=== PATIENT | female | born 1960 | race Caucasian/White ===

== ENCOUNTER → 2020-08-26 08:52 | Outpatient (BNVA) | payer OTHER, MEDICAID, SELFPAY | PROVIDERS: PCP Pediatrics; Visit Provider Hospitalist | DX: Z76.89 Persons encountering health services in other specified circumstances (principal) ==

== ENCOUNTER → 2020-10-31 08:33 | Outpatient (BNVA) | payer OTHER, MEDICAID, SELFPAY | PROVIDERS: PCP Pediatrics; Visit Provider Hospitalist ==

== ENCOUNTER → 2021-01-29 08:30 | Outpatient (BNVA) | payer OTHER, MEDICAID, SELFPAY | PROVIDERS: PCP Pediatrics; Visit Provider Hospitalist ==

== ENCOUNTER → 2021-02-27 14:53 | Outpatient (BNVA) | payer OTHER, MEDICAID, SELFPAY | PROVIDERS: PCP Pediatrics; Visit Provider Hospitalist ==

== ENCOUNTER → 2021-03-12 09:44 | Outpatient (BNVA) | payer OTHER, MEDICAID, SELFPAY | PROVIDERS: PCP Pediatrics; Visit Provider Hospitalist ==

== ENCOUNTER 2021-04-03 09:21 | Day surgery (SDC) | payer OTHER, MEDICAID, SELFPAY ==
[2021-04-03] VITALS (7 sets, daily range): BP systolic 90–106; BP diastolic 45–54; PULSE 77–86; RESP 18; TEMP 36.3–36.5; O2SAT 94–100; BMI 27.3
--- NOTE | 2021-04-03 10:21 | HO.ANESPROP2 ---
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, pulmonary Pacemaker Family History Family History Other Hypertension Surgical History Surgical History H/O right mastectomy H/O splenectomy H/O: hysterectomy History of cholecystectomy Social History Social History Patient Tobacco Use Status: Former Tobacco user Use of substances other than those prescribed or required for medical reasons: No Are you DNR?: No Advance Directives: No Advance Directives Information Provided: Yes Meds Allergies Allergy/AdvReac Type Severity Reaction Status Date / Time clarithromycin Allergy Intermediate RASH Verified 04/03/21 09:33 [CLARITHROMYCIN] codeine [CODEINE] Allergy Intermediate STOMACH Verified 04/03/21 09:33 PAIN- GI UPSET naproxen [NAPROXEN] Allergy Intermediate GI PAIN, Verified 04/03/21 09:33 DIARRHEA Sulfa (Sulfonamide Allergy Intermediate RASH Verified 04/03/21 09:33 Antibiotics) [SULFA (SULFONAMIDE ANTIBIOTICS)] sulfamethoxazole Allergy Intermediate RASH Verified 04/03/21 09:33 [From BACTRIM] trimethoprim [From BACTRIM] Allergy Intermediate RASH Verified 04/03/21 09:33 Home Medications Medication Instructions Recorded Confirmed Last Taken Type bisoprolol fumarate 5 mg tablet 15 mg PO Q OTHER DAY 08/26/20 03/12/21 Unknown History flu vac qs 2019(4 yr up)CD(PF) ml IM 08/26/20 03/12/21 Unknown History levothyroxine 75 mcg tablet 75 mcg PO DAILY 08/26/20 03/12/21 04/03/21 04:00 History loratadine 10 mg tablet 10 mg PO DAILY 08/26/20 03/12/21 04/03/21 06:00 History lorazepam 0.5 mg tablet 0.5 mg PO DAILY PRN 08/26/20 03/12/21 Unknown History omeprazole 20 mg capsule,delayed 20 mg PO DAILY 08/26/20 03/12/21 04/03/21 06:00 History release ondansetron HCl 4 mg tablet mg PO 08/26/20 03/12/21 Unknown History oxycodone-acetaminophen 5 mg-325 1 tab PO QID PRN 08/26/20 03/12/21 Unknown History mg tablet sodium chloride 3 % for 4 ml INHALATION BID 08/26/20 03/12/21 Unknown History nebulization polyethylene glycol 3350 17 17 g PO DAILY PRN 01/29/21 03/12/21 Unknown History gram/dose oral powder sacubitril 24 mg-valsartan 26 mg 1 tab PO BID 01/29/21 03/12/21 Unknown History tablet clotrimazole-betamethasone 1 appl TOPICAL 03/12/21 03/12/21 Unknown History %-0.05 % topical cream lorazepam 1 mg tablet mg PO 03/12/21 03/12/21 Unknown History Exam Exam Date and Time: April 03, 2021 1021 Height,Weight and Vital Signs: Height 5 ft 4 in Weight 72.121 kg Last Vital Signs Temp 97.7 F 04/03/21 09:56 Pulse 82 04/03/21 09:56 Resp 18 04/03/21 09:56 BP 106/53 L 04/03/21 09:56 Pulse Ox 98 04/03/21 09:56 Airway Mallampati Class: II TM Dist: >3cm Neck ROM: Full Loose/Missing/Broken Teeth: No Heart: RRR Lungs: CTA Assessment and Plan Assessment Anesthesia Assessment: Anesthesia Plan Discussed and Chart Reviewed Final Anesthetic Review NPO: Yes ASA Class: III Final Preanesthetic Review: Meds/Allgs Chart Reviewed, Consent Obtained/Reviewed and Anes Risks/Benef Reviewed Patient Risk: Intermediate Procedure Risk: Intermediate Anesthetic Plan Anesthetic Plan: GA Disposition: Standard PACU
[2021-04-03] MEDS: Lactated Ringers 1,000 ML 50 ML IVCONT (10:48)
--- NOTE | 2021-04-03 11:05 | MHC.SHP ---
Pre-Procedural Eval Section A Date of Service: 04/03/21 Section B Chief Complaint: bronchitasis Allergies: Allergies Allergy/AdvReac Type Severity Reaction Status Date / Time clarithromycin Allergy Intermediate RASH Verified 04/03/21 09:33 [CLARITHROMYCIN] codeine [CODEINE] Allergy Intermediate STOMACH Verified 04/03/21 09:33 PAIN- GI UPSET naproxen [NAPROXEN] Allergy Intermediate GI PAIN, Verified 04/03/21 09:33 DIARRHEA Sulfa (Sulfonamide Allergy Intermediate RASH Verified 04/03/21 09:33 Antibiotics) [SULFA (SULFONAMIDE ANTIBIOTICS)] sulfamethoxazole Allergy Intermediate RASH Verified 04/03/21 09:33 [From BACTRIM] trimethoprim [From BACTRIM] Allergy Intermediate RASH Verified 04/03/21 09:33 Plan I have reviewed the history and physical and performed a pertinent physical examination on my patient. No changes have occurred unless specified.
--- NOTE | 2021-04-03 12:37 | P.BOP_ITS ---
Brief Operative Note Date of Service: 04/03/21 Pre-op diagnosis: bronchopneumonia Post-op diagnosis: same Procedure: Surgeon: Sanju Stallings MD Anesthesia: GLMA Was an [employer] History Professor used for this Procedure?: No Estimated blood loss (mL): 0 Condition: stable Disposition: same day
--- NOTE | 2021-04-08 09:02 | OP_ITS ---
SURGEON: Sanju Stallings MD PREOPERATIVE DIAGNOSIS: Bronchopneumonia. POSTOPERATIVE DIAGNOSIS: Bronchopneumonia. PROCEDURE PERFORMED: Bronchoscopy under LMA with brushings and washings and therapeutic suctioning. ESTIMATED BLOOD LOSS: COMPLICATIONS: No complications noted. ANESTHESIA: LMA. Propofol was provided. The patient tolerated it well. ASSISTANTS: SPECIMENS: DESCRIPTION OF PROCEDURE: After the patient was adequately sedated, the flexible digital bronchoscope was inserted over the LMA to the level of the vocal cords. Vocal cords in the larynx appeared to be normal in appearance, symmetrical. After instilling lidocaine, the bronchoscope was navigated to the level of the trachea. The trachea did have a slight bit of malacia, but not significant. The patient did have purulent secretions in the central airways, moderate in amount. After instilling additional lidocaine, the bronchoscope was navigated to the entire tracheobronchial tree, that was examined to the subsegmental level. No evidence of any endobronchial lesions or masses. The patient did have chronic airway dilatation and chronic airway disease with chronic inflammation appearing airways, bronchiectatic looking airways throughout and again moderate amount of purulent secretions. The bronchoscope was navigated to the right lower lobe and a cytologic brush was introduced into that site. The bronchoscope was navigated to the left lower lobe, where a micro brush was introduced into the left lower lobe and sent to the appropriate microbiology studies. The bronchoscope was navigated to the entire tracheobronchial tree up to the subsegmental level with bronchial washings and providing therapeutic suctioning, removing all mucus from the airways. The bronchoscope was then removed. The total endoscopic time approximately 12 minutes. The patient tolerated the procedure well. Vital signs were stable throughout the procedure. INTERPRETATION: 1. Successful therapeutic suctioning of bronchoscopy. 2. Cytologic brush, right lower lobe. 3. Microscopic culture brush from the left lower lobe. 4. Bronchial washings bilaterally. Sanju Stallings MD MR/MODL / [id number]
== END 2021-04-03 13:05 | disposition home or self-care (01) ==
PROVIDERS: PCP Pediatrics; Visit Provider Hospitalist
PROC: 0BJ08ZZ Inspection of Tracheobronchial Tree, Via Natural or Artificial Opening Endoscopic (ICD-10-PCS; CPT 31622; principal; 2021-04-03 11:00)
DX: J18.0 Bronchopneumonia, unspecified organism (principal); J47.9 Bronchiectasis, uncomplicated; J45.40 Moderate persistent asthma, uncomplicated; J18.9 Pneumonia, unspecified organism; A31.0 Pulmonary mycobacterial infection; A49.8 Other bacterial infections of unspecified site; Z16.24 Resistance to multiple antibiotics; Z22.8 Carrier of other infectious diseases; I42.8 Other cardiomyopathies; C85.90 Non-Hodgkin lymphoma, unspecified, unspecified site; Z85.3 Personal history of malignant neoplasm of breast; Z92.21 Personal history of antineoplastic chemotherapy; Z92.3 Personal history of irradiation; Z87.891 Personal history of nicotine dependence; Z88.1 Allergy status to other antibiotic agents; Z88.2 Allergy status to sulfonamides; Z88.8 Allergy status to other drugs, medicaments and biological substances; Z79.899 Other long term (current) drug therapy; Z79.51 Long term (current) use of inhaled steroids
CPT/HCPCS: 31623; 31645; 87071; 87102; 87116; 87205; 88112; 88305; J0171; J1100; J2250; J2405; J3010

== ENCOUNTER → 2021-04-17 09:46 | Outpatient (BNVA) | payer OTHER, MEDICAID, SELFPAY | PROVIDERS: PCP Pediatrics; Visit Provider Hospitalist ==

== ENCOUNTER → 2021-05-14 08:20 | Outpatient (BNVA) | payer OTHER, MEDICAID, SELFPAY | PROVIDERS: PCP Pediatrics; Visit Provider Hospitalist ==

== ENCOUNTER → 2021-06-17 08:41 | Outpatient (BNVA) | payer OTHER, MEDICAID, SELFPAY | PROVIDERS: PCP Pediatrics; Visit Provider Hospitalist | DX: J18.9 Pneumonia, unspecified organism (principal) ==

== ENCOUNTER → 2021-07-09 10:46 | Outpatient (BNVA) | payer OTHER, MEDICAID, SELFPAY | PROVIDERS: PCP Pediatrics; Visit Provider Hospitalist ==

== ENCOUNTER → 2021-08-06 09:07 | Outpatient (BNVA) | payer OTHER, MEDICAID, SELFPAY | PROVIDERS: PCP Pediatrics; Visit Provider Hospitalist | DX: R91.8 Other nonspecific abnormal finding of lung field (principal) ==

== ENCOUNTER → 2021-09-17 10:13 | Outpatient (BNVA) | payer OTHER, MEDICAID, SELFPAY | PROVIDERS: PCP Pediatrics; Visit Provider Hospitalist ==

== ENCOUNTER → 2021-10-14 13:13 | Outpatient (BNVA) | payer OTHER, MEDICAID, SELFPAY | PROVIDERS: PCP Pediatrics; Visit Provider Hospitalist ==

== ENCOUNTER → 2021-12-26 11:07 | Outpatient (BNVA) | payer OTHER, MEDICAID, SELFPAY | PROVIDERS: PCP Pediatrics; Visit Provider Hospitalist | DX: Z13.89 Encounter for screening for other disorder (principal) ==

== ENCOUNTER 2023-05-05 09:20 | Outpatient (AMB) | payer OTHER, MEDICAID, SELFPAY ==
[2023-05-05 09:32] VITALS: BP 124/70; PULSE 85; O2SAT 99; BMI 26.6
--- NOTE | 2023-05-05 09:32 | MHC.OFFVIS ---
Intake Vital Signs 05/05/23 09:32 Height 5 ft 3 in Weight 150 lb 5.684 oz BMI 26.6 BP 124/70 Blood Pressure Location Lt brachial Position Sitting Pulse 85 Pulse Source Pulse Oximeter Pulse Oximetry (%) 99 Oxygen Delivery Method Room Air Intake Visit Reasons: Hospital Follow Up Senior Professional Services Consultant Required: No Allergies prochlorperazine [From Compazine] Allergy (Severe, Verified 05/05/23 09:36) Agitated clarithromycin [CLARITHROMYCIN] Allergy (Intermediate, Verified 05/05/23 09:36) RASH codeine [CODEINE] Allergy (Intermediate, Verified 05/05/23 09:36) STOMACH PAIN- GI UPSET naproxen [NAPROXEN] Allergy (Intermediate, Verified 05/05/23 09:36) GI PAIN, DIARRHEA Sulfa (Sulfonamide Antibiotics) [SULFA (SULFONAMIDE ANTIBIOTICS)] Allergy (Intermediate, Verified 05/05/23 09:36) RASH sulfamethoxazole [From BACTRIM] Allergy (Intermediate, Verified 05/05/23 09:36) RASH trimethoprim [From BACTRIM] Allergy (Intermediate, Verified 05/05/23 09:36) RASH HPI HPI Comments History of Present Illness Details The patient is a 62-year-old woman with a known history of breast cancer, 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 Also has underlying bronchiectasis and nonischemic cardiomyopathy likely related to her chemo radiation. She currently has been doing very well. Until recently when she started noticing worsening shortness of breath. She also has some hoarseness. Also some raspiness of her voice. [id number] severity. Started noticing increasing shortness of breath. Has been using her inhaler with good effect. Has not use her nebulizer although it may help her expectorate better with the nebulized therapy. We talked also using hypertonic saline as a way of minimizing medications. We did go for brief walking oximetry in the patient was able to maintain a pulse ox between 94-96%. Heart rate stayed below 100. She was increasing to get more winded. Her Liscomb score is elevated 09/26. At this point based on a daytime drowsiness her cardiac history and her elevated Liscomb score the patient will also undergo a sleep study. 03/26/2020 The patient is here for pulmonary follow-up visit. She is feeling better from the last visit we had via [facility]. She still having some cough productive in nature [id number] severity. Her breathing is back to baseline. She continues to use her respiratory therapy. We did talk about her previous cultures demonstrating different strains mycobacterial organisms. She had been working in her garden but she has been using a mask to try to minimize exposure. At this point the patient does not appear to have active disease in maybe just colonizing. If her sputum comes back again positive for the organism then we have to consider a active infection. However, because of her cardiac issues to be hard to treat her. We did talk about in that case she may need to go to [place] to a [facility]ty [facility]. She continues to have daytime drowsiness. Her Liscomb score is elevated 09/26. She has not had her sleep study as of yet. It all became slow down due to the COVID-19 infections. However, will follow-up without study in the near future once available. 06/27/2020 the patient is here for pulmonary follow-up visit. She is status post bronchoscopy. Unfortunately after the bronchoscopy she developed significant intractable nausea and vomiting. She was not able to take any of her cardiac medications. Therefore after couple days she decided to go to the ER after my recommendation. She was hydrated and she was capped for 24 hours. It was noted that she had transaminitis which could have been from anesthesia. 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 Which still waiting for her mycobacterial cultures to come back. She had had been positive in the past. Based on her significant bronchiectasis now will resistant organisms in multiple courses of antibiotics we need to increase her CPT. The patient failed Acapella. I will request a percussion vest in addition to hypertonic saline along with her Xopenex. Patient will need to be evaluated by Infectious Disease as well. She has multiple allergies and multiple contraindications due to her cardiomyopathy. In the meantime I will treated with doxycycline to treat the stenotrophomonas. 08/26/2020 the patient is here for pulmonary follow-up visit. Overall she is feeling a lot better. The chest PT with hypertonic saline and the percussion vest having very effective for her. She is also using the Xopenex with good results. Her respiratory symptoms have improved. She did stop the minocycline and went back on the doxycycline due to dizziness and other adverse effects. She is tolerating the doxycycline and is taking it once a day at this time. Will plan to treat her for prolonged period of time until I see her in a couple months. She did follow-up with Infectious Disease and currently being evaluated. Her galactomannan level was negative with which is reassuring for the Aspergillus is most likely more contaminant than anything else. No need to treat the other organisms at this time. 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 She will be very difficult to treat due to her cardiac history. If she does need any treatment for the mycobacterial disease she would need to go to [facility] mycobacterial clinic. 10/31/2020 the patient has a telephone visit. Overall the patient has been doing very well. She has been using the hypertonic saline at 3%. She has noticed that she is also using the percussion vest with good effect. Her cough significantly improved. She continues with respiratory therapy. She has a hard time getting the smaller via so the 3% hypertonic saline. Therefore will try the 7% that they do have the pharmacy. We did review her microbiology. It appeared that her micro brushes for AFB were negative but her washings could not be process. Will call [facility] in [place] to get a final results of the AFB in the mycobacterial cultures. I am reassured at this point that she is feeling better just on the doxycycline once a day. She is to continue his medicine. She did get some back pain for the percussion vest pets doing better at this time. She is only using it once a day which is okay. If she gets more congested her sick she is to increase it the use of the percussion vest. The patient will get vaccinated soon. She has multiple comorbidities including cardiomyopathy bronchiectasis and multiple recurrent pneumonia so therefore the patient is to be vaccinated an earlier time. Otherwise patient is without any other complaints. 01/29/2021 the patient has a virtual visit today. Apparently she has been sick now for about 5 days. She started having fevers and sore throat along with a cough. She did get swab for COVID-19 which was negative. Her fevers have been intermittent. Last night she did have significant sweating and she feels this was a good thing. Her cough is more congested and has more chest tightness. She did take 40 mg of prednisone yesterday. It did help her little bit. The patient has been taking the doxycycline initially once a day that she increase her to twice a day. In addition to that she had a chest x-ray demonstrating a small area of patchy consolidation in the area of the left lingular area. The patient is concerned with multiple bacteria and organisms that she has cultured throughout the the years. At this point will optimize her antibiotic coverage advanced into the doxycycline. In addition to that she will taper the prednisone. Will plan to repeat chest x-ray in around 4 weeks specially if the patient is doing okay to follow up the x-rays to resolution. If the symptoms are not not getting better with the broader antibiotics and will have to reassess. 02/27/2021 the patient is here for pulmonary follow-up visit. She completed the antibiotics. Overall she is feeling better. She took a combination of doxycycline and Vantin. Currently she is still taking doxycycline for the stenotrophomonas. She did have a repeat chest x-ray demonstrating interval resolution of the patchy consolidation consistent with a pneumonia. It is important to understand that she has significant chronic lung disease from the fibrosis in the smoldering infections therefore x-rays of very difficult to interpret her case. For for the last few days she has felt a little more congested. She has been using her percussion vest as well as her nebulized therapy with albuterol and 3% hypertonic saline. I am hoping that we can get another sputum sample if she starts getting more congested. In the meantime all increase her hypertonic saline to 7%. She will continue with the doxycycline 1 daily. We briefly spoke about the mycobacterium abscesses. The patient understands that this is very difficult medication regimen that she would require to treat this organism. Primary with her cardiac history and the limitations of medications due to QT conduction abnormalities I will recommend the patient follow-up in a mycobacterial clinic if ever comes to needing to treated. At this time she is doing okay she has had a good response to aggressive chest physical therapy. 03/12/2021 the patient is here for sick visit. Apparently she had been doing well after we last spoke. She continue to perform her CPT without any difficulties. However she had a cough that appeared to be getting worse. Subsequently 3 days ago she started developing fevers and felt tired. She started complaining of some back pain. She did go to [facility] which she had a comprehensive evaluation. Initially his chest x-ray was without any acute disease so therefore she underwent a CT scan of the chest. It demonstrated a left lower lobe airspace disease in addition to a ground-glass nodular density her right side. She also has her chronic fibrotic changes and bronchiectatic to the that have been noted before. The patient was offered to be admitted briefly. But, the patient refusing she went home on Vantin. She has been on Vantin now for couple days and she started to feel better. Denies any fevers or chills. She continues to cough but not as bad. She still feels tired. She has been complaining of nausea while taking the antibiotics. I did suggest that she can start the doxycycline while she is on Vantin to minimize the GI side effects. In the meantime the patient is scheduled to undergo an echocardiogram next week. It was noted on the CAT scan that her pulmonary trunk was elevated consistent with pulmonary hypertension. We did talk about repeating the bronchoscopy. However, clinically she is doing better she is currently getting antibiotics and we did send a sputum culture just yesterday and waiting for those results. If the patient continues to do well with follow-up with CT scan a couple months to make sure that the pneumonia clears and to make sure that the nodular density does not increasing size. If the findings are still present or if the patient continues to be symptomatic will perform a bronchoscopy. However, she has significant adverse effects and she had evidence of hepatitis and intractable vomiting during her last procedure. Therefore any procedures specially with a cardiac history with the consider high risk. 04/17/2021 the patient is here for pulmonary follow-up visit. The patient is status post bronchoscopy. 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 DNA testing negative for MTB. The patient has a history of mycobacteria abscessus. clinically the patient has been developing worsening respiratory symptoms. She has had recurrent pneumonia is on multiple courses of antibiotics. Now on ciprofloxacin. Initially she was on a higher dose of 250 mg. But, became symptomatic with GI symptoms. Therefore I was able to decrease the dose to 100 mg twice a day which seems to be better tolerated. In the meantime based on worsening symptoms in the active worsening mycobacterial disease I will request the patient started on amikacin inhaled. The patient has significant limitations to antibiotics due to her cardiomyopathy. Therefore, once we and identify the non tuberculosis mycobacterial organism we can request for antibiotic susceptibility. In the meantime the patient continues using her percussion vest. Will increase her hypertonic saline to 7% and she should use twice a day. In the meantime she is going to continue on the Cipro 100 mg p.o. twice a day hold to treat the Burkholderia. to note the patient did have a CT scan of the chest with a new pulmonary nodule that will need follow-up. The patient also had a dilated pulmonary trunk suggesting pulmonary hypertension. She will be seen by her patient assessment coordinator soon. In addition to following up with Infectious Disease at [facility]. 05/13/2021 the patient is here for pulmonary follow-up visit. The patient has been feeling better. She responded very well to the lower dose ciprofloxacin. However, her insurance is not going to cover the lower dose any further. She needs it again will try the 250 mg dose. Meantime explained to her that the use of chronic quinolones although acute be helpful treating the mycobacterial disease could result in the possibility of C diff colitis. Therefore, since the patient is feeling better will hold off on more quinolone therapy. The patient once approved for the initiation of inhaled amikacin. Explained to the patient based on her continued positive cultures with the NTM the new pulmonary nodules and recurrent pneumonias it is reasonable to start a regimen to minimize the progression this bacterial infection. Patient does have significant risk factors with her cardiomyopathy. She also has significant allergies. However, the same time inhaled amikacin should not be used by itself. I do believe that the combination of macrolide therapy and inhaled amikacin may be adequate at this time. We are waiting for the susceptibilities for the mycobacterium abscesses. However, sometimes the in vitro and vivo response to antibiotics may defer. The patient will follow-up with Dr. Claudio from [facility] Infectious Disease regarding the question of the regimen. In regards to the Burkholderia it is sensitive to the quinolones and she is better after the Cipro. At this point my recommendation is to hold off on further antibiotic therapy for it and continue with aggressive chest PT with hypertonic saline and the percussion vest. The patient does have a new pulmonary nodule the my suspicion is related to the underlying infectious process. Therefore, when she started on some antibiotic regimen then we can schedule a follow-up CT scan to see if there is any improvement of the nodular density. 06/17/2021 the patient is here for a pulmonary follow-up visit. She has been on the amikacin inhaled therapy daily in addition to the azithromycin daily. She continues with the nebulized therapy and also has been using her percussion vest. Seems like is a lot of therapy and she has tried fitted in through a full day's work. Typically does it in the evening when she gets home. Her respiratory status has been improving and she has noticed clinical improvement as well. Her cough is dry significant decreasing her mucus burden. I encouraged her to continue with therapy as it has been effective. Will plan to follow-up with the pulmonary nodules in 3 months. In the meantime she was found to have abnormal mammography and she is going to have a further diagnostic study coming up. In addition to that she will follow-up with cardiology. She is taking a macrolide that can potentially affect her QT. Therefore serial EKGs are warranted I am hopeful that at some point if her symptoms continue to be stable we can decrease the dose of the frequency of the macrolide to minimize adverse effects. 07/09/2021 the patient is here for a pulmonary follow-up visit. 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 It was noted the patient had bilateral pulmonary nodules. But, a new ground-glass the nodule on the right that was suspicious. Since that point the patient was found to have an abnormal mammogram and did require biopsy diagnosing her with recurrent breast cancer. In addition to that the patient did go to receive a booster shot for COVID-19 and developed significant fevers and shortness of breath palpitations. She went to the ER which she had a repeat CT scan of the chest demonstrating some waxing waning pulmonary nodules now more obvious on the left lower lobe and the right lower lobe nodular density appeared to have resolved. Other new nodules in the right base also been documented. Therefore, it is not clear these pulmonary nodules are related to the infectious process or there could be any concern for metastatic disease. I did personally review the CAT scans. They do not strike me like the typical cannonball type of hematogenous spreading cancer. but, we cannot rule it out completely. My suspicion at this time or infectious etiologies specially with bronchiectasis and with the worsening non tuberculosis mycobacteria infection. Back and late summer the patient did undergo bronchoscopy with brushings and washings negative for malignancy. The mycobacterial cultures were indeed positive. She has only been on therapy now for about 6 weeks and has been not enough time to see any affect from the antimicrobial therapy at this point the patient needs to undergo surgery. I did speak to the surgical teen that we opted on requesting for PET scan at this time. This would help with further diagnostic interventions and management. I will request the PET scan urgently in order not to slow down the possibility of surgery. From a pulmonary standpoint the patient has been doing very good on the amikacin and the azithromycin. More recently she started becoming more symptomatic to the azithromycin with increasing GI upset and diarrhea and she did stop it. she will continue the amikacin nebulized therapy at this time. 08/06/2021 the patient is here for pulmonary follow-up visit. Overall she is doing well from a respiratory status. We did review her PET scan demonstrating minimal FDG activity in the left lower lobe pulmonary nodules. Actually based on size they appear to be smaller in diameter when compared to the CAT scan she had in June which is reassuring. 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 The patient has been on inhaled amikacin. This has been effective for her. She had to come off the azithromycin because he was causing her to have GI discomforts. But at this point she is noticing increasing chest congestion and mucus in therefore will go ahead and start the medicine in order to optimize her for her surgery. She will start the azithromycin 3 times a week. If the patient has any worsening GI symptoms will can discuss about adjusting the dose further. But I am hopeful she can not tolerated at least 3 times a week. Her surgery is scheduled for next week she will have both the mastectomy and also Plastic surgery. Due to the type of breast cancer she will require chemotherapy. I am hopeful that based on the PET scan there is no local spread. Will follow-up in 3 months. 09/17/2021 the patient is here for a pulmonary follow-up visit. She is status post her mastectomy sentinel node biopsy. No evidence of any cancer in any of the lymph nodes which is reassuring. 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 The patient does have limitations due to her cardiac and pulmonary conditions. After surgery she was coughing more with the amikacin nebulized therapy and therefore she stopped it. She was also having GI symptoms with the azithromycin so therefore she stop that as well. More recently she started getting more episodes of coughing and congestion. Therefore I do feel strongly that she restarts the amikacin specially before chemotherapy. Patient will be starting chemotherapy tomorrow. If she is able to tolerate the amikacin the chemotherapy then she can restart the azithromycin. This is also treat the multiple organisms in her lungs specially when becoming immunocompromised with chemotherapy. I did speak to her oncologist and she does develop any fevers when he respiratory infections then it is okay to use a low-dose quinolone that she can not tolerate or a broad-spectrum cephalosporin like Vantin. The patient has not been able to use her chest percussion vest due to her postoperative discomfort in healing. I did ask her to discuss with her plastic surgeon and surgeon when he will be okay for her to start her percussion therapy safely and not affecting and of her surgical recovery. 10/14/2021 the patient is here for a pulmonary follow-up visit. The patient ultimately started chemotherapy. Unfortunately, she has had a ang[address]. She was able to received the 1st course of chemotherapy. However complicated by hypotension and then volume overload status. Ultimately she started developing worsening cough along with hemoptysis. She had to stop the azithromycin and also the amikacin. The patient went to an urgent care and was diagnosed with pneumonia. She also had a small pleural effusion resulting in some pleurisy. The patient was placed on Augmentin and also given a course of prednisone. This has been helpful. The patient has started to feel better. She is scheduled to receive her 2nd dose of chemotherapy this . The patient states that if she has any issues tolerating the chemotherapy the chemotherapy may be terminated. She will continue to follow with her oncologist regarding this issue. In the meantime I do believe that her respiratory status is better and she will be able to tolerated chemotherapy this coming if nothing else changes. We will continue holding off on the amikacin. Patient continues to work. Will keep her from working this week and I believe she should also consider not going back to work next week specially with the COVID-19 surge is still high. 12/26/2021 the patient has a telephone visit. 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 Recently she was exposed to a viral syndrome and she did developed laryngitis. She is not recovering from that. Has not really affected her respiratory system. She has been coughing does have a chronic productive cough. She did restart the amikacin recently. She understands that that can also make her voice hoarse. Also, I did encourage her to start the azithromycin. She did have a CT scan ordered which is going to have sometime the end of January. Therefore I want her to be on the mycobacterial therapy and continue her chest physical therapy in order to clear mucus prior to the CT scan. I am hopeful that the nodular density is stable or improved. The patient also will follow-up with oncology to monitor her breast cancer history. 03/30/2022 the patient is here for pulmonary follow-up visit. Since we last spoke she has been doing very well from a respiratory status. She continues use her inhalers but has not had to use any rescue medicine. She also stop the azithromycin and the amikacin nebulized solution and also has been doing well from that aspect. Her chest congestion has improved dramatically. She thinks is from the chemotherapy she received. We did review her last CT scan of the chest that was done back in June 2021 demonstrating the pulmonary nodules and subsequently had a PET scan in July 2021. Will plan to repeat the CT scan to follow up with the nodules sometime in July 2022. in the meantime she has been evaluated further for her parathyroid them have also been affected as a consequence of her radiation therapy in addition to now dealing with some left-sided extremity radicular discomfort and back discomfort currently being evaluated by her primary care doctor and will be undergoing an MRI soon. Overall, is reassuring that at least from a pulmonary standpoint she is doing well. She does have the hoarseness. She was treated with fluconazole for Xuan esophagitis without any significant improvement. I will go ahead and prescribe her nystatin swish and swallow that she can use twice a day to see if this gives her some relief. In the meantime she does have a follow-up with ENT in the coming weeks. Also to note, she was diagnosed with a new compression fracture. She has been off systemic steroids for a while now. However, she is taking Protonix twice a day. I did recommend that she back off to at least once a day and also started to reflux diet to minimize symptoms. She will be following up with Endocrinology regarding her osteoporosis in the coming weeks. 05/29/2022 the patient is here to follow-up after her abnormal PET scan. The patient has been doing well from a respiratory status. She denies any significant chest congestion or shortness of breath. She has not had to use her rescue medicine. the only respiratory issues she has been having significant hoarseness. 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 They recommended Botox which will help with her symptoms. I do believe that if this provides some relief for her she should pursue it. It is aggravating her at work specially since she has to use her voice a lot. As far as microaspiration she has been doing well from a respiratory status I do not believe that is resulting in more micro aspirations at this time. In the meantime she did follow-up with her oncologist and did undergo a repeat PET scans. It demonstrated resolution of her left lower lobe nodular densities which is reassuring. Although, now she has left upper lobe hazy nodular densities that are very mildly avid on the PET scan with an SUV of 2.4 max. The patient had been doing very well on her anti mycobacterial therapy with the azithromycin and the amikacin inhaled. However, since she was having some issues with tolerating the therapy and since she was doing well she decided to stop the therapy. 09/07/2022 the patient is here for a pulmonary follow-up visit. Overall she is doing very well from a respiratory status. She is tolerating the azithromycin 3 times a week. Recently she did get her COVID-19 booster And she ended up developing significant GI symptoms. She actually became very dehydrated and she was briefly admitted to [facility]. She was given IV fluids and she was noted to have acute renal failure. She will follow up closely with primary care regarding does abnormal laboratories. In the meantime she did undergo a CT scan of the chest that I personally reviewed which actually demonstrated interval resolution or partial resolution of the left upper lobe nodular densities which is reassuring. In the hospital she did have a chest x-ray demonstrating no acute disease. The patient was not able to start the amikacin because we were not able to get any sputums for cultures for AFB. But at this point the patient appears to be doing well on her current therapy. She is also concerned about sciatica pain. She is also having although dermatomal distributions and she is always concerned about the possibility of cancer. Ultimately from a pulmonary standpoint it is been reassuring that her nodular densities are resolving and therefore suggesting more infectious or inflammatory process. 05/05/2023 the patient is here for pulmonary follow-up visit the patient recently was as is initially she developed intractable nausea and vomiting malaise and fevers. She tested positive for COVID-19. Initially she was hydrated and discharged and subsequently came back with worsening symptoms. She was briefly admitted. She will have an x-ray demonstrating a left lower lobe opacities suggesting pneumonia. She was placed on broad-spectrum antibiotics and also Decadron. She was discharged home after the 1st days she had a hard time tolerating the antibiotics and she call the office here and we had her stop the antibiotics after 4 days. The patient had been on doxycycline. And also after couple days more she had to stop the Decadron because it was too strong. She had been on the 6 mg daily for ago. Currently she does feel better she still tired. This morning she is still tested positive for COVID-19 unfortunately. Explained to her that with the use of prednisone her comorbidities she is likely will take a longer time to completely clear the virus. I do believe that based on the x-ray which I personally reviewed demonstrating the hazy left lower lobe opacity that she should go ahead and restart antibiotics to make sure complete treatment of a lower respiratory infection. She does have azithromycin at home. She complained that. She also has multiple allergies will hold off on additional therapies. She does need any more steroids at this time. Lungs actually sound pretty clear. 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, pulmonary Pacemaker Pre-op chest exam Pulmonary hypertension Pulmonary nodules Pulmonary nodules Recurrent breast cancer Surgical History H/O right mastectomy H/O splenectomy H/O: hysterectomy History of cholecystectomy Family History Other Hypertension Social History (Updated 08/06/21 @ 09:25 by Ashanti Anguiano [facility]) Patient Tobacco Use Status: Former Tobacco user Tobacco use type: Cigarette Years Smoked: 10 years Review of Systems Const Denies chills, Reports fatigue, Denies fever(s) and Denies night sweats ENT Denies change in voice, Reports hoarseness, Denies lip swelling, Denies mouth pain, Reports nasal congestion, Reports post nasal drip and Denies tongue swelling Card Denies chest pain Resp Denies change in phlegm color, Denies chest congestion, Reports cough, Denies hemoptysis and Denies excessive phlegm production GI Denies abdominal pain, Denies bloating, Denies change in bowel habits, Denies dyspepsia, Denies heartburn, Denies diarrhea and Denies nausea Musc Denies no additional complaints and Reports back pain Skin/Breast Reports as per HPI Neuro Denies Neuro-related abnormal movements, Reports radicular pain and Reports paresthesias Psych Denies no additional complaints and Reports change in appetite Endo Reports fatigue Guzman/Lymph Denies easy bleeding and Denies lymphadenopathy Aller/Immun Denies lip swelling and Denies tongue swelling Physical Exam Vital Signs: Last Vital Signs Pulse 85 05/05/23 09:32 BP 124/70 05/05/23 09:32 Pulse Ox 99 05/05/23 09:32 Oxygen Delivery Method Room Air 05/05/23 09:32 BMI result Body Mass Index 26.6 Const General: comfortable and alert HEENT Throat: Yes postnasal drainage Eyes Pupils: Equal, round and reactive pupils present Neck Neck: Yes normal visual inspection, Yes full ROM and Yes no lymphadenopathy Chest Chest palpation & inspection: normal inspection of the chest Resp Auscultation: clear to auscultation bilaterally, no rhonchi and no wheezes Cardio Rate: regular rate Rhythm: regular rhythm Heart sounds: S1 normal heart sound present and S2 normal heart sound present GI Palpation (GI): Soft to palpation and nontender Auscultation: normal bowel sounds Skin General skin exam: rashes and/or lesions noted Neuro Cranial nerves: Yes Equal, round and reactive pupils present Assessment & Plan Assessment & Plan (1) Pneumonia: Code(s): J18.9 - Pneumonia, unspecified organism Qualifiers: Laterality: left Lung location: lower lobe of lung Pneumonia type: due to unspecified organism Qualified Code(s): J18.9 - Pneumonia, unspecified organism (2) Mycobacterial disease, pulmonary: Comment: clinically better Code(s): A31.0 - Pulmonary mycobacterial infection (3) Bronchiectasis: Code(s): J47.9 - Bronchiectasis, uncomplicated Qualifiers: Bronchiectasis type: uncomplicated Qualified Code(s): J47.9 - Bronchiectasis, uncomplicated (4) Cardiomyopathy: Comment: related to XRT from the lymphoma history Code(s): I42.9 - Cardiomyopathy, unspecified Qualifiers: Cardiomyopathy type: unspecified Qualified Code(s): I42.9 - Cardiomyopathy, unspecified (5) Pulmonary hypertension: Code(s): I27.20 - Pulmonary hypertension, unspecified (6) Pulmonary nodules: Code(s): R91.8 - Other nonspecific abnormal finding of lung field (7) COVID-19: Code(s): U07.1 - COVID-19 Plan Azithromycin 500mg x 5 days Continue CPT with nebulized therapy, hypertonic saline continue Advair ans Spirva STEFANI as needed CXR in 1-2 weeks F/U in 3-4 months Orders: Orders XR chest 2V Today J18.9 - Pneumonia, unspecified organism Coding Level of Care Code Est Pt Level 4 (86475) Diagnoses Pneumonia J18.9 Laterality: left Lung location: lower lobe of lung Pneumonia type: due to unspecified organism Mycobacterial disease, pulmonary A31.0 Bronchiectasis J47.9 Bronchiectasis type: uncomplicated Cardiomyopathy I42.9 Cardiomyopathy type: unspecified Pulmonary hypertension I27.20 Pulmonary nodules R91.8 COVID-19 U07.1 Time Spent (min) 20
== END 2023-05-05 09:55 | disposition home or self-care (01) ==
PROVIDERS: PCP Pediatrics; Visit Provider Hospitalist
DX: J18.9 Pneumonia, unspecified organism (principal); A31.0 Pulmonary mycobacterial infection; J47.9 Bronchiectasis, uncomplicated; I42.9 Cardiomyopathy, unspecified; I27.20 Pulmonary hypertension, unspecified; R91.8 Other nonspecific abnormal finding of lung field; U07.1 COVID-19
CPT/HCPCS: 99214

== ENCOUNTER → 2023-05-05 09:20 | Outpatient (BNVA) | payer OTHER, MEDICAID, SELFPAY | PROVIDERS: PCP Pediatrics; Visit Provider Hospitalist ==

== ENCOUNTER 2023-08-12 15:29 | Outpatient (AMB) | payer OTHER, MEDICAID, SELFPAY ==
--- NOTE | 2023-08-12 15:34 | MHC.OFFVIS ---
Intake Vital Signs 08/12/23 15:36 Height 5 ft 3 in Weight 216 lb 11.43 oz BMI 38.4 Pulse 75 Pulse Source Pulse Oximeter Pulse Oximetry (%) 99 Oxygen Delivery Method Room Air Intake Visit Reasons: Post Covid Bee Tender Required: No Allergies prochlorperazine [From Compazine] Allergy (Severe, Verified 08/12/23 15:39) Agitated clarithromycin [CLARITHROMYCIN] Allergy (Intermediate, Verified 08/12/23 15:39) RASH codeine [CODEINE] Allergy (Intermediate, Verified 08/12/23 15:39) STOMACH PAIN- GI UPSET naproxen [NAPROXEN] Allergy (Intermediate, Verified 08/12/23 15:39) GI PAIN, DIARRHEA Sulfa (Sulfonamide Antibiotics) [SULFA (SULFONAMIDE ANTIBIOTICS)] Allergy (Intermediate, Verified 08/12/23 15:39) RASH sulfamethoxazole [From BACTRIM] Allergy (Intermediate, Verified 08/12/23 15:39) RASH trimethoprim [From BACTRIM] Allergy (Intermediate, Verified 08/12/23 15:39) RASH HPI HPI Comments History of Present Illness Details The patient is a 63-year-old woman with a known history of breast cancer, 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 Also has underlying bronchiectasis and nonischemic cardiomyopathy likely related to her chemo radiation. She currently has been doing very well. Until recently when she started noticing worsening shortness of breath. She also has some hoarseness. Also some raspiness of her voice. [id number] severity. Started noticing increasing shortness of breath. Has been using her inhaler with good effect. Has not use her nebulizer although it may help her expectorate better with the nebulized therapy. We talked also using hypertonic saline as a way of minimizing medications. We did go for brief walking oximetry in the patient was able to maintain a pulse ox between 94-96%. Heart rate stayed below 100. She was increasing to get more winded. Her [place] score is elevated 09/26. At this point based on a daytime drowsiness her cardiac history and her elevated [place] score the patient will also undergo a sleep study. 05/05/2023 the patient is here for pulmonary follow-up visit the patient recently was as is initially she developed intractable nausea and vomiting malaise and fevers. She tested positive for COVID-19. Initially she was hydrated and discharged and subsequently came back with worsening symptoms. She was briefly admitted. She will have an x-ray demonstrating a left lower lobe opacities suggesting pneumonia. She was placed on broad-spectrum antibiotics and also Decadron. She was discharged home after the 1st days she had a hard time tolerating the antibiotics and she call the office here and we had her stop the antibiotics after 4 days. The patient had been on doxycycline. And also after couple days more she had to stop the Decadron because it was too strong. She had been on the 6 mg daily for ago. Currently she does feel better she still tired. This morning she is still tested positive for COVID-19 unfortunately. Explained to her that with the use of prednisone her comorbidities she is likely will take a longer time to completely clear the virus. I do believe that based on the x-ray which I personally reviewed demonstrating the hazy left lower lobe opacity that she should go ahead and restart antibiotics to make sure complete treatment of a lower respiratory infection. She does have azithromycin at home. She complained that. She also has multiple allergies will hold off on additional therapies. She does need any more steroids at this time. Lungs actually sound pretty clear. 08/12/2023 the patient is here for a pulmonary follow-up visit. The patient overall has been doing fairly well from a respiratory status. She has been able to wean off a lot of her medications. Although the Advair HFA is very effective for her. She does have significant hoarseness and vocal cord paralysis. The patient does better with the HFA. The patient also has been on Spiriva. She did receive a letter that the Advair HFA is no longer covered and recommending powdered inhalers. Although with her issue of hoarseness, vocal cord paralysis and thrush the patient cannot tolerate powdered inhalers. Therefore will have to do a prior approval for her to continue HFA formulation. The patient has been having increasing chest congestion though. This had been for the last few days. I will send a course of doxycycline to treated for a lower respiratory infection. From a cardiac standpoint the patient is doing well. She recently saw her new relaster which she is very happy about. Over the summer the patient did have COVID she was evaluated in the hospital. Her chest x-ray at least the 1 that she had repeated appears to be reassuring. Overall the patient has been doing well on the current therapy so were hopeful that she can continue the therapy and avoid too many changes. She is also being evaluated for a parathyroidectomy because of elevated calcium levels. She will further discuss this with her endocrinology team. I would not advise the patient to undergo surgery unless no other alternatives therapies are available. 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 Bronchiectasis Surgical History H/O right mastectomy History of cholecystectomy H/O: hysterectomy H/O splenectomy Family History Other Hypertension Social History (Updated 08/06/21 @ 09:25 by Ashanti Anguiano [facility]) Patient Tobacco Use Status: Former Tobacco user Tobacco use type: Cigarette Years Smoked: 10 years Review of Systems Const Denies chills, Reports fatigue, Denies fever(s) and Denies night sweats ENT Denies change in voice, Reports hoarseness, Denies lip swelling, Denies mouth pain, Reports nasal congestion, Reports post nasal drip and Denies tongue swelling Card Denies chest pain Resp Denies change in phlegm color, Reports chest congestion, Reports cough, Denies hemoptysis and Denies excessive phlegm production GI Denies abdominal pain, Denies bloating, Denies change in bowel habits, Denies dyspepsia, Denies heartburn, Denies diarrhea and Denies nausea Musc Denies no additional complaints and Reports back pain Skin/Breast Reports as per HPI Neuro Denies Neuro-related abnormal movements, Reports radicular pain and Reports paresthesias Psych Denies no additional complaints and Reports change in appetite Endo Reports fatigue Guzman/Lymph Denies easy bleeding and Denies lymphadenopathy Aller/Immun Denies lip swelling and Denies tongue swelling Physical Exam Vital Signs: Last Vital Signs Pulse 75 08/12/23 15:36 Pulse Ox 99 08/12/23 15:36 Oxygen Delivery Method Room Air 08/12/23 15:36 BMI result Body Mass Index 38.4 Const General: comfortable and alert HEENT Throat: Yes postnasal drainage Eyes Pupils: Equal, round and reactive pupils present Neck Neck: Yes normal visual inspection, Yes full ROM and Yes no lymphadenopathy Chest Chest palpation & inspection: normal inspection of the chest Resp Effort & Inspection: normal respiratory effort Auscultation: clear to auscultation bilaterally, rhonchi right upper and no wheezes Cardio Rate: regular rate Rhythm: regular rhythm Heart sounds: S1 normal heart sound present and S2 normal heart sound present GI Palpation (GI): Soft to palpation and nontender Auscultation: normal bowel sounds Skin General skin exam: rashes and/or lesions noted Neuro Cranial nerves: Yes Equal, round and reactive pupils present Assessment & Plan Assessment & Plan (1) Mycobacterial disease, pulmonary: Comment: clinically better Code(s): A31.0 - Pulmonary mycobacterial infection (2) Bronchiectasis: Code(s): J47.9 - Bronchiectasis, uncomplicated Qualifiers: Bronchiectasis type: uncomplicated Qualified Code(s): J47.9 - Bronchiectasis, uncomplicated (3) Cardiomyopathy: Comment: related to XRT from the lymphoma history Code(s): I42.9 - Cardiomyopathy, unspecified Qualifiers: Cardiomyopathy type: unspecified Qualified Code(s): I42.9 - Cardiomyopathy, unspecified (4) Pulmonary hypertension: Code(s): I27.20 - Pulmonary hypertension, unspecified (5) Pulmonary nodules: Code(s): R91.8 - Other nonspecific abnormal finding of lung field (6) COVID-19: Code(s): U07.1 - COVID-19 Plan start Doxycycline x 10-14 days Continue CPT with nebulized therapy, hypertonic saline continue Advair ans Spirva. Does not tolerate powdered inhalers due to larygeal disease, vocal cord paralysis and hoarseness STEFANI as needed F/U in 6 months Medications: New fluticasone propion-salmeterol 230-21 mcg/actuation (Advair HFA) 2 puffs inhalation Q12H 90 days 3 ea 3RF doxycycline monohydrate 100 mg PO BID 14 days 28 tabs 2RF Coding Level of Care Code Est Pt Level 4 (50622) Diagnoses Mycobacterial disease, pulmonary A31.0 Bronchiectasis without complication J47.9 Bronchiectasis type: uncomplicated Cardiomyopathy, unspecified type I42.9 Cardiomyopathy type: unspecified Pulmonary hypertension I27.20 Pulmonary nodules R91.8 COVID-19 U07.1 Time Spent (min) 17
[2023-08-12 15:36] VITALS: PULSE 75; O2SAT 99; BMI 38.4
== END 2023-08-12 16:05 | disposition home or self-care (01) ==
PROVIDERS: PCP Pediatrics; Visit Provider Hospitalist
DX: A31.0 Pulmonary mycobacterial infection (principal); J47.9 Bronchiectasis, uncomplicated; I42.9 Cardiomyopathy, unspecified; I27.20 Pulmonary hypertension, unspecified; R91.8 Other nonspecific abnormal finding of lung field; U07.1 COVID-19
CPT/HCPCS: 99214

== ENCOUNTER → 2023-08-12 15:29 | Outpatient (BNVA) | payer OTHER, MEDICAID, SELFPAY | PROVIDERS: PCP Pediatrics; Visit Provider Hospitalist ==

== ENCOUNTER 2023-12-09 15:21 | Outpatient (AMB) | payer OTHER, MEDICAID, SELFPAY ==
[2023-12-09 15:32] VITALS: PULSE 80; O2SAT 96; BMI 27.5
--- NOTE | 2023-12-09 15:32 | A.OFFVIS_ITS ---
Intake Vital Signs 12/09/23 15:32 Height 5 ft 3 in Weight 155 lb BMI 27.5 Pulse 80 Pulse Source Pulse Oximeter Pulse Oximetry (%) 96 Oxygen Delivery Method Room Air Intake Visit Reasons: Post Covid Allergies prochlorperazine [From Compazine] Allergy (Severe, Verified 12/09/23 15:34) Agitated clarithromycin [CLARITHROMYCIN] Allergy (Intermediate, Verified 12/09/23 15:34) RASH codeine [CODEINE] Allergy (Intermediate, Verified 12/09/23 15:34) STOMACH PAIN- GI UPSET naproxen [NAPROXEN] Allergy (Intermediate, Verified 12/09/23 15:34) GI PAIN, DIARRHEA Sulfa (Sulfonamide Antibiotics) [SULFA (SULFONAMIDE ANTIBIOTICS)] Allergy (Intermediate, Verified 12/09/23 15:34) RASH sulfamethoxazole [From BACTRIM] Allergy (Intermediate, Verified 12/09/23 15:34) RASH trimethoprim [From BACTRIM] Allergy (Intermediate, Verified 12/09/23 15:34) RASH HPI HPI Comments History of Present Illness Details The patient is a 63-year-old woman with a known history of breast cancer, 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 Also has underlying bronchiectasis and nonischemic cardiomyopathy likely related to her chemo radiation. She currently has been doing very well. Until recently when she started noticing worsening shortness of breath. She also has some hoarseness. Also some raspiness of her voice. [id number] severity. Started noticing increasing shortness of breath. Has been using her inhaler with good effect. Has not use her nebulizer although it may help her expectorate better with the nebulized therapy. We talked also using hypertonic saline as a way of minimizing medications. We did go for brief walking oximetry in the patient was able to maintain a pulse ox between 94-96%. Heart rate stayed below 100. She was increasing to get more winded. Her [place] score is elevated 09/26. At this point based on a daytime drowsiness her cardiac history and her elevated [place] score the patient will also undergo a sleep study. 05/05/2023 the patient is here for pulmonary follow-up visit the patient recently was as is initially she developed intractable nausea and vomiting malaise and fevers. She tested positive for COVID-19. Initially she was hydrated and discharged and subsequently came back with worsening symptoms. She was briefly admitted. She will have an x-ray demonstrating a left lower lobe opacities suggesting pneumonia. She was placed on broad-spectrum antibiotics and also Decadron. She was discharged home after the 1st days she had a hard time tolerating the antibiotics and she call the office here and we had her stop the antibiotics after 4 days. The patient had been on doxycycline. And also after couple days more she had to stop the Decadron because it was too strong. She had been on the 6 mg daily for ago. Currently she does feel better she still tired. This morning she is still tested positive for COVID-19 unfortunately. Explained to her that with the use of prednisone her comorbidities she is likely will take a longer time to completely clear the virus. I do believe that based on the x-ray which I personally reviewed demonstrating the hazy left lower lobe opacity that she should go ahead and restart antibiotics to make sure complete treatment of a lower respiratory infection. She does have azithromycin at home. She complained that. She also has multiple allergies will hold off on additional therapies. She does need any more steroids at this time. Lungs actually sound pretty clear. 08/12/2023 the patient is here for a pulmonary follow-up visit. The patient overall has been doing fairly well from a respiratory status. She has been able to wean off a lot of her medications. Although the Advair HFA is very effective for her. She does have significant hoarseness and vocal cord paralysis. The patient does better with the HFA. The patient also has been on Spiriva. She did receive a letter that the Advair HFA is no longer covered and recommending powdered inhalers. Although with her issue of hoarseness, vocal cord paralysis and thrush the patient cannot tolerate powdered inhalers. Therefore will have to do a prior approval for her to continue HFA formulation. The patient has been having increasing chest congestion though. This had been for the last few days. I will send a course of doxycycline to treated for a lower respiratory infection. From a cardiac standpoint the patient is doing well. She recently saw her new sleep manager which she is very happy about. Over the summer the patient did have COVID she was evaluated in the hospital. Her chest x-ray at least the 1 that she had repeated appears to be reassuring. Overall the patient has been doing well on the current therapy so were hopeful that she can continue the therapy and avoid too many changes. She is also being evaluated for a parathyroidectomy because of elevated calcium levels. She will further discuss this with her endocrinology team. I would not advise the patient to undergo surgery unless no other alternatives therapies are available. 12/09/2023 the patient is here for pulmonary follow-up visit. The patient continues to do well from a respiratory status. Although, her insurance is no longer covering the Advair. Ongoing send her Symbicort generic. The patient unfortunately can not tolerate powdered inhalers and therefore has a lot of limitations as far as the inhalers that we can prescribe to her. She has no longer on any antimicrobial therapy. She has not required prednisone. She does use her respiratory therapy with good effect. She does have the Acapella valve and hypertonic saline, although, she has not been significantly congested which is reassuring. She is having nasal congestion and postnasal drip. She was prescribed [place]. Will go ahead and start her also on Astelin nasal spray for allergies. She is also following closely with Endocrine. She may have some issues with her parathyroid glands and she may need to undergo surgery. She will continue to have that discussion with them. At least from a pulmonary standpoint the patient is able to proceed with anesthesia and surgery. 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 Bronchiectasis Surgical History H/O right mastectomy History of cholecystectomy H/O: hysterectomy H/O splenectomy Family History Other Hypertension Social History (Updated 08/06/21 @ 09:25 by CECIL Vale) Patient Tobacco Use Status: Former Tobacco user Tobacco use type: Cigarette Years Smoked: 10 years Review of Systems Const Denies chills, Denies fatigue, Denies fever(s) and Denies night sweats ENT Denies change in voice, Reports hoarseness, Denies lip swelling, Denies mouth pain, Reports nasal congestion, Reports post nasal drip and Denies tongue swelling Card Denies chest pain Resp Denies change in phlegm color, Reports chest congestion, Reports cough, Denies hemoptysis and Denies excessive phlegm production GI Denies abdominal pain, Denies bloating, Denies change in bowel habits, Denies dyspepsia, Denies heartburn, Denies diarrhea and Denies nausea Musc Denies no additional complaints and Reports back pain Skin/Breast Reports as per HPI Neuro Denies Neuro-related abnormal movements, Reports radicular pain and Reports paresthesias Psych Denies no additional complaints Endo Denies fatigue Guzman/Lymph Denies easy bleeding and Denies lymphadenopathy Aller/Immun Denies lip swelling and Denies tongue swelling Physical Exam Vital Signs: Last Vital Signs Pulse 80 12/09/23 15:32 Pulse Ox 96 12/09/23 15:32 Oxygen Delivery Method Room Air 12/09/23 15:32 BMI result Body Mass Index 27.5 Const General: comfortable and alert HEENT Throat: Yes postnasal drainage Eyes Pupils: Equal, round and reactive pupils present Neck Neck: Yes normal visual inspection, Yes full ROM and Yes no lymphadenopathy Chest Chest palpation & inspection: normal inspection of the chest Resp Effort & Inspection: normal respiratory effort Auscultation: clear to auscultation bilaterally, no rhonchi and no wheezes Cardio Rate: regular rate Rhythm: regular rhythm Heart sounds: S1 normal heart sound present and S2 normal heart sound present GI Palpation (GI): Soft to palpation and nontender Auscultation: normal bowel sounds Skin General skin exam: rashes and/or lesions noted Neuro Cranial nerves: Yes Equal, round and reactive pupils present Assessment & Plan Assessment & Plan (1) Mycobacterial disease, pulmonary: Comment: clinically better Code(s): A31.0 - Pulmonary mycobacterial infection (2) Bronchiectasis: Code(s): J47.9 - Bronchiectasis, uncomplicated Qualifiers: Bronchiectasis type: uncomplicated Qualified Code(s): J47.9 - Bronchiectasis, uncomplicated (3) Cardiomyopathy: Comment: related to XRT from the lymphoma history Code(s): I42.9 - Cardiomyopathy, unspecified Qualifiers: Cardiomyopathy type: unspecified Qualified Code(s): I42.9 - Cardiomyopathy, unspecified (4) Pulmonary hypertension: Code(s): I27.20 - Pulmonary hypertension, unspecified (5) Pulmonary nodules: Code(s): R91.8 - Other nonspecific abnormal finding of lung field Plan Continue CPT with nebulized therapy, hypertonic saline stopped Advair due to insurance start Symbicort continue Spirva. Does not tolerate powdered inhalers due to larygeal disease, vocal cord paralysis and hoarseness STEFANI as needed start Astelin nasal spray F/U in 6 months Medications: New budesonide-formoterol 160-4.5 mcg/actuation 2 puffs inhalation BID 30 days 10.2 grams 11RF J44.89 - Other specified chronic obstructive pulmonary disease azelastine administer into each nostril 2 sprays intranasal BID 30 days 30 mL 6RF Changed From azelastine 2 sprays intranasal BID 90 caps 3RF To azelastine 2 sprays intranasal BID 30 days 90 caps 3RF Coding Level of Care Code Est Pt Level 4 (97748) Diagnoses Mycobacterial disease, pulmonary A31.0 Bronchiectasis without complication J47.9 Bronchiectasis type: uncomplicated Cardiomyopathy, unspecified type I42.9 Cardiomyopathy type: unspecified Pulmonary hypertension I27.20 Pulmonary nodules R91.8 Time Spent (min) 18
== END 2023-12-09 15:55 | disposition home or self-care (01) ==
PROVIDERS: PCP Pediatrics; Visit Provider Hospitalist
DX: A31.0 Pulmonary mycobacterial infection (principal); J47.9 Bronchiectasis, uncomplicated; I42.9 Cardiomyopathy, unspecified; I27.20 Pulmonary hypertension, unspecified; R91.8 Other nonspecific abnormal finding of lung field
CPT/HCPCS: 99214

== ENCOUNTER → 2023-12-09 15:21 | Outpatient (BNVA) | payer OTHER, MEDICAID, SELFPAY | PROVIDERS: PCP Pediatrics; Visit Provider Hospitalist ==

== ENCOUNTER 2024-01-26 09:13 | Outpatient (AMB) | payer OTHER, MEDICAID, SELFPAY ==
--- NOTE | 2024-01-26 09:15 | A.OFFVIS_ITS ---
Vital Signs 01/26/24 09:16 Height 5 ft 3 in Weight 150 lb BMI 26.6 Pulse 81 Pulse Source Pulse Oximeter Pulse Oximetry (%) 100 Oxygen Delivery Method Room Air Intake Visit Reasons: CT Results Follow Up Gas Plumbing Inspector Required: No Allergies prochlorperazine [From Compazine] Allergy (Severe, Verified 01/26/24 09:17) Agitated clarithromycin [CLARITHROMYCIN] Allergy (Intermediate, Verified 01/26/24 09:17) RASH codeine [CODEINE] Allergy (Intermediate, Verified 01/26/24 09:17) STOMACH PAIN- GI UPSET naproxen [NAPROXEN] Allergy (Intermediate, Verified 01/26/24 09:17) GI PAIN, DIARRHEA Sulfa (Sulfonamide Antibiotics) [SULFA (SULFONAMIDE ANTIBIOTICS)] Allergy (Intermediate, Verified 01/26/24 09:17) RASH sulfamethoxazole [From BACTRIM] Allergy (Intermediate, Verified 01/26/24 09:17) RASH trimethoprim [From BACTRIM] Allergy (Intermediate, Verified 01/26/24 09:17) RASH HPI Comments Details: The patient is a 63-year-old woman with a known history of breast cancer, 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 Also has underlying bronchiectasis and nonischemic cardiomyopathy likely related to her chemo radiation. She currently has been doing very well. Until recently when she started noticing worsening shortness of breath. She also has some hoarseness. Also some raspiness of her voice. [id number] severity. Started noticing increasing shortness of breath. Has been using her inhaler with good effect. Has not use her nebulizer although it may help her expectorate better with the nebulized therapy. We talked also using hypertonic saline as a way of minimizing medications. We did go for brief walking oximetry in the patient was able to maintain a pulse ox between 94-96%. Heart rate stayed below 100. She was increasing to get more winded. Her [place] score is elevated 09/26. At this point based on a daytime drowsiness her cardiac history and her elevated [place] score the patient will also undergo a sleep study. 05/05/2023 the patient is here for pulmonary follow-up visit the patient recently was as is initially she developed intractable nausea and vomiting malaise and fevers. She tested positive for COVID-19. Initially she was hydrated and discharged and subsequently came back with worsening symptoms. She was briefly admitted. She will have an x-ray demonstrating a left lower lobe opacities suggesting pneumonia. She was placed on broad-spectrum antibiotics and also Decadron. She was discharged home after the 1st days she had a hard time tolerating the antibiotics and she call the office here and we had her stop the antibiotics after 4 days. The patient had been on doxycycline. And also after couple days more she had to stop the Decadron because it was too strong. She had been on the 6 mg daily for ago. Currently she does feel better she still tired. This morning she is still tested positive for COVID-19 unfortunately. Explained to her that with the use of prednisone her comorbidities she is likely will take a longer time to completely clear the virus. I do believe that based on the x-ray which I personally reviewed demonstrating the hazy left lower lobe opacity that she should go ahead and restart antibiotics to make sure complete treatment of a lower respiratory infection. She does have azithromycin at home. She complained that. She also has multiple allergies will hold off on additional therapies. She does need any more steroids at this time. Lungs actually sound pretty clear. 08/12/2023 the patient is here for a pulmonary follow-up visit. The patient overall has been doing fairly well from a respiratory status. She has been able to wean off a lot of her medications. Although the Advair HFA is very effective for her. She does have significant hoarseness and vocal cord paralysis. The patient does better with the HFA. The patient also has been on Spiriva. She did receive a letter that the Advair HFA is no longer covered and recommending powdered inhalers. Although with her issue of hoarseness, vocal cord paralysis and thrush the patient cannot tolerate powdered inhalers. Therefore will have to do a prior approval for her to continue HFA formulation. The patient has been having increasing chest congestion though. This had been for the last few days. I will send a course of doxycycline to treated for a lower respiratory infection. From a cardiac standpoint the patient is doing well. She recently saw her new pump tender which she is very happy about. Over the summer the patient did have COVID she was evaluated in the hospital. Her chest x-ray at least the 1 that she had repeated appears to be reassuring. Overall the patient has been doing well on the current therapy so were hopeful that she can continue the therapy and avoid too many changes. She is also being evaluated for a parathyroidectomy because of elevated calcium levels. She will further discuss this with her endocrinology team. I would not advise the patient to undergo surgery unless no other alternatives therapies are available. 12/09/2023 the patient is here for pulmonary follow-up visit. The patient continues to do well from a respiratory status. Although, her insurance is no longer covering the Advair. Ongoing send her Symbicort generic. The patient unfortunately can not tolerate powdered inhalers and therefore has a lot of limitations as far as the inhalers that we can prescribe to her. She has no longer on any antimicrobial therapy. She has not required prednisone. She does use her respiratory therapy with good effect. She does have the Acapella valve and hypertonic saline, although, she has not been significantly congested which is reassuring. She is having nasal congestion and postnasal drip. She was prescribed [place]. Will go ahead and start her also on Astelin nasal spray for allergies. She is also following closely with Endocrine. She may have some issues with her parathyroid glands and she may need to undergo surgery. She will continue to have that discussion with them. At least from a pulmonary standpoint the patient is able to proceed with anesthesia and surgery. 01/26/2024 the patient is here for hospital follow-up visit. She was in his usual state health until beginning of the month when she started developing worsening shortness of breath will addition to other constitutional symptoms including abdominal pain and nausea. The patient was brought to the [facility] ER where she was evaluated. She did have a CT scan of the abdomen which I personally reviewed. It appeared that she had a consolidation right lower lobe with small trace pleural effusion. Otherwise limited due to the lung cuts on the abdominal CT scan. She was placed on antibiotics and subsequently discharged. She has been feeling better. Although since she stopped the antibiotics she does feel that she is tired again and having some raspiness of voice. Subsequently, the patient had a formal CT scan when she was discharged about a week ago. I personally reviewed the CT scan to. It appears that the right lower lobe consolidation and the pleural effusion has significantly improved. She still has some residual changes though. In addition to that she also has some nodular changes. Chronic blunting changes noted. It is reassuring overall that her CT scan looks a lot better. Unfortunately the CT scan of the chest was not compared to the CT scan of the abdomen on the actual for more we know mentioned about the significant improvement. 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 Bronchiectasis Surgical History H/O right mastectomy History of cholecystectomy H/O: hysterectomy H/O splenectomy Family History Other Hypertension Social History (Updated 08/06/21 @ 09:25 by Ashanti Anguiano Steven) Patient Tobacco Use Status: Former Tobacco user Tobacco use type: Cigarette Years Smoked: 10 years Review of Systems Const Denies chills, Reports fatigue, Denies fever(s) and Denies night sweats ENT Denies change in voice, Reports hoarseness, Denies lip swelling, Denies mouth pain, Reports nasal congestion, Reports post nasal drip and Denies tongue swelling Card Denies chest pain Resp Denies change in phlegm color, Denies chest congestion, Reports cough, Denies hemoptysis and Denies excessive phlegm production GI Denies abdominal pain, Denies bloating, Denies change in bowel habits, Denies dyspepsia, Denies heartburn, Denies diarrhea and Denies nausea Musc Denies no additional complaints and Reports back pain Skin/Breast Reports as per HPI Neuro Denies Neuro-related abnormal movements, Reports radicular pain and Reports paresthesias Psych Denies no additional complaints Endo Reports fatigue Guzman/Lymph Denies easy bleeding and Denies lymphadenopathy Aller/Immun Denies lip swelling and Denies tongue swelling Physical Exam Vital Signs: Last Vital Signs Pulse 81 01/26/24 09:16 Pulse Ox 100 01/26/24 09:16 Oxygen Delivery Method Room Air 01/26/24 09:16 BMI result Body Mass Index 26.6 Const General: comfortable and alert HEENT Throat: Yes postnasal drainage Eyes Pupils: Equal, round and reactive pupils present Neck Neck: Yes normal visual inspection, Yes full ROM and Yes no lymphadenopathy Chest Chest palpation & inspection: normal inspection of the chest Resp Effort & Inspection: normal respiratory effort Auscultation: no rhonchi, no wheezes and diminished lung sounds Cardio Rate: regular rate Rhythm: regular rhythm Heart sounds: S1 normal heart sound present and S2 normal heart sound present GI Palpation (GI): Soft to palpation and nontender Auscultation: normal bowel sounds Skin General skin exam: rashes and/or lesions noted Neuro Cranial nerves: Yes Equal, round and reactive pupils present Assessment & Plan Assessment & Plan (1) Pulmonary nodules: Code(s): R91.8 - Other nonspecific abnormal finding of lung field Category: Medical (2) Mycobacterial disease, pulmonary: Comment: clinically better Code(s): A31.0 - Pulmonary mycobacterial infection Category: Medical (3) Bronchiectasis: Code(s): J47.9 - Bronchiectasis, uncomplicated Category: Medical Qualifiers: Bronchiectasis type: uncomplicated Qualified Code(s): J47.9 - Bronchiectasis, uncomplicated (4) Cardiomyopathy: Comment: related to XRT from the lymphoma history Code(s): I42.9 - Cardiomyopathy, unspecified Category: Medical Qualifiers: Cardiomyopathy type: unspecified Qualified Code(s): I42.9 - Cardiomyopathy, unspecified (5) Pulmonary hypertension: Code(s): I27.20 - Pulmonary hypertension, unspecified Category: Medical (6) Pulmonary nodules: Code(s): R91.8 - Other nonspecific abnormal finding of lung field Category: Medical (7) Pneumonia: Code(s): J18.9 - Pneumonia, unspecified organism Category: Medical Qualifiers: Pneumonia type: due to unspecified organism Laterality: right Lung location: lower lobe of lung Qualified Code(s): J18.9 - Pneumonia, unspecified organism Plan Continue CPT with nebulized therapy, hypertonic saline stopped Advair due to insurance start Symbicort continue Spirva. Does not tolerate powdered inhalers due to larygeal disease, vocal cord paralysis and hoarseness STEFANI as needed Astelin nasal spray start Azithromycin MWF EKG with cardiology repeat CT chest 6 months F/U in 6 months Orders: Orders CT chest wo IV con 6 Months R91.8 - Other nonspecific abnormal finding of lung field Medications: New azithromycin Wednesday, Wednesday, Wednesday 500 mg PO 3XW 12 tabs 5RF 28 days doxycycline monohydrate 100 mg PO BID 28 tabs 0RF 14 days budesonide-formoterol 160-4.5 mcg/actuation 2 puffs inhalation BID 10.2 grams 11RF 30 days J44.89 - Other specified chronic obstructive pulmonary disease Coding Level of Care Code Est Pt Level 4 (54733) Diagnoses Pulmonary nodules R91.8 Mycobacterial disease, pulmonary A31.0 Bronchiectasis without complication J47.9 Bronchiectasis type: uncomplicated Cardiomyopathy, unspecified type I42.9 Cardiomyopathy type: unspecified Pulmonary hypertension I27.20 Pneumonia of right lower lobe due to infectious organism J18.9 Pneumonia type: due to unspecified organism Laterality: right Lung location: lower lobe of lung Time Spent (min) 18
[2024-01-26 09:16] VITALS: PULSE 81; O2SAT 100; BMI 26.6
== END 2024-01-26 09:41 | disposition home or self-care (01) ==
PROVIDERS: PCP Pediatrics; Visit Provider Hospitalist
DX: R91.8 Other nonspecific abnormal finding of lung field (principal); A31.0 Pulmonary mycobacterial infection; J47.9 Bronchiectasis, uncomplicated; I42.9 Cardiomyopathy, unspecified; I27.20 Pulmonary hypertension, unspecified; J18.9 Pneumonia, unspecified organism
CPT/HCPCS: 99214

== ENCOUNTER → 2024-01-26 09:13 | Outpatient (BNVA) | payer OTHER, MEDICAID, SELFPAY | PROVIDERS: PCP Pediatrics; Visit Provider Hospitalist ==

== ENCOUNTER 2024-04-18 09:22 | Outpatient (AMB) | payer OTHER, MEDICAID, SELFPAY ==
[2024-04-18 09:23] VITALS: BMI 26.6
--- NOTE | 2024-04-18 09:23 | MHC.OFFVIS ---
Vital Signs 04/18/24 09:23 Height 5 ft 3 in Weight 150 lb 5.684 oz BMI 26.6 Intake Visit Reasons: Bronchiectasis Safety And Occupational Health Manager Required: No Allergies prochlorperazine [From Compazine] Allergy (Severe, Verified 04/18/24 09:23) Agitated clarithromycin [CLARITHROMYCIN] Allergy (Intermediate, Verified 04/18/24 09:23) RASH codeine [CODEINE] Allergy (Intermediate, Verified 04/18/24 09:23) STOMACH PAIN- GI UPSET naproxen [NAPROXEN] Allergy (Intermediate, Verified 04/18/24 09:23) GI PAIN, DIARRHEA Sulfa (Sulfonamide Antibiotics) [SULFA (SULFONAMIDE ANTIBIOTICS)] Allergy (Intermediate, Verified 04/18/24 09:23) RASH sulfamethoxazole [From BACTRIM] Allergy (Intermediate, Verified 04/18/24 09:23) RASH trimethoprim [From BACTRIM] Allergy (Intermediate, Verified 04/18/24 09:23) RASH HPI Comments Details: The patient is a 63-year-old woman with a known history of breast cancer, 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 Also has underlying bronchiectasis and nonischemic cardiomyopathy likely related to her chemo radiation. She currently has been doing very well. Until recently when she started noticing worsening shortness of breath. She also has some hoarseness. Also some raspiness of her voice. [id number] severity. Started noticing increasing shortness of breath. Has been using her inhaler with good effect. Has not use her nebulizer although it may help her expectorate better with the nebulized therapy. We talked also using hypertonic saline as a way of minimizing medications. We did go for brief walking oximetry in the patient was able to maintain a pulse ox between 94-96%. Heart rate stayed below 100. She was increasing to get more winded. Her Golden score is elevated 09/26. At this point based on a daytime drowsiness her cardiac history and her elevated Golden score the patient will also undergo a sleep study. 05/05/2023 the patient is here for pulmonary follow-up visit the patient recently was as is initially she developed intractable nausea and vomiting malaise and fevers. She tested positive for COVID-19. Initially she was hydrated and discharged and subsequently came back with worsening symptoms. She was briefly admitted. She will have an x-ray demonstrating a left lower lobe opacities suggesting pneumonia. She was placed on broad-spectrum antibiotics and also Decadron. She was discharged home after the 1st days she had a hard time tolerating the antibiotics and she call the office here and we had her stop the antibiotics after 4 days. The patient had been on doxycycline. And also after couple days more she had to stop the Decadron because it was too strong. She had been on the 6 mg daily for ago. Currently she does feel better she still tired. This morning she is still tested positive for COVID-19 unfortunately. Explained to her that with the use of prednisone her comorbidities she is likely will take a longer time to completely clear the virus. I do believe that based on the x-ray which I personally reviewed demonstrating the hazy left lower lobe opacity that she should go ahead and restart antibiotics to make sure complete treatment of a lower respiratory infection. She does have azithromycin at home. She complained that. She also has multiple allergies will hold off on additional therapies. She does need any more steroids at this time. Lungs actually sound pretty clear. 08/12/2023 the patient is here for a pulmonary follow-up visit. The patient overall has been doing fairly well from a respiratory status. She has been able to wean off a lot of her medications. Although the Advair HFA is very effective for her. She does have significant hoarseness and vocal cord paralysis. The patient does better with the HFA. The patient also has been on Spiriva. She did receive a letter that the Advair HFA is no longer covered and recommending powdered inhalers. Although with her issue of hoarseness, vocal cord paralysis and thrush the patient cannot tolerate powdered inhalers. Therefore will have to do a prior approval for her to continue HFA formulation. The patient has been having increasing chest congestion though. This had been for the last few days. I will send a course of doxycycline to treated for a lower respiratory infection. From a cardiac standpoint the patient is doing well. She recently saw her new grain drier which she is very happy about. Over the summer the patient did have COVID she was evaluated in the hospital. Her chest x-ray at least the 1 that she had repeated appears to be reassuring. Overall the patient has been doing well on the current therapy so were hopeful that she can continue the therapy and avoid too many changes. She is also being evaluated for a parathyroidectomy because of elevated calcium levels. She will further discuss this with her endocrinology team. I would not advise the patient to undergo surgery unless no other alternatives therapies are available. 12/09/2023 the patient is here for pulmonary follow-up visit. The patient continues to do well from a respiratory status. Although, her insurance is no longer covering the Advair. Ongoing send her Symbicort generic. The patient unfortunately can not tolerate powdered inhalers and therefore has a lot of limitations as far as the inhalers that we can prescribe to her. She has no longer on any antimicrobial therapy. She has not required prednisone. She does use her respiratory therapy with good effect. She does have the Acapella valve and hypertonic saline, although, she has not been significantly congested which is reassuring. She is having nasal congestion and postnasal drip. She was prescribed Lamont. Will go ahead and start her also on Astelin nasal spray for allergies. She is also following closely with Endocrine. She may have some issues with her parathyroid glands and she may need to undergo surgery. She will continue to have that discussion with them. At least from a pulmonary standpoint the patient is able to proceed with anesthesia and surgery. 01/26/2024 the patient is here for hospital follow-up visit. She was in his usual state health until beginning of the month when she started developing worsening shortness of breath will addition to other constitutional symptoms including abdominal pain and nausea. The patient was brought to the [facility] ER where she was evaluated. She did have a CT scan of the abdomen which I personally reviewed. It appeared that she had a consolidation right lower lobe with small trace pleural effusion. Otherwise limited due to the lung cuts on the abdominal CT scan. She was placed on antibiotics and subsequently discharged. She has been feeling better. Although since she stopped the antibiotics she does feel that she is tired again and having some raspiness of voice. Subsequently, the patient had a formal CT scan when she was discharged about a week ago. I personally reviewed the CT scan to. It appears that the right lower lobe consolidation and the pleural effusion has significantly improved. She still has some residual changes though. In addition to that she also has some nodular changes. Chronic blunting changes noted. It is reassuring overall that her CT scan looks a lot better. Unfortunately the CT scan of the chest was not compared to the CT scan of the abdomen on the actual for more we know mentioned about the significant improvement. 04/18/2024 this is a telehealth visit. The patient started developing worsening cough in addition to fevers and chills. She became concerned. She did call the office on Wednesday of last week. We have no availability so she went to an urgent care [facility]. There she did have a chest x-ray which I personally reviewed without any acute disease. Although she does have chronic airway disease. The patient was given a course of doxycycline which she completed. And then in the urgent care she got a Z-Zackary. Now she is feeling little better. She also use prednisone and they did give her a high dose starting at 60 mg and she has having significant symptoms with palpitations and insomnia so she only took 20 mg this morning. Seems like she is doing better overall. Will go ahead and continue the 20 mg for another pretty 4 days. She is also going to go back on azithromycin 3 times a week. We did review her last CT scan was back in 01/22/2024 with increasing airspace disease and pneumonia. She also has underlying pulmonary nodules. In view of her worsening disease will go ahead and repeat her chest CT scan in June. If she has any worsening symptoms she will call may have to consider getting the CT scan sooner. But I am hopeful that with the medication changes and adjustments she will be okay. In addition to that she needs to go back on the Advair HFA. The patient can not tolerate powdered inhalers because it causes thrush and also hoarseness. She also has a cardiac history so therefore the Advair HFA works very well for her cardiac disease. She has been on it for many years in his work well in view of her comorbidities a rather not change it to anything else either. The patient is adamant she wants to stay on that inhaler as well. Therefore will send to the pharmacy and will perform a PA. 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 Bronchiectasis Surgical History H/O right mastectomy History of cholecystectomy H/O: hysterectomy H/O splenectomy Family History Other Hypertension Social History (Updated 08/06/21 @ 09:25 by CECIL Vale) Patient Tobacco Use Status: Former Tobacco user Tobacco use type: Cigarette Years Smoked: 10 years Review of Systems Const Denies chills, Reports fatigue, Reports fever(s) and Denies night sweats ENT Denies change in voice, Reports hoarseness, Denies lip swelling, Denies mouth pain, Reports nasal congestion, Reports post nasal drip and Denies tongue swelling Card Denies chest pain Resp Denies change in phlegm color, Reports chest congestion, Reports cough, Denies hemoptysis and Denies excessive phlegm production GI Denies abdominal pain, Denies bloating, Denies change in bowel habits, Denies dyspepsia, Denies heartburn, Denies diarrhea and Denies nausea Musc Denies no additional complaints and Reports back pain Skin/Breast Reports as per HPI Neuro Denies Neuro-related abnormal movements, Reports radicular pain and Reports paresthesias Psych Denies no additional complaints Endo Reports fatigue Guzman/Lymph Denies easy bleeding and Denies lymphadenopathy Aller/Immun Denies lip swelling and Denies tongue swelling Physical Exam Vital Signs: BMI result Body Mass Index 26.6 Const General: comfortable and alert Orientation/consciousness: patient oriented x3 HEENT Throat: Yes postnasal drainage Chest Chest palpation & inspection: normal inspection of the chest Resp Effort & Inspection: normal respiratory effort and able to speak in complete sentences Neuro General: patient oriented x3 Telehealth Telehealth Telehealth Platform: Telephone Location of provider rendering services: practice address Location of patient: address on file Patient Identification confirmed using: Name, : Yes Telehealth method: voice only Patient verbally consented to treatment: Yes Patient verbally consented to billing insurance company: Yes Patient informed of any privacy concerns related to visit: Yes Assessment & Plan Assessment & Plan (1) Pulmonary nodules: Code(s): R91.8 - Other nonspecific abnormal finding of lung field Category: Medical (2) Mycobacterial disease, pulmonary: Comment: clinically better Code(s): A31.0 - Pulmonary mycobacterial infection Category: Medical (3) Bronchiectasis: Code(s): J47.9 - Bronchiectasis, uncomplicated Category: Medical Qualifiers: Bronchiectasis type: uncomplicated Qualified Code(s): J47.9 - Bronchiectasis, uncomplicated (4) Cardiomyopathy: Comment: related to XRT from the lymphoma history Code(s): I42.9 - Cardiomyopathy, unspecified Category: Medical Qualifiers: Cardiomyopathy type: unspecified Qualified Code(s): I42.9 - Cardiomyopathy, unspecified (5) Pulmonary hypertension: Code(s): I27.20 - Pulmonary hypertension, unspecified Category: Medical (6) Pulmonary nodules: Code(s): R91.8 - Other nonspecific abnormal finding of lung field Category: Medical Plan Continue CPT with nebulized therapy, hypertonic saline restart Advair, failed powdered inhaler due to hoarseness, thrush. continue Spirva. Does not tolerate powdered inhalers due to larygeal disease, vocal cord paralysis and hoarseness STEFANI as needed Astelin nasal spray restart Azithromycin MWF 500mg complete prednisone taper repeat CT chest in june F/U in 2 months Medications: Refilled fluticasone propion-salmeterol 115-21 mcg/actuation (Advair HFA) 2 puffs inhalation Q12H 12 grams 11RF 30 days Coding Level of Care Code Tele Est Pt Level 4 (78641) Diagnoses Pulmonary nodules R91.8 Mycobacterial disease, pulmonary A31.0 Bronchiectasis without complication J47.9 Bronchiectasis type: uncomplicated Cardiomyopathy, unspecified type I42.9 Cardiomyopathy type: unspecified Pulmonary hypertension I27.20 Time Spent (min) 15
== END 2024-04-18 09:50 | disposition home or self-care (01) ==
LOC: HO.HPS 09:22
PROVIDERS: PCP Pediatrics; Visit Provider Hospitalist
DX: R91.8 Other nonspecific abnormal finding of lung field (principal); A31.0 Pulmonary mycobacterial infection; J47.9 Bronchiectasis, uncomplicated; I27.20 Pulmonary hypertension, unspecified; I42.9 Cardiomyopathy, unspecified
CPT/HCPCS: 99442

== ENCOUNTER → 2024-04-18 09:22 | Outpatient (BNVA) | payer OTHER, MEDICAID, SELFPAY | PROVIDERS: PCP Pediatrics; Visit Provider Hospitalist ==

== ENCOUNTER 2024-06-19 15:40 | Outpatient (AMB) | payer OTHER, MEDICAID, SELFPAY ==
--- NOTE | 2024-06-19 15:44 | A.OFFVIS_ITS ---
Vital Signs 06/19/24 15:45 Height 5 ft 3 in Weight 150 lb 5.684 oz BMI 26.6 BP 122/70 Blood Pressure Location Lt brachial Position Sitting Pulse 84 Pulse Source Pulse Oximeter Pulse Oximetry (%) 97 Oxygen Delivery Method Room Air Intake Visit Reasons: Bronchiectasis/CT Follow Up Dispatcher Motor Vehicle Required: No Allergies prochlorperazine [From Compazine] Allergy (Severe, Verified 06/19/24 15:49) Agitated clarithromycin [CLARITHROMYCIN] Allergy (Intermediate, Verified 06/19/24 15:49) RASH codeine [CODEINE] Allergy (Intermediate, Verified 06/19/24 15:49) STOMACH PAIN- GI UPSET naproxen [NAPROXEN] Allergy (Intermediate, Verified 06/19/24 15:49) GI PAIN, DIARRHEA Sulfa (Sulfonamide Antibiotics) [SULFA (SULFONAMIDE ANTIBIOTICS)] Allergy (Intermediate, Verified 06/19/24 15:49) RASH sulfamethoxazole [From BACTRIM] Allergy (Intermediate, Verified 06/19/24 15:49) RASH trimethoprim [From BACTRIM] Allergy (Intermediate, Verified 06/19/24 15:49) RASH HPI Comments Details: The patient is a 64-year-old woman with a known history of breast cancer, 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 Also has underlying bronchiectasis and nonischemic cardiomyopathy likely related to her chemo radiation. She currently has been doing very well. Until recently when she started noticing worsening shortness of breath. She also has some hoarseness. Also some raspiness of her voice. [id number] severity. Started noticing increasing shortness of breath. Has been using her inhaler with good effect. Has not use her nebulizer although it may help her expectorate better with the nebulized therapy. We talked also using hypertonic saline as a way of minimizing medications. We did go for brief walking oximetry in the patient was able to maintain a pulse ox between 94-96%. Heart rate stayed below 100. She was increasing to get more winded. Her Laurel score is elevated 09/26. At this point based on a daytime drowsiness her cardiac history and her elevated Laurel score the patient will also undergo a sleep study. 05/05/2023 the patient is here for pulmonary follow-up visit the patient recently was as is initially she developed intractable nausea and vomiting malaise and fevers. She tested positive for COVID-19. Initially she was hydrated and discharged and subsequently came back with worsening symptoms. She was briefly admitted. She will have an x-ray demonstrating a left lower lobe opacities suggesting pneumonia. She was placed on broad-spectrum antibiotics and also Decadron. She was discharged home after the 1st days she had a hard time tolerating the antibiotics and she call the office here and we had her stop the antibiotics after 4 days. The patient had been on doxycycline. And also after couple days more she had to stop the Decadron because it was too strong. She had been on the 6 mg daily for ago. Currently she does feel better she still tired. This morning she is still tested positive for COVID-19 unfortunately. Explained to her that with the use of prednisone her comorbidities she is likely will take a longer time to completely clear the virus. I do believe that based on the x-ray which I personally reviewed demonstrating the hazy left lower lobe opacity that she should go ahead and restart antibiotics to make sure complete treatment of a lower respiratory infection. She does have azithromycin at home. She complained that. She also has multiple allergies will hold off on additional therapies. She does need any more steroids at this time. Lungs actually sound pretty clear. 08/12/2023 the patient is here for a pulmonary follow-up visit. The patient overall has been doing fairly well from a respiratory status. She has been able to wean off a lot of her medications. Although the Advair HFA is very effective for her. She does have significant hoarseness and vocal cord paralysis. The patient does better with the HFA. The patient also has been on Spiriva. She did receive a letter that the Advair HFA is no longer covered and recommending powdered inhalers. Although with her issue of hoarseness, vocal cord paralysis and thrush the patient cannot tolerate powdered inhalers. Therefore will have to do a prior approval for her to continue HFA formulation. The patient has been having increasing chest congestion though. This had been for the last few days. I will send a course of doxycycline to treated for a lower respiratory infection. From a cardiac standpoint the patient is doing well. She recently saw her new administrative services manager which she is very happy about. Over the summer the patient did have COVID she was evaluated in the hospital. Her chest x-ray at least the 1 that she had repeated appears to be reassuring. Overall the patient has been doing well on the current therapy so were hopeful that she can continue the therapy and avoid too many changes. She is also being evaluated for a parathyroidectomy because of elevated calcium levels. She will further discuss this with her endocrinology team. I would not advise the patient to undergo surgery unless no other alternatives therapies are available. 12/09/2023 the patient is here for pulmonary follow-up visit. The patient continues to do well from a respiratory status. Although, her insurance is no longer covering the Advair. Ongoing send her Symbicort generic. The patient unfortunately can not tolerate powdered inhalers and therefore has a lot of limitations as far as the inhalers that we can prescribe to her. She has no longer on any antimicrobial therapy. She has not required prednisone. She does use her respiratory therapy with good effect. She does have the Acapella valve and hypertonic saline, although, she has not been significantly congested which is reassuring. She is having nasal congestion and postnasal drip. She was prescribed Lamont. Will go ahead and start her also on Astelin nasal spray for allergies. She is also following closely with Endocrine. She may have some issues with her parathyroid glands and she may need to undergo surgery. She will continue to have that discussion with them. At least from a pulmonary standpoint the patient is able to proceed with anesthesia and surgery. 01/26/2024 the patient is here for hospital follow-up visit. She was in his usual state health until beginning of the month when she started developing worsening shortness of breath will addition to other constitutional symptoms including abdominal pain and nausea. The patient was brought to the [facility] ER where she was evaluated. She did have a CT scan of the abdomen which I personally reviewed. It appeared that she had a consolidation right lower lobe with small trace pleural effusion. Otherwise limited due to the lung cuts on the abdominal CT scan. She was placed on antibiotics and subsequently discharged. She has been feeling better. Although since she stopped the antibiotics she does feel that she is tired again and having some raspiness of voice. Subsequently, the patient had a formal CT scan when s not need aggressive shshe was discharged about a week ago. I personally reviewed the CT scan to. It appears that the right lower lobe consolidation and the pleural effusion has significantly improved. She still has some residual changes though. In addition to that she also has some nodular changes. Chronic blunting changes noted. It is reassuring overall that her CT scan looks a lot better. Unfortunately the CT scan of the chest was not compared to the CT scan of the abdomen on the actual for more we know mentioned about the significant improvement. 04/18/2024 this is a telehealth visit. The patient started developing worsening cough in addition to fevers and chills. She became concerned. She did call the office on Wednesday of last week. We have no availability so she went to an urgent care [facility]. There she did have a chest x-ray which I personally reviewed without any acute disease. Although she does have chronic airway disease. The patient was given a course of doxycycline which she completed. And then in the urgent care she got a Z-Zackary. Now she is feeling little better. She also use prednisone and they did give her a high dose starting at 60 mg and she has having significant symptoms with palpitations and insomnia so she only took 20 mg this morning. Seems like she is doing better overall. Will go ahead and continue the 20 mg for another pretty 4 days. She is also going to go back on azithromycin 3 times a week. We did review her last CT scan was back in 01/22/2024 with increasing airspace disease and pneumonia. She also has underlying pulmonary nodules. In view of her worsening disease will go ahead and repeat her chest CT scan in June. If she has any worsening symptoms she will call may have to consider getting the CT scan sooner. But I am hopeful that with the medication changes and adjustments she will be okay. In addition to that she needs to go back on the Advair HFA. The patient can not tolerate powdered inhalers because it causes thrush and also hoarseness. She also has a cardiac history so therefore the Advair HFA works very well for her cardiac disease. She has been on it for many years in his work well in view of her comorbidities a rather not change it to anything else either. The patient is adamant she wants to stay on that inhaler as well. Therefore will send to the pharmacy and will perform a PA. 06/19/2024 the patient is here for pulmonary follow-up visit. Since we last spoke the patient did have a fall injuring her back. Mainly the thoracic vertebral body. She did have evaluation by pain management. She was found to have a shattered T4 vertebral body. Was initially recommended she undergo kyphoplasty. Although she was referred to Neurosurgery since appeared to be in a difficult place. She has been having some back pain also some neck discomfort. Prior to that she was having some hyper paresthesias. Seems that she has had some improvement. She continues on pain medications however. She was wondering if she should just let it be. I did emphasize that she needs to follow-up with Neurosurgery and request her recommendation is this may need some interventions specially since his abutting the spinal cord based on my evaluation. As far as her pulmonary nodules could not be well visualized on her CT scan of the thorax. However, what I was able to see that the airways were stable and did and see any significant worsening of disease on the limited lung windows. The patient appears to have significant amount of musculoskeletal issues going on right now in therefore will hold off on any additional imaging studies of the pulmonary nodules at this time. We had requested when before but was denied by the insurance company. Her last CT scan was back in 01/22/2024 which demonstrated some new findings in the right lower lobe area. Therefore will go ahead and request a repeat CT scan in the next 3-4 months and review. Hopefully by then her back issues have resolved. Respiratory was the patient is doing well, and is not requiring aggressive chest PT. Chest congestion is also stable. If the patient develops any worsening symptoms she will call. Otherwise will have a repeat CT scan the next 3-4 months and will follow-up sometime after that. If she has any issues or concerns she can always call for an earlier assessment. 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 Bronchiectasis Surgical History H/O right mastectomy History of cholecystectomy H/O: hysterectomy H/O splenectomy Family History Other Hypertension Social History (Updated 08/06/21 @ 09:25 by Ashanti Anguiano A) Patient Tobacco Use Status: Former Tobacco user Tobacco use type: Cigarette Years Smoked: 10 years Review of Systems Const Denies chills, Reports fatigue, Reports fever(s) and Denies night sweats ENT Denies change in voice, Reports hoarseness, Denies lip swelling, Denies mouth pain, Reports nasal congestion, Reports neck pain, Reports post nasal drip and Denies tongue swelling Card Denies chest pain Resp Denies change in phlegm color, Denies chest congestion, Reports cough, Denies hemoptysis and Denies excessive phlegm production GI Denies abdominal pain, Denies bloating, Denies change in bowel habits, Denies dyspepsia, Denies heartburn, Denies diarrhea and Denies nausea Musc Denies no additional complaints, Reports back pain and Reports neck pain Skin/Breast Reports as per HPI Neuro Denies Neuro-related abnormal movements, Reports radicular pain and Reports paresthesias Psych Denies no additional complaints Endo Reports fatigue Guzman/Lymph Denies easy bleeding and Denies lymphadenopathy Aller/Immun Denies lip swelling and Denies tongue swelling Physical Exam Vital Signs: Last Vital Signs Pulse 84 06/19/24 15:45 BP 122/70 06/19/24 15:45 Pulse Ox 97 06/19/24 15:45 Oxygen Delivery Method Room Air 06/19/24 15:45 BMI result Body Mass Index 26.6 Const General: comfortable and alert HEENT Throat: Yes postnasal drainage Eyes Pupils: Equal, round and reactive pupils present Neck Neck: Yes normal visual inspection, Yes full ROM and Yes no lymphadenopathy Chest Chest palpation & inspection: normal inspection of the chest Resp Effort & Inspection: normal respiratory effort Auscultation: clear to auscultation bilaterally, no rhonchi and no wheezes Cardio Rate: regular rate Rhythm: regular rhythm Heart sounds: S1 normal heart sound present and S2 normal heart sound present GI Palpation (GI): Soft to palpation and nontender Auscultation: normal bowel sounds Skin General skin exam: no rashes or lesions noted Neuro Cranial nerves: Yes Equal, round and reactive pupils present Extrem General: No clubbing, No cyanosis and No edema Assessment & Plan Assessment & Plan (1) Pulmonary nodules: Code(s): R91.8 - Other nonspecific abnormal finding of lung field Category: Medical (2) Mycobacterial disease, pulmonary: Comment: clinically better Code(s): A31.0 - Pulmonary mycobacterial infection Category: Medical (3) Bronchiectasis: Code(s): J47.9 - Bronchiectasis, uncomplicated Category: Medical Qualifiers: Bronchiectasis type: uncomplicated Qualified Code(s): J47.9 - Bronchiectasis, uncomplicated (4) Cardiomyopathy: Comment: related to XRT from the lymphoma history Code(s): I42.9 - Cardiomyopathy, unspecified Category: Medical Qualifiers: Cardiomyopathy type: unspecified Qualified Code(s): I42.9 - Cardiomyopathy, unspecified (5) Pulmonary hypertension: Code(s): I27.20 - Pulmonary hypertension, unspecified Category: Medical (6) Pulmonary nodules: Code(s): R91.8 - Other nonspecific abnormal finding of lung field Category: Medical Plan Continue CPT with nebulized therapy, hypertonic saline restart Advair, failed powdered inhaler due to hoarseness, thrush. continue Spirva. Does not tolerate powdered inhalers due to larygeal disease, vocal cord paralysis and hoarseness STEFANI as needed Astelin nasal spray repeat CT chest in 3-4 monthsr F/U in 4-6 months Orders: Orders CT chest wo IV con 4 Months R91.8 - Other nonspecific abnormal finding of lung field Medications: New fluticasone propion-salmeterol 115-21 mcg/actuation (Advair HFA) 2 puffs inhalation Q12H 30 days 12 grams 11RF Coding Level of Care Code Est Pt Level 5 (48775) Complex EM visit Add On G2211 Diagnoses Pulmonary nodules R91.8 Mycobacterial disease, pulmonary A31.0 Bronchiectasis without complication J47.9 Bronchiectasis type: uncomplicated Cardiomyopathy, unspecified type I42.9 Cardiomyopathy type: unspecified Pulmonary hypertension I27.20 Time Spent (min) 60
[2024-06-19 15:45] VITALS: BP 122/70; PULSE 84; O2SAT 97; BMI 26.6
== END 2024-06-19 16:23 | disposition home or self-care (01) ==
PROVIDERS: PCP Pediatrics; Visit Provider Hospitalist
DX: R91.8 Other nonspecific abnormal finding of lung field (principal); A31.0 Pulmonary mycobacterial infection; J47.9 Bronchiectasis, uncomplicated; I42.9 Cardiomyopathy, unspecified; I27.20 Pulmonary hypertension, unspecified
CPT/HCPCS: 99215; 99417

== ENCOUNTER → 2024-06-19 15:40 | Outpatient (BNVA) | payer OTHER, MEDICAID, SELFPAY | PROVIDERS: PCP Pediatrics; Visit Provider Hospitalist ==

== ENCOUNTER 2024-11-24 15:41 | Outpatient (AMB) | payer OTHER, MEDICAID, SELFPAY ==
--- OUTSIDE RECORDS SUMMARY | 2024-11-24 15:44 | XMS_ITS | Continuity of Care Document ---
Author Organization [facility], [facility] Address [address] [place] [address] Care Team Providers Care Funds Development Director Name Role Phone TU NGUYỄN Primary Care Provider [phone] ELKE TAYLOR Counter Stitcher TIMOTEO MARCIAL Clinical Cardiac Electrophysiolo gist GLENDY VELIZ Security Systems Installer DAMEON HOOK Infectious Disease [phone] BLANK LUBIN College Administrator KRISTINE HUERTA Breast Surgeon DAMEON PETE General Surgeon FERNANDEZ MCPHERSON Charge Account Clerk MONA MCNAMARA Rubber Tubing Backer JASEN BAZAN Wool Hat Flanger WAN TAYLOR General Surgeon JESSI GAMBLE Medical Oncologist [phone] HERNAN BALLESTEROS Diagnostic Radiologist [phone] JENNY KENNEY Neurosurgeon DAMEON PETE Business Operations Consultant [phone] WISAM CHRISTENSEN Medical Oncologist [phone] Assessment Encounter Date Assessment Date Assessment LastModified by Organization Details LastModified Time 11/17/2024 11/17/2024 This service was provided using telemedicine. Patient consented to video & audio visit Patient was located in the [facility]. Provider was located in the office. No other persons participated in the telemedicine visit except for the patient unless otherwise indicated here. {{}} Total time of visit was 17 minutes. [email or web address] Not available 11/17/2024 16:06:31 Plan of Treatment Reminders Order Date Submit Date Provider Last Modified By Organization Details Last Modified Time Details Appointments None recorded . Lab None recorded . Referral None recorded . Procedures None recorded . Surgeries None recorded . Imaging None recorded . Medication Orders oxycodon e-acetam inophen 10 mg-325 mg tablet 2024 025 [place] [facility], [address] [place] [address], [id number], 5 16:10:10 oxycodon e-acetam inophen 10 mg-325 mg tablet 2024 025 [place] [facility], [address] [place] [address], [id number], 5 16:10:08 oxycodon e-acetam inophen 10 mg-325 mg tablet 2024 025 [facility], [address] [place] [address], [id number], 5 20:26:47 Patient TargetsNo targets recorded. Patient InstructionsNo instructions recorded. Reason for Referral None Reported. Results Created Date Observation Date Name Description Value Unit Range Abnormal Flag Note LastModifiedBy Organization Detail LastModifiedTime 11/03/19 25 10/09/2024 CT, chest , w/o contr ast No observ ation record ed. [email or web address] Not Available 11/22 20:33:32 Result Notes None recorded. Problems Name Problem SNOMED Code Status Onset Date Resolution Date Notes Provider Name and Address Organization Details Recorded Time Mammogra phy abnormal [id number] Completed 201301/06/2017 RECORDED 01/18/20 14 3:16PM BY JENNI CRUZ MA, OFFICE VISIT Leanne kyle MA - [facility] 7 09:50:41 Acute pharyngi tis 635027884 Completed 201204/17/2014 RECORDED 10/03/20 13 1:01PM BY JENNI CRUZ MA, ANNOTATI ON/ADDEN DUM Tu Nguyễn MD [address], [place], [address] , [facility] 6 09:13:07 Multiple mitral and aortic valve involvem ent Completed 201101/10/2019 Tu Nguyễn MD [address], [place], [address] , [facility] 9 10:12:34 Arthropa thy 812738838 Active 2013 Not Available Critical [facility] hospital 1 17:47:25 Patient status finding [id number] Completed 201204/17/2014 RECORDED 10/28/19 13 8:53AM BY JENNI CRUZ MA, SONAL ON/ADDEN DUM Tu Nguyễn MD [address], [place], [address] , [facility] 6 09:13:07 Blood transfus ion reaction 56216007 Active 2013 Not Available Critical access hospital 1 17:47:25 Primary malignan t neoplasm of female breast 75091144 Completed 201301/10/2019 Tu Nguyễn MD [address], [place], [address] , [facility] 9 10:14:10 Screenin g for malignan t neoplasm of breast Completed 201104/17/2014 RECORDED 07/25/20 12 10:41AM BY JENNI CRUZ MA, ANNOTATI ON/ADDEN DUM Tu Nguyễn MD [address], [place], [address] , [facility] 6 09:13:07 Acute exacerba tion of bronchie ctasis 508849225 Completed 201204/17/2014 IMPRESSI ON: SEE PT MESSAGE; RECORDED 10/03/20 13 1:01PM BY JENNI CRUZ MA, ANNOTATI ON/ADDEN DUM Tu Nguyễn MD [address] [address], [place], [address] , [facility] 6 09:13:07 Low back pain 218903968 Completed 201311/06/2015 IMPRESSI ON: PAIN IS STABLE AND WELL CONTROLL ED. MEDS REFILLED PER NARCOTIC CONTRACT .; RECORDED 01/30/20 14 6:41AM BY TU Xie MD, OFFICE VISIT Tu Nguyễn MD [address] [address], [place], [address] , [facility] 6 09:13:07 Depressi ve disorder 47307369 Active 2013 Not Available [facility] 1 17:47:25 Dysphagi a 78839428 Completed 201204/17/2014 IMPRESSI ON: IF UGI ABNL, OR SYMPTOMS PERSIST WILL REFER TO GI.; RECORDED 10/28/19 13 8:53AM BY JENNI CRUZ MA, ANNOTATI ON/ADDEN DUM Tu Nguyễn MD [address] [address], [place], [address] , [facility] 6 09:13:07 Influenz a vaccine needed 43449133675 06 Completed 201204/17/2014 RECORDED 07/26/20 13 3:43PM BY JENNI CRUZ MA, OFFICE VISIT uT Nguyễn MD [address] [address], [place], [address] , [facility] 6 09:13:07 Tobacco user [id number] Completed 201304/17/2014 RECORDED 01/18/20 14 3:15PM BY JENNI CRUZ MA, ANNOTATI ON/ADDEN DUM Tu Nguyễn MD [address] [address], [place], [address] , [facility] 6 09:13:07 Adult health examinat ion Completed 201204/17/2014 IMPRESSI ON: IMMUNIZA TION STATUS UTD WILL SCREEN BASED ON RISK FACTORS. REGULAR DENTAL CARE AND SEATBELT USE ADVISED. DISTRACT ED DRIVING DISCUSSE D. ROUTINE CERVICAL /BREAST/ COLON CANCER SCREENIN G UTD ALTHOUGH ALL ARE DUE IN THE UPCOMING SEVERAL MONTHS.; RECORDED 07/25/20 13 10:11AM BY JENNI CRUZ MA, SONAL ON/NAINA Nguyễn MD [address], [place], [address] , [facility] 6 09:13:07 Pure hypercho lesterol emia 155883337 Active 2013 Not Available Critical access hospital 1 17:47:25 Hodgkin' s disease of extranod al AND/OR solid organ site 30214982 Completed 201204/17/2014 RECORDED 07/25/20 13 10:11AM BY JENNI CRUZ MA, SONAL ON/NAINA Nguyễn MD [address], [place], [address] , [facility] 6 09:13:07 Hypothyr oidism 95745100 Active 2013 Not Available [facility] 1 17:47:25 Irritabl e bowel syndrome 96106711 Active 2013 Not Available [facility] 1 17:47:25 Disorder of lung 48306686 Completed 201301/06/2018 Tu Nguyễn MD [address], [place], [address] , [facility] 8 14:15:17 Renewal of prescrip tion Completed 201104/17/2014 RECORDED 07/25/20 12 10:42AM BY JENNI CRUZ MA, SONAL ON/NAINA Nguyễn MD [address], [place], [address] , [facility] 6 09:13:07 Migraine 28611444 Active 2013 Not Available [facility] 1 17:47:25 Heart murmur 79321118 Active 2013 Not Available [facility] 1 17:47:25 Chronic sinusiti s 39558869 Completed 201204/17/2014 IMPRESSI ON: SOUNDS ALLERGY RELATED. PT WILL TRY NASAL STEROID AND IF DRAINAGE PERSISTS /BECOMES PURULENT WILL START ABX. CALL INB/WORS E WITH THESE INTERVEN TIONS.; RECORDED 10/03/20 13 1:00PM BY JENNI CRUZ MA, ANNOTATI ON/NAINA Nguyễn MD [address], [place], [address] , [facility] 6 09:13:07 Primary malignan t neoplasm of skin 13727873 Completed 201301/06/2017 [facility]; RECORDED 01/18/20 14 3:16PM BY JENNI CRUZ MA, OFFICE VISIT Leanne kyle, [facility] 7 09:52:12 Edema 448551972 Completed 201204/17/2014 IMPRESSI ON: GIVEN POST SURGICAL LOCATION WILL IMAGE TO SEE IF C/W NL SCAR TISSUE AND RULE OUT FLUID COLLECTI ON.; RECORDED 10/28/19 13 8:53AM BY JENNI CRUZ MA, ANNOTATI ON/TOMEN DUM Tu Nguyễn MD [address], [place], [address] , [facility] 6 09:13:07 Chronic low back pain 652246648 Active Not Available Critical access hospital 1 17:47:25 Esophage al dysphagi a 42203874 Completed 01/10/2019 Tu Nguyễn MD [address], [place], [address] , [facility] 9 10:12:48 Acute pharyngi tis 426351548 Completed 201205/10/2014 RECORDED 10/03/20 13 1:01PM BY JENNI CRUZ MA, SONAL ON/NAINA Nguyễn MD [address], [place], [address] , [facility] 6 09:13:07 Patient status finding 135899159 Completed 201205/10/2014 RECORDED 10/28/19 13 8:53AM BY JENNI CRUZ MA, SONAL ON/NAINA Nguyễn MD [address], [place], [address] , [facility] 6 09:13:07 Screenin g for malignan t neoplasm of breast Completed 201105/10/2014 RECORDED 07/25/20 12 10:41AM BY JENNI CRUZ MA, SONAL FLORES/NAINA Nguyễn MD [address], [place], [address] , [facility] 6 09:13:07 Acute exacerba tion of bronchie ctasis 314995648 Completed 201205/10/2014 IMPRESSI ON: SEE PT MESSAGE; RECORDED 10/03/20 13 1:01PM BY JENNI CRUZ MA, SONAL ON/NAINA Nguyễn MD [address], [place], [address] , [facility] 6 09:13:07 Dysphagi a 23450793 Completed 201205/10/2014 IMPRESSI ON: IF UGI ABNL, OR SYMPTOMS PERSIST WILL REFER TO GI.; RECORDED 10/28/19 13 8:53AM BY JENNI CRUZ MA, SONAL ON/NAINA Nguyễn MD [address], [place], [address] , [facility] 6 09:13:07 Influenz a vaccine needed 34699796596 06 Completed 201205/10/2014 RECORDED 07/26/20 13 3:43PM BY JENNI CRUZ MA, OFFICE VISIT Tu Nguyễn MD [address], [place], [address] , [facility] 6 09:13:07 Tobacco user [id number] Completed 201305/10/2014 RECORDED 01/18/20 14 3:15PM BY JENNI CRUZ MA, ANNOTATI ON/ADDEN DUM Tu Nguyễn MD [address], [place], [address] , [facility] 6 09:13:07 Adult health examinat ion Completed 201205/10/2014 IMPRESSI ON: IMMUNIZA TION STATUS UTD WILL SCREEN BASED ON RISK FACTORS. REGULAR DENTAL CARE AND SEATBELT USE ADVISED. DISTRACT ED DRIVING DISCUSSE D. ROUTINE CERVICAL /BREAST/ COLON CANCER SCREENIN G UTD ALTHOUGH ALL ARE DUE IN THE UPCOMING SEVERAL MONTHS.; RECORDED 07/25/20 13 10:11AM BY JENNI CRUZ MA, SONAL ON/ADDYARITZA DUM Tu Nguyễn MD [address], [place], [address] , [facility] 6 09:13:07 Hodgkin' s disease of extranod al AND/OR solid organ site 72124728 Completed 201205/10/2014 RECORDED 07/25/20 13 10:11AM BY JENNI CRUZ MA, SONAL ON/NAINA DUM Tu Nguyễn MD [address], [place], [address] , [facility] 6 09:13:07 Renewal of prescrip tion Completed 201105/10/2014 RECORDED 07/25/20 12 10:42AM BY JENNI CRUZ MA, SONAL ON/ADDYARITZA Nguyễn MD [address], [place], [address] , [facility] 6 09:13:07 Chronic sinusiti s 13165278 Completed 201205/10/2014 IMPRESSI ON: SOUNDS ALLERGY RELATED. PT WILL TRY NASAL STEROID AND IF DRAINAGE PERSISTS /BECOMES PURULENT WILL START ABX. CALL INB/WORS E WITH THESE INTERVEN TIONS.; RECORDED 10/03/20 13 1:00PM BY JENNI CRUZ MA, SONAL ON/NAINA Nguyễn MD [address], [place], [address] , [facility] 6 09:13:07 Edema 675488592 Completed 201205/10/2014 IMPRESSI ON: GIVEN POST SURGICAL LOCATION WILL IMAGE TO SEE IF C/W NL SCAR TISSUE AND RULE OUT FLUID COLLECTI ON.; RECORDED 10/28/19 13 8:53AM BY JENNI CRUZ MA, SONAL ON/NAINA Nguyễn MD [address], [place], [address] , [facility] 6 09:13:07 Acute pharyngi tis 046046837 Completed 201205/11/2014 RECORDED 10/03/20 13 1:01PM BY JENNI CRUZ MA, SONAL FLORES/NAINA Nguyễn MD [address], [place], [address] , [facility] 6 09:13:07 Screenin g for malignan t neoplasm of breast Completed 201105/11/2014 RECORDED 07/25/20 12 10:41AM BY JENNI CRUZ MA, SONAL ON/NAINA Nguyễn MD [address], [place], [address] , [facility] 6 09:13:07 Acute exacerba tion of bronchie ctasis 486837071 Completed 201205/11/2014 IMPRESSI ON: SEE PT MESSAGE; RECORDED 10/03/20 13 1:01PM BY JENNI CRUZ MA, SONAL ON/NAINA Nguyễn MD [address] [address], [place], [address] , [facility] 6 09:13:07 Dysphagi a 09998518 Completed 201205/11/2014 IMPRESSI ON: IF UGI ABNL, OR SYMPTOMS PERSIST WILL REFER TO GI.; RECORDED 10/28/19 13 8:53AM BY JENNI CRUZ MA, SONAL ON/NAINA Nguyễn MD [address] [address], [place], [address] , [facility] 6 09:13:07 Influenz a vaccine needed 33249785301 06 Completed 201205/11/2014 RECORDED 07/26/20 13 3:43PM BY JENNI CRUZ MA, OFFICE VISIT Tu Nguyễn MD [address] [address], [place], [address] , [facility] 6 09:13:07 Tobacco user [id number] Completed 201305/11/2014 RECORDED 01/18/20 14 3:15PM BY JENNI CRUZ MA, SONAL FLORES/NAINA Nguyễn MD [address] [address], [place], [address] , [facility] 6 09:13:07 Adult health examinat ion Completed 201205/11/2014 IMPRESSI ON: IMMUNIZA TION STATUS UTD WILL SCREEN BASED ON RISK FACTORS. REGULAR DENTAL CARE AND SEATBELT USE ADVISED. DISTRACT ED DRIVING DISCUSSE D. ROUTINE CERVICAL /BREAST/ COLON CANCER SCREENIN G UTD ALTHOUGH ALL ARE DUE IN THE UPCOMING SEVERAL MONTHS.; RECORDED 07/25/20 13 10:11AM BY JENNI CRUZ MA, SONAL ON/NAINA Nguyễn MD [address] [address], [place], [address] , [facility] 6 09:13:07 Hodgkin' s disease of extranod al AND/OR solid organ site 73880202 Completed 201205/11/2014 RECORDED 07/25/20 13 10:11AM BY JENNI CRUZ MA, SONAL ON/NAINA Nguyễn MD [address], [place], [address] , [facility] 6 09:13:07 Renewal of prescrip tion Completed 201105/11/2014 RECORDED 07/25/20 12 10:42AM BY JENNI CRUZ MA, SONAL ON/NAINA Nguyễn MD [address], [place], [address] , [facility] 6 09:13:07 Chronic sinusiti s 97554314 Completed 201205/11/2014 IMPRESSI ON: SOUNDS ALLERGY RELATED. PT WILL TRY NASAL STEROID AND IF DRAINAGE PERSISTS /BECOMES PURULENT WILL START ABX. CALL INB/WORS E WITH THESE INTERVEN TIONS.; RECORDED 10/03/20 13 1:00PM BY JENNI CRUZ MA, SONAL ON/NAINA Nguyễn MD [address], [place], [address] , [facility] 6 09:13:07 Edema 589241507 Completed 201205/11/2014 IMPRESSI ON: GIVEN POST SURGICAL LOCATION WILL IMAGE TO SEE IF C/W NL SCAR TISSUE AND RULE OUT FLUID COLLECTI ON.; RECORDED 10/28/19 13 8:53AM BY JENNI CRUZ MA, SONAL ON/NAINA Nguyễn MD [address], [place], [address] , [facility] 6 09:13:07 Strictur e of esophagu s 12938837 Active Not Available [facility] 17:47:25 Esophage al reflux finding 271194804 Completed 01/06/2018 Tu Nguyễn MD [address], [place], [address] , [facility] 8 14:15:21 Asthma 793460223 Active Not Available [facility] 17:47:25 Body mass index 25-29 - overweig ht 363341742 Completed 07/14/2019 Removal Reason: dx changed Tu Nguyễn MD [address], [place], [address] , [facility] 4 10:22:02 Vitamin D deficien cy 38584854 Active Not Available [facility] 17:47:25 Aortic valve stenosis 96265782 Active mild Not Available [facility] 17:47:25 Aortic valve regurgit ation 29313958 Active mod Not Available [facility] 17:47:25 Acute asthma 742115301 Completed 11/06/2015 Tu Nguyễn MD [address], [place], [address] , [facility] 6 09:13:07 Sinusiti s 02404217 Completed 11/06/2015 Tu Nguyễn MD [address], [place], [address] , [facility] 6 09:13:07 Acute sinusiti s 99459806 Completed 01/06/2017 Leanne kyle, [facility] 7 09:50:19 Herpes labialis 4720337 Active Not Available [facility] 17:47:25 Allergy Completed 01/06/2017 Leanne kyle, [facility] 7 09:50:29 Pneumoni a caused by Streptoc occus 75153367 Completed 11/12/2015 Tu Nguyễn MD [address], [place], [address] , [facility] 6 09:13:07 Cough 28789432 Completed 11/06/2015 Leanne kyle, [facility] 7 09:51:35 Hoarse 76244929 Completed 01/10/2019 Tu Nguyễn MD [address], [place], [address] , [facility] 0 15:00:40 Exacerba tion of persiste nt asthma Completed 01/06/2018 Tu Nguyễn MD [address], [place], [address] , [facility] 8 14:15:54 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 21405747 Active Not Available [facility] 17:47:25 Left bundle branch block 14169018 Active 2015 Not Available [facility] 17:47:25 Cough 10731259 Completed 01/06/2017 Leanne kyle, [facility] 7 09:51:35 Moderate asthma 498272233 Active Not Available [facility] 17:47:25 Mitral valve regurgit ation 80589176 Active 2015 mild/mod Not Available [facility] 17:47:25 Left heart failure 84345949 Active 2015 Not Available [facility] 17:47:25 Left cardiac ventricu lar dilatati on 641835477 Active 2015 Not Available [facility] 17:47:25 History of Hodgkin lymphoma 855045987 Active 1976 Not Available [facility] 17:47:25 Electroc ardiogra m abnormal 370854606 Active Not Available [facility] 17:47:25 Congesti ve heart failure 33860018 Active Not Available [facility] 17:47:25 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 110072461 Completed 01/10/2019 Tu Nguyễn MD [address], [place], [address] , [facility] 4 06:19:23 Thyroid hormone tests outside referenc e range 861173141 Completed 01/06/2017 Leanne kyle, [facility] 7 09:50:38 Left sided abdomina l pain 803980064 Completed 01/06/2017 Leanne kyle [facility] 7 09:51:21 Blood in urine 50062354 Completed 01/06/2017 Leanne kyle, [facility] 7 09:51:18 Acute vaginiti s 38696087 Completed 01/06/2017 Leanne kyle [facility] 7 09:51:01 Vaginiti s 83125853 Completed 01/06/2017 Leanne kyle [facility] 7 09:51:13 Dysuria 14814738 Completed 01/06/2017 Leanne kyle [facility] 7 09:51:41 Intermit tent dysphagi a 85556517 Completed 01/06/2018 Tu Nguyễn MD [address], [place], [address] , [facility] 8 14:14:48 Constipa tion 17620031 Active Not Available [facility] 1 17:47:25 Multiple nodules of lung 199980097 Active 2015 right, 1.3 and 1.2cm Tu Nguyễn MD [address], [place], [address] , [facility] 4 10:06:36 Pyuria 7282062 Completed 04/21/2017 Tu Nguyễn MD [address], [place], [address] , [facility] 7 09:39:53 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 Completed 201504/08/2020 Tu Nguyễn MD [address], [place], [address] , [facility] 0 14:50:05 Impaired fasting glycemia 666245593 Active 2016 Not Available [facility] 1 17:47:25 Asplenia 806578453 Active 2016 Not Available [facility] 17:47:25 Heart valve disorder 353398 Active 2016 Not Available [facility] 17:47:25 Fibrosis of lung 62773405 Active 2016 Not Available [facility] 1 17:47:25 Bronchie ctasis 18071605 Active 2016 Not Available [facility] 17:47:25 Gastroes ophageal reflux disease 010583103 Active 2017 Not Available [facility] 17:47:25 [employer] [facility] [employer] ion Classifi cation - Class III 727429504 Active 2017 Not Available [facility] 1 17:47:25 Asthma-c hronic obstruct eron pulmonar y disease overlap syndrome 88261303121 679627 Active 2017 Not Available [facility] 1 17:47:25 Fibromya lgia 567344711 Active 2018 Not Available [facility] 17:47:25 Raynaud' s disease 093238364 Active 2018 Not Available [facility] 17:47:25 History of malignan t neoplasm of breast 824436918 Active 2018 right, s/p mastecto my, no tamoxife n Not Available [facility] 17:47:25 Basal cell carcinom a of skin 671851202 Active 2018 neck Not Available [facility] 17:47:25 Hoarse 83581556 Completed 201804/08/2020 Tu Nguyễn MD [address] [facility] [address] [address], [place], [address] , [facility] 0 15:00:40 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 Not Available [facility] 1 17:47:24 Generali zed anxiety disorder 45942821 Active 2019 Not Available [facility] 1 17:47:25 Hypercal cemia 46948561 Active 2019 Not Available [facility] 1 17:47:25 Albuminu christophe 666762062 Completed 201906/10/2020 Tu Nguyễn MD [address] [facility], [place], [address] , [facility] 0 20:18:14 Hyperpar athyroid ism 71852163 Active 2019 Not Available [facility] 1 17:47:25 Chronic kidney disease stage 3A 496606502 Completed 202008/05/2023 Tu Nguyễn MD [address] [facility], [place], [address] , [facility] 3 11:00:48 Suspecte d COVID-19 390834376 Completed 04/08/2021 Removal Reason: Problem added by user [email or web address] from the COVID-19 watch flag Raegan kyle, [facility] 1 13:43:15 Osteopen ia 188901629 Active 2020 Tu Nguyễn MD [address], [place], [address] , [facility] 1 08:56:02 Bilatera l cataract s 91128456 Active 2020 Tu Nguyễn MD [address] [facility], [place], [address] , [facility] 1 21:33:41 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 084423226 Completed 202008/23/2023 T1cN0 IDC 2-/-/- Removal Reason: mastecto my Jenny Ang null, [facility] 3 07:43:29 Anemia 657701189 Active 2020 Tu Nguyễn MD [address], [place], [address] , [facility] 1 15:18:27 Prediabe pravin 770716989 Active 2020 Tu Nguyễn MD [address] [facility] [address] [address], [place], [address] , [facility] 1 08:14:49 Iron deficien cy anemia 68136081 Active 2020 Tu Nguyễn MD [address], [place], [address] , [facility] 1 07:10:33 Candidia sis of the esophagu s [id number] Completed 202108/05/2023 Tu Nguyễn MD [address] [facility] [address], [place], [address] , [facility] 3 11:01:01 Hiatal hernia [id number] Active 2021 Tu Nguyễn MD [address], [place], [address] , [facility] 2 21:22:33 Lumbar radiculo corinne 045199632 Active 2021 Tu Nguyễn MD [address], [place], [address] , [facility] 2 16:36:56 Paralysi s of left vocal cord 593672932 Active 2021 Tu Nguyễn MD [address], [place], [address] , [facility] 2 16:15:47 Acute COVID-19 [id number] Completed 202206/15/2023 Tu Nguyễn MD [address], [place], [address] , [facility] 3 11:23:34 SARS-CoV -2 Completed 202208/05/2023 Tu Nguyễn MD [address], [place], [address] , [facility] 3 11:05:26 History of bilatera l mastecto my [id number] Active 2022 Tu Nguyễn MD [address], [place], [address] , [facility] 3 11:19:24 Abdomina l pain 45803765 Active 2023 BRIDGET Dean [address] [facility] [address], [place], [address] , [facility] 4 11:58:17 Wheeze - rhonchi [id number] Completed 202308/11/2024 Tu Nguyễn MD [address], [place], [address] , [facility] 4 10:06:20 Urinary tract infectio us disease 99374224 Active 2023 BRIDGET Dean [address] [facility], [place], [address] , [facility] 4 09:42:11 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 664405566 Active Tu Nguyễn MD [address], [place], [address] , [facility] 4 06:19:23 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 81013932 Active 2023 Tu Nguyễn MD [address], [place], [address] , [facility] 4 06:22:49 Compress ion fracture of thoracic vertebra [id number] 04 Completed 202308/11/2024 T4 Tu Nguyễn MD [address], [place], [address] , [facility] 4 10:07:16 Compress ion fracture of thoracic spine 366274563 Active 2023 T4 Tu Nguyễn MD [address], [place], [address] , [facility] 4 00:00:18 Osteopor osis 08937120 Active 2023 Tu Nguyễn MD [address], [place], [address] , [facility] 4 07:53:43 Body mass index 25-29 - overweig ht 660060580 Active 2023 Tu Nguyễn MD [address], [place], [address] , [facility] 4 10:22:02 Malignan t neoplasm of breast in [facility] n Active 2023 Tu Nguyễn MD [address], [place], [address] , [facility] 4 10:25:36 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 Procedures Surgical History Date Name Laterality Status Provider Name and Address Organization Details Recorded Time 11/07 Date of Last Colonoscopy completed Kathy Arambula [facility] 5 14:31:02 11/07 Egd diagnostic brush wash completed Tu Nguyễn MD [address], [place], [address] , [facility] 5 12:32:39 11/07 Colonoscopy completed Tu Nguyễn MD [address], [place], [address] , [facility] 5 12:33:27 06/06 Chronic Pain Assessment completed Anna Peck MA [facility] 4 11:01:18 12/05 Chronic Pain Assessment completed Anna Peck MA [facility] 4 10:21:29 06/15 Chronic Pain Assessment completed Anna Peck MA [facility] 3 11:05:37 03/08 Chronic Pain Assessment completed Anna Peck MA [facility] 3 10:16:18 12/04 Chronic Pain Assessment completed Guerline Smalls MA [facility] 3 09:02:03 06/09 Chronic Pain Assessment completed Jenni Cruz MA [facility] 2 09:23:02 04/30 Chronic Pain Assessment completed Jenni Cruz MA [facility] 2 10:48:45 03/13 Chronic Pain Assessment completed Guerline Smalls MA [facility] 2 10:03:09 01/12 Egd diagnostic brush wash completed Tu Nguyễn MD [address], [place], [address] , [facility] 2 21:23:08 12/16 Chronic Pain Assessment completed Jenni Cruz MA [facility] 2 13:49:31 09/16 Chronic Pain Assessment completed Jenni Cruz MA [facility] 1 11:46:34 08/11 Mast radical completed Mirian Garcia RN [facility] 2 08:56:29 06/24 incisional biopsy of breast completed Tu Nguyễn MD [address] [facility] [address], [place], [address] , [facility] 1 12:40:15 06/19 Chronic Pain Assessment completed Jenni Cruz MA [facility] 1 11:52:12 06/17 Most Recent Mammogram completed Mirian Garcia RN [facility] 1 15:25:51 04/03 Bronchoscopy completed Tu Nguyễn MD [address] [facility] [address], [place], [address] , [facility] 1 08:52:42 03/24 Echo transthoracic completed uT Nguyễn MD [address] [facility] [address], [place], [address] , [facility] 1 11:48:05 03/21 Chronic Pain Assessment completed Jenni Cruz MA [facility] 1 09:39:06 12/20 Chronic Pain Assessment completed Jenni Cruz MA [facility] 1 09:21:44 09/20 Chronic Pain Assessment completed Jenni Cruz MA [facility] 0 10:02:03 06/21 Chronic Pain Assessment completed Jenni Cruz MA [facility] 0 10:44:17 06/12 Bronchoscopy completed Kayli Braxton [facility] 0 14:05:01 06/12 Bronchoscopy completed Tu Nguyễn MD [address], [place], [address] , [facility] 0 06:27:35 10/10 Chronic Pain Assessment completed Catherine Christina MA [facility] 0 10:13:37 07/11 Chronic Pain Assessment completed Jenni Cruz MA [facility] 9 10:09:43 06/21 Mammogram one breast completed Stephanie Foster [facility] 9 09:46:18 04/26 colonoscopy completed Tu Nguyễn MD [address], [place], [address] , [facility] 3 11:05:45 04/11 Chronic Pain Assessment completed Jenni Cruz MA [facility] 9 09:41:29 03/31 Most Recent Bone Density completed Jenni Cruz MA [facility] 0 14:35:02 03/31 Dxa bone density larry vrt fx completed Rosa Cruz MA [facility] 0 14:34:30 01/10 Chronic Pain Assessment completed Jenni Cruz MA [facility] 9 09:52:52 01/02 Colonoscopy completed Zaida Hebert MA [facility] 1 08:34:18 11/30 mohs surgery completed Tu Nguyễn MD [address], [place], [address] , [facility] 9 10:22:18 11/25 Date of Last Pap Smear completed Kayli Braxton [facility] 9 13:36:36 10/13 Chronic Pain Assessment completed Jenni Cruz MA [facility] 9 09:24:08 08/31 Bronchoscopy completed Stephaniedillon Foster [facility] 8 11:46:22 07/14 Chronic Pain Assessment completed Jenni Cruz MA [facility] 8 15:22:31 04/18 Chronic Pain Assessment completed Jenni Cruz MA [facility] 8 14:00:54 01/31 Pmkr, dual, rate-resp completed Tu Nguyễn MD [address], [place], [address] , [facility] 8 16:51:46 01/06 Chronic Pain Assessment completed Jenni Cruz MA [facility] 8 13:57:30 10/15 Chronic Pain Assessment completed Leanne jones MA [facility] 8 10:13:38 07/20 Chronic Pain Assessment completed Jenni Cruz MA [facility] 7 10:17:38 04/21 Chronic Pain Assessment completed Jenni Cruz MA [facility] 7 09:25:02 01/20 Chronic Pain Assessment completed Jenni Cruz MA [facility] 7 11:25:10 10/23 Chronic Pain Assessment completed Jenni Cruz MA [facility] 7 08:16:24 06/09 esophagogastroduodenoscopy completed Tu Nguyễn MD [address], [place], [address] , [facility] 0 09:16:58 04/27 Chronic Pain Assessment completed Catherine Christina MA [facility] 6 08:23:04 03/13 Cardiac mri w/stress img completed Tu Nguyễn MD [address], [place], [address] , [facility] 7 15:13:01 02/02 Chronic Pain Assessment completed Jenni Cruz MA [facility] 6 09:26:40 01/02 Cardiac Surgery completed Tu Nguyễn MD [address], [place], [address] , [facility] 6 08:21:03 12/05 Echo Transthoracic completed Tu Nguyễn MD [address], [place], [address] , [facility] 6 08:18:17 05/04 EGD completed Tu Nguyễn MD [address], [place], [address] , [facility] 0 09:16:39 03/01 Mastectomy Partial completed Mirian Garcia RN [facility] 1 15:22:47 02/01 Breast Implants completed Jenni Cruz MA [facility] 6 09:21:57 02/01 Breast Surgery completed Zaida Hebert MA [facility] 1 08:34:18 02/01 Breast Implants completed Zaida Hebert MA [facility] 1 08:34:18 01/02 Breast Biopsy completed Zaida Hebert MA [facility] 1 08:34:18 07/23 Caesarean Section completed Zaida Hebert MA [facility] 1 08:34:18 05/04 Cholecystectomy completed Zaida Hebert MA [facility] 1 08:34:18 06/04 Appendectomy completed Zaida Hebert MA [facility] 1 08:34:18 Appendectomy completed Zaida Hebert MA [facility] 1 08:34:18 Splenectomy completed Jenni Cruz MA [facility] 6 09:21:57 Breast Surgery completed Zaida Hebert MA [facility] 1 08:34:18 Breast Biopsy completed Zaida Hebert MA [facility] 1 08:34:18 Hysterectomy completed Jenni Cruz MA [facility] 4 14:41:43 Caesarean Section completed Tu Nguyễn MD [address] [facility] [address], [place], [address] , [facility] 8 14:29:05 Cholecystectomy completed Zaida Hebert MA [facility] 1 08:34:18 mohs surgery completed Anna Peck MA [facility] 3 10:47:08 Imaging Results None recorded. Procedure Notes None recorded. Medical Equipment None Reported. Allergies Allergen ID Allergen Name Allergen Category Reaction Reaction Severity Criticality Documentation Date Start Date Code Code System Note Provider Name and Address Organization Details Recorded Time 27199 Substance with sulfonami de structure and antibacte rial mechanism of action (substanc e) medicatio n rash Not available Not available 09/03/2014 77724 8003 [facility]ED [facility] 13:33:49 89446 Levaquin medicatio n headache nausea other Not available Not available Not available Not available 04/15/2021 22498 2 RxNorm dizzi ness Tu Nguyễn MD [address] [facility] [address], [place], [address] , [facility] 1 09:01:30 30520 Compazine medicatio n palpitati ons severe Not available 03/13/202265501 6 RxNorm Guerline LAURA Smalls, [facility] 2 09:55:43 3731 Bactrim medicatio n rash Not available Not available 04/17/20142013 55201 9 RxNorm Lori Promise-M LAURA de la cruz, [facility] 4 13:33:49 3732 Biaxin medicatio n rash Not available Not available 04/17/2014201372 9 RxNorm Lori LAURA Hwang, [facility] 4 13:33:49 3733 codeine sulfate medicatio n other Not available Not available 04/17/20142013 69863 RxNorm abdom inal pain LoriLAURA Osorio, [facility] 4 13:33:49 3734 naproxen medicatio n diarrhea Not available Not available 04/17/20142013 7258 RxNorm abdom inal pain Lori Promise-LAURA Liz, [facility] 4 13:33:49 Medications Name Sig Start Date Stop Date Status Note LastModified by Organization Details LastModified Time compound drug 12/16 completed Not Available Not Available Not Available celecoxib 200 mg capsule TAKE ONE CAPSULE BY MOUTH EVERY DAY NEEDED FOR 14 DAYS 09/04 completed Not Available Not Available Not Available amoxicill in 500 mg capsule PLEASE SEE ATTACHED FOR DETAILED DIRECTIO NS 07/14 completed Not Available Not Available Not Available fluconazo le 100 mg tablet 04/11 completed Not Available Not Available Not Available methocarb garcía 500 mg tablet 07/20 completed Not Available Not Available Not Available desonide 0.05 % topical cream Apply 1 applicat ion as needed by topical route for 20 days. 01/06 completed Not Available Not Available Not Available Qvar 80 mcg/actua tion Metered Aerosol oral inhaler TWO TIMES DAILY active Not Available Not Available No t Available nystatin 100,000 unit/mL oral suspensio n TAKE 1 ML BY MOUTH 3 TIMES DAILY FOR 14 DAYS. SWISH AND SWALLOW 04/30 completed Not Available Not Available Not Available vitamin A 2,400 mcg capsule Take 1 capsule every day by oral route. active Not Available Not Available No t Available acetamino phen 325 mg tablet 09/16 completed Not Available Not Available Not Available carvedilo l 6.25 mg tablet Take 1 tablet every day by oral route for 30 days. 07/11 completed Not Available Not Available Not Available prednison e 10 mg tablet PLEASE SEE ATTACHED FOR DETAILED DIRECTIO NS 06/15 completed Not Available Not Available Not Available doxycycli ne hyclate 100 mg capsule Take 1 capsule every day by oral route for 30 days. 04/15 completed Not Available Not Available Not Available Vitamin C 500 mg tablet Take 1 tablet every day by oral route. 07/14 completed Not Available Not Available Not Available cefpodoxi me 200 mg tablet TAKE 1 TABLET BY MOUTH EVERY 12 HOURS FOR 7 DAYS 03/06 completed Not Available Not Available Not Available azithromy sintia 250 mg tablet TAKE 2 TABLETS BY MOUTH TODAY, THEN TAKE 1 TABLET DAILY FOR 4 DAYS DIRECTED 04/25 completed Not Available Not Available Not Available fluconazo le 150 mg tablet Take 1 tablet every day by oral route as directed for yeast vaginiti s. May repeat after 72 hours as needed. for 1 day. 03/06 completed Not Available Not Available Not Available valacyclo vir 1 gram tablet Take 2 tablets every 12 hours by oral route for 1 day. active Not Available Not Available No t Available ondansetr on HCl 8 mg tablet 09/16 completed Not Available Not Available Not Available minocycli ne 100 mg capsule 09/20 completed Not Available Not Available Not Available sodium chloride 3 % for nebulizat ion INHALE 4 ML VIA NEBULIZE R TWICE A DAY X 30 DAYS active Not Available Not Available No t Available fluconazo le 200 mg tablet TAKE 1 TABLET BY MOUTH EVERY DAY FOR 14 DAYS 03/13 completed Not Available Not Available Not Available ondansetr on HCl 4 mg tablet TAKE 1 TABLET BY MOUTH EVERY 8 HOURS NEEDED FOR NAUSEA AND VOMITING 03/06 completed Not Available Not Available Not Available prednison e 20 mg tablet PLEASE SEE ATTACHED FOR DETAILED DIRECTIO NS 04/25 completed Not Available Not Available Not Available dexametha sone 6 mg tablet TAKE 1 TABLET BY MOUTH DAILY FOR 3 DAYS 06/15 completed Not Available Not Available Not Available terconazo le 0.8 % vaginal cream 07/14 completed Not Available Not Available Not Available moxifloxa sintia 400 mg tablet DAILY 01/24 completed RECORDED 01/30/20 14 6:43AM BY TU Xie MD, MEDICATI ON AUTO-TL CTIVATIO N; Not Available Not Available Not Available torsemide 10 mg tablet Take 1 tablet every day by oral route for 30 days. 12/16 completed Not Available Not Available Not Available valsartan 80 mg tablet Take 1 tablet every day by oral route as directed . 04/21 completed Not Available Not Available Not Available ciproflox acin 250 mg tablet Take 1 tablet every 12 hours by oral route for 3 days. 06/21 completed Not Available Not Available Not Available levofloxa sintia 250 mg tablet TAKE 1 TABLET BY MOUTH EVERY DAY FOR 21 DAYS 04/15 completed Not Available Not Available Not Available prochlorp erazine maleate 10 mg tablet Take by oral route for 7 days. 09/16 completed Not Available Not Available Not Available peg-elect rolyte solution 420 gram oral solution 12/05 completed Not Available Not Available Not Available omeprazol e 40 mg capsule,d elayed release TAKE 1 CAPSULE BY MOUTH EVERY DAY active Not Available Not Available No t Available doxycycli ne monohydra te 100 mg tablet TAKE 1 TABLET BY MOUTH 2 TIMES A DAY FOR 14 DAYS 04/25 completed Not Available Not Available Not Available carvedilo l 3.125 mg tablet Take 1 tablet twice a day by oral route for 30 days. 02/01 completed Not Available Not Available Not Available lidocaine -prilocai ne 2.5 %-2.5 % topical cream 10/01 completed Not Available Not Available Not Available bisoprolo l fumarate 10 mg tablet Take 1 tablet every day by oral route. 04/11 completed Not Available Not Available Not Available levothyro xine 75 mcg tablet TAKE 1 TABLET BY MOUTH EVERY DAY. EVERY OTHER WEDNESDAY TAKE AN EXTRA 1/2 TAB active Not Available Not Available No t Available bisoprolo l fumarate 5 mg tablet TAKE 1 TABLET BY MOUTH EVERY DAY active Not Available Not Available No t Available oxycodone -acetamin ophen 5 mg-325 mg tablet TAKE ONE TABLET BY MOUTH EVERY 6 HOURS NEEDED 06/15 completed Not Available Not Available Not Available levothyro xine 88 mcg tablet TAKE 1 TABLET BY MOUTH EVERY DAY 09/20 completed Not Available Not Available Not Available Fluticaso ne Propionat e (Inhal) 50 mcg/BLIST inhl powd EACH NOSTRIL DAILY NEEDED 2012 active RECORDED 08/04/20 13 2:33PM BY JOE CONLEY MA, OFFICE VISIT; Not Available Not Available Not Available amoxicill in 875 mg tablet THREE TIMES DAILY 08/22 completed RECORDED 08/23/20 13 5:58AM BY LASHA RIVERS, MEDICATI ON AUTO-TL CTIVATIO N; Not Available Not Available Not Available Denavir 1 % topical cream APPLY TO THE AFFECTED AREA(S) BY TOPICAL ROUTE EVERY 2 HOURS DURING WAKING HOURS FOR 4 DAYS 01/06 completed Not Available Not Available Not Available Vitamin C 1,000 mg tablet Take 1 tablet every day by oral route. active Not Available Not Available No t Available lorazepam 0.5 mg tablet Take 1 tablet every day by oral route as needed for 30 days. active Not Available Not Available No t Available metoclopr amide 5 mg tablet 06/21 completed Not Available Not Available Not Available DOK 100 mg capsule TAKE ONE CAPSULE BY MOUTH TWICE A DAY 07/14 completed Not Available Not Available Not Available oxycodone -acetamin ophen 10 mg-325 mg tablet Take 1 tablet every 6 hours by oral route as needed for 30 days. 2024 active Not Available Not Available Not Avai lable calcitoni n (salmon) 200 unit/actu ation nasal spray USE 1 SPRAY INTRANAS ALLY ONCE A DAY FOR 30 DAYS 06/06 completed Not Available Not Available Not Available imiquimod 5 % topical cream packet Apply 1 applicat ion every day by topical route for 30 days. 05/06 completed Not Available Not Available Not Available benzonata te 100 mg capsule Take 1 capsule 3 times a day by oral route as needed for 5 days. active Not Available Not Available No t Available oseltamiv ir 75 mg capsule Take 1 capsule twice a day by oral route for 5 days. 10/15 completed Not Available Not Available Not Available ferrous sulfate 325 mg (65 mg iron) tablet Take 1 tablet every day by oral route for 30 days. 03/13 completed Not Available Not Available Not Available clotrimaz ole-betam ethasone 1 %-0.05 % topical cream apply thin layer prn 03/13 completed Not Available Not Available Not Available lansopraz ole 30 mg capsule,d elayed release Take 1 capsule every day by oral route. active Not Available Not Available No t Available ciproflox acin 100 mg tablet TAKE 2 TABLETS BY MOUTH TWICE A DAY FOR 21 DAYS 06/19 completed Not Available Not Available Not Available tacrolimu s 0.03 % topical ointment Apply 1 applicat ion as needed by topical route for 30 days. 01/06 completed Not Available Not Available Not Available hydrocodo ne-homatr opine 5 mg-1.5 mg/5 mL oral syrup active Not Available Not Available Not Available Senokot 8.6 mg tablet Take 2 tablets every day by oral route. 01/28 completed Not Available Not Available Not Available gabapenti n 300 mg capsule Take 1 capsule every day by oral route as needed for 14 days. 03/13 completed Not Available Not Available Not Available omeprazol e 20 mg capsule,d elayed release Take 1 capsule every day by oral route for 90 days. 04/30 completed Not Available Not Available Not Available codeine 10 mg-guaife nesin 100 mg/5 mL oral liquid Take 10 mL every 4-6 hours by oral route as needed for 3 days. 04/11 completed Not Available Not Available Not Available zinc 50 mg tablet Take 1 tablet every day by oral route. active Not Available Not Available No t Available Baby Aspirin 81 mg chewable tablet Chew 1 tablet every day by oral route. 07/14 completed Not Available Not Available Not Available mupirocin 2 % topical ointment APPLY TO SURGICAL SITE TWICE A DAY FOR 7 -14 DAYS OR UNTIL FOLLOW UP 08/05 completed Not Available Not Available Not Available furosemid e 20 mg tablet Take 1 tablet as needed by oral route for 5 days. 08/05 completed Not Available Not Available Not Available gabapenti n 100 mg capsule Take 1 capsule 3 times a day by oral route for 30 days. 06/15 completed 03/08/23 ON HOLD Not Available Not Available Not Available ergocalci ferol (vitamin D2) 1,250 mcg (50,000 unit) capsule WEEKLY 07/26 completed RECORDED 07/26/20 13 3:39PM BY JENNI CRUZ MA, OFFICE VISIT; Not Available Not Available Not Available levalbute rol 1.25 mg/3 mL solution for nebulizat ion INHALE 1 VIAL VIA NEBULIZE R EVERY 4 HOURS NEEDED FOR WHEEZING active Not Available Not Available No t Available lorazepam 1 mg tablet Take 1.5 tablets every day by oral route as needed for 30 days. 03/21 completed Not Available Not Available Not Available azelastin e 137 mcg (0.1 %) nasal spray [place] 2 sprays twice a day by nasal route for 30 days. 03/06 completed Not Available Not Available Not Available cefuroxim e axetil 500 mg tablet TWO TIMES DAILY 02/06 completed RECORDED 03/14/20 13 2:43PM BY TU Xie MD, MEDICATI ON AUTO-TL CTIVATIO N; Not Available Not Available Not Available levofloxa sintia 500 mg tablet 10/13 completed Not Available Not Available Not Available levofloxa sintia 750 mg tablet Take 1 tablet every day by oral route for 7 days. 10/15 completed Not Available Not Available Not Available albuterol sulfate HFA 90 mcg/actua tion aerosol inhaler TAKE 2 PUFFS BY MOUTH 4 TIMES A DAY NEEDED FOR WHEEZING active Not Available Not Available No t Available ondansetr on 4 mg disintegr ating tablet Place 1 tablet every 8 hours by oral route as needed for 4 days. 09/03 completed Not Available Not Available Not Available fluticaso ne propionat e 50 mcg/actua tion nasal spray,vidhya pension [place] 2 sprays every day by intranas al route for 30 days. active Not Available Not Available No t Available doxycycli ne hyclate 100 mg tablet TAKE 1 TABLET BY MOUTH TWICE A DAY FOR 5 DAYS 06/15 completed Not Available Not Available Not Available loratadin e 10 mg tablet Take 1 tablet every day by oral route for 90 days. active Not Available Not Available No t Available amoxicill in 875 mg-potass ium clavulana te 125 mg tablet TAKE 1 TABLET BY MOUTH TWICE A DAY FOR 10 DAYS 03/13 completed Not Available Not Available Not Available Vitamin B-12 1,000 mcg tablet Take 1 tablet every day by oral route. 12/05 completed Not Available Not Available Not Available tobramyci n 0.3 %-dexamet hasone 0.1 % eye drops,vidhya pension active Not Available Not Available Not Available Stool Softener 50 mg capsule Take 1 capsule every day by oral route. active Not Available Not Available No t Available azithromy sintia 500 mg tablet TAKE 1 TABLET BY MOUTH 3 TIMES PER WEEK ON WEDNESDAY/W /WEDNESDAY active Not Available Not Available No t Available valsartan 40 mg tablet Take 1 tablet every day by oral route for 30 days. 10/13 completed Not Available Not Available Not Available amoxicill in-potass ium clavulana te 1,000 mg-62.5 mg tablet,ex t.rel 12hr Take by oral route for 7 days. 12/16 completed Not Available Not Available Not Available Vitamin D3 25 mcg (1,000 unit) capsule Take 1 capsule every day by oral route. 07/11 completed Not Available Not Available Not Available Readi-Cat 2 2.1 % (w/v), 2.0 % (w/w) oral suspensio n Take 450 mL twice a day by oral route as directed for 1 day. 12/05 completed Not Available Not Available Not Available nitrofura ntoin monohydra te/macroc rystals 100 mg capsule 04/21 completed Not Available Not Available Not Available lactulose 10 gram/15 mL oral solution TAKE 15 ML TWICE A DAY BY ORAL ROUTE DIRECTED FOR 10 DAYS, FOR CONSTIPA TION. 12/05 completed Not Available Not Available Not Available Flovent HFA 110 mcg/actua tion aerosol inhaler active Not Available Not Available Not Available chlorhexi dine gluconate 0.12 % mouthwash Place by mucous mem route for 30 days. 07/20 completed Not Available Not Available Not Available magnesium 1 daily unsure of strength active Not Available Not Available No t Available Multivita min With Minerals dosage as on bottle - take one tablet DAILY 10/13 completed Not Available Not Available Not Available Saline Nasal FOUR TIMES DAILY 02/26 completed RECORDED 03/14/20 13 2:43PM BY TU Xie MD, MEDICATI ON AUTO-TL CTIVATIO N; Not Available Not Available Not Available Atrovent HFA 2 puffs q 4 hours active Not Available Not Available No t Available Advair HFA 230 mcg-21 mcg/actua tion aerosol inhaler Inhale 2 puffs twice a day by inhalati on route for 90 days. 06/06 completed Not Available Not Available Not Available omeprazol e 20 mg tablet,de layed release Take 1 tablet every day by oral route. 10/13 completed pt would like to restart med, having acid reflux issue lately Not Available Not Available Not Available GaviLyte- G 236 gram-22.7 4 gram-6.74 gram-5.86 gram oral solution 07/11 completed Not Available Not Available Not Available Gavilax 17 gram/dose oral powder MIX 17 GRAMS IN LIQUID AND TAKE BY MOUTH EVERY DAY NEEDED FOR 30 DAYS 2022 active Not Available Not Available Not Avai lable Probiotic take 1 tablet po daily active Not Available Not Available No t Available krill oil 500 mg capsule Take 2 capsules every day by oral route. 06/19 completed Not Available Not Available Not Available krill oil active Not Available Not Cheryl ilable Not Available Vitamin D3 50 mcg (2,000 unit) capsule Take 1 capsule every day by oral route for 90 days. 2017 active Not Available Not Available Not Avai lable Aerochamb er Mini DAILY NEEDED 2013 active RECORDED 01/18/20 14 3:56PM BY TU Xie MD, OFFICE VISIT; Not Available Not Available Not Available Fiber (psyllium husk-suga r) 3.4 gram/11 gram oral powder Take 3.4 g twice a day by oral route. 07/14 completed Not Available Not Available Not Available hydrocodo ne-homatr opine 5 mg-1.5 mg/5 mL (5 mL) oral syrup Take 5 mL as needed by oral route at bedtime. 2015 active Not Available Not Available Not Avai lable Spiriva Respimat 2.5 mcg/actua tion solution for inhalatio n INHALE 2 PUFFS BY MOUTH EVERY DAY active Not Available Not Available No t Available IBgard 90 mg capsule,d elayed,ex tended release Take 1 capsule twice a day by oral route as needed. 01/06 completed Not Available Not Available Not Available ProAir RespiClic k 90 mcg/actua tion breath activated Inhale 2 puffs every day by inhalati on route as needed for 30 days. active Not Available Not Available No t Available Flucelvax (PF) 45 mcg (15 mcg x 3)/0.5 mL IM syringe active Not Available Not Available Not Available Entresto 24 mg-26 mg tablet TAKE 1 TABLET BY MOUTH TWICE A DAY active Not Available Not Available No t Available Readi-Cat 2 2 % (w/v) oral suspensio n 12/05 completed Not Available Not Available Not Available Arikayce 590 mg/8.4 mL suspensio n for inhalatio n via nebulizat ion Inhale 1 mL every day by inhalati on route for 28 days. 04/08 completed Not Available Not Available Not Available Wixela Inhub 250 mcg-50 mcg/dose powder for inhalatio n INHALE 1 PUFF INTO THE LUNGS EVERY 12 HOURS FOR 30 DAYS active Not Available Not Available No t Available Flucelvax Quad (PF) 60 mcg (15 mcg x 4)/0.5 mL IM syringe PHARMACY ADMINIST ERED 12/20 completed Not Available Not Available Not Available BinaxNOW COVID-19 Ag Self Test kit REFER TO MANUFACT URERS INSTRUCT IONS INCLUDED IN PACKAGIN G 02/04 completed Not Available Not Available Not Available Vitals Date Recorded Body height Provider Name an d Address Organization Details Last Updated DateTime 11/17/2024 162.56 cm [facility] 11/17/2024 14:51:46 Social History Question Answer Notes LastModified by Organizat ion Details LastModified Time Tobacco Smoking Status Former Smoker quit 1976 Not Available [facility] 08/06/2020 03:36:42 Do You Have An Advance Directive? Yes HCP/ SonMayur Information not available 09/04/2022 What Is Your Level Of Alcohol Consumption? None [id number] Information not available 08/06/2020 Is Blood Transfusion Acceptable In An Emergency? Yes [id number] Information not available 08/06/2020 What Is Your Level Of Caffeine Consumption? None [id number] Information not available 08/06/2020 How Much Tobacco Do You Chew? None [id number] Information not available 08/06/2020 In The 14 Days Before Symptom Onset, Have You Had Close Contact With A Laboratory-confi rmed COVID-19 While That Case Was Ill? No Information not available 09/04/2022 In The 14 Days Before Symptom Onset, Have You Had Close Contact With A Person Who Is Under Investigation For COVID-19 While That Person Was Ill? No Information not available 09/04/2022 Have You Been To An Area Known To Be High Risk For COVID-19? No Information not available 09/04/2022 Are You Currently Employed? Yes [employer] [id number] Information not available 08/06/2020 What Type Of Diet Are You Following? REGULAR [id number] Information not available 08/06/2020 Which Illicit Or Recreational Drugs Have You Used? None [id number] Information not available 08/06/2020 Do You Or Have You Ever Used E-cigarettes Or Vape? Never Used Electronic Cigarettes Information not available 09/04/2022 Education 12 Information not available 09/04/2022 What Is Your Occupation? [employer] [id number] Information not available 08/06/2020 When Did You Quit Smoking? 16+yearssince lastcigarette [email or web address] Information not available 04/15/2021 Live Alone Or With Others? Alone Information not available 09/04/2022 Do You Take Precautions To Prevent Distracted Driving? Yes Information not available 11/06/2015 How Often Do You Need To Have Someone Help You When You Read Instructions, Pamphlets, Or Other Written Material From Your Doctor Or Pharmacy? Never Information not available 11/06/2015 Have You Served In The ? No Information not available 01/10/2019 Have You Or Anyone In Your Household Had Any Of The Following Symptoms In The Last 14 Days: Sore Throat, Cough, Chills, Body Aches For Unknown Reasons, Shortness Of Breath For Unknown Reasons, Loss Of Smell, Loss Of Taste, Fever At Or Greater Than 100 Degrees Fahrenheit? No Information not available 04/08/2020 Are You Or Anyone In Your Household A Health Care Provider Or Emergency Responder? No Information not available 04/08/2020 To The Best Of Your Knowledge Have You Been In Close Proximity To Any Individual Who Tested Positive For COVID-19? No Information not available 04/08/2020 *AWV ONLY* Are You Presently Prescribed Opioid Medication By PCP Or Specialist? If YES -Provider Assess The Benefit For Other, Non-opioid Pain Therapies Instead, Even If The Patient Does Not Have OUD But Is Possibly At Risk. No Information not available 06/21/2020 Have You Recently Traveled To A COVID-19 High Risk Area Or Gathering In The Last 10 Days? No Information not available 12/20/2020 What Was The Date Of Your Most Recent Tobacco Screening? 08/05/2023 [email or web address] Information not available 08/05/2023 How Many Children Do You Have? [facility] [email or web address] Information not available 08/05/2023 What Is Your Current Pack Years? 10-19packyear s Information not available 09/04/2022 Seat Belts Used Routinely Yes Information not available 09/04/2022 Are You Sexually Active? No [id number] Information not available 08/06/2020 Smoke Alarm In Home Yes Information not available 09/04/2022 At What Age Did You Start Smoking Tobacco? 16 [id number] Information not available 08/06/2020 Are You Passively Exposed To Smoke? No Information not available 08/13/2014 Do You Or Have You Ever Used Smokeless Tobacco? Never Used Smokeless Tobacco [id number] Information not available 08/06/2020 How Much Tobacco Do You Smoke? 1 PPW [id number] Information not available 08/06/2020 Do You Use Any Illicit Or Recreational Drugs? No Information not available 09/04/2022 Do You Use Sunscreen Routinely? Yes [id number] Information not available 08/06/2020 How Many Years Have You Smoked Tobacco? 1 [email or web address] Information not available 04/15/2021 Do You Or Have You Ever Used Any Other Forms Of Tobacco Or Nicotine? No Information not available 09/04/2022 Sex: Unknown Functional Status Question Answer Note LastModified by Organizat ion Details LastModified Time Are you able to walk? YESWOREST Information not available 09/04/2022 Are you able to care for yourself? Yes [id number] Information not available 08/06/2020 What is your exercise level? Occasional [id number] Information not available 08/06/2020 Mental Status None recorded. Family History Relationship Description Onset Age of this Age Resolved Age Notes LastModified by Organization Details LastModified Time Mother Hypertensive disorder abolcun Not available 2015 10:53:05 Mother Cerebrovascu lar accident abolcun Not available 06/2016 10:53:05 Father Malignant tumor of colon abolcun Not available 2015 10:53:05 Father Alcohol abuse abolcun Not available 2015 10:53:05 Father Malignant melanoma Not available 2021 08:39:57 Sister Malignant tumor of breast [email or web address] Not available 04/15 08:33:47 Sister Well adult Not available 09/04/2022 08:39:57 Sister Chronic obstructive pulmonary disease [email or web address] Not available 04/15 08:33:47 Sister Migraine [email or web address] Not availab le 04/15/2021 08:33:47 Sister Anxiety disorder Not available 04/15 08:33:47 Sister Obesity [email or web address] Not availabl e 04/15/2021 08:33:47 Sister Malignant tumor of breast abolcun Not available 2015 10:53:05 Son Well adult Not available 09/04/2022 08:39:57 Son Well adult Not available 09/04/2022 08:39:57 Medical History Condition Response Other N Gout N Blood Diseases N Kidney Stones N Hyperthyroidism N Breast Cancer Y Lung Disease Y COPD Y Depression Y Hypothyroidism Y Defects or Inherited Disease N Anesthesia Complications N Headaches/Migraines Y Varicose Veins N Anxiety Disorder Y Obesity N Vision or Eye Problems N Arthritis Y Head Injury/Concussion N Polyps N Infertility Y Congenital Anomalies N Acid Reflux (GERD) Y Cancer Y Stroke N ADHD N Endometriosis Y High Cholesterol N Liver Disease N Fibromyalgia Y Kidney Disease N Heart Problems Y Ear or Hearing Problems N Hospitalizations Y Thyroid Problems Y GI Problems Y Acne N Skin Problems Y Eating Disorder N Anemia Y Constipation Y Bladder Problems N Mental Illness N Ovarian Cancer N Diabetes N Blood Transfusions Y Seizures/Epilepsy N Tuberculosis N AIDS/HIV N Congestive Heart Failure (CHF) N Eczema Y Diverticulitis N Abuse/Domestic Violence N Allergies Y Asthma Y Reflux/GERD N Hepatitis N Pulmonary Embolism N Hypertension N Osteoporosis N Chicken Pox N Autism Spectrum Disorder (ASD) N Gynecological History Statement/Question Response Abnormal Pap N Date of Last Colonoscopy 11/07/2024 Most Recent Bone Density 03/31/2019 Post Menopausal Bleeding N Menses Monthly N Date of Last Pap Smear 11/25/2018 Most Recent Mammogram 06/17/2021 Obstetrics History GPAL:G 0 P 0 0 0 0 Immunizations Vaccine Type Date Status Note Provider Nam e and Address Organization Details Recorded Time Influenza, split virus, quadrivalent, PF 4 completed Not Available [facility] 02/25[facility]2021 17:47:26 Influenza, split virus, quadrivalent, PF 5 completed Not Available [facility] 02/25/2021 17:47:26 Influenza, split virus, quadrivalent, preservative 0 completed Not Available [facility] 02/25/2021 17:47:26 COVID-19, mRNA, LNP-S, PF, 30 mcg/0.3 mL dose 1 completed LAURA Camarena [facility] 09/16/2021 11:35:53 Influenza, MDCK, quadrivalent, PF 0 completed LAURA Camarena [facility] 09/16/2021 11:35:53 COVID-19, mRNA, LNP-S, PF, 30 mcg/0.3 mL dose 1 completed LAURA Camarena [facility] 09/16/2021 11:35:53 meningococcal MCV4P 2 completed Jenni Cruz LAURA kyle [facility] 09/16/2021 11:35:53 COVID-19, mRNA, LNP-S, PF, 30 mcg/0.3 mL dose 1 completed Jenni Cruz LAURA kyle [facility] 09/16/2021 11:38:52 pneumococcal polysaccharide PPV23 1 [facility] 09:26:18 Influenza, split virus, quadrivalent, PF 7 completed Jenni Cruz LAURA anabella [facility] 04/30/2022 10:49:02 Influenza, split virus, quadrivalent, PF 8 completed Jenni Cruz LAURA anabella [facility] 04/30/2022 10:49:02 pneumococcal polysaccharide PPV23 9 completed Jenni Cruz LAURA kyle [facility] 04/30/2022 10:49:02 Tdap 9 completed Jenni Cruz LAURA kyle [facility] 04/30/2022 10:49:02 Pneumococcal conjugate PCV 13 4 completed Jenni Cruz LAURA kyle [facility] 04/30/2022 10:49:02 meningococcal MCV4P 8 completed Jenni Cruz LAURA kyle [facility] 04/30/2022 10:49:02 Influenza, split virus, quadrivalent, PF 9 completed Jenni Cruz LAURA anabella [facility] 04/30/2022 10:49:03 Influenza, split virus, quadrivalent, PF 1 completed Jenni Cruz LAURA anabella [facility] 04/30/2022 10:49:03 Influenza, split virus, quadrivalent, PF 2 completed LAURA Arroyo, [facility] 07/14/2022 11:16:28 COVID-19, mRNA, LNP-S, PF, 100 mcg/0.5mL dose or 50 mcg/0.25mL dose 2 completed LAURA Arroyo, [facility] 07/14/2022 11:16:28 COVID-19, mRNA, LNP-S, bivalent, PF, 50 mcg/0.5 mL or 25mcg/0.25 mL dose 2 completed LAURA Negrete, [facility] 08/31/2022 13:31:48 RSV, recombinant, protein subunit RSVpreF, adjuvant reconstituted, 0.5 mL, PF 3 completed LAURA Brannon, [facility] 08/05/2023 10:33:06 COVID-19, mRNA, LNP-S, PF, joseline-sucrose, 30 mcg/0.3 mL 4 completed Izabela Caporale, [employer] null, [facility] 08/11/2024 09:40:31 Influenza, high-dose, trivalent, PF 4 completed Izabela Caporale, [employer] null, [facility] 08/11/2024 09:40:31 Influenza, split virus, quadrivalent, PF 6 completed Not Available [facility] 10/21/2019 02:22:07 influenza, seasonal, intradermal, preservative free 2 completed Not Available [facility] 02/25/2021 17:47:26 meningococcal MPSV4 2 completed Not Available [facility] 02/25/2021 17:47:26 MMR 1 completed LAURA Camarena, [facility] 09/16/2021 11:35:53 pneumococcal polysaccharide PPV23 9 completed LAURA Camarena, [facility] 09/16/2021 11:35:53 Tdap 9 completed Not Available [facility] 02/25/2021 17:47:26 influenza, seasonal, intradermal, preservative free 3 completed Not Available [facility] 02/25/2021 17:47:26 Influenza, high-dose, quadrivalent, PF 3 completed Tu Nguyễn MD [address], [address], [facility] 07/07/2023 13:04:12 Past Encounters Encounter ID Performer Location Encounter Start Date Encounter Closed Date Diagnosis/Indication Diagnosis SNOMED-CT Code Diagnosis ICD10 Code Diagnosis Note [id number] Tu Nguyễn MD [facility] [address] [address] 11/17/2024 14:41:24 11/17/2024 16:05:35 Lumbar radiculopathy 314009411 M54.16 Symptoms stable and well controlled on updated dosing needed in context of recent vertebral fracture. Adenocarci noma of cecum 166248936 C18.0 New diagnosis. Has appt with oncology and colorectal surgery to guide mgmt moving forward. Health Concerns Section Related Observation LastModified by Organization Detai ls LastModified Time None Recorded Concern Status LastModified by Organization Details LastModified Time None Recorded Payers Encounter Date Sequence Insurance Name Policy Number Policy Kirk Covered Member ID Kirk Member ID Guarantor Name 11/17/2024 1 [facility] [id number] Paula Hsu [id number] Paula Hsu 11/17/2024 2 [place] 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 Pain is chronic and is under control with Oxycodone 5-325 mg taken QID. Pt. is not seeing any other specialists at this time for her back. MRI revealed suspicious L3 lesion and lower lumbar spine disc disease with right sided neuroforaminal impingement. PET scan not suggestive of metastatic disease. 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 Pt has chronic lung disease/bronchiectas is and CHF. 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 Tu Nguyễn MD [address] [address], [place], [address], [facility] 11/22/2024 20:57:17 OBGyn Episode No OBEpisode recorded.
--- OUTSIDE RECORDS SUMMARY | 2024-11-24 15:45 | XMS_ITS | Data Portability ---
Author Organization [facility], Main Office Address [address] [place] [address] Care Team Providers Care Viscosity Worker Name Role Phone TU VALDEZ Primary Care Provider ELKE STALLINGS [employer] TIMOTEO MARCIAL Clinical Cardiac Electrophysiolo gist GLENDY VELIZ Second Hand DAMEON HOOK Infectious Disease [phone] BLANK LUBIN Information Security Risk Analyst KRISTINE HUERTA Breast Surgeon DAMEON PETE General Surgeon FERNANDEZ MCPHERSON Metal Expediter MONA MCNAMARA Chocolate Molder JASEN BAZAN Hoof Trimmer WAN TAYLOR General Surgeon JESSI GAMBLE Medical Oncologist [phone] HERNAN SHERWOOD Diagnostic Radiologist [phone] JENNY KENNEY Neurosurgeon DAMEON PETE Vp Clinical Research [phone] WISAM CHRISTENSEN Medical Oncologist [phone] Assessment Encounter Date Assessment Date Assessment LastModified by Organization Details LastModified Time 11/17/2024 11/17/2024 This service was provided using telemedicine. Patient consented to video & audio visit Patient was located in the [facility]. Provider was located in the office. No other persons participated in the telemedicine visit except for the patient unless otherwise indicated here. {{}} Total time of visit was 17 minutes. [email or web address] Not available 11/17/2024 16:06:31 Plan of Treatment Reminders Order Date Submit Date Provider Last Modified By Organization Details Last Modified Time Details Appointments None recor ded. Lab amyla se + lipas e, serum 2023 ALICIA [facility], [address], [address], [place], [address], 4 14:06:07 CMP, serum or plasm a 2023 ALICIA [facility], [address], [address], [place], [address], 4 14:06:06 lipid panel , serum 2023 ALICIA [facility], [address], [address], [place], [address], 4 10:13:37 HbA1c (hemo globi n A1c), blood 2023 ALICIA [facility], [address], [address], [place], [address], 4 10:13:36 CMP, serum or plasm a 2023 ALICIA [facility], [address], [address], [place], [address], 4 10:13:35 iron + total iron- samuel ng capac ity (TIBC ), serum 2023 ALICIA [facility], [address], [address], [place], [address], 4 10:13:37 CBC w/ auto diff 2023 ALICIA [facility], [address], [address], [place], [address], 4 10:13:35 BNP (B-ty pe natri ureti c pepti de), serum or plasm a 2023 024 RAYMOND [facility], [address], [address], [place], [address], 4 10:13:36 Referral physi estefani thera pist refer ral - for core stren gthen ing, cervi estefani/t horac ic and lumba r back 2023 024 [facility], [address], [place], [address], 4 12:47:[address]/di etiti an refer ral 2023 024 [email or web address] Not available 4 09:06:21 physi estefani medic ine and rehab ilita tion refer ral 2023 024 jazz Ortiz MD, [address], [address], [place], [address], 4 10:29:19 Procedures colon oscop y scree mars (PROC ) 2023 024 [email or web address] In-Office Order, Internal Use Only DO Not Attach Compendium DO Not Attach Compendium, Do Not Delete/merge, [id number] 4 09:07:52 Surgeries None recor ded. Imaging CT, abdom en + pelvi s, w/ contr ast - Left sided abdom inal pain and a h/o abdom inal surge alka. R/o diver ticul itis vs parti al bowel obstr uctio n. 2023 024 [facility], [address] , [place], [address], 4 15:54:00 Medication Orders oxyco done- aceta minop hen 10 mg-32 5 mg table t 2024 025 RAYMOND [facility], [address], [place], [address], 5 16:10:10 oxyco done- aceta minop hen 10 mg-32 5 mg table t 2024 025 ALICIA [facility], [address] [place] [address], [address], 5 16:10:08 oxyco done- aceta minop hen 10 mg-32 5 mg table t 2024 025 [facility], [address] [place] [address], [address], 5 20:26:47 oxyco done- aceta minop hen 10 mg-32 5 mg table t 2023 024 ALICIA [facility], [address] [place] [address], [address], 4 10:21:29 oxyco done- aceta minop hen 10 mg-32 5 mg table t 2023 024 ALICIA [facility], [address] [place] [address], [address], 4 10:21:26 oxyco done- aceta minop hen 10 mg-32 5 mg table t 2023 024 ALICIA [facility], [address] [place] [address], [address], 4 10:21:29 oxyco done- aceta minop hen 10 mg-32 5 mg table t 2023 024 ALICIA [facility], [address] [place] [address], [address], 4 11:28:32 oxyco done- aceta minop hen 10 mg-32 5 mg table t 2023 024 ALICIA [facility], [address] [place] [address], [address], 11:28:31 Patient TargetsNo targets recorded. Patient Instructions Encounter Date Encounter Id Patient Instructions Last Modified By Organization Details Last Modified Time 05/18/2024 [id number] Patient will fol low up and keep appointment as scheduled. [email or web address] Not available 05/18/2024 09:31:26 2024 [id number] chronic pain: ca re instructions [email or web address] Not available 2024 11:28:18 Learning About Take-Home Naloxone Kits for Opioid Emergencies [email or web address] Not available 2024 11:28:18 Reviewed the ris ks and benefits of long-term use of opiate for chronic, non-malignant pain. Reviewed with patient that penitentiary opiate use is appropriate treatment based on current medical condition and patient states that continued benefit is noted. Contract for opiate use is in place. Discussed side effects of opiates. Caution driving, reviewed fall risk, and treatment for constipation, as well as option to fill in lesser amounts. A Prescription for an Opioid has been given to the patient and I have reviewed the patients profile in [facility] Partial fill of RX is possible. [email or web address] Not available 2024 10:53:30 08/11/2024 [id number] high cholesterol : care instructions [email or web address] Not available 08/11/2024 10:13:23 gastroesophageal reflux disease (GERD): care instructions [email or web address] Not available 08/11/2024 10:13:23 anxiety disorder : care instructions [email or web address] Not available 08/11/2024 10:13:22 learning about colon cancer awychowski Not available 08/11/2024 10:13:21 When You Want to Lose Weight: Care Instructions [email or web address] Not available 08/11/2024 10:13:22 Nutrition Referr al and Weight Management Follow-up Information [email or web address] Not available 08/11/2024 10:13:23 09/15/2024 [id number] abdominal pain: care instructions mo Not available 09/15/2024 14:00:01 Reason for Referral Physical Medicine And Rehabi litation Referral for Paresthesia of upper limb Referring Physician: Kristopher Dumont, Internal Medicine, Encounter Date: 05/18/2024 Pressed Or Blown Glass Worker/dietitian Refer ral for Body mass index 25-29 - overweight Referring Physician: Tu Valdez [facility] Medicine, Encounter Date: 08/11/2024 Physical Therapist Referral for Strain of neck muscle for core strengthening, cervical/thoracic and lumbar back Referring Physician: Tu Valdez [facility] Medicine, Encounter Date: 08/11/2024 Results Created Date Observation Date Name Description Value Unit Range Abnormal Flag Note LastModifiedBy Organization Detail LastModifiedTime 09/15/20 24 09/16/2024 COMP. METAB OLIC PANEL (14) glucose 101 mg/dL 70-99 above high normal Not Available [facility] ([facility]) [address] [place], [address], 09/16/2024 14:06:06 09/15/20 24 09/16/2024 COMP. METAB OLIC PANEL (14) BUN 19 mg/dL 8-27 normal Not Available [facility] ([facility]) [address] [place], [address], 09/16/2024 14:06:06 09/15/20 24 09/16/2024 COMP. METAB OLIC PANEL (14) creatinine 0.97 mg/dL 0.57-1 .00 normal Not Available [facility] ([facility]) [address] [place], [address], 09/16/2024 14:06:06 09/15/20 24 09/16/2024 COMP. METAB OLIC PANEL (14) eGFR 64 mL/mi n/1.7 3 >59 normal Not Available [facility] ([facility]) [address] [place], [address], 09/16/2024 14:06:06 09/15/20 24 09/16/2024 COMP. METAB OLIC PANEL (14) BUN/creatini ne ratio 20 12-28 normal Not Available [facility] ([facility]) [address] [place], [address], 09/16/2024 14:06:06 09/15/20 24 09/16/2024 COMP. METAB OLIC PANEL (14) sodium 143 mmol/ L 134-14 4 normal Not Available [facility] ([facility]) [address] [facility] [place], [address], 09/16/2024 14:06:06 09/15/20 24 09/16/2024 COMP. METAB OLIC PANEL (14) potassium 5.4 mmol/ L 3.5-5. 2 above high normal Not Available [facility] ([facility]) [address] [facility] [place], [address], 09/16/2024 14:06:06 09/15/20 24 09/16/2024 COMP. METAB OLIC PANEL (14) chloride 105 mmol/ L 96-106 normal Not Available [facility] ([facility]) [address] [facility] [place], [address], 09/16/2024 14:06:06 09/15/20 24 09/16/2024 COMP. METAB OLIC PANEL (14) carbon dioxide, total 24 mmol/ L 20-29 normal Not Available [facility] ([facility]) [address] [facility] [place], [address], 09/16/2024 14:06:06 09/15/20 24 09/16/2024 COMP. METAB OLIC PANEL (14) calcium 10.4 mg/dL 8.7-10 .3 above high normal Not Available [facility] ([facility]) [address] [facility] [place], [address], 09/16/2024 14:06:06 09/15/20 24 09/16/2024 COMP. METAB OLIC PANEL (14) protein, total 6.8 g/dL 6.0-8. 5 normal Not Available [facility] ([facility]) [address] [facility] [place], [address], 09/16/2024 14:06:06 09/15/20 24 09/16/2024 COMP. METAB OLIC PANEL (14) albumin 4.4 g/dL 3.9-4. 9 normal Not Available [facility] ([facility]) [address] [facility] [place], [address], 09/16/2024 14:06:06 09/15/20 24 09/16/2024 COMP. METAB OLIC PANEL (14) globulin, total 2.4 g/dL 1.5-4. 5 Not Available [facility] ([facility]) [address] [facility] [place], [address], 09/16/2024 14:06:06 09/15/20 24 09/16/2024 COMP. METAB OLIC PANEL (14) bilirubin, total <0.2 mg/dL 0.0-1. 2 Not Available [facility] ([facility]) [address] [facility] [place], [address], 09/16/2024 14:06:06 09/15/20 24 09/16/2024 COMP. METAB OLIC PANEL (14) alkaline phosphatase 149 IU/L 44-121 above high normal Not Available [facility] ([facility]) [address] [facility] [place], [address], 09/16/2024 14:06:06 09/15/20 24 09/16/2024 COMP. METAB OLIC PANEL (14) AST (SGOT) 14 IU/L 0-40 normal Not Available [facility] ([facility]) [address] [facility] [place], [address], 09/16/2024 14:06:06 09/15/20 24 09/16/2024 COMP. METAB OLIC PANEL (14) ALT (SGPT) 13 IU/L 0-32 normal Not Available [facility] ([facility]) [address] [facility] [place], [address], 09/16/2024 14:06:06 09/15/20 24 09/16/2024 PEDRITO+L IPASE amylase 59 U/L 31-110 normal Not Available [facility] ([facility]) [address] [facility] [place], [address], 09/16/2024 14:06:07 09/15/20 24 09/16/2024 PEDRITO+L IPASE lipase 23 U/L 14-72 normal Not Available [facility] ([facility]) [address] [facility], [place], [address], 09/16/2024 14:06:07 04/25/20 24 04/25/2024 XR, shoul terri, 2 or more view Should er Min 2 Views Left INDICA TION: Reason : Pain in left should er TECHNI QUE: Grashe y, scapul ar Y, and axilla ry views. . COMPAR FARRAH: 023 FINDIN GS: There is no fractu re or focal bony lesion . The glenoh umeral joint is normal . The acromi oclavi cular joint is normal . There is no soft tissue calcif icatio n to sugges t calcif ic tendin itis IMPRES JUSTINA: 1. No abnorm ality seen. WSN: [id number] Orderi ng Physic margaret: Semaj Dumont Dictat ed By: Tigre Steele MD Dictat ed Date/T varun: 10:40 p Review ed By: Tigre Steele MD Signed By: Tigre Steele MD Signed Date/T varun: 10:40 pm Transc ribed By: MARISABEL Transc ribed Date/T varun: 10:40 pm Patien t Class: Outpat ient [facility] (Outpt Imaging) [address] , [place], [address], 05/18/2024 09:00:25 04/26/20 24 04/25/2024 XR, thora cic spine , 3 view Examin ation: Thorac ic spine perfor med on 024. Histor y: Reason : Pain post fall Findin gs: Fronta l, latera l, and swimme r's views of the thorac ic spine are compar ed to a prior CT chest dated 024. AICD is demons trated . There is a T4 compre ssion fractu re, new from the prior chest CT. No additi onal fractu res are seen. There is no malali gnment . The visual ized ribs and lung parenc hyma are unrema rkable . Surgic al clips in the right upper quadra nt are seen. IMPRES JUSTINA: T4 compre ssion fractu re, new from 01/25. WSN: [id number] Orderi ng Physic margaret: Semaj Dumont Dictat ed By: Jennifer Pompa MD Dictat ed Date/T varun: 8:21 am Review ed By: Jennifer Pompa MD Signed By: Jennifer Pompa MD Signed Date/T varun: 8:21 am Transc ribed By: CSB Transc ribed Date/T varun: 8:19 am Patien t Class: Outpat ient pmadden [facility] (Outpt Imaging) [address] , [place], [address], 05/18/2024 09:00:25 04/27/20 24 04/25/2024 XR, lumba r spine Lumbar Spine 2 or 3 Views Reason : Pain COMPAR FARRAH: No prior plain films. FINDIN GS: No bone lesion s or fractu res. There is marked disc space narrow ing with vacuum disc at L5-S1, remain ing disc spaces satisf actori ly preser lolly. No signif icant osteop hyte format ion. Normal alignm ent. No spondy lolysi s or spondy lolist hesis. Gerald us clips scatte red throug hout the abdome n. There are severa l calcif ied lymph nodes in the mid to lower abdome n IMPRES JUSTINA: Degene rative disc diseas e L5-S1. No acute findin gs. WSN: [id number] Orderi ng Physic margaret: Semaj Dumont Dictat ed By: Goodma n Olga WALKER Dictat ed Date/T varun: 7:01 am Review ed By: Olga Mireles MD Signed By: Olga Mireles MD Signed Date/T varun: 7:01 am Transc ribed By: MARISABEL Transc ribed Date/T varun: 6:58 am Patien t Class: Outpat ient pmadden [facility] (Outpt Imaging) [address] [facility], [place], [address], 05/18/2024 09:00:24 05/23/20 24 05/18/2024 CT, lumba r spine , w/o contr ast No observ ation record ed. [email or web address] Not Available 05/26 07:06:36 05/23/20 24 05/17/2024 NM, bone scan, 3-pha se No observ ation record ed. [email or web address] Not Available 05/26 07:06:36 05/23/20 24 05/01/2024 fluor oscop y evalu ation (PROC ) No observ ation record ed. awychowski Not Available 05/26 07:04:21 06/30/20 24 06/13/2024 CT, thora cic spine , w/o contr ast No observ ation record ed. awychowski Not Available 08/11 10:26:44 07/09/20 24 06/29/2024 DEXA, axial skele ton Name:Tato Lorenzo t ID: [id number] Age:64 years Sex:Fe male Ethnic ity:Et hnicit y: White Date of : [birth year] 56 Reason : M48.54 XA COLLAP SED VERTEB RA; Clinic al Questi on(s): Other: Referr ing Provid er:Charley Dumont Study: Dexa Bone Densit y (Axial ) Bone Densit y: Region BMD T-Scor e Z-Scor e Classi ficati on AP Spine 0.928 -1.1 0.8 Osteop enia TOTAL HIP 0.886 -0.5 0.8 Normal FEM NECK 0.708 -1.3 0.3 Osteop enia 1/3 Forear m 0.461 -3.9 -2.1 Osteop orosis 10-yea r Fractu re Risk: 1 FRAX(R ) Versio n 3.08. Fractu re probab ility calcul ated for an untrea sumit patien t. Fractu re probab ility may be lower if the patien t has receiv ed treatm ent. Major osteop orotic fractu re 8.6% Hip Fractu re 0.8% RATE OF CHANGE (SPINE ): BMD values have increa sed 4.5% from previo us BMD values have decrea sed 7.1% from baseli ne RATE OF CHANGE (TOTAL HIP): BMD values have increa sed 1.3% from previo us BMD values have decrea sed 7.3% from baseli ne RATE OF CHANGE (FEMOR AL NECK): BMD values have increa sed 1.2% from previo us BMD values have decrea sed 11.5% from baseli ne RATE OF CHANGE (FOREA RM) BMD values have decrea sed 10.1% from previo us Impres justina: The patien t has osteop orosis as determ ined by WHO criter ia. WSN: [id number] Orderi Physic margaret: Semaj Dumont Dictat ed By: Barron Henry MD Dictat ed Date/T varun: 9:11 am Review ed By: Barron Henry MD Signed By: Barron Henry MD Signed Date/T varun: 9:11 am Transc ribed By: MARISABEL Transc ribed Date/T varun: 9:08 am Patien t Class: [facility]pat [facility] [address] , [place], [address], 08/11/2024 10:26:43 09/26/20 24 09/26/2024 CT, abdom en + pelvi s, w/ contr ast CT Abd/Pe lvis W/ IV + Oral Contra st Reason : R10.9 ABD PAIN; right lower quadra nt pain. TECHNI QUE: Spiral CT throug h the abdome n and pelvis with IV contra st format sumit in 3 planes . 80 cc of Isovue 300 was admini stered intrav enousl y. This study was perfor med with oral contra st. Weight -based protoc ol using automa tic tube modula tion was used to optimi ze exposu re parame ters. CTDIvo l Body: 10.70 mGy, DLP Body: 583 mGy*cm . COMPAR FARRAH: CT abdome n pelvis 024, FINDIN GS: Respiratory Tech View Findin gs, Lines and Tubes: Dual-l ead pacema ker/AI CD in place. Visual ized Chest: Lung bases are clear. No pleura l effusi on. The heart is normal in size. No perica rdial effusi on. Diaphr agm: Normal . Liver: A 1.3 cm ill-de fined hypode nse lesion in the inferi or aspect of the right hepati c lobe (serie s 601 image 56), unchan ged from 2021 and likely benign . Gallbl adder: Surgic ally absent . Bile ducts: Mild intrah epatic and extrah epatic biliar y ductal dilata tion, likely reserv oir effect from prior cholec ystect jennifer. Spleen : Surgic ally absent . Spleno sis in the left upper quadra nt. Pancre as: Normal . Adrena l glands : Normal . Kidney s and ureter s: No hydron ephros is, stones , or suspic ious masses . Small hypode nsitie s that are too small to charac terize are noted, requir ing no dedica sumit follow up. Bladde r: Normal . Reprod uctive organs : Unrema rkable . Stomac h, small bowel, and large bowel: Normal stomac h, small and large bowel. Small amount of contra st in the distal esopha rani. Append ix: Surgic ally absent . Perito neum and retrop eriton eum: No ascite s or pneumo perito neum. No omenta l or mesent suha lesion s. Lymph nodes: No enlarg ed lymph nodes. Blood vessel s: Mild vascul ar calcif icatio ns but no aneury sm. No eviden ce of venous thromb osis. Abdomi nal and pelvic wall: Small fat-co ntaini ng left inguin al area. Dystro phic calcif icatio n along the right lower insurance sales associate ior chest wall. Bones: Mild degene rative change s of the spine. IMPRES JUSTINA: No acute abnorm ality abdome n and pelvis . I have person ally review ed the images and I agree with this report . WSN: [id number] Orderi ng Physic margaret: Tony Alvarado Dictat ed By: Christy Reyes MD Dictat ed Date/T varun: 3:50 pm Review ed By: Luis Fernando de los santos MD, Don Signed By: Don Gayle MD Signed Date/T varun: 3:55 pm Transc ribed By: ELDONB Transc ribed Date/T varun: 2:48 pm Patien t Class: Outpat ient lisseth [facility] (Outpt Imaging) [address] [facility], [place], [address], 11/22/2024 20:33:33 11/03/19 25 10/09/2024 CT, chest , w/o contr ast No observ ation record ed. lisseth Not Available 11/22 20:33:32 Result Notes None recorded. Problems Name Problem SNOMED Code Status Onset Date Resolution Date Notes Provider Name and Address Organization Details Recorded Time Mammogra phy abnormal [id number] Completed 201301/06/2017 RECORDED 01/18/20 14 3:16PM BY JENNI WEIR MA, OFFICE VISIT Leanne kyle, [facility] [place] 7 09:50:41 Acute pharyngi tis [id number] Completed 201204/17/2014 RECORDED 10/03/20 13 1:01PM BY JENNI WEIR MA, ANNOTATI ON/ADDEN DUM Tu Valdez MD [address], [place], [address] , [facility] [place] 6 09:13:07 Multiple mitral and aortic valve involvem ent Completed 201101/10/2019 Tu Valdez MD [address], [place], [address] , [facility] 10:12:34 Arthropa thy 907574998 Active 2013 Not Available [facility] 1 17:47:25 Patient status finding [id number] Completed 201204/17/2014 RECORDED 10/28/19 13 8:53AM BY JENNI WEIR MA, ANNOTATI ON/NAINA Valdez MD [address], [place], [address] , [facility] 6 09:13:07 Blood transfus ion reaction 84573728 Active 2013 Not Available [facility] 1 17:47:25 Primary malignan t neoplasm of female breast 47087068 Completed 201301/10/2019 Tu Valdez MD [address], [place], [address] , [facility] 10:14:10 Screenin g for malignan t neoplasm of breast Completed 201104/17/2014 RECORDED 07/25/20 12 10:41AM BY JENNI WEIR MA, ANNOTATI ON/NAINA Valdez MD [address], [place], [address] , [facility] 6 09:13:07 Acute exacerba tion of bronchie ctasis 550814526 Completed 201204/17/2014 IMPRESSI ON: SEE PT MESSAGE; RECORDED 10/03/20 13 1:01PM BY JENNI WEIR MA, ANNOTATI ON/NAINA Valdez MD [address], [place], [address] , [facility] 6 09:13:07 Low back pain 539821961 Completed 201311/06/2015 IMPRESSI ON: PAIN IS STABLE AND WELL CONTROLL ED. MEDS REFILLED PER NARCOTIC CONTRACT .; RECORDED 01/30/20 14 6:41AM BY TU Xie MD, OFFICE VISIT Tu Valdez MD [address] [facility] [address], [place], [address] , [facility] 6 09:13:07 Depressi ve disorder 24989282 Active 2013 Not Available [facility] 1 17:47:25 Dysphagi a 92120077 Completed 201204/17/2014 IMPRESSI ON: IF UGI ABNL, OR SYMPTOMS PERSIST WILL REFER TO GI.; RECORDED 10/28/19 13 8:53AM BY JENNI WEIR MA, ANNOTATI ON/ADDEN DUM Tu Valdez MD [address] [address], [place], [address] , [facility] 6 09:13:07 Influenz a vaccine needed [id number] 06 Completed 201204/17/2014 RECORDED 07/26/20 13 3:43PM BY JENNI WEIR MA, OFFICE VISIT Tu Valdez MD [address] [address], [place], [address] , [facility] 6 09:13:07 Tobacco user 499871474 Completed 201304/17/2014 RECORDED 01/18/20 14 3:15PM BY JENNI WEIR MA, ANNOTATI ON/ADDEN DUM Tu Valdez MD [address] [address], [place], [address] , [facility] 6 09:13:07 Adult health examinat ion Completed 201204/17/2014 IMPRESSI ON: IMMUNIZA TION STATUS UTD WILL SCREEN BASED ON RISK FACTORS. REGULAR DENTAL CARE AND SEATBELT USE ADVISED. DISTRACT ED DRIVING DISCUSSE D. ROUTINE CERVICAL /BREAST/ COLON CANCER SCREENIN G UTD ALTHOUGH ALL ARE DUE IN THE UPCOMING SEVERAL MONTHS.; RECORDED 07/25/20 13 10:11AM BY JENNI WEIR MA, SONAL ON/ADDEN DUM Tu Valdez MD [address], [place], [address] , [facility] 6 09:13:07 Pure hypercho lesterol emia 979976961 Active 2013 Not Available [facility] 1 17:47:25 Hodgkin' s disease of extranod al AND/OR solid organ site 18640383 Completed 201204/17/2014 RECORDED 07/25/20 13 10:11AM BY JENNI WEIR MA, SONAL ON/NAINA Valdez MD [address], [place], [address] , [facility] 09:13:07 Hypothyr oidism 24103115 Active 2013 Not Available [facility] 1 17:47:25 Irritabl e bowel syndrome 82761135 Active 2013 Not Available [facility] 1 17:47:25 Disorder of lung 30303036 Completed 201301/06/2018 Tu Valdez MD [address], [place], [address] , [facility] 8 14:15:17 Renewal of prescrip tion Completed 201104/17/2014 RECORDED 07/25/20 12 10:42AM BY JENNI WEIR MA, SONAL ON/NAINA DUM Tu Valdez MD [address], [place], [address] , [facility] 6 09:13:07 Migraine 83653365 Active 2013 Not Available [facility] 1 17:47:25 Heart murmur 66578444 Active 2013 Not Available [facility] 1 17:47:25 Chronic sinusiti s [id number] Completed 201204/17/2014 IMPRESSI ON: SOUNDS ALLERGY RELATED. PT WILL TRY NASAL STEROID AND IF DRAINAGE PERSISTS /BECOMES PURULENT WILL START ABX. CALL INB/WORS E WITH THESE INTERVEN TIONS.; RECORDED 10/03/20 13 1:00PM BY JENNI WEIR MA, ANNOTATI ON/ADDEN DUM Tu Valdez MD [address], [place], [address] , [facility] 09:13:07 Primary malignan t neoplasm of skin 96869985 Completed 201301/06/2017 [facility]; RECORDED 01/18/20 14 3:16PM BY JENNI WEIR MA, OFFICE VISIT Leanne Woodward MA [facility] 7 09:52:12 Edema [id number] Completed 201204/17/2014 IMPRESSI ON: GIVEN POST SURGICAL LOCATION WILL IMAGE TO SEE IF C/W NL SCAR TISSUE AND RULE OUT FLUID COLLECTI ON.; RECORDED 10/28/19 13 8:53AM BY JENNI WEIR MA, ANNOTATI ON/ADDEN DUM Tu Valdez MD [address] [facility] [address], [place], [address] , [facility] 09:13:07 Chronic low back pain 107717615 Active Not Available [facility] 1 17:47:25 Esophage al dysphagi a 16293476 Completed 01/10/2019 Tu Valdez MD [address], [place], [address] , [facility] 10:12:48 Acute pharyngi tis 165708960 Completed 201205/10/2014 RECORDED 10/03/20 13 1:01PM BY JENNI WEIR MA, ANNOTATI ON/ADDEN DUM Tu Valdez MD [address] [facility] [address], [place], [address] , [facility] 09:13:07 Patient status finding [id number] Completed 201205/10/2014 RECORDED 10/28/19 13 8:53AM BY JENNI WEIR MA, SONAL ON/NAINA Valdez MD [address], [place], [address] , [facility] 09:13:07 Screenin g for malignan t neoplasm of breast Completed 201105/10/2014 RECORDED 07/25/20 12 10:41AM BY JENNI WEIR MA, SONAL ON/NAINA Valdez MD [address] [facility] [address], [place], [address] , [facility] 09:13:07 Acute exacerba tion of bronchie ctasis 288010776 Completed 201205/10/2014 IMPRESSI ON: SEE PT MESSAGE; RECORDED 10/03/20 13 1:01PM BY JENNI WEIR MA, ANNOTJABARI ON/NAINA Valdez MD [address] [facility] [address], [place], [address] , [facility] 09:13:07 Dysphagi a [id number] Completed 201205/10/2014 IMPRESSI ON: IF UGI ABNL, OR SYMPTOMS PERSIST WILL REFER TO GI.; RECORDED 10/28/19 13 8:53AM BY JENNI WEIR MA, SONAL ON/NAINA Valdez MD [address] [facility] [address], [place], [address] , [facility] 09:13:07 Influenz a vaccine needed [id number] 06 Completed 201205/10/2014 RECORDED 07/26/20 13 3:43PM BY JENNI WEIR MA, OFFICE VISIT Tu Valdez MD [address] [facility] [address], [place], [address] , [facility] 09:13:07 Tobacco user [id number] Completed 201305/10/2014 RECORDED 01/18/20 14 3:15PM BY JENNI WEIR MA, SONAL ON/NAINA Valdez MD [address] [address], [place], [address] , [facility] 09:13:07 Adult health examinat ion Completed 201205/10/2014 IMPRESSI ON: IMMUNIZA TION STATUS UTD WILL SCREEN BASED ON RISK FACTORS. REGULAR DENTAL CARE AND SEATBELT USE ADVISED. DISTRACT ED DRIVING DISCUSSE D. ROUTINE CERVICAL /BREAST/ COLON CANCER SCREENIN G UTD ALTHOUGH ALL ARE DUE IN THE UPCOMING SEVERAL MONTHS.; RECORDED 07/25/20 13 10:11AM BY JENNI WEIR MA, SONAL ON/NAINA Valdez MD [address] [address], [place], [address] , [facility] 09:13:07 Hodgkin' s disease of extranod al AND/OR solid organ site 95399282 Completed 201205/10/2014 RECORDED 07/25/20 13 10:11AM BY JENNI WEIR MA, ANNOTATI ON/NAINA Valdez MD [address] [address], [place], [address] , [facility] 09:13:07 Renewal of prescrip tion Completed 201105/10/2014 RECORDED 07/25/20 12 10:42AM BY JENNI WEIR MA, SONAL FLORES/NAINA Valdez MD [address] [address], [place], [address] , [facility] 09:13:07 Chronic sinusiti s [id number] Completed 201205/10/2014 IMPRESSI ON: SOUNDS ALLERGY RELATED. PT WILL TRY NASAL STEROID AND IF DRAINAGE PERSISTS /BECOMES PURULENT WILL START ABX. CALL INB/WORS E WITH THESE INTERVEN TIONS.; RECORDED 10/03/20 13 1:00PM BY JENNI WEIR MA, SONAL ON/NAINA Valdez MD [address], [place], [address] , [facility] 09:13:07 Edema [id number] Completed 201205/10/2014 IMPRESSI ON: GIVEN POST SURGICAL LOCATION WILL IMAGE TO SEE IF C/W NL SCAR TISSUE AND RULE OUT FLUID COLLECTI ON.; RECORDED 10/28/19 13 8:53AM BY JENNI WEIR MA, SONAL ON/NAINA Valdez MD [address], [place], [address] , [facility] 09:13:07 Acute pharyngi tis 017149967 Completed 201205/11/2014 RECORDED 10/03/20 13 1:01PM BY JENNI WEIR MA, SONAL ON/NAINA Valdez MD [address], [place], [address] , [facility] 09:13:07 Screenin g for malignan t neoplasm of breast Completed 201105/11/2014 RECORDED 07/25/20 12 10:41AM BY JENNI WEIR MA, SONAL FLORES/NAINA Valdez MD [address], [place], [address] , [facility] 09:13:07 Acute exacerba tion of bronchie ctasis 150794019 Completed 201205/11/2014 IMPRESSI ON: SEE PT MESSAGE; RECORDED 10/03/20 13 1:01PM BY JENNI WEIR MA, SONAL ON/NAINA Valdez MD [address], [place], [address] , [facility] 09:13:07 Dysphagi a [id number] Completed 201205/11/2014 IMPRESSI ON: IF UGI ABNL, OR SYMPTOMS PERSIST WILL REFER TO GI.; RECORDED 10/28/19 13 8:53AM BY JENNI WEIR MA, CHARLIEATI ON/NAINA Valdez MD [address] [facility] [address], [place], [address] , [facility] 09:13:07 Influenz a vaccine needed [id number] 06 Completed 201205/11/2014 RECORDED 07/26/20 13 3:43PM BY JENNI WEIR MA, OFFICE VISIT Tu Valdez MD [address] [facility] [address], [place], [address] , [facility] 09:13:07 Tobacco user [id number] Completed 201305/11/2014 RECORDED 01/18/20 14 3:15PM BY JENNI WEIR MA, SONAL ON/NAINA Valdez MD [address] [facility] [address], [place], [address] , [facility] 09:13:07 Adult health examinat ion Completed 201205/11/2014 IMPRESSI ON: IMMUNIZA TION STATUS UTD WILL SCREEN BASED ON RISK FACTORS. REGULAR DENTAL CARE AND SEATBELT USE ADVISED. DISTRACT ED DRIVING DISCUSSE D. ROUTINE CERVICAL /BREAST/ COLON CANCER SCREENIN G UTD ALTHOUGH ALL ARE DUE IN THE UPCOMING SEVERAL MONTHS.; RECORDED 07/25/20 13 10:11AM BY JENNI WEIR MA, CHARLIEATI ON/NAINA Valdez MD [address] [facility] [address], [place], [address] , [facility] 09:13:07 Hodgkin' s disease of extranod al AND/OR solid organ site 77216478 Completed 201205/11/2014 RECORDED 07/25/20 13 10:11AM BY JENNI WEIR MA, SONAL ON/NAINA Valdez MD [address], [place], [address] , [facility] 09:13:07 Renewal of prescrip tion Completed 201105/11/2014 RECORDED 07/25/20 12 10:42AM BY JENNI WEIR MA, SONAL ON/ADDYARITZA Valdez MD [address], [place], [address] , [facility] 09:13:07 Chronic sinusiti s 30028422 Completed 201205/11/2014 IMPRESSI ON: SOUNDS ALLERGY RELATED. PT WILL TRY NASAL STEROID AND IF DRAINAGE PERSISTS /BECOMES PURULENT WILL START ABX. CALL INB/WORS E WITH THESE INTERVEN TIONS.; RECORDED 10/03/20 13 1:00PM BY JENNI WEIR MA, SONAL ON/ADD DUM Tu Valdez MD [address], [place], [address] , [facility] 09:13:07 Edema [id number] Completed 201205/11/2014 IMPRESSI ON: GIVEN POST SURGICAL LOCATION WILL IMAGE TO SEE IF C/W NL SCAR TISSUE AND RULE OUT FLUID COLLECTI ON.; RECORDED 10/28/19 13 8:53AM BY JENNI WEIR MA, SONAL ON/NAINA Valdez MD [address], [place], [address] , [facility] 09:13:07 Strictur e of esophagu s 56957253 Active Not Available [facility] 1 17:47:25 Esophage al reflux finding 881955477 Completed 01/06/2018 Tu Valdez MD [address] [facility] [address], [place], [address] , [facility] 14:15:21 Asthma 814469438 Active Not Available [facility] 17:47:25 Body mass index 25-29 - overweig ht 535048538 Completed 07/14/2019 Removal Reason: dx changed uT Valdez MD [address], [place], [address] , [facility] 10:22:02 Vitamin D deficien cy 91802707 Active Not Available [facility] 17:47:25 Aortic valve stenosis 52720834 Active mild Not Available [facility] 17:47:25 Aortic valve regurgit ation 97157485 Active mod Not Available [facility] 17:47:25 Acute asthma 183564834 Completed 11/06/2015 Tu Valdez MD [address], [place], [address] , [facility] 09:13:07 Sinusiti s 32614872 Completed 11/06/2015 Tu Valdez MD [address], [place], [address] , [facility] 09:13:07 Acute sinusiti s 70665328 Completed 01/06/2017 Leanne kyle, [facility] 7 09:50:19 Herpes labialis 2544136 Active Not Available [facility] 1 17:47:25 Allergy Completed 01/06/2017 Leanne kyle, [facility] 7 09:50:29 Pneumoni a caused by Streptoc occus 37288777 Completed 11/12/2015 Tu Valdez MD [address], [place], [address] , [facility] 09:13:07 Cough 76632434 Completed 11/06/2015 Leanne kyle, [facility] 7 09:51:35 Hoarse 57776748 Completed 01/10/2019 Tu Valdez MD [address], [place], [address] , [facility] 15:00:40 Exacerba tion of persiste nt asthma Completed 01/06/2018 Tu Valdez MD [address], [place], [address] , [facility] 14:15:54 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 57501998 Active Not Available [facility] 1 17:47:25 Left bundle branch block 45374310 Active 2015 Not Available [facility] 17:47:25 Cough 87628763 Completed 01/06/2017 Leanne Woodward MA [facility], [facility] 7 09:51:35 Moderate asthma 284250773 Active Not Available [facility] 1 17:47:25 Mitral valve regurgit ation 64035087 Active 2015 mild/mod Not Available [facility] 1 17:47:25 Left heart failure 25498749 Active 2015 Not Available [facility] 1 17:47:25 Left cardiac ventricu lar dilatati on 309831469 Active 2015 Not Available [facility] 1 17:47:25 History of Hodgkin lymphoma 277783783 Active 1976 Not Available [facility] 1 17:47:25 Electroc ardiogra m abnormal 226397080 Active Not Available [facility] 17:47:25 Congesti ve heart failure 55319607 Active Not Available [facility] 17:47:25 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 911075585 Completed 01/10/2019 Tu Valdez MD [address], [place], [address] , [facility] 06:19:23 Thyroid hormone tests outside referenc e range 384622130 Completed 01/06/2017 Leanne kyle, [facility] 7 09:50:38 Left sided abdomina l pain 313610561 Completed 01/06/2017 Leanne kyle, [facility] 7 09:51:21 Blood in urine 98773767 Completed 01/06/2017 Leanne kyle, [facility] 7 09:51:18 Acute vaginiti s 15348113 Completed 01/06/2017 Leanne kyle, [facility] 7 09:51:01 Vaginiti s 82978480 Completed 01/06/2017 Leanne kyle, [facility] 7 09:51:13 Dysuria 69408570 Completed 01/06/2017 Leanne kyle, [facility] 7 09:51:41 Intermit tent dysphagi a 51481766 Completed 01/06/2018 Tu Valdez MD [address], [place], [address] , [facility] 14:14:48 Constipa tion 04966582 Active Not Available [facility] 1 17:47:25 Multiple nodules of lung 723519708 Active 2015 right, 1.3 and 1.2cm Tu Valdez MD [address], [place], [address] , [facility] 10:06:36 Pyuria 9813936 Completed 04/21/2017 Tu Valdez MD [address], [address] , [facility] 09:39:53 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 Completed 201504/08/2020 Tu Valdez MD [address], [address] , [facility] 14:50:05 Impaired fasting glycemia 541305732 Active 2016 Not Available [facility] 17:47:25 Asplenia 623869485 Active 2016 Not Available [facility] 1 17:47:25 Heart valve disorder 145476 Active 2016 Not Available [facility] 1 17:47:25 Fibrosis of lung 76580849 Active 2016 Not Available [facility] 17:47:25 Bronchie ctasis 10511294 Active 2016 Not Available [facility] 17:47:25 Gastroes ophageal reflux disease 216712443 Active 2017 Not Available [facility] 17:47:25 [place] [employer] ion Classifi cation - Class III 527717387 Active 2017 Not Available [facility] 1 17:47:25 Asthma-c hronic obstruct eron pulmonar y disease overlap syndrome 50631167019 009491 Active 2017 Not Available [facility] 1 17:47:25 Fibromya lgia 687670388 Active 2018 Not Available [facility] 1 17:47:25 Raynaud' s disease 599535893 Active 2018 Not Available [facility] 1 17:47:25 History of malignan t neoplasm of breast 009275782 Active 2018 right, s/p mastecto my, no tamoxife n Not Available [facility] 17:47:25 Basal cell carcinom a of skin 293976603 Active 2018 neck Not Available [facility] 17:47:25 Hoarse 11245082 Completed 201804/08/2020 Tu Valdez MD [address], [place], [address] , [facility] 15:00:40 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 Not Available [facility] 1 17:47:24 Generali zed anxiety disorder 43823315 Active 2019 Not Available [facility] 1 17:47:25 Hypercal cemia 18635119 Active 2019 Not Available [facility] 1 17:47:25 Albuminu christophe 698738340 Completed 201906/10/2020 Tu Valdez MD [address], [place], [address] , [facility] 20:18:14 Hyperpar athyroid ism 06990825 Active 2019 Not Available [facility] 17:47:25 Chronic kidney disease stage 3A 514314412 Completed 202008/05/2023 Tu Valdez MD [address], [place], [address] , [facility] 11:00:48 Suspecte d COVID-19 574118723 Completed 04/08/2021 Removal Reason: Problem added by user [email or web address] from the COVID-19 watch flag Raegan kyle, [facility] 1 13:43:15 Osteopen ia 432857891 Active 2020 Tu Valdez MD [address], [place], [address] , [facility] 08:56:02 Bilatera l cataract s 81369793 Active 2020 Tu Valdez MD [address], [place], [address] , [facility] 21:33:41 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 582313958 Completed 202008/23/2023 T1cN0 IDC 2-/-/- Removal Reason: mastecto my Jenny Ang anabella, [facility] 3 07:43:29 Anemia 208702058 Active 2020 Tu Valdez MD [address] [address], [place], [address] , [facility] 15:18:27 Prediabe pravin 225014354 Active 2020 Tu Valdez MD [address] [address], [place], [address] , [facility] 08:14:49 Iron deficien cy anemia 78127747 Active 2020 Tu Valdez MD [address] [address], [place], [address] , [facility] 07:10:33 Candidia sis of the esophagu s 15435473 Completed 202108/05/2023 Tu Valdez MD [address] [address], [place], [address] , [facility] 11:01:01 Hiatal hernia 06943641 Active 2021 Tu Valdez MD [address] [address], [place], [address] , [facility] 21:22:33 Lumbar radiculo corinne 791855827 Active 2021 Tu Valdez MD [address] [address], [place], [address] , [facility] 16:36:56 Paralysi s of left vocal cord 367745752 Active 2021 Tu Valdez MD [address] [address], [place], [address] , [facility] 16:15:47 Acute COVID-19 5440654161 Completed 202206/15/2023 Tu Valdez MD [address], [place], [address] , [facility] 11:23:34 SARS-CoV -2 Completed 202208/05/2023 Tu Valdez MD [address], [place], [address] , [facility] 11:05:26 History of bilatera l mastecto my 049890263 Active 2022 Tu Valdez MD [address], [place], [address] , [facility] 11:19:24 Abdomina l pain 75824240 Active 2023 Susan Martinez, [facility] [address], [place], [address] , [facility] 11:58:17 Wheeze - rhonchi 59465166 Completed 202308/11/2024 Tu Valdez MD [address], [place], [address] , [facility] 10:06:20 Urinary tract infectio us disease 73498048 Active 2023 Susan Martinez, [facility] [address], [place], [address] , [facility] 09:42:11 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 126255567 Active Tu Valdez MD [address], [place], [address] , [facility] 06:19:23 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 26098813 Active 2023 Tu Valdez MD [address], [place], [address] , [facility] 06:22:49 Compress ion fracture of thoracic vertebra 55174221336 04 Completed 202308/11/2024 T4 Tu Valdez MD [address], [place], [address] , [facility] 10:07:16 Compress ion fracture of thoracic spine 036632028 Active 2023 T4 Tu Valdez MD [address], [place], [address] , [facility] 00:00:18 Osteopor osis 62140026 Active 2023 Tu Valdez MD [address], [place], [address] , [facility] 07:53:43 Body mass index 25-29 - overweig ht 047031124 Active 2023 Tu Valdez MD [address], [place], [address] , [facility] 10:22:02 Malignan t neoplasm of breast in [facility] n Active 2023 Tu Valdez MD [address] [facility] [address], [place], [address] , [facility] 10:25:36 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 Procedures Surgical History Date Name Laterality Status Provider Name and Address Organization Details Recorded Time 11/07 Date of Last Colonoscopy completed Kathy Arambula [facility] 5 14:31:02 11/07 Egd diagnostic brush wash completed Tu Valdez MD [address], [place], [address] , [facility] 12:32:39 11/07 Colonoscopy completed Tu Valdez MD [address], [place], [address] , [facility] 12:33:27 06/06 Chronic Pain Assessment completed Anna Peck MA [facility] 4 11:01:18 12/05 Chronic Pain Assessment completed Anna Peck MA [facility] 4 10:21:29 06/15 Chronic Pain Assessment completed Anna Peck MA [facility] 3 11:05:37 03/08 Chronic Pain Assessment completed Anna Peck MA [facility] 3 10:16:18 12/04 Chronic Pain Assessment completed Guerline Smalls MA [facility] 3 09:02:03 06/09 Chronic Pain Assessment completed Jenni Weir MA [facility] 2 09:23:02 04/30 Chronic Pain Assessment completed Jenni Weir MA [facility] 2 10:48:45 03/13 Chronic Pain Assessment completed Guerline Smalls MA [facility] 2 10:03:09 01/12 Egd diagnostic brush wash completed Tu Valdez MD [address], [place], [address] , [facility] 21:23:08 12/16 Chronic Pain Assessment completed Jenni Weir MA [facility] 2 13:49:31 09/16 Chronic Pain Assessment completed Jenni Weir MA [facility] 1 11:46:34 08/11 Mast radical completed Mirian Garcia RN [facility] 2 08:56:29 06/24 incisional biopsy of breast completed Tu Valdez MD [address], [place], [address] , [facility] 12:40:15 06/19 Chronic Pain Assessment completed Jenni Weir MA [facility] 1 11:52:12 06/17 Most Recent Mammogram completed Mirian Garcia RN [facility] 1 15:25:51 04/03 Bronchoscopy completed Tu Valdez MD [address], [place], [address] , [facility] 08:52:42 03/24 Echo transthoracic completed Tu Valdez MD [address], [place], [address] , [facility] 11:48:05 03/21 Chronic Pain Assessment completed Jenni Weir MA [facility] 1 09:39:06 12/20 Chronic Pain Assessment completed Jenni Weir MA [facility] 1 09:21:44 09/20 Chronic Pain Assessment completed Jenni Weir MA [facility] 0 10:02:03 06/21 Chronic Pain Assessment completed Jenni Weir MA [facility] 0 10:44:17 06/12 Bronchoscopy completed Kayli Braxton [facility] 0 14:05:01 06/12 Bronchoscopy completed Tu Valdez MD [address], [place], [address] , [facility] 06:27:35 10/10 Chronic Pain Assessment completed Catherine Christina MA [facility] 0 10:13:37 07/11 Chronic Pain Assessment completed Jenni Weir MA [facility] 9 10:09:43 06/21 Mammogram one breast completed Stephanie Foster [facility] 9 09:46:18 04/26 colonoscopy completed Tu Valdez MD [address] [facility] [address], [place], [address] , [facility] 11:05:45 04/11 Chronic Pain Assessment completed Jenni Weir MA [facility] 9 09:41:29 03/31 Most Recent Bone Density completed Jenni Weir MA [facility] 0 14:35:02 03/31 Dxa bone density larry vrt fx completed Rosa Weir MA [facility] 0 14:34:30 01/10 Chronic Pain Assessment completed Jenni Weir MA [facility] 9 09:52:52 01/02 Colonoscopy completed Zaida Hebert MA [facility] 1 08:34:18 11/30 mohs surgery completed Tu Valdez MD [address], [place], [address] , [facility] 10:22:18 11/25 Date of Last Pap Smear completed Kayli Braxton [facility] 9 13:36:36 10/13 Chronic Pain Assessment completed Jenni Weir MA [facility] 9 09:24:08 11/28 /2018 Bronchoscopy completed Stephanie Foster [facility] 8 11:46:22 07/14 Chronic Pain Assessment completed Jenni Weir MA [facility] 8 15:22:31 04/18 Chronic Pain Assessment completed Jenni Weir MA [facility] 8 14:00:54 01/31 Pmkr, dual, rate-resp completed Tu Valdez MD [address], [place], [address] , [facility] [place] 16:51:46 01/06 Chronic Pain Assessment completed Jenni Weir MA [facility] 8 13:57:30 10/15 Chronic Pain Assessment completed Leanne jones MA [facility] 8 10:13:38 07/20 Chronic Pain Assessment completed Jenni Weir MA [facility] 7 10:17:38 04/21 Chronic Pain Assessment completed Jenni Weir MA [facility] 7 09:25:02 01/20 Chronic Pain Assessment completed Jenni Weir MA [facility] 7 11:25:10 10/23 Chronic Pain Assessment completed Jenni Weir MA [facility] 7 08:16:24 06/09 esophagogastroduodenoscopy completed Tu Valdez MD [address], [place], [address] , [facility] [place] 09:16:58 04/27 Chronic Pain Assessment completed Catherine Christina MA [facility] 6 08:23:04 03/13 Cardiac mri w/stress img completed Tu Valdez MD [address], [place], [address] , [facility] 7 15:13:01 02/02 Chronic Pain Assessment completed Jenni Weir MA [facility] 6 09:26:40 01/02 Cardiac Surgery completed Tu Valdez MD [address], [place], [address] , [facility] 6 08:21:03 12/05 Echo Transthoracic completed Tu Valdez MD [address], [place], [address] , [facility] 6 08:18:17 05/04 EGD completed Tu Vadlez MD [address], [place], [address] , [facility] 0 09:16:39 03/01 Mastectomy Partial completed Mirian Garcia RN [facility] 1 15:22:47 02/01 Breast Implants completed Jenni Weir MA [facility] 6 09:21:57 02/01 Breast Surgery completed Zaida Hebert MA [facility] 1 08:34:18 02/01 Breast Implants completed Zaida Hebert MA [facility] 1 08:34:18 01/02 Breast Biopsy completed Zaida Hebert MA [facility] 1 08:34:18 07/23 Caesarean Section completed Zaida Hebert MA [facility] 1 08:34:18 05/04 Cholecystectomy completed Zaida Hebert MA [facility] 1 08:34:18 06/04 Appendectomy completed Zaida Hebert MA [facility] 1 08:34:18 Appendectomy completed Zaida Hebert MA [facility] 1 08:34:18 Splenectomy completed Jenni Weir MA [facility] 6 09:21:57 Breast Surgery completed Zaida Hebert MA [facility] 1 08:34:18 Breast Biopsy completed Zaida Hebert MA [facility] 1 08:34:18 Hysterectomy completed Jenni Weir MA [facility] 4 14:41:43 Caesarean Section completed Tu Valdez MD [address], [place], [address] , [facility] 8 14:29:05 Cholecystectomy completed Zaida Hebert MA [facility] 1 08:34:18 mohs surgery completed Anna Peck MA [facility] 3 10:47:08 Imaging Results Imaging Date Name Status LastModified by Organiz ation Details LastModified Time 04/25/2024 XR, shoulder, 2 or more view completed [facility] ([facility]) [address] [place], [address], 05/18/2024 09:00:25 04/25/2024 XR, thoracic spine, 3 view completed [facility] ([facility]) [address] [place], [address], 05/18/2024 09:00:25 04/25/2024 XR, lumbar spine completed [facility] ([facility]) [address] [place], [address], 05/18/2024 09:00:24 05/18/2024 CT, lumbar spine, w/o contrast completed Information not available 05/26/2024 07:06:36 05/17/2024 NM, bone scan, 3-phase completed Information not available 05/26/2024 07:06:36 05/01/2024 fluoroscopy evaluation (PROC) completed [email or web address] Information not available 05/26/2024 07:04:21 06/13/2024 CT, thoracic spine, w/o contrast completed Information not available 08/11/2024 10:26:44 06/29/2024 DEXA, axial skeleton completed [facility] ([facility] Imaging) [address] [place], [address], 08/11/2024 10:26:43 09/26/2024 CT, abdomen + pelvis, w/ contrast completed [facility] ([facility]) [address] [place], [address], 11/22/2024 20:33:33 10/09/2024 CT, chest, w/o contrast completed [facility] Information not available 11/22/2024 20:33:32 Procedure Notes None recorded. Medical Equipment None Reported. Allergies Allergen ID Allergen Name Allergen Category Reaction Reaction Severity Criticality Documentation Date Start Date Code Code System Note Provider Name and Address Organization Details Recorded Time 00579 Substance with sulfonami de structure and antibacte rial mechanism of action (substanc e) medicatio n rash Not available Not available 09/03/2014 95901 8003 SNOMED LAURA Ware [facility] 4 13:33:49 60250 Levaquin medicatio n headache nausea other Not available Not available Not available Not available 04/15/2021 55259 2 RxNorm dizzi ness Tu Vladez MD [address] [facility] [address], [facility] [place], [address] , [facility] 1 09:01:30 04734 Compazine medicatio n palpitati ons severe Not available 03/13/2022 75284 6 RxNorm [facility] 2 09:55:43 3731 Bactrim medicatio n rash Not available Not available 04/17/20142013 05681 9 RxNorm Lori PerezBora de la cruz LA[place] anabella, [facility] 4 13:33:49 3732 Biaxin medicatio n rash Not available Not available 04/17/2014201372 9 RxNorm Lori So de la cruz LA[place] anabella, [facility] 4 13:33:49 3733 codeine sulfate medicatio n other Not available Not available 04/17/20142013 91428 RxNorm abdom inal pain Lori CochranivanJulia crosskellen LA[place] anabella, [facility] 4 13:33:49 3734 naproxen medicatio n diarrhea Not available Not available 04/17/20142013 7258 RxNorm abdom inal pain Lori Rizzo dorothy LA[place] anabella, [facility] 4 13:33:49 Medications Name Sig Start Date [...] completed RECORDED 07/26/20 13 3:39PM BY JENNI WEIR MA, OFFICE VISIT; Not Available Not Available [...] e 137 mcg (0.1 %) nasal spray [place] 2 sprays twice a day by nasal [...] e 50 mcg/actua tion nasal spray,vidhya pension [place] 2 sprays every day by intranas al [...] 2013 active RECORDED 01/18/20 14 3:56PM BY UT Xie MD, OFFICE VISIT; Not Available Not [...] Available Not Available No t Available Flucelvax 2569-4979 (PF) 45 mcg (15 mcg x 3)/0.5 [...] Not Available No t Available Flucelvax Quad 7671-2967 (PF) 60 mcg (15 mcg x 4)/0.5 mL IM syringe PHARMACY ADMINIST EREYadi 12/20 completed Not Available Not Available Not Available BinaxNOW COVID-19 Ag Self Test kit REFER TO MANUFACT URERS INSTRUCT IONS INCLUDED IN PACKAGIN G 02/04 completed Not Available Not Available Not Available Vitals Date Recorded Body height Body mass index (BMI) Body weight Heart rate Oxygen saturation Oxygen saturation in Arterial blood by Pulse oximetry Body temperature Systolic blood pressure Diastolic blood pressure Provider Name and Address Organization Details Last Updated DateTime 4 162.56 cm 26.3 kg/m2 71204.6 3 g 80 /min 97 % 97 % 97.9 [degF] 113 mm[Hg] 75 mm[Hg] Jessica Quintana MA [facility] 4 08:52:27 Date Recorded Body height Body mass index (BMI) Body weight Heart rate Oxygen saturation Oxygen saturation in Arterial blood by Pulse oximetry Body temperature Systolic blood pressure Diastolic blood pressure Provider Name and Address Organization Details Last Updated DateTime 4 162.56 cm 26.2 kg/m2 30262.8 4 g 91 /min 96 % 96 % 97.9 [degF] 108 mm[Hg] 64 mm[Hg] Anan Peck MA [facility] 4 10:59:38 Date Recorded Body height Body mass index (BMI) Body weight Heart rate Oxygen saturation Oxygen saturation in Arterial blood by Pulse oximetry Body temperature Systolic blood pressure Diastolic blood pressure Provider Name and Address Organization Details Last Updated DateTime 4 162.56 cm 25.9 kg/m2 01930.4 5 g 87 /min 96 % 96 % 98.2 [degF] 99 mm[Hg] 58 mm[Hg] Izabela Mayen LPN [facility] 4 09:40:12 Date Recorded Body height Body mass index (BMI) Body weight Heart rate Oxygen saturation Oxygen saturation in Arterial blood by Pulse oximetry Body temperature Systolic blood pressure Diastolic blood pressure Provider Name and Address Organization Details Last Updated DateTime 4 162.56 cm 25.4 kg/m2 78657.6 7 g 89 /min 98 % 98 % 98 [degF] 90 mm[Hg] 57 mm[Hg] Rhina calabrese MA [facility] 4 13:22:08 Date Recorded Body height Provider Name an d Address Organization Details Last Updated DateTime 11/17/2024 162.56 cm Jessica Quintana MA [facility] 11/17/2024 14:51:46 Social History Question Answer Notes LastModified by Organizat ion Details LastModified Time Tobacco Smoking Status Former Smoker quit 1976 Not Available [facility] 08/06/2020 03:36:42 Do You Have An Advance Directive? Yes HCP/ Son-Rolly [email or web address] Information not available 09/04/2022 What Is Your Level Of Alcohol Consumption? None [id number] Information not available 08/06/2020 Is Blood Transfusion Acceptable In An Emergency? Yes [id number] Information not available 08/06/2020 What Is Your Level Of Caffeine Consumption? None [id number] Information not available 08/06/2020 How Much Tobacco Do You Chew? None [id number] Information not available 08/06/2020 In The 14 [...] Are You Currently Employed? Yes [employer] [id number] Information not available 08/06/2020 What Type Of Diet Are You Following? REGULAR [id number] Information not available 08/06/2020 Which Illicit Or Recreational Drugs Have You Used? None [id number] Information not available 08/06/2020 Do You Or Have You Ever Used E-cigarettes Or Vape? Never Used Electronic Cigarettes Information not available 09/04/2022 Education 12 Information not available 09/04/2022 What Is Your Occupation? [employer] [id number] Information not available 08/06/2020 When Did You Quit Smoking? 16+yearssince lastcigarette [email or web address] Information not available 04/15/2021 Live Alone Or [...] Many Children Do You Have? 2 Kym ([facility]) Information not available 08/05/2023 What Is Your Current Pack Years? 10-19packyeclaudia s Information not available 09/04/2022 Seat Belts Used Routinely Yes Information not available 09/04/2022 Are You Sexually Active? No [id number] Information not available 08/06/2020 Smoke Alarm In Home Yes Information not available 09/04/2022 At What Age Did You Start Smoking Tobacco? 16 [id number] Information not available 08/06/2020 Are You Passively Exposed To Smoke? No Information not available 08/13/2014 Do You Or Have You Ever Used Smokeless Tobacco? Never Used Smokeless Tobacco [id number] Information not available 08/06/2020 How Much Tobacco Do You Smoke? 1 PPW [id number] Information not available 08/06/2020 Do You Use Any Illicit Or Recreational Drugs? No Information not available 09/04/2022 Do You Use Sunscreen Routinely? Yes [id number] Information not available 08/06/2020 How Many Years Have You Smoked Tobacco? 1 [email or web address] Information not available 04/15/2021 Do You Or Have You Ever Used Any Other Forms Of Tobacco Or Nicotine? No Information not available 09/04/2022 Sex: Unknown Functional Status Question Answer Note LastModified by Organizat ion Details LastModified Time Are you able to walk? YESWOREST Information not available 09/04/2022 Are you able to care for yourself? Yes [id number] Information not available 08/06/2020 What is your exercise level? Occasional [id number] Information not available 08/06/2020 Mental Status None [...] 2021 08:39:57 Sister Malignant tumor of breast [email or web address] Not available 04/15 08:33:47 Sister Well adult Not available 09/04/2022 08:39:57 Sister Chronic obstructive pulmonary disease [email or web address] Not available 04/15 08:33:47 Sister Migraine [email or web address] Not availab le 04/15/2021 08:33:47 Sister Anxiety disorder Not available 04/15 08:33:47 Sister Obesity [email or web address] Not availabl e 04/15/2021 08:33:47 Sister Malignant tumor of breast abolcun Not available 2015 10:53:05 Son Well adult Not available 09/04/2022 08:39:57 Son Well adult Not available 09/04/2022 08:39:57 Medical History Condition Response Gout N Other N Kidney Stones N Blood Diseases N Hyperthyroidism N Breast Cancer Y Hypothyroidism Y Lung Disease Y Depression Y COPD Y Defects or Inherited Disease N Anesthesia Complications N Headaches/Migraines Y Anxiety Disorder Y Varicose Veins N Obesity N Vision or Eye Problems N Arthritis Y Head Injury/Concussion N Infertility Y Polyps N Congenital Anomalies N Acid Reflux (GERD) Y Cancer Y Stroke N ADHD N Endometriosis Y High Cholesterol N Liver Disease N Fibromyalgia Y Kidney Disease N Heart Problems Y Ear or Hearing Problems N Hospitalizations Y Thyroid Problems Y GI Problems Y Acne N Eating Disorder N Skin Problems Y Anemia Y Constipation Y Bladder Problems N Mental Illness N Diabetes N Ovarian Cancer N Blood Transfusions Y Seizures/Epilepsy N Tuberculosis N AIDS/HIV N Congestive Heart Failure (CHF) N Eczema Y Abuse/Domestic Violence N Diverticulitis N Asthma Y Allergies Y Reflux/GERD N Hepatitis N Pulmonary Embolism N Hypertension N Chicken Pox N Autism Spectrum Disorder (ASD) N Osteoporosis N Gynecological History Statement/Question Response Abnormal Pap [...] virus, quadrivalent, PF 4 completed Not Available [facility] 02/25/2021 17:47:26 Influenza, split virus, quadrivalent, PF 5 completed Not Available [facility] 02/25/2021 17:47:26 Influenza, split virus, quadrivalent, preservative 0 completed Not Available [facility] 02/25/2021 17:47:26 COVID-19, mRNA, LNP-S, PF, 30 mcg/0.3 mL dose 1 completed LAURA Camarena [facility] 09/16/2021 11:35:53 Influenza, MDCK, quadrivalent, PF 0 completed LAURA Camarena [facility] 09/16/2021 11:35:53 COVID-19, mRNA, LNP-S, PF, 30 mcg/0.3 mL dose 1 completed LAURA Camarena [facility] 09/16/2021 11:35:53 meningococcal MCV4P 2 completed LAURA Camarena [facility] 09/16/2021 11:35:53 COVID-19, mRNA, LNP-S, PF, 30 mcg/0.3 mL dose 1 completed LAURA Camarena [facility] 09/16/2021 11:38:52 pneumococcal polysaccharide PPV23 1 completed [facility] 09:26:18 Influenza, split virus, quadrivalent, PF 7 completed Jenni Weir LA[place] anabella, [facility] 04/30/2022 10:49:02 Influenza, split virus, quadrivalent, PF 8 completed [facility] 04/30[facility]22 10:49:02 pneumococcal polysaccharide PPV23 9 [facility] 04/30/[facility]22 10:49:02 Tdap 9 completed [facility] 04/30/[facility]22 10:49:02 Pneumococcal conjugate PCV 13 4 completed [facility] 04/30/[facility]22 10:49:02 meningococcal MCV4P 8 completed [facility] 04/30/[facility]22 10:49:02 Influenza, split virus, quadrivalent, PF 9 [facility] 04/30/[facility]22 10:49:03 Influenza, split virus, quadrivalent, PF 1 [facility] 04/30[facility]22 10:49:03 Influenza, split virus, quadrivalent, PF 2 completed LAURA Arroyo [facility] 07/14/2022 11:16:28 COVID-19, mRNA, LNP-S, PF, 100 mcg/0.5mL dose or 50 mcg/0.25mL dose 2 completed LAURA Arroyo [facility] 07/14/2022 11:16:28 COVID-19, mRNA, LNP-S, bivalent, PF, 50 mcg/0.5 mL or 25mcg/0.25 mL dose 2 completed LAURA Negrete, [facility] 08/31/2022 13:31:48 RSV, recombinant, protein subunit RSVpreF, adjuvant reconstituted, 0.5 mL, PF 3 completed [facility] Brannon, [facility] 08/05/2023 10:33:06 COVID-19, mRNA, LNP-S, PF, joseline-sucrose, 30 mcg/0.3 mL 4 completed Izabela Capdamaris [facility] null, [facility] 08/11/2024 09:40:31 Influenza, high-dose, trivalent, PF 4 completed Izabela Caporale [facility] null, [facility] 08/11/2024 09:40:31 Influenza, split virus, quadrivalent, PF 6 completed Not Available [facility] 10/21/2019 02:22:07 influenza, seasonal, intradermal, preservative free 2 completed Not Available [facility] 02/25/2021 17:47:26 meningococcal MPSV4 2 completed Not Available [facility] 02/25/2021 17:47:26 MMR 1 completed LAURA Camarena, [facility] 09/16/2021 11:35:53 pneumococcal polysaccharide PPV23 9 completed LAURA Camarena, [facility] 09/16/2021 11:35:53 Tdap 9 completed Not Available [facility] 02/25/2021 17:47:26 influenza, seasonal, intradermal, preservative free 3 completed Not Available [facility] 02/25/2021 17:47:26 Influenza, high-dose, quadrivalent, PF 3 completed Tu Valdez MD [address], [address], [facility] [place]07[place]23 13:04:12 Past Encounters Encounter ID Performer Location Encounter Start Date Encounter Closed Date Diagnosis/Indication Diagnosis SNOMED-CT Code Diagnosis ICD10 Code Diagnosis Note [id number] Jenni Weir MA Main Office [address] [place] [address] 04/20/2014 14:12:22 04/20/2014 15:12:51 Chronic low back pain 741329344 Stable/wel l controlled . 3 months of prescripti ons provided as per term of narcotic contract. Esophageal dysphagia 44893849 Concerning especially in the context of her history of chest irradiatio n. Due for colonoscop y as well. Will refer to GI for considerat ion of both and EGD/colono scopy. [id number] autoEComm erce [address] [facility] [place] [address] 07/26/2012 00:00:00 [id number] autoEComm erce [address] [facility] [place] [address] 10/28/2012 00:00:00 [id number] autoEComm erce [address] [facility] [place] [address] 01/27/2013 00:00:00 [id number] autoEComm erce [address] [facility] [place] [address] 04/27/2013 00:00:00 [id number] autoEComm erce [address] [facility] [place] [address] 07/26/2013 00:00:00 [id number] autoEComm erce [address] [facility] [place] [address] 08/04/2013 00:00:00 [id number] autoEComm erce [address] [facility] [place] [address] 10/25/2013 00:00:00 [id number] autoEComm erce [address] [facility] [place] [address] 01/17/2014 00:00:00 [id number] Jenni Weir MA Main Office [address] [place] [address] 08/13/2014 10:17:11 08/13/2014 11:47:48 Adult health examination 198542967 Will update immunizati on status and screen based on risk factors. Regular dental and ophtho care advised as well as sunscreen and seatbelt use. Distracted driving discussed. Cervical, breast and colon cancer screening utd. Advance directives discussed and in place. Low back pain 984358950 Body mass index 25-29 - overweight 622585373 Hypothyroidism 01895922 Anxiety state 128345622 Administra tion of pneumococcal vaccine 10650168 Vitamin D deficiency 50996188 Pure hypercholesterolemia 446194090 Bordeline in the past. Will reassess. Heart murmur 40488106 Mi ld aortic stenosis and AI seen in 2011. Pt remains asymptomat ic. Will reassess for progressio n. [id number] Mirian Garcia RN Main Office [address] [address] [place] [address] 09/03/2014 13:22:39 09/03/2014 14:00:47 Acute asthma 298467883 [id number] Catherine Christina MA Main Office [address] [address] [place] [address] 11/14/2014 10:34:38 11/14/2014 11:14:51 Low back pain 055583048 Chronic and stable with improved ADL function on meds. Narcotic contract renewed, 3 months med supply provided. Acute sinusitis 09034998 On prednisone and given symptom duration as well as risk factors will cover for possible bacterial process. [id number] Mirian Garcia RN Main Office [address] [address] [place] [address] 12/27/2014 10:22:37 12/27/2014 11:18:36 Disorder of lung 35830005 pt with pulmonary fibrosis, mild increase in her cough, no fever, lung exam with good air mvt, no rales, no role for antibiotic s, continue inhalers, reevaluati on if any worsening. Allergy 019568224 use na danyel spray daily [id number] Jenny Ang Main Office [address] [address] [place] [address] 01/07/2015 14:24:18 03/29/2015 13:58:03 [id number] Jenni Weir MA Main Office [address] [address] [place] [address] 01/09/2015 10:40:18 01/09/2015 11:35:46 Pneumonia caused by Streptococcus 68709173 Symptoms improving, O2 sats normal, completed course of therapy. Acute asthma 640181514 S uspect that asthma is being trigerred by recent infection/ inflammati on. Will try a steroid taper to help calm this down. Cough 17042634 Chronic low back pain 911467887 Chronic issue aggravated by acute illness including pleurisy and chest wall pain. Will see if prednisone helps address this issue as well. Chronic med rx rewritten to accommodat e temporary increase in med use during acute illness. [id number] Tu Valdez MD Main Office [address] [facility] [address] [place] [address] 02/08/2015 09:53:14 02/08/2015 10:49:03 Low back pain 652464204 Chronic and stable with improved ADL function on meds. Narcotic contract renewed, 3 months med supply provided. Anxiety state 444992279 Seems like it should only be short term. PRN benzo filled but if use increases/ persist will need to discuss other management options. [id number] Tu Valdez MD Main Office [address] [facility] [address] [place] [address] 05/10/2015 09:58:13 05/10/2015 10:51:28 Chronic low back pain 530739040 Stable and well controlled with improved level of function on meds. Will continue. Meds refilled x 90 days per terms of narcotic contract. Anxiety state 222538836 Using appropriat dayami. PRN benzo filled but if use increases/ persist will need to discuss other management options. Cough 64645600 See if antihistam ine affords more relief. [id number] Tu Valdez MD Main Office [address] [facility] [address] [place] [address] 08/07/2015 09:25:03 08/07/2015 10:08:42 Chronic low back pain 254684036 M54.5 Stable and well controlled with improved level of function on meds. Will continue. Meds refilled x 90 days per terms of narcotic contract. Anxiety state 470914987 F41.1 Using appropriat dayami. PRN benzo filled but if use increases/ persist will need to discuss other management options. Hypothyroidism 94934070 E03.9 Clinically and biochemica lly euthyroid. Will continue current dosing. Hoarse 04337393 R49.0 Persistent issue. With history of radiation therapy will image thyroid. If persistent /worse and thyroid does not appear to be the issue would refer to ENT for laryngosco py. [id number] Tu Valdez MD Main Office [address] [address] [place] [address] 09/20/2015 11:23:51 09/20/2015 11:54:42 Sinusitis 46267461 J32.9 Acute sinusitis. Start Doxycyclin e 100 mg BID for 7 days. Use Sudafed 30-60 mg q 4-6 hrs. Cherutussi n AC twice per day. 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 Will treat symptomati tnoo for comfort, and pt advised to complete current course of abx and prednisone taper. Pt has f/u scheduled tomorrow with Dr Rosado. [id number] Tu Valdez MD Main Office [address] [address] [place] [address] 10/28/2015 10:47:40 10/29/2015 14:09:24 [id number] Tu Valdez MD Main Office [address] [address] [place] [address] 11/06/2015 10:37:03 11/06/2015 11:40:29 Adult health examination 453933812 Z00.00 Will update immunizati on status and screen based on risk factors. Regular dental and ophtho care advised as well as sunscreen and seatbelt use. Distracted driving discussed. Cervical, breast and colon cancer screening utd. Advance directives discussed and in place. Chronic low back pain 27 7830043 M54.5 Stable and well controlled with improved level of function on meds. Will continue. Meds refilled x 90 days as per terms of narcotic contract which was renewed Body mass index 25-29 - overweight 041901658 Z68.29 Hypothyroidism 50805553 E03.9 Heart murmur 79929705 R0 1.1 Mild aortic stenosis and AI seen in 2011. Pt remains asymptomat ic. Will reassess for progressio n. 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 PRN benzo filled but if use increases/ persist will need to discuss other management options. Hoarse 26027466 R49.0 If not continuing to slowly improve will refer to ENT for laryngosco py. [id number] Tu Valdez MD Main Office [address] [facility] [address] [place] [address] 11/20/2015 10:37:35 11/20/2015 11:26:08 Fibrosis of lung caused by radiation 68492217 J70.1 Cough 91196314 R05 Will treat with doxy x 7 days, prednisone taper and get CXR today, she will call Dr. Rosado's office to inform her of plan, abx may alter bronchosco py so it is not clear whether she will still have it done Wednesday. Symptomati c treatment- lots of fluids, rest, tea with honey, OTC cough drops/ cough med as needed, humidifier as needed, continue inhalers as directed. [id number] Tu Valdez MD Main Office [address] [facility] [address] [place] [address] 12/11/2015 10:26:37 12/11/2015 11:35:58 Left heart failure 96799157 I50.1 New finding, ? if related to conduction vs perfusion issue. Likely a result of prior chest irradiatio n. Will refer to cardiology to help evaluate further. Will try adding low dose BB and monitor for hypotensio n, asthma exacerbati on. If BNP elevated will consider diuretic trial. Left cardi ac ventricular dilatation 715864616 I51.7 Herpes labialis 8782575 B00.1 pt requesting refill. Cough 88682081 R05 Chronic issue. Transition ing to another pulmonolog ist. Cough medicine helping at night. Electrocar diogram abnormal 744127342 R94.31 New findings to coincide with ECHO. [place] [facility] down to try and isolate when these cardiac issues may have occured. [id number] Tu Valdez MD Main Office [address] [place] [address] 01/09/2016 10:39:35 01/09/2016 11:39:18 Congestive heart failure 36468485 I50.9 Currently compensate d on appropriat e medical regimen. Etiology unclear at this time but with unremarkab le cath need to suspect prior chemo/radi ation therapy as being a factor. Has appt with CHF clinic. Will check BNP given recent start of ARB and dye load from cath. [id number] Tu Valdez MD Main Office [address] [place] [address] 02/03/2016 09:10:15 02/03/2016 09:59:24 Chronic low back pain 087976992 M54.5 Stable and well controlled with improved level of function on meds. Will continue. Meds refilled x 90 days as per terms of narcotic contract which was renewed Hypothyroidism 46873316 E03.9 Will verify stability/ control. Overall clinically euthyroid. Alkaline p hosphatase above reference range 939420204 R74.8 Screen for osteomalac ia. Congestive heart failure 67567511 I50.9 Currently compensate d on appropriat e medical regimen. Etiology unclear at this time but with unremarkab le cath need to suspect prior chemo/radi ation therapy as being a factor. Seen by Dr. Smart will track down notes. Scheduled for cardiac MRI per pt. [id number] Tu Valdez MD Main Office [address] [place] [address] 02/10/2016 10:43:33 02/10/2016 11:29:55 Left sided abdominal pain 387608826 R10.9 ? obstructio n vs constipati on vs gastritis. Will start with xray and depending on results and response to this treatment may require further testing and possibly referral. Pt advised that if pain acutely worsens to go to ED. Call if persistent or additional symptoms develop. [id number] Tu Valdez MD Main Office [address] [address] [place] [address] 04/27/2016 08:11:02 04/27/2016 08:56:21 Chronic low back pain 403959523 M54.5 Stable and well controlled with improved level of function on meds. Will continue. Meds refilled x 90 days as per terms of narcotic contract. Will check xray to rule out arthritis as possible contributo r to her pain. Vaginitis 83013244 N76.0 Non responsive to course of fluconazol e. Will screen for UTI and if unremarkab le, pt will arrange evaluation with gynecology . Dysuria 31501189 R30.0 Intermitte nt dysphagia 77512743 R13.19 Has history of stricture. Will refer to GI for f/u. Constipation 46270212 K5 9.00 [id number] Tu Valdez MD Main Office [address] [address] [place] [address] 07/22/2016 14:45:32 07/22/2016 15:29:59 Chronic low back pain 233628170 M54.5 Continue current meds. F/u with PCP as scheduled in 2017. [id number] Tu Valdez MD Main Office [address] [address] [place] [address] 09/16/2016 14:12:34 09/16/2016 15:05:34 Acute pharyngitis 379648025 J02.9 Based on risk for exposure and Centor score will treat empiricall y and d/c if culture is negative. Supportive /symptomat ic tx advised in the meantime. Needs infl uenza immunization 646943627 Z23 [id number] Chester guidry Main Office [address] [address] [place] [address] 10/13/2016 10:29:02 10/13/2016 11:04:07 Upper respiratory infection 30623015 J06.9 Pt. is advised to try Mucinex 120 mg BID for congestion , continue Flonase spray and add saline solution. If in 1 week worsening of symptoms, will add Abx. [id number] Tu Valdez MD Main Office [address] [facility] [address] [place] [address] 10/23/2016 08:09:41 10/23/2016 08:47:13 Chronic low back pain 158407260 M54.5 Stable and well controlled with improved level of function on meds. Will continue. Meds refilled x 90 days as per terms of narcotic contract. [id number] Chester guidry Main Office [address] [address] [place] [address] 12/01/2016 09:21:14 12/01/2016 10:18:02 Adult health examination 442093551 Z00.00 up to date on immunizati ons Pure hypercholesterolemia 864985520 E78.00 Hypothyroidism 00622859 E03.9 Continue current meds. Recheck TFTs. Moderate asthma 71772531 9 J45.40 Congestive heart failure 78368280 I50.9 Continue current meds and f/u with cardiologi . [id number] Tu Valdez MD Main Office [address] [address] [place] [address] 01/06/2017 09:26:07 01/06/2017 10:19:00 Chronic constipation 877912886 K59.00 25 minute office visit with greater than 50% of the visit face-to-fa ce with the patient and/or family providing counseling and/or coordinati on of care. Abdominal pain 79601344 R10.9 most likely d/t ibs - c (adhesions , narcotics) --- see below re: chronic constipati on [id number] Tu Valdez MD Main Office [address] [address] [place] [address] 01/20/2017 11:14:02 01/20/2017 12:12:24 Constipation 35685292 K59.00 Possible IBS component. See if OTC supplement helps. Pure hypercholesterolemia 153324314 E78.01 Current 10 yr risk 2.6%, with minimal CAD on 2015 cath. Will follow for now,. Chronic low back pain 27 6370945 M54.5 Stable and well controlled with improved level of function on meds. Will continue. Meds refilled x 90 days as per terms of narcotic contract. [id number] Tu Valdez MD Main Office [address] [address] [place] [address] 04/21/2017 09:17:54 04/21/2017 09:54:20 Chronic low back pain 737924017 M54.5 Stable and well controlled with improved level of function on meds. Will continue. Meds refilled x 90 days as per terms of narcotic contract. [id number] Tu Valdez MD Main Office [address] [address] [place] [address] 07/20/2017 09:59:53 07/20/2017 10:45:37 Needs influenza immunization 737679953 Z23 Chronic low back pain 27 4574377 M54.5 Stable and well controlled with improved level of function on meds. Will continue. Meds refilled x 90 days as per terms of narcotic contract which was updated today. Anxiety state 554846562 F41.1 Using appropriat dayami. Will monitor use. Benzo contract created today. Constipation 63974152 K5 9.00 Well controlled with stool softener and Senna. Will call with any problems. [id number] Tu Valdez MD Main Office [address] [address] [place] [address] 09/07/2017 09:30:44 09/07/2017 10:25:14 Bronchiectasis 54046166 J47.9 Fever 416534960 R50.9 Based on risk factors/co morbiditie s will cover empiricall y for flu. If CXR abnl will need abx. Nausea 964061426 R11.0 Cough 09971579 R05 Tachycardia 4537777 R00. 0 Suspect related to acute illness. Doubt these issues are primarily cardiac. [id number] Leanne Woodward MA Main Office [address] [address] [place] [address] 10/15/2017 09:15:54 10/15/2017 10:11:40 Chronic low back pain 974391697 M54.5 Stable and well controlled with improved level of function on meds. Will continue. Meds refilled x 90 days as per terms of narcotic contract. Chronic constipation 236 642893 K59.09 [id number] Tu Valdez MD Main Office [address] [address] [place] [address] 01/06/2018 13:47:12 01/06/2018 15:13:42 Adult health examination 135146485 Z00.00 Will update immunizati on status, flu advised in the Fall and Shingrix via local pharmacy. Will screen based on risk factors. Regular dental and ophtho care advised as well as sunscreen and seat belt use. Distracted driving discussed. Cervical, breast and colon cancer screening utd. Advance directives discussed and in place. Anxiety state 737031753 F41.1 Using appropriat dayami. Will monitor use. Benzo contract in place. Chronic low back pain 27 9318229 M54.5 Stable and well controlled with improved level of function on meds. Will continue. Meds refilled x 90 days as per terms of narcotic contract. Congestive heart failure 30410377 I50.9 Currently compensate d on appropriat e medical regimen. Being referred to EP for ICD placement. Bronchiectasis 09251675 J47.9 Impaired f asting glycemia 768581571 R73.01 Multiple n odules of lung 693994841 R91.8 Being followed by pulmonary Alkaline p hosphatase above reference range 750878654 R74.8 Has been low/stable , will monitor. Vitamin D deficiency 347 31491 E55.9 Hypothyroidism 08259105 E03.9 Clinically euthyroid, due for labs. Requires a meningitis vaccination 352294220 Z23 s/p splenectom y Varicella vaccination 68 046325 Z23 [id number] Tu Valdez MD Main Office [address] [address] [place] [address] 04/18/2018 13:51:28 04/18/2018 14:51:00 Chronic low back pain 919413939 M54.5 Stable and well controlled with improved level of function on meds. Will continue. Meds refilled x 90 days as per terms of narcotic contract. Multiple n odules of lung 715368655 R91.8 Being followed by pulmonary Constipation 50614961 K5 9.00 Well controlled with stool softener and Senna. Will call with any problems. Pure hypercholesterolemia 833985505 E78.01 Current 10 yr risk 1.4%, with minimal CAD on 2016 cath. Will follow for now,. [id number] Tu Valdez MD Main Office [address] [address] [place] [address] 07/14/2018 15:10:25 07/14/2018 16:02:38 Chronic low back pain 832159886 M54.5 Stable and well controlled with improved level of function on meds. Will continue. Meds refilled x 90 days as per terms of narcotic contract. Needs infl uenza immunization 911144415 Z23 Constipation 29073671 K5 9.00 Well controlled with stool softener and Senna. Will call with any problems. Fatigue 11061278 R53.83 Bichemical ly euthyroid in April. Had a low vitamin D level and isn't taking supplement . Will start for the WInter months. If fatigue persists/w orsens will need labs. Hypothyroidism 56227888 E03.9 Clinically euthyroid [id number] Tu Valdez MD Main Office [address] [address] [place] [address] 10/13/2018 09:06:06 10/13/2018 09:59:31 Chronic low back pain 804067297 M54.5 Stable and well controlled with improved level of function on meds. Will continue. Meds refilled x 90 days as per terms of narcotic contract. [id number] Tu Valdez MD Main Office [address] [address] [place] [address] 01/10/2019 09:26:04 01/10/2019 10:41:10 Adult health examination 086355438 Z00.00 Will update immunizati on status, flu advised in the Fall and Shingrix via local pharmacy. Will screen based on risk factors. Regular dental and ophtho care advised as well as sunscreen and seat belt use. Distracted driving discussed. Cervical, breast cancer screening utd. Due for colonoscop y in the Fall. Advance directives discussed and in place. Chronic low back pain 27 5146442 M54.5 Stable and well controlled with improved level of function on meds. Will continue. Meds refilled x 90 days as per terms of narcotic contract. Administra tion of viral vaccine 66551626 Z23 Screening for malignant neoplasm of breast 493577416 Z12.39 Screening for malignant neoplasm of colon 546169278 Z12.11 Due in May for f/u colon Varicella vaccination 68 338585 Z23 Vitamin D deficiency 347 67711 E55.9 Impaired f asting glycemia 963985352 R73.01 Congestive heart failure 23414988 I50.9 Currently compensate d on appropriat e medical regimen. Following with cardiology Bronchiectasis 73676871 J47.9 Following with pulmonary. [place] [employer] Classification - Class III 111584545 I50.9 Asplenia 564970617 Q89.0 1 Gastroesop hageal reflux disease 409856873 K21.9 Hypothyroidism 73407632 E03.9 Clinically euthyroid Body mass index 25-29 - overweight 735791624 E66.3 Z68.25 [id number] Tu Valdez MD Main Office [address] [facility] [address] [place] [address] 04/11/2019 09:10:42 04/11/2019 10:22:45 Chronic low back pain 017276600 M54.5 Stable and well controlled with improved level of function on meds. Will continue. Meds refilled x 90 days as per terms of narcotic contract. Osteopenia 340851891 M85 .80 Regular weigh bearing exercise and adequate dietary Ca/Vit D intake advised. Generalize d anxiety disorder 08267065 F41.1 Abnormal t hyroid hormone 104545303 R94.6 asymptomat ic. Will monitor labs, and titrate dose if still >4 at f/u. [id number] Jenny Ang Main Office [address] [facility] [address] [place] [address] 07/11/2019 10:00:41 07/11/2019 10:40:18 Chronic pain syndrome 810015024 G89.4 Chronic low back pain 27 1828100 M54.5 Stable and well controlled with improved level of function on meds. Will continue. Meds refilled x 90 days as per terms of narcotic contract. Needs infl uenza immunization 463795419 Z23 Arthralgia of the ankle and/or foot 548937306 M79.672 I suspect that this is related to her sitting technique. Will image if persistent /worse Left lower quadrant pain 418500382 R10.32 Will see if XR demonstrat es significan t stool burden. If not and symptoms persist will need further evaluation . Hypothyroidism 26006662 E03.9 Clinically euthyroid, but biochemica lly hypo. Will increase T4 supplement dose. [id number] Tu Valdez MD Main Office [address] [address] [place] [address] 10/10/2019 09:52:27 10/10/2019 10:36:32 Chronic pain syndrome 160933124 G89.4 Acute sinusitis 79790872 J01.90 Symptoms mild x 3 days. Continue supportive tx and knows to start abx and call for steroids if symptoms progress/p ersist. [id number] Mirian Garcia RN Main Office [address] [address] [place] [address] 01/01/2020 16:15:12 01/02/2020 09:14:42 [id number] Tu Valdez MD Main Office [address] [address] [place] [address] 01/05/2020 09:06:21 01/05/2020 11:49:33 Chronic low back pain 407102408 M54.5 Stable and well controlled with improved level of function on meds. Will continue. Meds refilled x 90 days as per terms of narcotic contract. Chronic pain syndrome 37 6118818 G89.4 Allergic rhinitis 448190 04 J30.9 ? if allergies are a factor given symptoms for over 1 month and relief with prednisone . Will see if antihistam ine helps. [id number] Tu Valdez MD Main Office [address] [address] [place] [address] 02/01/2020 10:54:44 02/01/2020 13:46:54 Exposure to viral disease 6720584520 37964 Z03.818 Fever 805697895 R50.9 Based on symptoms, comorbidit ies and active pandemic will screen for COVID 19. Pt is currently minimally symptomati c but advised to go to ED with shortness of breath or hypoxia. If testing negative and fever persists will need further eval. [id number] Tu Valdez MD Main Office [address] [address] [place] [address] 04/08/2020 14:01:48 04/08/2020 15:10:54 Adult health examination 892021174 Z00.00 Will update immunizati on status, flu advised in the Fall and Shingrix via local pharmacy. Will screen based on risk factors. Regular dental and ophtho care advised as well as sunscreen and seat belt use. Distracted driving discussed. Cervical, breast and colon cancer screening utd. Advance directives discussed and in place. Generalize d anxiety disorder 79968681 F41.1 Symptoms mild and intermitte nt. Rx refilled, will monitor use. Varicella vaccination 68 901359 Z23 Screening for malignant neoplasm of breast 030350503 Z12.39 Congestive heart failure 50002371 I50.9 Currently compensate d on appropriat e medical regimen. Following with cardiology Bronchiectasis 29707184 J47.9 Following with pulmonary. Gastroesop hageal reflux disease 224150085 K21.9 Symptoms worsening despite 20mg of omeprazole . Will increase to 40mg and arrange GI eval given her history. Stricture of esophagus 88902066 K22.2 Chronic pain syndrome 37 9091856 G89.4 Hypothyroidism 83477313 E03.9 Clinically and biochemica lly euthyroid. Will reassess. Vitamin D deficiency 347 97675 E55.9 Impaired f asting glycemia 081316082 R73.01 Pure hypercholesterolemia 733740164 E78.01 Current 10 yr risk 1.9%, with minimal CAD on 2016 cath. Will follow for now,. Body mass index 25-29 - overweight 866287563 E66.3 Z68.29 [id number] Zuly Matute Main Office [address] [facility] [address] [facility] [place] [address] 05/06/2020 11:22:15 05/06/2020 12:52:37 Irritable bowel syndrome 24545379 K58.9 fiber and adequate fluids. discussed meds for IBS but due to heart issues and possible anticholin ergie effect will hold off for now as, probiotic, small frequent bland meals. Esophageal dysphagia 408 95620 R13.19 pt with hx of strictures , needs to see GI for possible dilation. Small meals, soft foods, chew well. Call if any food impactions or worsening sx. Nausea 110142557 R11.0 lab today, likely related to above [id number] Tu Valdez MD Main Office [address] [address] [place] [address] 06/19/2020 07:58:37 06/20/2020 10:15:30 [id number] Tu Valdez MD [address] [address] [place] [address] 06/21/2020 08:26:41 06/27/2020 09:26:32 Chronic low back pain 594102529 M54.5 Stable and well controlled with improved level of function on meds. Will continue. Meds refilled x 90 days as per terms of narcotic contract. Nausea and vomiting 1693 1999 R11.2 Question if post procedure narcotic withdrawal was a factor. Improving, continue odansetron . Has GI appt in Aug for this and persistent dysphagia. Continue PPI. Hyperparathyroidism 6699 9008 E21.3 Noted on routine labs. Given history of radiation therapy will ask endo to help with evaluation . [id number] Tu Valdez MD [address] [address] [place] [address] 09/20/2020 09:13:48 09/20/2020 11:07:38 Chronic low back pain 538581050 M54.5 Stable and well controlled with improved level of function on meds. Will continue. Meds refilled x 90 days as per terms of narcotic contract. Acute sinusitis 38400638 J01.90 Symptoms mild x 3 days. Continue supportive tx and knows to start abx and steroids if symptoms progress/p ersist. [id number] Tu Valdez MD [address] [address] [place] [address] 12/20/2020 08:46:20 12/20/2020 13:23:19 Chronic low back pain 002492699 M54.5 Stable and well controlled with improved level of function on meds. Will continue. Meds refilled x 90 days as per terms of narcotic contract. Hypothyroidism 65843417 E03.9 Clinically euthyroid and biochemica lly hypothyroi d. Will reassess since dose decrease. Bronchiectasis 50567445 J47.9 Following with pulmonary. 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 Congestive heart failure 19761601 I50.9 Currently compensate d on appropriat e medical regimen. Following with cardiology [id number] Kristopher Dumont PA-C [facility] [address] [facility] [address] [place] [address] 01/28/2021 13:54:23 02/03/2021 10:44:55 Cough 03858662 R05 cont proph abx as per pulm & ID, as well as inhalers and chest physiother apy as dir - concerned about possible bloss[place] pna - will check cxr and labs and cc: to pulm pt already has apptmt gracie pulm for 8:30am tomorrow, so advised pt to go to [address] [facility] to check both cxr and labs -- this will ideally help c her pulm visit tomorrow, and help to keep her out of the hospital *will cc: this note to pulm* Fever 850285380 R50.9 encouraged pt to stay hydrated, take prn tyl Nausea 246265912 R11.0 if no help gracie edilberto then use prn zofran Counseling 114421454 Z71 .9 Health advice, education or counseling done for COVID 19 pt already had 2 covid vaccinatio ns - last one on 3.3 - has pending covid test from yesterday [id number] [facility] [address] [facility] [address] [place] [address] 03/21/2021 08:34:44 03/21/2021 11:40:11 Chronic low back pain 701538341 M54.5 Stable and well controlled with improved level of function on meds. Will continue. Meds refilled x 90 days as per terms of narcotic contract. Hypercalcemia 65105939 E 83.52 Will request recent endo notes. Likely that active pulmonary process is contributi ng. [id number] Tu Valdez MD Main Office [address] [facility] [address] [place] [address] 04/15/2021 08:30:57 04/15/2021 09:26:58 Adult health examination 877518919 Z00.00 Will update immunizati on status, flu advised in the Fall and Shingrix via local pharmacy. Will screen based on risk factors. Regular dental and ophtho care advised as well as sunscreen and seat belt use. Distracted driving discussed. Cervical, breast and colon cancer screening utd. Advance directives discussed and in place. Hyperparathyroidism 6699 9008 E21.3 Noted on routine labs. Given history of radiation therapy will ask endo to help with evaluation . Osteopenia 212892443 M85 .80 Regular weigh bearing exercise and adequate dietary Ca/Vit D intake advised. Due for follow up bone density Body mass index 25-29 - overweight 842177835 E66.3 Z68.27 Screening for malignant neoplasm of breast 248934192 Z12.39 Varicella vaccination 68 074740 Z23 Chronic ki dney disease stage 3A 557477971 N18.31 On ARB with good BP control. Will monitor. Impaired f asting glycemia 412750954 R73.01 Will monitor. Pure hypercholesterolemia 184114841 E78.01 Current 10 yr risk 1.9%, with minimal CAD on 2016 cath. Will follow for now,. [id number] Tu Valdez MD Main Office [address] [facility] [address] [place] [address] 06/19/2021 11:18:44 06/19/2021 12:31:11 Chronic low back pain 607391989 M54.5 Stable and well controlled with improved level of function on meds. Will continue. Meds refilled x 90 days as per terms of narcotic contract. Anxiety state 486030470 F41.1 Using appropriat dayami. Will monitor use. Benzo contract in place. Mammography abnormal 168 421639 R92.8 Has biopsy scheduled on 06/24, advised to call with any problems throughout the process. Nausea 388110872 R11.0 Likely from daily azithro. Working with ID and pulm to find appropriat e/tolerabl e regimen. [id number] Tu Valdez MD Main Office [address] [facility] [address] [place] [address] 07/17/2021 14:04:12 07/17/2021 15:13:14 Pre-surgery evaluation 989879965 Z01.818 Cruz CV risk score is 0.05%. Patient is at high risk for cardiopulm onary complicati ons with planned procedure based on comorbidit ies.?? Has had pulmonary clearance with cardiology appt next week. Pt advised to avoid aspirin and NSAIDS for 7 days prior.?? Medically stable/latha ared to proceed with surgery as planned pending formal cardiac clearance. 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 Postoperative pain 26439 9007 G89.18 Pt will continue her current regimen. Once surgery is scheduled I will send in a 2 week supply of 10/325mg oxycodone/ APAP to accommodat e post op pain. Chronic constipation 236 889517 K59.09 Advised to increase fluid/fibe r intake. Will resume senna and continue Miralax. Anemia 265062183 D64.9 Measured on 07/02 during ED eval. Has been stable. Will reassess and screen for nutritiona l deficienci es. Needs infl uenza immunization 866062382 Z23 Congestive heart failure 04009718 I50.9 Currently compensate d on appropriat e medical regimen. Following with cardiology , and has appt next week. Prediabetes 534942345 R7 3.03 [id number] Tu Valdez MD Main Office [address] [facility] [address] [place] [address] 09/16/2021 11:28:40 09/16/2021 12:13:19 Chronic low back pain 558948079 M54.50 Stable and well controlled with improved level of function on meds. Will continue. Meds refilled x 90 days per terms of narcotic contract. 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 Chemo plan has been coordinate d with cardiology and pulmonary. Being followed very closely by all specialist s. Will request/mo sepideh hansen. Generalize d anxiety disorder 05090903 F41.1 Symptoms mild and intermitte nt. Rx refilled, will monitor use. [id number] BRIDGET Dean [facility] [address] [facility] [place] [address] 10/01/2021 08:12:08 10/01/2021 10:23:23 Acute pharyngitis 811188425 J02.9 laryngitis resolving after prednisone . Asthma-chr onic obstructive pulmonary disease overlap syndrome 5831674109 0533519 J44.9 Chronic ki dney disease stage 3A 052760481 N18.31 Fibrosis of lung 0108139 1 J84.10 [place] H eart Association Classification - Class III 264996130 I50.9 Bronchiectasis 49848399 J47.9 [id number] Tu Valdez MD Main Office [address] [facility] [address] [place] [address] 12/16/2021 13:36:31 12/16/2021 14:15:03 Chronic low back pain 675616578 M54.50 Stable and well controlled with improved level of function on meds. Will continue. Meds refilled x 90 days per terms of narcotic contract. Infiltrati ng duct carcinoma of breast 078853743 C50.919 s/p mastectomy and proceeding with chemo for triple negative disease. Chemo plan has been coordinate d with cardiology and pulmonary. Being followed very closely by all specialist s. Will request/mo nitor correspond ence. [id number] Tu Valdez MD [facility] [address] [facility] [address] [place] [address] 03/13/2022 09:43:13 03/16/2022 11:08:48 Chronic pain syndrome 398631936 G89.4 Chronic/st able. Will renew/main tain on currently effective regimen. Chronic hoarseness 64700 38333 105 R49.0 Needs ENT f/u to consider laryngosco py. Could be related to asthma/[employer] D vs candidiasi s vs cancer history/ erapy. Lumbar radiculopathy 128 173850 M54.16 Symptoms stable/wel l controlled on current narcotic regimen. Candidiasi s of the esophagus 95425799 B37.81 Has been treated. Will see what ENT eval shows. Hypercalcemia 35411860 E 83.52 Will request recent endo notes. Likely that active pulmonary process is contributi ng. Infiltrati ng duct carcinoma of breast 289844284 C50.919 s/p mastectomy and proceeding with chemo for triple negative disease. Chemo plan has been coordinate d with cardiology and pulmonary. Being followed very closely by all medical oncology given intoleranc e to chemo. Scheduled for port removal in March. Anemia due to unknown mechanism 94207390 D64.9 Will monitor off of chemo and screen for nutritonal deficienci es. Chronic ki dney disease stage 3A 768897643 N18.31 On ARB with good BP control. Will monitor. Hypothyroidism 69458733 E03.9 Clinically euthyroid and biochemica lly hypothyroi d. Will reassess since dose decrease. [id number] Tu Valdez MD Main Office [address] [facility] [address] [facility] [place] [address] 04/30/2022 10:16:57 04/30/2022 11:12:38 Adult health examination 914192863 Z00.00 Will update immunizati on status, flu advised in the Fall and Shingrix via local pharmacy. Will screen based on risk factors. Regular dental and ophtho care advised as well as sunscreen and seat belt use. Distracted driving discussed. Cervical, breast and colon cancer screening utd. Advance directives discussed and in place. Anxiety state 476826017 F41.1 Using appropriat dayami. Will monitor use. Benzo contract in place. Pure hypercholesterolemia 257458587 E78.01 Current 10 yr risk 3.2%, with minimal CAD on 2016 cath. Will follow for now,. Prediabetes 878755100 R7 3.03 Will monitor. Varicella vaccination 68 047469 Z23 Generalize d anxiety disorder 86732729 F41.1 Symptoms mild and intermitte nt. Rx refilled, will monitor use. Lumbar radiculopathy 128 359181 M54.16 Symptoms worsening but left sided and MRI showing more significan t right sided disease. Will refer to pain mgmt/PMR if persistent /worse depending on what today's PET scan shows. Infiltrati ng duct carcinoma of breast 445914478 C50.919 s/p mastectomy and proceeding with chemo for triple negative disease. Did not tolerate chemo, and recent spine MRI shows question of mets. Having PET scan today which will likely guide further treatment/ evaluation . Hyperparathyroidism 6699 9008 E21.3 Noted on routine labs. Given history of radiation therapy will ask endo to help with evaluation . Asthma-chr onic obstructive pulmonary disease overlap syndrome 7146057684 4116509 J44.9 Well controlled currently and following with pulm. [place] H eart Association Classification - Class III 673214959 I50.9 Compensate d and well controlled currently. Followed/m anaged by cardiology . Fibrosis of lung 1233667 1 J84.10 [id number] Tu Valdez MD Main Office [address] [place] [address] 06/09/2022 09:11:53 06/09/2022 10:00:29 Chronic low back pain 039098017 M54.50 Stable and well controlled with improved level of function on meds. Will continue. Meds refilled x 90 days per terms of narcotic contract. Lumbar radiculopathy 128 700256 M54.16 Symptoms stable and more left sided with MRI showing more significan t right sided disease. Consider PMR referral if worsening. Constipation 20788325 K5 9.00 Well controlled with stool softener and Senna. Will call with any problems. Lesion of lumbar spine 647712216 M99.9 L3 lesion was seen, but PET scan was negative. Back pain is currently well controlled . Consider f/u MRI or other spinal imaging in 3-6 months. [id number] Main Office [address] [place] [address] 07/14/2022 10:45:49 07/14/2022 11:46:13 Chronic low back pain 361063877 M54.50 - acute on chronic lower back pain- MRI from 04/2022 showed: 1.5 cm lesion within the posterosup erior L3 vertebral body is suspicious for metastasis . Possible additional lesion at S2 with heterogene ous marrow signal and enhancemen t. Right asymmetric disc bulging compressin g the traversing right L4 nerve roots. There is also moderate to severe right neural foraminal narrowing at L5-S1 with crowding of the exiting right L5 nerve root and a disc protrusion at L5-S1 which crowds but does not definitely compress the traversing right S1 nerve roots.- PET scan from 04/2022 showed: lesion at L3 negative for metastatic disease. A nodule was noted in the left lung recommende d short term follow-up with CT chest. Plan:Patie nt's chronic back pain which is different from her usual back pain. Pt does have hx of breast cancer and there is significan t concern of metastasis to the lumbar spine. Alternativ dayami, pain does also correlate with recent MRI results. Due to patient co-morbiti es and cancer history will order repeat MRI of the spine with contrast to ensure no changes.- pt was started celecoxib 200mg Q8HRS as needed for pain- please note pt has history of being allergic to naproxen with abdominal pain and diarrhea. Pt advised if she has these symptoms with new medication to stop- c/w percocet as needed- discussed the possibilit y of starting physical therapy with the patient however patient would like to hold off at this time. pt had physical therapy for her left shoulder in the past which did her improve her ROM however caused her a lot of shoulder pain. therefore patient is apprehensi ve in starting again because does want to be more pain- discussed with patient the possibilit y of surgery and referral to neurosurge ry to help with the pain. Pt will like to hold off at this time. [id number] Tu Valdez MD Main Office [address] [facility] [address] [place] [address] 08/31/2022 10:21:37 08/31/2022 15:05:01 [id number] Tu Valdez MD [facility] [address] [facility] [address] [facility] [place] [address] 09/04/2022 08:39:49 09/04/2022 15:17:19 Lumbar radiculopathy 701526199 M54.16 Symptoms worsening and MRI pending. Consider PMR vs neurosurg referral depending on results. Try adding low dose gabapentin in meantime. Acute kidn ey injury due to hypovolemia 219689958 E86.1 GI symptoms resolved, will reassess renal function. [id number] Tu Valdez MD [facility] [address] [facility] [address] [facility] [address] 12/04/2022 08:12:46 12/04/2022 15:40:49 Chronic low back pain 451357608 M54.50 Stable and well controlled with improved level of function on meds. Will continue. Meds refilled x 90 days per terms of narcotic contract. Lumbar radiculopathy 128 736413 M54.16 Symptoms worsening and MRI pending. Consider PMR vs neurosurg referral depending on results. Try adding low dose gabapentin in meantime. Hypercalcemia 95046525 E 83.52 Had labs done last month by endo. Pt has referral in place for considerat ion of parathyroi dectomy. [id number] Tony Fine MD [facility] [address] [address] 02/04/2023 10:34:40 02/04/2023 13:04:57 Viral syndrome 547213078 B34.9 We spoke about blood work specifical ly looking at mono but decided against this since the dx is highly unlikely given her age and lack of sore throat, She will take aleve on a regular basis and rest, fluids and continue to check COVID. [id number] Yasmeen Dumotn PA-C [facility] [address] [address] 02/08/2023 08:57:42 02/08/2023 09:55:11 Seasonal allergic rhinitis 240166428 J30.2 Symptoms likely related to seasonal allergy. Recommend to switch from claritin to fexofenadi ne 180 mg daily, continue flonase and asthma treatments with nebulizer every 4-6 hrs. If spike fever again , have CBC done. Exposure t o viral disease 5701713097 14293 Z20.828 [id number] Tu Valdez MD Main Office [address] [address] 03/08/2023 09:59:53 03/08/2023 10:45:52 Chronic pain syndrome 069954720 G89.4 Chronic/st able. Will renew/main tain on currently effective regimen. Hypercalcemia 33404613 E 83.52 Had labs done last month by endo. Pt has referral in place for considerat ion of parathyroi dectomy. Lumbar radiculopathy 128 000271 M54.16 Symptoms worsening and MRI pending. Consider PMR vs neurosurg referral depending on results. No long. Chronic ki dney disease stage 3A 133756907 N18.31 On ARB with good BP control. Will monitor. Congestive heart failure 24265887 I50.9 Currently compensate d on appropriat e medical regimen. Following with cardiology , and has appt next week. Hyperparathyroidism [address] Bazan, appt with Dr. Taylor postponed with recent acute illness. [id number] Kristopher Dumont PA-C [facility] [address] [address] [place] [address] 04/27/2023 09:31:09 04/27/2023 16:40:43 [id number] Mirian Garcia RN Main Office [address] [address] [place] [address] 05/03/2023 09:51:21 05/03/2023 11:12:19 [id number] Tu Valdez MD Main Office [address] [address] [place] [address] 06/15/2023 10:47:41 06/15/2023 11:41:52 Chronic kidney disease stage 3A 493122629 N18.31 On ARB with good BP control. Will monitor. Chronic low back pain 27 9179999 M54.50 Stable and well controlled with improved level of function on meds. Will continue. Meds refilled x 90 days per terms of narcotic contract. Lumbar radiculopathy 128 679448 M54.16 Symptoms worsening and MRI pending. Consider PMR vs neurosurg referral depending on results. No long. Influenza vaccine needed 7444654531 106 Z23 Asplenia 899133302 Q89.0 1 Due for meningitis booster as well as RSV and Shingrix. [id number] Jenny Ang Main Office [address] [address] [place] [address] 08/05/2023 10:17:28 08/05/2023 12:03:00 Adult health examination 355298879 Z00.00 RSV, Shingrix, and PCV20 advised via local pharmacy. Will screen based on risk factors. Regular dental and ophtho care advised as well as sunscreen and seat belt use. Distracted driving discussed. Cervical, breast and colon cancer screening utd. Advance directives discussed and in place. Moderate c hronic obstructive pulmonary disease 382080207 J44.9 Well controlled , following with pulmonary. Constipation 17003013 K5 9.00 Well controlled with stool softener and Senna. Will call with any problems. Gastroesop hageal reflux disease 283912378 K21.9 Symptoms worsening despite 20mg of omeprazole . Will increase to 40mg and arrange GI eval given her history. Anemia 203172457 D64.9 Measured on 07/02 during ED eval. Has been stable. Will reassess and screen for nutritiona l deficienci es. Asplenia 422330235 Q89.0 1 Due for meningitis booster as well as RSV and Shingrix. Congestive heart failure 24254443 I50.9 Currently compensate d on appropriat e medical regimen. Following with cardiology , and has appt next week. Generalize d anxiety disorder 22887311 F41.1 Symptoms mild and intermitte nt. Rx refilled, will monitor use. Hypercalcemia 41009366 E 83.52 Recent labs showed normalizat ion Hyperparathyroidism [address] Bazan, appt with Dr. Taylor postponed with recent acute illness. Iron defic iency anemia 79115166 D50.9 Prediabetes 647845323 R7 3.03 Will monitor. Pure hypercholesterolemia 894020296 E78.01 Current 10 yr risk 2.5%, with minimal CAD on 2015 cath. Will follow for now,. Screening for malignant neoplasm of colon 781113867 Z12.11 Due in 04/2024 for f/u colon Fibrosis of lung 9571361 1 J84.10 Symptoms stable, following with Dr. Whitman. Administra tion of pneumococcal vaccine 57024963 Z23 Body mass index 25-29 - overweight 960942261 E66.3 Z68.26 Strain of neck muscle 36 4855399 S16.1XXA Call inb/worse. History of bilateral mastectomy 991861273 Z90.13 History of malignant neoplasm of breast 540442028 Z85.3 s/p b/l mastectomy [id number] Tu Valdez MD [facility] [address] [facility] [address] [facility] [place] [address] 09/03/2023 08:25:36 09/03/2023 09:24:15 Lumbar radiculopathy 550506543 M54.16 Symptoms worsening and MRI pending. Consider PMR vs neurosurg referral depending on results. No long. Chronic low back pain 27 7065502 M54.50 Stable and well controlled with improved level of function on meds. Will continue. Meds refilled x 90 days per terms of narcotic contract. [id number] BRIDGET Dean Main Office [address] [facility] [address] [place] [address] 10/05/2023 11:32:46 10/05/2023 12:09:20 Abdominal pain 62744809 R10.9 LUQ pain but tender to palp mid right and left abd with slight guarding to palpation concerned re: obstructio n, has hx of kink in the bowel and adhesions in that area. Will start with labs and XR to r/o obstructio n. If pain persists and no findings will check CT scan with oral and IV contrast. ( she did have a neck CT for soft tissue problem so will hold off for now.) continue clear liquids/ bland diet, will add lactulose- stop gavilax for now. Constipation 29137522 K5 9.00 Wheeze - rhonchi 6560702 1 R09.89 just finished doxy 2 weeks ago and sx re-started this wekeend, does not do well on prednsione , will tx with kristyn, she has a call in to [facility] as well. [id number] Tu Valdez MD Main Office [address] [facility] [address] [place] [address] 12/06/2023 10:02:38 12/06/2023 10:45:24 Chronic low back pain 276194141 M54.50 Stable and well controlled with improved level of function on meds. Will continue. Meds refilled x 90 days per terms of narcotic contract. Prediabetes 121890739 R7 3.03 Will monitor. Anemia 496364083 D64.9 Stable and likely related to chronic disease. Will monitor. Lumbar radiculopathy 128 999034 M54.16 Symptoms stable and well controlled on current regimen. Will continue. Hyperparathyroidism 66[address] Bazan, appt with Dr. Taylor postponed with recent acute illness. Allergy 618827076 Z91.09 [id number] Mirian Garcia RN Main Office [address] [facility] [address] [place] [address] 12/16/2023 08:53:50 12/20/2023 10:59:11 [id number] Tu Valdez MD [facility] [address] [facility] 207 [facility] [place] [address] 12/17/2023 12:57:10 12/17/2023 14:10:20 Right lower zone pneumonia 916249782 J18.1 Clinically improving. Will complete course of cefpodoxin e and doxy. Will confirm CBC stability and hopefully improvemen t. Pleural effusion 0712310 8 J90 Needs follow up imaging in 4-5 weeks to confirm resolution Acute vaginitis 41534284 N76.0 Will cover for likely candidiasi s based on recent abx and risk factors. Administra tion of viral vaccine 67452199 Z23 Due for meningitis booster and pneumococc al booster given her risk factors/co morbiditie s. Asplenia 947027029 Q89.0 1 Due for meningitis booster and pneumococc al booster given her risk factors/co morbiditie s. Hypophosphatemia 0434081 E83.39 Will reassess following repletion at hospital discharge. Bronchiectasis 81446352 J47.9 Following with pulmonary. [id number] Tu Valdez MD Main Office [address] [facility] 207 [facility] [place] [address] 03/06/2024 10:02:59 03/06/2024 10:43:45 Chronic low back pain 459652771 M54.50 Stable and well controlled with improved level of function on meds. Will continue. Meds refilled x 90 days per terms of narcotic contract. Anemia 080630159 D64.9 Stable and likely related to chronic disease. Will monitor., has labs pending. Chronic pain syndrome 37 5247477 G89.4 Chronic/st able. Will renew/main tain on currently effective regimen. Lumbar radiculopathy 128 395486 M54.16 Symptoms stable and well controlled on current regimen. Will continue. [id number] [facility] [address] [facility] [address] [place] [address] 04/25/2024 14:18:16 04/26/2024 08:36:39 Fall from stairs 785453867 W10.9XXA accident going downstairs c laundry basket in hand, bounced down last 4 stairs - didn't go to ER, didn't want to wait - will check xrays - jorge to r/o vcfmeanwhi le, cont moist heat, prn percocet (already has), cont hep, but add ibu 200mg 2-3 tabs 3x/day c food x several days Pain of le ft shoulder joint 5166054450 7628817 M25.512 accident going downstairs c laundry basket in hand, bounced down last 4 stairs - didn't go to ER, didn't want to wait - will check xrays - jorge to r/o vcfmeanwhi le, cont moist heat, prn percocet (already has), cont hep, but add ibu 200mg 2-3 tabs 3x/day c food x several days Thoracic back pain 39231 8004 M54.6 Low back pain 557283622 M54.50 [id number] Kristopher Dumont PA-C Main Office [address] [facility] [address] [facility] [place] [address] 05/18/2024 08:39:29 05/18/2024 09:40:22 Pain of left shoulder joint 9866170153 5785211 M25.512 accident going downstairs c laundry basket in hand, bounced down last 4 stairs - didn't go to ER, didn't want to wait - will check xrays - jorge to r/o vcfmeanwhi le, cont moist heat, prn percocet (already has), cont hep, but add ibu 200mg 2-3 tabs 3x/day c food x several days Thoracic back pain 04716 8004 M54.6 found to have T4 vcf - seen by IR - rev in pvix - had fluoroscop y & bone scan & just had ct scan this am Fall from stairs 2733213 02 W10.9XXA accident going downstairs c laundry basket in hand, bounced down last 4 stairs - didn't go to ER, didn't want to wait - will check xrays - jorge to r/o vcfmeanwhi le, cont moist heat, prn percocet (already has), cont hep, but add ibu 200mg 2-3 tabs 3x/day c food x several days 8.15.24 - xrays revealed T4 vcf - on calcitonin ns, seen by IR - see below History of malignant neoplasm of breast 534191538 Z85.3 stable, cont f/u c hem/onc and breast sx Paresthesi a of upper limb 29574187 R20.2 L forearm in C6 distributi on - no obvious fx in this cervical region noted on bone scan - so ? has some form of impingemen t d/t L shoulder pain above - will get pmr evalrec moist heat, hep [id number] Tu Valdez MD Main Office [address] [facility] 207 [place] [address] 2024 10:50:43 2024 11:26:50 Chronic pain syndrome 158659119 G89.4 Chronic/st able. Will renew/main tain on currently effective regimen. Lumbar radiculopathy 128 277056 M54.16 Symptoms stable and well controlled on updated dosing needed in context of recent vertebral fracture. Compressio n fracture of thoracic spine 119588663 S22.000S Having CT scan and f/u with Dr. Sherwood in upcoming weeks. Multiple n odules of lung 512795400 R91.8 Being followed by pulmonary, but insurance is balking at f/u imaging orders. Pt advised to d/w Dr Stallings and let me know if there is anything I can do to help with the process. [id number] Tu Valdez MD Main Office [address] [facility] 207 [place] [address] 08/11/2024 09:30:29 08/11/2024 10:22:37 Adult health examination 854439644 Z00.00 Shingrix, and MCV advised via local pharmacy, will need PCV in 2025. Will screen based on risk factors. Regular dental and ophtho care advised as well as sunscreen and seat belt use. Distracted driving discussed. Cervical, breast and colon cancer screening utd. Advance directives discussed and in place. Body mass index 25-29 - overweight 920767102 E66.3 Z68.25 Hypercalcemia 89229310 E 83.52 Recent labs showed normalizat ion, following with endo because of hyperparat hyroidism. Moderate c hronic obstructive pulmonary disease 254126870 J44.9 Well controlled , following with pulmonary. Constipation 84500388 K5 9.00 Well controlled with stool softener and Senna. Will call with any problems. Gastroesop hageal reflux disease 825301628 K21.9 Well controlled without warning signs. Continue current regimen. Anemia 157834914 D64.9 Has been stable. Will reassess and screen for nutritiona l deficienci es. Asplenia 309748001 Q89.0 1 Due for meningitis booster Congestive heart failure 87298971 I50.9 Currently compensate d on appropriat e medical regimen. Following with cardiology , and has appt next week. Generalize d anxiety disorder 02334652 F41.1 Symptoms mild and intermitte nt. Rx refilled, will monitor use. Hyperparathyroidism 6699 [address] Bazan, appt with Dr. Taylor postponed with recent acute illness. Prediabetes 469710343 R7 3.03 Will monitor. Pure hypercholesterolemia 741738142 E78.01 Current 10 yr risk 2.5%, with minimal CAD on 2016 cath. Will follow for now,. Fibrosis of lung 1205268 1 J84.10 Symptoms stable, following with Dr. Stallings Strain of neck muscle 36 1017118 S16.1XXA Will try PT for this and general core strengthen ing. Screening for malignant neoplasm of colon 700570500 Z12.11 Overdue but scheduled in Oct. 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 [place] H eart Association Classification - Class III 387513454 I50.9 Compensate d and well controlled currently. Followed/m anaged by cardiology . Moderate asthma 93641199 9 J45.40 Well controlled and managed via Dr. Stallings. Lumbar radiculopathy 128 902315 M54.16 Symptoms stable and well controlled on updated dosing needed in context of recent vertebral fracture. Compressio n fracture of thoracic spine [id number] S22.000S Did not qualify for vertebropl asty, and working with endo for osteoporos is. Will try PT for core strengthen ing. Malignant neoplasm of breast in remission [id number] Lopez. [id number] Tony Fine MD Main Office [address] [place] [address] 09/15/2024 13:11:37 09/15/2024 14:03:22 Abdominal pain [id number] R10.9 This may be related to her IBS but given her h/o abdominal surgeries a partial bowel obstructio n is a possibilit y. Also given the location must consider diverticul itis. Will check labs and get a CT scan. She will go to the ER if her symptoms worsen. [id number] Tu Valdez MD Telehealt h [address] [place] [address] 11/17/2024 14:41:24 11/17/2024 16:05:35 Lumbar radiculopathy [id number] M54.16 Symptoms stable and well controlled on updated dosing needed in context of recent vertebral fracture. 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 Has appt with oncology and colorectal surgery to guide mgmt moving forward. Health Concerns Section Related Observation LastModified by Organization Detai ls LastModified Time None Recorded Concern Status LastModified by Organization Details LastModified Time None Recorded Advance Directives Directive Y: HCP/ Bao-Rolly Payers Encounter Date Sequence Insurance Name Policy Number Policy Kirk Covered Member ID Kirk Member ID Guarantor Name 05/18/2024 1 [facility] (PPO) [id number] Paula L Shadi [id number] Paula L Shadi 05/18/2024 2 [place] [facility] Paula L Shadi [id number] Paula L Shadi 2024 1 [employer] (PPO) [id number] Paula L Shadi [id number] Paula L Shadi 2024 2 [place] Paula L Shadi [id number] Paula L Shadi 08/11/2024 1 [employer] ([place]) [id number] 73 Paula L Shadi [id number] Paula L Shadi 08/11/2024 2 [place] Paula L Shadi [id number] Paula L Shadi 09/15/2024 1 [employer] ([place]) [id number] 73 Paula Hsu [id number] Paula Hsu 09/15/2024 2 [place] [facility] Paula Hsu [id number] Paula Hsu 11/17/2024 1 [facility] (PPO) [id number] 73 Paula Hsu [id number] Paula Hsu 11/17/2024 2 [place] [facility] Paula Hsu [id number] Paula Hsu Notes Date Note Type Note Provider Name and Address Organization Details Recorded Time 05/18/2024 text/html here for 3 wk f/ u visitreviewed xrays c pt - had vcf - rx'd c calcitonin nasal spray and got IR eval - no note to review, but in pvix reviewed fluoroscopy and bone scan results c pt seen by hem/onc last week - reviewed note - had negative breast exam Kristopher Dumont PA-C [address] [facility] [address], [place], [address], [facility] 05[place]18/2024 12:49:27 2024 text/html Back PainReporte d bypatient.Location:rich n radiating to the legs;pain radiating to the [...] PET scan not suggestive of metastatic disease. Unfortunately she sustained a fall in April which resulted in T4 compression fracture for which she is being evaluated by IR for consideration of vertebroplasty. Monthly oxycodone dosing was increased slightly to accommodate this new development. Pt has chronic lung disease/bronchiectasis and CHF. 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 Tu Valdez MD [address] [facility] [address], [place], [address], [facility] 2024 13:21:22 08/11/2024 text/html Generic HPI TemplateReported bypatient.Notes:Here for physical. Feels well. Seeing dentist and ophtho regularly. Tu Valdez MD [address] [address], [place], [address], [facility] 08/11/2024 10:27:33 09/15/2024 text/html Has chronic abdo june pain but now has new pain at her left side that started about 2 weeks ago. Worse with food and when having a bm. Feels like she doesn't completing empty. Has a colonoscopy and EGD scheduled with Dr Cobos on 11/07/24. Had vomiting and diarrhea on the first day but none since and now with a gnawing pain. Denies f/c. She has had multiple abdominal surgeries including a splenectomy. Tony Fine MD [address] [address], [place], [address], [facility] 09/15/2024 14:14:49 11/17/2024 text/html Abdominal PainRe ported bypatient.Location:LLQ Severity:moderate Duration:intermittent Onset/Timing:wax/wane Associated Symptoms:no fever; no chills; no shortness of breathNotes:Diagnosed with cecal adeno CA since last visit after having to advocate for the colonoscopy she was overdue for.Back PainReported bypatient.Location:rich n radiating to the legs;pain radiating to the [...] since last visit. Pt has chronic lung disease/bronchiectasis and CHF. 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 Tu Valdez MD [address] [place], [address], [facility] 11/22/2024 20:57:17 OBGyn Episode No OBEpisode recorded.
--- OUTSIDE RECORDS SUMMARY | 2024-11-24 15:45 | XMS_ITS | Continuity of Care Document ---
Author Organization [facility] Address [address] [place] [address] ve [address] [place] [address]- Support Name Relationship Address Phone CATIA RUIZ child Unknown Unavailable SARA, CECI Personal Relationship Unknown Unav ailable SARA, CECI Personal Relationship Unknown Unav ailable SARA, CECI Personal Relationship Unknown Unav ailable SARA, CECI Personal Relationship Unknown Unav ailable SARA, CECI Personal Relationship Unknown Unav ailable NIYA, SARA Personal Relationship Unknown Un available SARA, CECI Personal Relationship Unknown Unav ailable SARA, CECI Personal Relationship Unknown Unav ailable SARA, CECI Personal Relationship Unknown Unav ailable SARA, CECI Personal Relationship Unknown Unav ailable SARA, CECI Personal Relationship Unknown Unav ailable SARA, CECI Personal Relationship Unknown Unav ailable BRANDON, GUERDA sibling Unknown Unavailab le SARA, CECI Personal Relationship Unknown Unav ailable SARA, CECI Personal Relationship Unknown Unav ailable SARA, CECI Personal Relationship Unknown Unav ailable SARA, CECI Personal Relationship Unknown Unav ailable BRANDON, MARQUIS sibling Unknown Unavaila ble SARA, BRITNI child Unknown Unavailable Care Team Providers Care Wave Guide Assembler Name Role Phone Tu Valdez MD Primary Care Physician Encounter [facility] Date(s): 11/16/24 - 11/23/[address] [place], [place] [address] Attending Physician: Sadia Pop MD Referring Physician: Tu Valdez MD Encounter Type: Office Visit Allergies, Adverse Reactions, Alerts Substance Criticality Severity Reaction Reaction Severity Status codeine cp Active prochlorperazine High criticality Moderate restles s anxiety Active Bactrim rash Active gabapentin Active sulfa drugs RASH Active Naprosyn stomach cramps Activ e Biaxin rash Active Immunizations Given and Recorded Vaccine Date Status Refusal Reason pneumococcal 23-valent vaccine 1 09/18/21 Given pneumococcal 23-valent vaccine 2 12/21/14 Given influenza virus vaccine, inactivated 3 06/18/15 Gi megaan Pneumococcal Vaccine (oldterm) 4 07/04/06 Given 1Early/Late Reason: Early/Late Reason: Accommodate D/C 2Admin Note: given at MD office as out patient 3Admin Note: given at MD office as out patient 4Result Comment: lot # [id number] Problem List Condition Confirmation Course Effective Dates Status Health Status Informant Gastroenteritis, acute Confirmed Active Bronchiectasis Confirmed 02/23/11 Active Radiation induced cardiomyopathy Confirmed Active Cough Confirmed 02/23/11 Active COVID-19 1 Confirmed 04/27/23 Active Mitral and aortic valve disease Confirmed Active Other dysphagia Confirmed Active Fibromyalgia Confirmed Active Heart failure with reduced ejection fraction Confirmed Active Hx of Hodgkins lymphoma Confirmed Active Hypercalcemia Confirmed Active Hyperparathyroidism Confirmed Active Hypothyroidism Confirmed Active 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 Left bundle-branch block, unspecified Confirmed Active Osteoporosis Confirmed Active 1Problem added by Discern Expert Vital Signs Most recent to oldest [Reference Range]: 1 Height 160 cm (11/16/24 3:19 PM) Weight 67 kg (11/16/24 3:19 PM) Pulse Rate [55-90 bpm] 88 bpm (11/16/24 3:19 PM) Body Mass Index [18.5-24.99 kg/m2] 26.17 kg/m2 *H* (11/16/24 3:19 PM) Blood Pressure [90-138/55-84 mm Hg] 138/ 73mm Hg (11/16/24 3:19 PM) Temperature [96.8-100.4 DegF] 97.8 DegF (11/16/24 3:19 PM) Blood pressure sites Arm, right (11/16/24 3:19 PM) Temperature Route Temporal (11/16/24 3:19 PM) Social History Social History Type Response Smoking Status Former smoker; Tobac co user in household: No; Other: pt states she quit smoking at age 16; entered on: 07/26/17 Sex Sex Representation Female (finding) Patient Care team information Care Team Personnel Name: Gela Bean Position: [facility] Onco RN Member Role: Primary Care Nurse Name: Ermias Lyons MD Position: [facility] Physician - Gastroenterology Member Role: Lifetime Consulting Physician Address: [address] [place] [address], [address] [facility] [place] [address]- Telecom: Name: Brigitte Dyson RN Position: [facility] RN Member Role: Primary Care Nurse Name: Luna Navas RN Position: [facility] RN Member Role: Primary Care Nurse Name: Theresa Coronado RN Position: [facility] RN Member Role: Primary Care Nurse Name: Letha Pratt RN Position: [facility] RN Member Role: Primary Care Nurse Name: Don Cifuentes RN Position: [facility] RN Member Role: Primary Care Nurse Name: Guerline Madrid RN Position: [facility] RN Member Role: Primary Care Nurse Name: Maci Riley Position: [facility] Onco RN Member Role: Primary Care Nurse Name: Sy Saha RN Position: [facility] RN Member Role: Primary Care Nurse Name: Diana Almonte RN Position: [facility] RN Member Role: Primary Care Nurse Name: Mehreen Vasquez RN Position: [facility] RN Member Role: Primary Care Nurse Name: Maria Fernanda Smart MD Position: [facility] Cardiology MD Member Role: Lifetime Consulting Physician Name: Tu Valdez MD Position: Reference Physician Member Role: PCP Address: [address] [facility], [address] [place] [address]- Telecom: Care Team Related Persons Name: BRITNI RUIZ Name: CATIA RUIZ Name: MARQUIS TAYLOR Name: GUERDA TAYLOR Insurance Providers Guarantor name: DESIREE RUIZ Health Plan Information #: 1 Payer: [facility] Member Number: [id number] Policy Number: NA Group Number: [id number] Health Plan Information #: 2 Payer: [facility] Member Number: [id number] Policy Number: NA Group Number: NA
--- NOTE | 2024-11-24 15:46 | A.OFFVIS_ITS ---
Vital Signs 11/24/24 15:47 Height 5 ft 3 in Weight 149 lb 14.629 oz BMI 26.6 BP 98/54 L Blood Pressure Location Lt brachial Position Sitting Pulse 83 Pulse Source Pulse Oximeter Pulse Oximetry (%) 98 Oxygen Delivery Method Room Air Intake Visit Reasons: Bronchiectasis Allergies prochlorperazine [From Compazine] Allergy (Severe, Verified 11/24/24 15:50) Agitated clarithromycin [CLARITHROMYCIN] Allergy (Intermediate, Verified 11/24/24 15:50) RASH codeine [CODEINE] Allergy (Intermediate, Verified 11/24/24 15:50) STOMACH PAIN- GI UPSET naproxen [NAPROXEN] Allergy (Intermediate, Verified 11/24/24 15:50) GI PAIN, DIARRHEA Sulfa (Sulfonamide Antibiotics) [SULFA (SULFONAMIDE ANTIBIOTICS)] Allergy (Intermediate, Verified 11/24/24 15:50) RASH sulfamethoxazole [From BACTRIM] Allergy (Intermediate, Verified 11/24/24 15:50) RASH trimethoprim [From BACTRIM] Allergy (Intermediate, Verified 11/24/24 15:50) RASH HPI Comments Details: The patient is a 64-year-old woman with a known history of breast cancer, 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 Also has underlying bronchiectasis and nonischemic cardiomyopathy likely related to her chemo radiation. She currently has been doing very well. Until recently when she started noticing worsening shortness of breath. She also has some hoarseness. Also some raspiness of her voice. [id number] severity. Started noticing increasing shortness of breath. Has been using her inhaler with good effect. Has not use her nebulizer although it may help her expectorate better with the nebulized therapy. We talked also using hypertonic saline as a way of minimizing medications. We did go for brief walking oximetry in the patient was able to maintain a pulse ox between 94-96%. Heart rate stayed below 100. She was increasing to get more winded. Her Marietta score is elevated 09/26. At this point based on a daytime drowsiness her cardiac history and her elevated Marietta score the patient will also undergo a sleep study. 05/05/2023 the patient is here for pulmonary follow-up visit the patient recently was as is initially she developed intractable nausea and vomiting malaise and fevers. She tested positive for COVID-19. Initially she was hydrated and discharged and subsequently came back with worsening symptoms. She was briefly admitted. She will have an x-ray demonstrating a left lower lobe opacities suggesting pneumonia. She was placed on broad-spectrum antibiotics and also Decadron. She was discharged home after the 1st days she had a hard time tolerating the antibiotics and she call the office here and we had her stop the antibiotics after 4 days. The patient had been on doxycycline. And also after couple days more she had to stop the Decadron because it was too strong. She had been on the 6 mg daily for ago. Currently she does feel better she still tired. This morning she is still tested positive for COVID-19 unfortunately. Explained to her that with the use of prednisone her comorbidities she is likely will take a longer time to completely clear the virus. I do believe that based on the x-ray which I personally reviewed demonstrating the hazy left lower lobe opacity that she should go ahead and restart antibiotics to make sure complete treatment of a lower respiratory infection. She does have azithromycin at home. She complained that. She also has multiple allergies will hold off on additional therapies. She does need any more steroids at this time. Lungs actually sound pretty clear. 08/12/2023 the patient is here for a pulmonary follow-up visit. The patient overall has been doing fairly well from a respiratory status. She has been able to wean off a lot of her medications. Although the Advair HFA is very effective for her. She does have significant hoarseness and vocal cord paralysis. The patient does better with the HFA. The patient also has been on Spiriva. She did receive a letter that the Advair HFA is no longer covered and recommending powdered inhalers. Although with her issue of hoarseness, vocal cord paralysis and thrush the patient cannot tolerate powdered inhalers. Therefore will have to do a prior approval for her to continue HFA formulation. The patient has been having increasing chest congestion though. This had been for the last few days. I will send a course of doxycycline to treated for a lower respiratory infection. From a cardiac standpoint the patient is doing well. She recently saw her new beekeeper which she is very happy about. Over the summer the patient did have COVID she was evaluated in the hospital. Her chest x-ray at least the 1 that she had repeated appears to be reassuring. Overall the patient has been doing well on the current therapy so were hopeful that she can continue the therapy and avoid too many changes. She is also being evaluated for a parathyroidectomy because of elevated calcium levels. She will further discuss this with her endocrinology team. I would not advise the patient to undergo surgery unless no other alternatives therapies are available. 12/09/2023 the patient is here for pulmonary follow-up visit. The patient continues to do well from a respiratory status. Although, her insurance is no longer covering the Advair. Ongoing send her Symbicort generic. The patient un fortunately can not tolerate powdered inhalers and therefore has a lot of limitations as far as the inhalers that we can prescribe to her. She has no longer on any antimicrobial therapy. She has not required prednisone. She does use her respiratory therapy with good effect. She does have the Acapella valve and hypertonic saline, although, she has not been significantly congested which is reassuring. She is having nasal congestion and postnasal drip. She was prescribed Dolores. Will go ahead and start her also on Astelin nasal spray for allergies. She is also following closely with Endocrine. She may have some issues with her parathyroid glands and she may need to undergo surgery. She will continue to have that discussion with them. At least from a pulmonary standpoint the patient is able to proceed with anesthesia and surgery. 01/26/2024 the patient is here for hospital follow-up visit. She was in his usual state health until beginning of the month when she started developing worsening shortness of breath will addition to other constitutional symptoms including abdominal pain and nausea. The patient was brought to the [facility] ER where she was evaluated. She did have a CT scan of the abdomen which I personally reviewed. It appeared that she had a consolidation right lower lobe with small trace pleural effusion. Otherwise limited due to the lung cuts on the abdominal CT scan. She was placed on antibiotics and subsequently discharged. She has been feeling better. Although since she stopped the antibiotics she does feel that she is tired again and having some raspiness of voice. Subsequently, the patient had a formal CT scan when s not need aggressive shshe was discharged about a week ago. I personally reviewed the CT scan to. It appears that the right lower lobe consolidation and the pleural effusion has significantly improved. She still has some residual changes though. In addition to that she also has some nodular changes. Chronic blunting changes noted. It is reassuring overall that her CT scan looks a lot better. Unfortunately the CT scan of the chest was not compared to the CT scan of the abdomen on the actual for more we know mentioned about the significant improvement. 04/18/2024 this is a telehealth visit. The patient started developing worsening cough in addition to fevers and chills. She became concerned. She did call the office on Wednesday of last week. We have no availability so she went to an urgent care [facility]. There she did have a chest x-ray which I personally reviewed without any acute disease. Although she does have chronic airway disease. The patient was given a course of doxycycline which she completed. And then in the urgent care she got a Z-Zackary. Now she is feeling little better. She also use prednisone and they did give her a high dose starting at 60 mg and she has having significant symptoms with palpitations and insomnia so she only took 20 mg this morning. Seems like she is doing better overall. Will go ahead and continue the 20 mg for another pretty 4 days. She is also going to go back on azithromycin 3 times a week. We did review her last CT scan was back in 01/22/2024 with increasing airspace disease and pneumonia. She also has underlying pulmonary nodules. In view of her worsening disease will go ahead and repeat her chest CT scan in June. If she has any worsening symptoms she will call may have to consider getting the CT scan sooner. But I am hopeful that with the medication changes and adjustments she will be okay. In addition to that she needs to go back on the Advair HFA. The patient can not tolerate powdered inhalers because it causes thrush and also hoarseness. She also has a cardiac history so therefore the Advair HFA works very well for her cardiac disease. She has been on it for many years in his work well in view of her comorbidities a rather not change it to anything else either. The patient is adamant she wants to stay on that inhaler as well. Therefore will send to the pharmacy and will perform a PA. 06/19/2024 the patient is here for pulmonary follow-up visit. Since we last spoke the patient did have a fall injuring her back. Mainly the thoracic vertebral body. She did have evaluation by pain management. She was found to have a shattered T4 vertebral body. Was initially recommended she undergo kyphoplasty. Although she was referred to Neurosurgery since appeared to be in a difficult place. She has been having some back pain also some neck discomfort. Prior to that she was having some hyper paresthesias. Seems that she has had some improvement. She continues on pain medications however. She was wondering if she should just let it be. I did emphasize that she needs to follow-up with Neurosurgery and request her recommendation is this may need some interventions specially since his abutting the spinal cord based on my evaluation. As far as her pulmonary nodules could not be well visualized on her CT scan of the thorax. However, what I was able to see that the airways were stable and did and see any significant worsening of disease on the limited lung windows. The patient appears to have significant amount of musculoskeletal issues going on right now in therefore will hold off on any additional imaging studies of the pulmonary nodules at this time. We had requested when before but was denied by the insurance company. Her last CT scan was back in 01/22/2024 which demonstrated some new findings in the right lower lobe area. Therefore will go ahead and request a repeat CT scan in the next 3-4 months and review. Hopefully by then her back issues have resolved. Respiratory was the patient is doing well, and is not requiring aggressive chest PT. Chest congestion is also stable. If the patient develops any worsening symptoms she will call. Otherwise will have a repeat CT scan the next 3-4 months and will follow-up sometime after that. If she has any issues or concerns she can always call for an earlier assessment. 11/24/2024 the patient is here for a pulmonary follow-up visit. Since we last spoke she was having abdominal discomfort and recently underwent a colonoscopy demonstrating what appears to be a colon cancer. She had had a CT scan of the abdomen prior and it was not visualized. Now after the fact she had a repeat CT scan of the abdomen that did see something that area. 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 She did follow-up with Oncology also surgery. Seems like they want to try immunotherapy 1st and then have her undergo surgery. From a respiratory status she has been noticing increasing chest congestion. She had stopped the azithromycin for some time and she did restarted recently. And will go ahead and place on doxycycline just to cover all the bases specially if she is going to need surgery. I did review her CT scan of the chest which was personally by me done in 11/23/2024 and also the 1 she had in October. They just show chronic changes but her lower bases appeared to be clear. No evidence of any active airspace disease. She will continue with respiratory medications and I will make sure to send to the pharmacy and she will take the course of antibiotics as prescribed. She may need a preoperative evaluation. But at this point she is able to proceed with surgery and anesthesia from a pulmonary standpoint. She does have increased perioperative pulmonary complications which includes atelectasis, hypoxia, pneumonia, bronchospasms. However, the patient is medically optimized at this time. 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 Bronchiectasis Surgical History H/O right mastectomy History of cholecystectomy H/O: hysterectomy H/O splenectomy Family History Other Hypertension Social History Patient Tobacco Use Status: Former Tobacco user Tobacco use type: Cigarette Years Smoked: 10 years Review of Systems Const Denies chills, Reports fatigue, Reports fever(s) and Denies night sweats ENT Denies change in voice, Reports hoarseness, Denies lip swelling, Denies mouth pain, Reports nasal congestion, Reports neck pain, Reports post nasal drip and Denies tongue swelling Card Denies chest pain Resp Denies change in phlegm color, Denies chest congestion, Reports cough, Denies hemoptysis and Denies excessive phlegm production GI Denies abdominal pain, Denies bloating, Denies change in bowel habits, Denies dyspepsia, Denies heartburn, Denies diarrhea and Denies nausea Musc Denies no additional complaints, Reports back pain and Reports neck pain Skin/Breast Reports as per HPI Neuro Denies Neuro-related abnormal movements, Reports radicular pain and Reports paresthesias Psych Denies no additional complaints Endo Reports fatigue Guzman/Lymph Denies easy bleeding and Denies lymphadenopathy Aller/Immun Denies lip swelling and Denies tongue swelling Physical Exam Vital Signs: Last Vital Signs Pulse 83 11/24/24 15:47 BP 98/54 L 11/24/24 15:47 Pulse Ox 98 11/24/24 15:47 Oxygen Delivery Method Room Air 11/24/24 15:47 BMI result Body Mass Index 26.6 Const General: comfortable and alert HEENT Throat: Yes postnasal drainage Eyes Pupils: Equal, round and reactive pupils present Neck Neck: Yes normal visual inspection, Yes full ROM and Yes no lymphadenopathy Chest Chest palpation & inspection: normal inspection of the chest Resp Effort & Inspection: normal respiratory effort Auscultation: clear to auscultation bilaterally, no rhonchi and no wheezes Cardio Rate: regular rate Rhythm: regular rhythm Heart sounds: S1 normal heart sound present and S2 normal heart sound present GI Palpation (GI): Soft to palpation and nontender Auscultation: normal bowel sounds Skin General skin exam: no rashes or lesions noted Neuro Cranial nerves: Yes Equal, round and reactive pupils present Extrem General: No clubbing, No cyanosis and No edema Assessment & Plan Assessment & Plan (1) Pulmonary nodules: Code(s): R91.8 - Other nonspecific abnormal finding of lung field Category: Medical (2) Mycobacterial disease, pulmonary: Comment: clinically better Code(s): A31.0 - Pulmonary mycobacterial infection Category: Medical (3) Bronchiectasis: Code(s): J47.9 - Bronchiectasis, uncomplicated Category: Medical Qualifiers: Bronchiectasis type: uncomplicated Qualified Code(s): J47.9 - Bronchiectasis, uncomplicated (4) Cardiomyopathy: Comment: related to XRT from the lymphoma history Code(s): I42.9 - Cardiomyopathy, unspecified Category: Medical Qualifiers: Cardiomyopathy type: unspecified Qualified Code(s): I42.9 - Cardiomyopathy, unspecified (5) Pulmonary hypertension: Code(s): I27.20 - Pulmonary hypertension, unspecified Category: Medical (6) Pulmonary nodules: Code(s): R91.8 - Other nonspecific abnormal finding of lung field Category: Medical (7) Colon cancer: Code(s): C18.9 - Malignant neoplasm of colon, unspecified Category: Medical Qualifiers: Colon location: descending Qualified Code(s): C18.6 - Malignant neoplasm of descending colon Plan Continue CPT with nebulized therapy, hypertonic saline Advair, failed powdered inhaler due to hoarseness, thrush. continue azithromycin MWF Doxy x 10-14 days continue Spirva. Does not tolerate powdered inhalers due to larygeal disease, vo estefani cord paralysis and hoarseness STEFANI as needed Astelin nasal spray The patient has moderate risk for perioperative pulmonary complications. She is able to proceed with anesthesia and syrgery at this time. F/U in 4-6 months Medications: New doxycycline monohydrate 100 mg PO BID 28 tabs 0RF 14 days Refilled levalbuterol HCl 1.25 mg (3 mL) inhalation Q4H PRN 270 mL 2RF for wheezing J45.909 - Unspecified asthma, uncomplicated azithromycin Wednesday, Wednesday, Wednesday 500 mg PO 3XW 12 tabs 5RF 28 days Coding Level of Care Code Est Pt Level 5 (59685) Complex EM visit Add On G2211 Diagnoses Pulmonary nodules R91.8 Mycobacterial disease, pulmonary A31.0 Bronchiectasis without complication J47.9 Bronchiectasis type: uncomplicated Cardiomyopathy, unspecified type I42.9 Cardiomyopathy type: unspecified Pulmonary hypertension I27.20 Malignant neoplasm of descending colon C18.6 Colon location: descending Time Spent (min) 60
[2024-11-24 15:47] VITALS: BP 98/54; PULSE 83; O2SAT 98; BMI 26.6
== END 2024-11-24 16:22 | disposition home or self-care (01) ==
PROVIDERS: PCP Pediatrics; Visit Provider Hospitalist
DX: J47.9 Bronchiectasis, uncomplicated (principal); R91.8 Other nonspecific abnormal finding of lung field; A31.0 Pulmonary mycobacterial infection; I42.9 Cardiomyopathy, unspecified; I27.20 Pulmonary hypertension, unspecified; C18.6 Malignant neoplasm of descending colon
CPT/HCPCS: 99215

== ENCOUNTER → 2024-11-24 15:41 | Outpatient (BNVA) | payer OTHER, MEDICAID, SELFPAY | PROVIDERS: PCP Pediatrics; Visit Provider Hospitalist ==

== ENCOUNTER 2025-02-02 09:03 | Outpatient (REF) | payer OTHER, MEDICAID, SELFPAY ==
--- NOTE | ~2025-02-02 | XR_ITS ---
EXAMINATION: XR CHEST CLINICAL INFORMATION: J18.9 - Pneumonia, unspecified organism COMPARISON: None available. TECHNIQUE: 2 views of the chest were obtained. FINDINGS: There is horizontally oriented opacity with blunting of the left costophrenic angle, similar finding although smaller on the right lower hemithorax. Pulmonary reticular pattern with the subcentimeter calcified pulmonary nodules. Prominent interstitial lung markings. Apical lung scarring, bilaterally. No pneumothorax. There are 3 electrode leads in the right heart chambers and coronary sinus from a left-sided pacemaker. Vascular clips in the right axillary/peripheral right hemithorax. Multilevel thoracic and upper lumbar stenosis. S-shaped curvature of the thoracolumbar spine. Osteopenia versus osteoporosis.. XR/XR chest 2V IMPRESSION: Concerning mild pulmonary edema and bilateral pleural effusions, moderate volume on the left side and small to moderate volume on the right. Chronic interstitial lung disease with questionable prior granulomatous disease. Underlying neoplasm cannot be excluded. Electronically signed by: Tarun Pratt MD 02/02/2025 10:43 AM EDT
[2025-02-02 10:23] LABS: Basophils Absolute Auto 0.1 X10*3/uL (0.0-0.2); Basophils Percent Auto 1.1 % (0-2); Eosinophils Absolute Auto 0.1 X10*3/uL (0.0-0.4); Eosinophils Percent Auto 2.3 % (0-4); Hematocrit 25.6 % (37.0-47.0); Hemoglobin 8.2 g/dl (12.0-16.0); Imm Gran Abs Auto 0.01 X10*3/uL (0.00-0.03); Imm Gran Pct Auto 0.2 % (0.0-0.4); Lymphocytes Absolute Auto 1.4 X10*3/uL (1.2-4.9); Lymphocytes Percent Auto 24.6 % (20-40); MANUAL DIFF FLAG NO; Mean Corpuscular Hemoglobin 30.9 pg (27.0-33.0); Mean Corpuscular Volume 96.6 fL (80.0-98.0); Mean Platelet Volume 8.7 fL (9.4-12.3); Monocytes Absolute Auto 0.8 X10*3/uL (0.1-1.2); Monocytes Percent Auto 13.6 % (2-11); Neutrophils Absolute Auto 3.3 x10*3/uL (2.0-8.3); Neutrophils Percent Auto 58.2 % (45-73); Platelet Count 615 X10*3/uL (160-400); Red Blood Count 2.65 X10*6/uL (4.20-5.50); Red Cell Distribution Width 15.9 % (11.0-16.0); White Blood Count 5.6 X10*3/uL (4.8-10.8)
--- OUTSIDE RECORDS SUMMARY | 2025-02-02 10:24 | XMS_ITS | Encounter Summary ---
Author Organization [facility] Address [address] [place] [address] Care Team Providers Care Investor Name Role Phone Tu Valdez MD Primary Care Provider Unav ailable Jenny Dunne MD Unavailable [phone] Encounter Details Date Type Department Care Team Description 03/08/2018 Orders Only Pulmonology - [place] [address] [facility] [address] [place] [phone] Sanju Stallings MD Social History Tobacco Use Types Packs/Day Years Used Date Smoking Tobacco: Never Smokeless Tobacco: Never Sex Assigned at Date Recorded Not on file Job Start Date Occupation Industry Not on file Not on file Not on file documented as of this encounter Plan of Treatment Not on file documented as of this encounter Visit Diagnoses Not on filedocumented in this encounter Care Teams Investor Relationship Specialty Start Date End Date Tu Valdez MD PCP - General Internal Medicine 10/22/17 Jenny Dunne MD [address] [facility] [address] [place] [address] Specialist Neurosurgery 07/24/24 documented as of this encounter
--- OUTSIDE RECORDS SUMMARY | 2025-02-02 10:24 | XMS_ITS | Encounter Summary ---
Author Organization [facility] Address [address] [place] [address] Care Team Providers Care Shot Bagger Name Role Phone Tu Valdez MD Primary Care Provider Unav ailable Jenny Dunne MD Unavailable [phone] Encounter Details Date Type Department Care Team Description 11/29/2017 Transfer Records Medical Records [address] [place] [id number] Abstract, Provider Social History Tobacco Use Types Packs/Day Years Used Date Smoking Tobacco: Never Assessed Sex Assigned at Date Recorded Not on file Job Start Date Occupation Industry Not on file Not on file Not on file documented as of this encounter Plan of Treatment Not on file documented as of this encounter Visit Diagnoses Not on filedocumented in this encounter Care Teams Shot Bagger Relationship Specialty Start Date End Date Tu Valdez MD PCP - General Internal Medicine 10/22/17 Jenny Dunne MD [address] [facility] [address] [place] [address] Specialist Neurosurgery 07/24/24 documented as of this encounter
--- OUTSIDE RECORDS SUMMARY | 2025-02-02 10:24 | XMS_ITS | Encounter Summary ---
Author Organization [employer] [facility] Address [address] [place] [address] Care Team Providers Care Pit Slagman Name Role Phone Tu Valdez MD Primary Care Provider Unav Jenny Cottrell MD Unavailable [phone] Encounter Details Date Type Department Care Team Description 03/16/2019 Release of Information Medical Records [address] [place] [address] Abstract, Provider Social History Tobacco Use Types Packs/Day Years Used Date Smoking Tobacco: Never Smokeless Tobacco: Never Alcohol Use Standard Drinks/Week Comments No 0 (1 standard drink = 0.6 oz pur e alcohol) Sex Assigned at Date Recorded Not on file Job Start Date Occupation Industry Not on file Not on file Not on file documented as of this encounter Plan of Treatment Not on file documented as of this encounter Visit Diagnoses Not on filedocumented in this encounter Care Teams Pit Slagman Relationship Specialty Start Date End Date Tu Valdez MD PCP - General Internal Medicine 10/22/17 Jenny Dunne MD [address] [facility] [address] [place] [address] Specialist Neurosurgery 07/24/24 documented as of this encounter
--- OUTSIDE RECORDS SUMMARY | 2025-02-02 10:24 | XMS_ITS | Encounter Summary ---
Author Organization [facility] Address [address] [place] [address] Care Team Providers Care Iron Setter Name Role Phone Tu Valdez MD Primary Care Provider Unav ailable Jenny Dunne MD Unavailable [phone] Encounter Details Date Type Department Care Team Description 01/18/2018 Release of Information Medical Records [address] [place] [address] Abstract, Provider Social History Tobacco Use Types [...] on filedocumented in this encounter Care Teams Iron Setter Relationship Specialty Start Date End Date Tu Valdez MD PCP - General Internal Medicine 10/22/17 Jenny Dunne MD [address] [facility] [address] [place] [address] Specialist Neurosurgery 07/24/24 documented as of this encounter
--- OUTSIDE RECORDS SUMMARY | 2025-02-02 10:24 | XMS_ITS | Encounter Summary ---
Author Organization [facility] Address [address] [place] [address] Care Team Providers Care Joggle Press Operator Name Role Phone Tu Valdez MD Primary Care Provider Jenny Lopez MD Unavailable [phone] Reason for Visit * Reason Onset Date Comments Medication 02/18/2018 Encounter Details Date Type Department Care Team Description 02/18/2018 Telephone Pulmonology - [address] [place] [phone] Steff Licona NP Medication Social History Tobacco Use Types Packs/Day Years Used Date Smoking Tobacco: Never Smokeless Tobacco: Never Sex Assigned at Date Recorded Not on file Job Start Date Occupation Industry Not on file Not on file Not on file documented as of this encounter Miscellaneous Notes * Telephone Encounter - Steff Licona NP - 02/18/2018 1:11 PM EDT Spoke with pharmacist Will stop Levaquin Order for Doxycycline sent to pharmacy * Telephone Encounter - Breanne Beckham - 02/18/2018 12:50 PM EDT Kayli from [facility] is calling Advair levofloxacin QTC prolongation please contact her at [facility] documented in this encounter Plan of Treatment Not on file documented as of this encounter Visit Diagnoses Not on filedocumented in this encounter Care Teams Joggle Press Operator Relationship Specialty Start Date End Date Tu Valdez MD PCP - General Internal Medicine 10/22/17 Jenny Dunne MD [address] [place] [address] Specialist Neurosurgery 07/24/24 documented as of this encounter
--- OUTSIDE RECORDS SUMMARY | 2025-02-02 10:24 | XMS_ITS | Encounter Summary ---
Author Organization [facility] Address [address] [place] [address] Care Team Providers Care Instructional Support Assistant Name Role Phone Tu Valdez MD Primary Care Provider Jenny Lopez MD Unavailable [phone] Reason for Visit * Reason Onset Date Comments Provider Call Back 08/30/2018 Encounter Details Date Type Department Care Team Description 08/30/2018 Telephone Pulmonology [address] [place] [phone] Sanju Stallings MD Provider Call Back Social History Tobacco Use Types Packs/Day Years [...] encounter Miscellaneous Notes * Telephone Encounter - Sanju Stallings MD - 08/30/2018 5:09 PM EST All set * Telephone Encounter - Silva Cosme M.A. - 08/30/2018 3:00 PM EST Spoke to Anne Marie garcia she said she wanted to make sure its at [facility] because you dont usually do bronchs there and order says moderate sedation.she should be all set unless you need something different. * Telephone Encounter - Aster May - 08/30/2018 12:40 PM EST Anne Marie garcia needs a phone call [facility] to book this, [facility] * Telephone Encounter - Gela Guerrero - 08/30/2018 11:47 AM EST Caller requesting call back from provider: Is the caller the patient? NO If caller is not the patient, what is the callers name? Treasure Callers relationship to patient? Dr office If person calling is not the patient themselves, is there a verbal release in FYI or permanent comments for this person: NO Reason for call back: [facility] endoscopy unit. Patient was booked with [facility] and she wants to make sure it is there and not [facility] also does the patient get anesthesia? She has confidential voice mail so you can leave a message with he gets anesthesia or not. Caller offered to speak with the nurse for assistance: YES Response: Patient offered to speak with nurse for assistance and patient agreed. Message forwarded to nurse. documented in this encounter Plan of Treatment Not on file documented as of this encounter Visit Diagnoses Not on filedocumented in this encounter Care Teams Instructional Support Assistant Relationship Specialty Start Date End Date Tu Valdez MD PCP - General Internal Medicine 10/22/17 Jenny Dunne MD [address] [place] [address] Specialist Neurosurgery 07/24/24 documented as of this encounter
--- OUTSIDE RECORDS SUMMARY | 2025-02-02 10:25 | XMS_ITS | Encounter Summary ---
Author Organization [facility] Address [address] [place] [address] Care Team Providers Care Instructor Watch Assembly Name Role Phone Tu Valdez MD Primary Care Provider Unav Jenny Cottrell MD Unavailable [phone] Encounter Details Date Type Department Care Team Description 11/23/2018 Release of Information Medical Records [address] [place] [id number] Abstract, Provider Social History Tobacco Use Types [...] on filedocumented in this encounter Care Teams Instructor Watch Assembly Relationship Specialty Start Date End Date Tu Valdez MD PCP - General Internal Medicine 10/22/17 Jenny Dunne MD [address] [facility] [address] [place] [address] Specialist Neurosurgery 07/24/24 documented as of this encounter
--- OUTSIDE RECORDS SUMMARY | 2025-02-02 10:25 | XMS_ITS | Encounter Summary ---
Author Organization [facility] Address [address] [place] [address] Care Team Providers Care Cabin Cleaner Name Role Phone Tu Valdez MD Primary Care Provider Jenny Lopez MD Unavailable [phone] Reason for Visit * Reason Comments E-prescribe Rx Request Encounter Details Date Type Department Care Team Description 12/12/2018 Refill Pulmonology - [address] [place] [phone] Sanju Stallings MD E-prescribe Rx Request Social History Tobacco Use Types Packs/Day Years [...] encounter Miscellaneous Notes * Telephone Encounter - Ariadne Obrien - 12/12/2018 8:56 AM EDT Advised patient that the refill request would be put through once she called in to make the appointment. * Telephone Encounter - Ariadne Obrien - 12/12/2018 8:55 AM EDT Patient would like script to be: E-PRESCRIBED/FAXED TO PHARMACY WHEN WAS THE PATIENT'S LAST APPOINTMENT WITH THE PRESCRIBING PROVIDER? 07/22/18 Does patient have an upcoming appointment? No-patient refused appointment, will call back to book appointment - states that she had a follow up appointment with Dr. Stallings after her broch, but there is no appointment listed in the system. (THE MEDICATION REQUESTED IS ON THE MED LIST ABOVE) All of the medications requested were on the CURRENT MEDS list Did you check the Pharmacy information above?: NO Patient wants: 90 -day supply Is this a mail order prescription request ? NO Patients current insurance carrier is: Payor: [facility] / Plan: PPO [id number] / Product Type: PPO [id number] documented in this encounter Plan of Treatment Not on file documented as of this encounter Visit Diagnoses Not on filedocumented in this encounter Care Teams Cabin Cleaner Relationship Specialty Start Date End Date Tu Valdez MD PCP - General Internal Medicine 10/22/17 Jenny Dunne MD [address] [place] [address] Specialist Neurosurgery 07/24/24 documented as of this encounter
--- OUTSIDE RECORDS SUMMARY | 2025-02-02 10:25 | XMS_ITS | Encounter Summary ---
Author Organization [facility] Address [address] [place] [address] Care Team Providers Care Screener And Blender Operator Name Role Phone Tu Valdez MD Primary Care Provider Jenny Lopez MD Unavailable [phone] Reason for Visit * Reason Onset Date Comments refill request 12/12/2018 Encounter Details Date Type Department Care Team Description 12/12/2018 Telephone Pulmonology [address] [place] [phone] Sanju Stallings MD refill request Social History Tobacco Use Types Packs/Day Years [...] Telephone Encounter - Sanju Stallings MD - 12/12/2018 12:47 PM EDT Sent meds, please book follow up January or February * Telephone Encounter - Kathryn Strickland M.A. - 12/12/2018 12:18 PM EDT Please advise. * Telephone Encounter - Carlene Hare - 12/12/2018 9:25 AM EDT Patient was denied a refill on her medication because she was told that she did not show up for [facility]rappointment at [facility] in August which she did do the bronchscopy and also that she didn't show up for a follow up appointment in October which she did not have. Please call patient. documented in this encounter Plan of Treatment Not on file documented as of this encounter Visit Diagnoses Not on filedocumented in this encounter Care Teams Screener And Blender Operator Relationship Specialty Start Date End Date Tu Vladez MD PCP - General Internal Medicine 10/22/17 Jenny Dunne MD [address] [place] [address] Specialist Neurosurgery 07/24/24 documented as of this encounter
--- OUTSIDE RECORDS SUMMARY | 2025-02-02 10:25 | XMS_ITS | Encounter Summary ---
Author Organization [facility] Address [address] [place] [address] Care Team Providers Care Business Analysis Professional Name Role Phone Tu Valdez MD Primary Care Provider Jenny Lopez MD Unavailable [phone] Encounter Details Date Type Department Care Team Description 02/03/2019 Orders Only Pulmonology - [place] [address] [facility] [address] [place] [phone] Sanju Stallings MD Social History Tobacco Use [...] on filedocumented in this encounter Care Teams Business Analysis Professional Relationship Specialty Start Date End Date Tu Valdez MD PCP - General Internal Medicine 10/22/17 Jenny Dunne MD [address] [facility] [address] [place], [place] [phone] Specialist Neurosurgery 07/24/24 documented as of this encounter
[2025-02-02 10:28] LABS: Venous Blood Gas Refer to POC result
[2025-02-02 10:28] LABS: VBG Base Excess 5.8 mmol/L; VBG HCO3 30 mmol/L (22-26); VBG pCO2 42 mmHg; VBG pH 7.45 (7.32-7.43); VBG pO2 43 mmHg
[2025-02-02 10:39] LABS: Anion Gap 14 (12-20); Blood Urea Nitrogen 7 mg/dL (9-16); Calcium 9.7 mg/dL (8.4-10.2); Carbon Dioxide 25 mmol/L (22-29); Chloride 106 mmol/L (96-108); Estimated Glomerular Filt Rate > 60; Glucose Random 87 mg/dL (60-115); Potassium 3.9 mmol/L (3.3-5.1); Sodium 141 mmol/L (135-145)
[2025-02-02 10:45] LABS: Troponin-I High Sensitivity 7.6 ng/L (<3.5-17.0)
== END 2025-02-02 09:04 | disposition home or self-care (01) ==
LOC: HO.XRAY 09:03
PROVIDERS: PCP Pediatrics; Visit Provider Hospitalist
DX: J18.9 Pneumonia, unspecified organism (principal); D64.9 Anemia, unspecified; J90 Pleural effusion, not elsewhere classified
CPT/HCPCS: 36415; 71046; 80048; 82803; 84484; 85025; 86850; 86900; 86901

== ENCOUNTER 2025-02-02 09:03 | Outpatient (AMB) | payer OTHER, MEDICAID, SELFPAY ==
--- NOTE | 2025-02-02 09:05 | A.OFFVIS_ITS ---
Vital Signs 02/02/25 09:06 Height 5 ft 3 in Weight 144 lb 6.444 oz BMI 25.6 BP 120/60 Blood Pressure Location Lt brachial Position Sitting Pulse 90 Pulse Source Pulse Oximeter Pulse Oximetry (%) 98 Oxygen Delivery Method Room Air Intake Visit Reasons: Bronchiectasis Tile Grader Required: No Allergies prochlorperazine [From Compazine] Allergy (Severe, Verified 02/02/25 09:09) Agitated clarithromycin [CLARITHROMYCIN] Allergy (Intermediate, Verified 02/02/25 09:09) RASH codeine [CODEINE] Allergy (Intermediate, Verified 02/02/25 09:09) STOMACH PAIN- GI UPSET naproxen [NAPROXEN] Allergy (Intermediate, Verified 02/02/25 09:09) GI PAIN, DIARRHEA Sulfa (Sulfonamide Antibiotics) [SULFA (SULFONAMIDE ANTIBIOTICS)] Allergy (Intermediate, Verified 02/02/25 09:09) RASH sulfamethoxazole [From BACTRIM] Allergy (Intermediate, Verified 02/02/25 09:09) RASH trimethoprim [From BACTRIM] Allergy (Intermediate, Verified 02/02/25 09:09) RASH HPI Comments Details: The patient is a 64-year-old woman with a known history of breast cancer, 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 Also has underlying bronchiectasis and nonischemic cardiomyopathy likely related to her chemo radiation. She currently has been doing very well. Until recently when she started noticing worsening shortness of breath. She also has some hoarseness. Also some raspiness of her voice. [id number] severity. Started noticing increasing shortness of breath. Has been using her inhaler with good effect. Has not use her nebulizer although it may help her expectorate better with the nebulized therapy. We talked also using hypertonic saline as a way of minimizing medications. We did go for brief walking oximetry in the patient was able to maintain a pulse ox between 94-96%. Heart rate stayed below 100. She was increasing to get more winded. Her Cresco score is elevated 09/26. At this point based on a daytime drowsiness her cardiac history and her elevated Cresco score the patient will also undergo a sleep study. 01/26/2024 the patient is here for hospital follow-up visit. She was in his usual state health until beginning of the month when she started developing worsening shortness of breath will addition to other constitutional symptoms including abdominal pain and nausea. The patient was brought to the [facility] ER where she was evaluated. She did have a CT scan of the abdomen which I personally reviewed. It appeared that she had a consolidation right lower lobe with small trace pleural effusion. Otherwise limited due to the lung cuts on the abdominal CT scan. She was placed on antibiotics and subsequently discharged. She has been feeling better. Although since she stopped the antibiotics she does feel that she is tired again and having some raspiness of voice. Subsequently, the patient had a formal CT scan when s not need aggressive shshe was discharged about a week ago. I personally reviewed the CT scan to. It appears that the right lower lobe consolidation and the pleural effusion has significantly improved. She still has some residual changes though. In addition to that she also has some nodular changes. Chronic blunting changes noted. It is reassuring overall that her CT scan looks a lot better. Unfortunately the CT scan of the chest was not compared to the CT scan of the abdomen on the actual for more we know mentioned about the significant improvement. 04/18/2024 this is a telehealth visit. The patient started developing worsening cough in addition to fevers and chills. She became concerned. She did call the office on Wednesday of last week. We have no availability so she went to an urgent care [facility]. There she did have a chest x-ray which I personally reviewed without any acute disease. Although she does have chronic airway disease. The patient was given a course of doxycycline which she completed. And then in the urgent care she got a Z-Zackary. Now she is feeling little better. She also use prednisone and they did give her a high dose starting at 60 mg and she has having significant symptoms with palpitations and insomnia so she only took 20 mg this morning. Seems like she is doing better overall. Will go ahead and continue the 20 mg for another pretty 4 days. She is also going to go back on azithromycin 3 times a week. We did review her last CT scan was back in 01/22/2024 with increasing airspace disease and pneumonia. She also has underlying pulmonary nodules. In view of her worsening disease will go ahead and repeat her chest CT scan in June. If she has any worsening symptoms she will call may have to consider getting the CT scan sooner. But I am hopeful that with the medication changes and adjustments she will be okay. In addition to that she needs to go back on the Advair HFA. The patient can not tolerate powdered inhalers because it causes thrush and also hoarseness. She also has a cardiac history so therefore the Advair HFA works very well for her cardiac disease. She has been on it for many years in his work well in view of her comorbidities a rather not change it to anything else either. The patient is adamant she wants to stay on that inhaler as well. Therefore will send to the pharmacy and will perform a PA. 06/19/2024 the patient is here for pulmonary follow-up visit. Since we last spoke the patient did have a fall injuring her back. Mainly the thoracic vertebral body. She did have evaluation by pain management. She was found to have a shattered T4 vertebral body. Was initially recommended she undergo kyphoplasty. Although she was referred to Neurosurgery since appeared to be in a difficult place. She has been having some back pain also some neck discomfort. Prior to that she was having some hyper paresthesias. Seems that she has had some improvement. She continues on pain medications however. She was wondering if she should just let it be. I did emphasize that she needs to follow-up with Neurosurgery and request her recommendation is this may need some interventions specially since his abutting the spinal cord based on my evaluation. As far as her pulmonary nodules could not be well visualized on her CT scan of the thorax. However, what I was able to see that the airways were stable and did and see any significant worsening of disease on the limited lung windows. The patient appears to have significant amount of musculoskeletal issues going on right now in therefore will hold off on any additional imaging studies of the pulmonary nodules at this time. We had requested when before but was denied by the insurance company. Her last CT scan was back in 01/22/2024 which demonstrated some new findings in the right lower lobe area. Therefore will go ahead and request a repeat CT scan in the next 3-4 months and review. Hopefully by then her back issues have resolved. Respiratory was the patient is doing well, and is not requiring aggressive chest PT. Chest congestion is also stable. If the patient develops any worsening symptoms she will call. Otherwise will have a repeat CT scan the next 3-4 months and will follow-up sometime after that. If she has any issues or concerns she can always call for an earlier assessment. 11/24/2024 the patient is here for a pulmonary follow-up visit. Since we last spoke she was having abdominal discomfort and recently underwent a colonoscopy demonstrating what appears to be a colon cancer. She had had a CT scan of the abdomen prior and it was not visualized. Now after the fact she had a repeat CT scan of the abdomen that did see something that area. 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 She did follow-up with Oncology also surgery. Seems like they want to try immunotherapy 1st and then have her undergo surgery. From a respiratory status she has been noticing increasing chest congestion. She had stopped the azithromycin for some time and she did restarted recently. And will go ahead and place on doxycycline just to cover all the bases specially if she is going to need surgery. I did review her CT scan of the chest which was personally by me done in 11/23/2024 and also the 1 she had in October. They just show chronic changes but her lower bases appeared to be clear. No evidence of any active airspace disease. She will continue with respiratory medications and I will make sure to send to the pharmacy and she will take the course of antibiotics as prescribed. She may need a preoperative evaluation. But at this point she is able to proceed with surgery and anesthesia from a pulmonary standpoint. She does have increased perioperative pulmonary complications which includes atelectasis, hypoxia, pneumonia, bronchospasms. However, the patient is medically optimized at this time. 02/02/2025 the patient is here for hospital follow-up visit. She went in for elective surgery for colon cancer. Prior to going to the hospital she did develop worsening cough and she was started on doxycycline. She went ahead and had her surgery. It was prolonged surgery lasting about 7 hours due to the significant amount of adhesions. Surgery with success she was able to remove all the cancer and no evidence of any extension of the cancer noted. I do not have those details is all per patient report. The patient postoperatively has some issues with her breathing. She developed respiratory distress. She had a CTA which I personally reviewed demonstrating extensive airspace disease bilaterally right more than left likely from an aspiration event and she had an NG tube in place. She subsequently had to be intubated for respiratory failure was admitted to the ICU briefly. She was able to be liberated from the ventilator. Post liberation CT scan demonstrated significant airspace disease although significant improvement also bilateral pleural effusions. It was also noted that hemoglobin had dropped significantly. The lowest that I saw basal 7.1. Upon discharge it was 7.3. The patient is very dyspneic. She feels that she has significant shortness of breath and dyspnea with minimal activity. She has a hard time standing. She has been working on the inside spirometer and also the Acapella valve. Her respiratory exam is actually reassuring. And I did visualize both CT scans demonstrating significant airspace disease but significant improvement. She did have significant bilateral pleural effusions likely from 3rd spacing from her very prolonged surgery. During the visit we did go for walking oximetry the patient maintain a pulse ox of 98% which is reassuring heart rate of 97 and she was weak. She was using a cane. At this point will have her get an x-ray and also blood work. I am concerned that she may need a transfusion if her hemoglobin drops to 7 or below. In addition to that will have her get a chest x-ray to assess her fluid status. Right now her white count has been normalized although recheck it again. I do not believe she needs any additional antibiotics but I do believe that she is going to need additional diuresis. Patient follow-up in 3-4 weeks with me. Otherwise I will call her once I get the blood work in the x-ray for further recommendations. 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 Bronchiectasis Surgical History H/O right mastectomy History of cholecystectomy H/O: hysterectomy H/O splenectomy Family History Other Hypertension Social History Patient Tobacco Use Status: Former Tobacco user Tobacco use type: Cigarette Years Smoked: 10 years Review of Systems Const Denies chills, Reports fatigue, Denies fever(s), Denies weight gain and Reports weight loss ENT Denies dizziness, Denies lip swelling and Denies tongue swelling Card Denies chest pain, Denies leg edema, Reports lightheadedness, Denies palpitations, Reports dyspnea on exertion, Denies orthopnea and Denies other Resp Reports cough and Reports dyspnea on exertion GI Reports as per HPI and Denies hematochezia Musc Reports abnormal gait, Reports muscle weakness, Denies numbness, Denies radiating pain into limb and Denies tingling Skin/Breast Reports as per HPI Neuro Reports abnormal gait, Denies dizziness, Denies numbness and Denies tingling Psych Denies no additional complaints Endo Reports fatigue and Denies palpitations Guzman/Lymph Denies easy bleeding and Denies lymphadenopathy Aller/Immun Denies lip swelling and Denies tongue swelling Physical Exam Vital Signs: Last Vital Signs Pulse 90 02/02/25 09:06 BP 120/60 02/02/25 09:06 Pulse Ox 98 02/02/25 09:06 Oxygen Delivery Method Room Air 02/02/25 09:06 BMI result Body Mass Index 25.6 Const General: comfortable and alert HEENT Throat: Yes postnasal drainage Eyes Pupils: Equal, round and reactive pupils present Neck Neck: Yes normal visual inspection, Yes full ROM and Yes no lymphadenopathy Chest Chest palpation & inspection: normal inspection of the chest Resp Effort & Inspection: normal respiratory effort Auscultation: clear to auscultation bilaterally, no rhonchi and no wheezes Cardio Rate: regular rate Rhythm: regular rhythm Heart sounds: S1 normal heart sound present and S2 normal heart sound present GI Palpation (GI): Soft to palpation and nontender Auscultation: normal bowel sounds Skin General skin exam: no rashes or lesions noted Neuro Cranial nerves: Yes Equal, round and reactive pupils present Extrem General: No clubbing, No cyanosis and No edema Assessment & Plan Assessment & Plan (1) Pneumonia: Code(s): J18.9 - Pneumonia, unspecified organism Category: Medical Qualifiers: Laterality: right Lung location: lower lobe of lung Pneumonia type: due to unspecified organism Qualified Code(s): J18.9 - Pneumonia, unspecified organism (2) Anemia: Code(s): D64.9 - Anemia, unspecified Category: Medical Qualifiers: Anemia type: unspecified type Qualified Code(s): D64.9 - Anemia, unspecified (3) Pleural effusion: Code(s): J90 - Pleural effusion, not elsewhere classified Category: Medical (4) Pulmonary nodules: Code(s): R91.8 - Other nonspecific abnormal finding of lung field Category: Medical (5) Mycobacterial disease, pulmonary: Comment: clinically better Code(s): A31.0 - Pulmonary mycobacterial infection Category: Medical (6) Bronchiectasis: Code(s): J47.9 - Bronchiectasis, uncomplicated Category: Medical Qualifiers: Bronchiectasis type: uncomplicated Qualified Code(s): J47.9 - Bronchiectasis, uncomplicated (7) Cardiomyopathy: Comment: related to XRT from the lymphoma history Code(s): I42.9 - Cardiomyopathy, unspecified Category: Medical Qualifiers: Cardiomyopathy type: unspecified Qualified Code(s): I42.9 - Cardiomyopathy, unspecified (8) Pulmonary hypertension: Code(s): I27.20 - Pulmonary hypertension, unspecified Category: Medical (9) Pulmonary nodules: Code(s): R91.8 - Other nonspecific abnormal finding of lung field Category: Medical (10) Colon cancer: Code(s): C18.9 - Malignant neoplasm of colon, unspecified Category: Medical Qualifiers: Colon location: descending Qualified Code(s): C18.6 - Malignant neoplasm of descending colon Plan Continue CPT with nebulized therapy, hypertonic saline Advair, failed powdered inhaler due to hoarseness, thrush. holding azithromycin MWF Bloodwork/CXR start Lasix x 7 days continue Spirva. Does not tolerate powdered inhalers due to larygeal disease, vocal cord paralysis and hoarseness STEFANI as needed Astelin nasal spray F/U in 4-6 months Orders: Orders Basic Metabolic Panel 02/02/25 D64.9 - Anemia, unspecified, J18.9 - Pneumonia, unspecified organism, J90 - Pleural effusion, not elsewhere classified Troponin-I High Sensitivity 02/02/25 D64.9 - Anemia, unspecified, J18.9 - Pneumonia, unspecified organism, J90 - Pleural effusion, not elsewhere classified XR chest 2V 02/02/25 D64.9 - Anemia, unspecified, J18.9 - Pneumonia, unspecified organism, J90 - Pleural effusion, not elsewhere classified Complete Blood Count Auto Diff 02/02/25 D64.9 - Anemia, unspecified, J18.9 - Pneumonia, unspecified organism, J90 - Pleural effusion, not elsewhere classified Venous Blood Gas 02/02/25 D64.9 - Anemia, unspecified, J18.9 - Pneumonia, unspecified organism, J90 - Pleural effusion, not elsewhere classified Type and Screen 02/02/25 D64.9 - Anemia, unspecified, J18.9 - Pneumonia, unspecified organism, J90 - Pleural effusion, not elsewhere classified Medications: New furosemide (Lasix) 20 mg PO DAILY 7 tabs 0RF 7 days Coding Level of Care Code Est Pt Level 5 (99708) Complex EM visit Add On [id number] Diagnoses Pneumonia of right lower lobe due to infectious organism J18.9 Laterality: right Lung location: lower lobe of lung Pneumonia type: due to unspecified organism Anemia, unspecified type D64.9 Anemia type: unspecified type Pleural effusion J90 Pulmonary nodules R91.8 Mycobacterial disease, pulmonary A31.0 Bronchiectasis without complication J47.9 Bronchiectasis type: uncomplicated Cardiomyopathy, unspecified type I42.9 Cardiomyopathy type: unspecified Pulmonary hypertension I27.20 Malignant neoplasm of descending colon C18.6 Colon location: descending Time Spent (min) 45
[2025-02-02 09:06] VITALS: BP 120/60; PULSE 90; O2SAT 98; BMI 25.6
--- OUTSIDE RECORDS SUMMARY | 2025-02-02 09:33 | XMS_ITS | Continuity of Care Document ---
Author Organization [facility], Main Office Address [address] [place] [address] Care Team Providers Care Prepress Specialist Name Role Phone TU NGUYỄN Primary Care Provider ELKE TAYLOR Level Designer [phone] TIMOTEO MARCIAL Clinical Cardiac Electrophysiolo gist GLENDY VELIZ Manager Med Surg DAMEON HOOK Infectious Disease [phone] BLANK LUBIN Channel Account Manager KRISTINE HUERTA Breast Surgeon DAMEON PETE General Surgeon FERNANDEZ MCPHERSON Trauma Counsellor MONA MCNAMARA Tree Sapper JASEN BAZAN Chief Controller WAN TAYLOR General Surgeon JESSI GAMBLE Medical Oncologist [phone] HERNAN BALLESTEROS Diagnostic Radiologist JENNY KENNEY Neurosurgeon DAMEON PETE Steel Manager [phone] WISAM CHRISTENSEN Medical Oncologist [phone] Assessment No assessment recorded. Plan of Treatment Reminders Order Date Submit Date Provider Last Modified By Organization Details Last Modified Time Details Appointments telehe alth20 025 01:45PM Tu Nguyễn MD Not available Not available Not available PE EST 025 10:15AM Tu Nguyễn MD Not available Not available Not available Lab None record ed. Referral None record ed. Procedures None record ed. Surgeries None record ed. Imaging None record ed. Medication Orders None record ed. Patient TargetsNo targets recorded. Patient Instructions Encounter Date Encounter Id Patient Instructions Last Modified By Organization Details Last Modified Time 01/29/2025 [id number] During [facility] f/u call, all current and discharge medications (OTC, herbal therapies, supplements) reviewed and reconciled with patient, including potential side effects, drug interactions, instructions, and the consequences of not taking medication. Reviewed potential barriers to medication adherence, such as side effects from medication or cost of medication. delgers Not available 01/29/2025 10:14:35 Reason for Referral None Reported. Results Created Date Observation Date Name Description Value Unit Range Abnormal Flag Note LastModifiedBy Organization Detail LastModifiedTime 01/03/2001/02/2025 socrates timurclaudia heard am No observ ation record ed. awychowski [facility] [address] [place], [address], 01/02/2025 06:59:50 Result Notes None recorded. Problems Name Problem SNOMED Code Status Onset Date Resolution Date Notes Provider Name and Address Organization Details Recorded Time Mammogra phy abnormal [id number] Completed 201301/06/2017 RECORDED 01/18/20 14 3:16PM BY JENNI CRUZ MA, OFFICE VISIT Leanne Woodward MA [facility] 7 09:50:41 Acute pharyngi tis 275189798 Completed 201204/17/2014 RECORDED 10/03/20 13 1:01PM BY JENNI CRUZ MA, ANNOTATI ON/ADDEN DUM Tu Nguyễn MD [address], [place], [address] , [facility] 6 09:13:07 Multiple mitral and aortic valve involvem ent Completed 201101/10/2019 Tu Nguyễn MD [address], [place], [address] , [facility] 9 10:12:34 Arthropa thy 090415702 Active 2013 Not Available [facility] 1 17:47:25 Patient status finding [id number] Completed 201204/17/2014 RECORDED 10/28/19 13 8:53AM BY JENNI CRUZ MA, ANNOTATI ON/ADDEN DUM Tu Nguyễn MD [address], [place], [address] , [facility] 6 09:13:07 Blood transfus ion reaction 19985286 Active 2013 Not Available [facility] 1 17:47:25 Primary malignan t neoplasm of female breast 96392755 Completed 201301/10/2019 Tu Nguyễn MD [address], [place], [address] , [facility] 9 10:14:10 Screenin g for malignan t neoplasm of breast Completed 201104/17/2014 RECORDED 07/25/20 12 10:41AM BY JENNI CRUZ MA, ANNOTATI ON/ADDEN DUM Tu Nguyễn MD [address], [place], [address] , [facility] 6 09:13:07 Acute exacerba tion of bronchie ctasis 698862801 Completed 201204/17/2014 IMPRESSI ON: SEE PT MESSAGE; RECORDED 10/03/20 13 1:01PM BY JENNI CRUZ MA, ANNOTATI ON/ADDEN DUM Tu Nguyễn MD [address], [place], [address] , [facility] 6 09:13:07 Low back pain 078184180 Completed 201311/06/2015 IMPRESSI ON: PAIN IS STABLE AND WELL CONTROLL ED. MEDS REFILLED PER NARCOTIC CONTRACT .; RECORDED 01/30/20 14 6:41AM BY TU Xie MD, OFFICE VISIT Tu Nguyễn MD [address] [facility] [address], [place], [address] , [facility] 6 09:13:07 Depressi ve disorder 52655762 Active 2013 Not Available [facility] 1 17:47:25 Dysphagi a 38041265 Completed 201204/17/2014 IMPRESSI ON: IF UGI ABNL, OR SYMPTOMS PERSIST WILL REFER TO GI.; RECORDED 10/28/19 13 8:53AM BY JENNI CRUZ MA, ANNOTATI ON/ADDEN DUM Tu gNuyễn MD [address] [facility] [address], [place], [address] , [facility] 6 09:13:07 Influenz a vaccine needed 67946528193 06 Completed 201204/17/2014 RECORDED 07/26/20 13 3:43PM BY JENNI RCUZ MA, OFFICE VISIT Tu Nguyễn MD [address] [address], [place], [address] , [facility] 6 09:13:07 Tobacco user 509424636 Completed 201304/17/2014 RECORDED 01/18/20 14 3:15PM BY JENNI CRUZ MA, ANNOTATI ON/ADDEN DUM Tu Nguyễn MD [address] [address], [place], [address] , [facility] 6 09:13:07 Adult health examinat ion Completed 201204/17/2014 IMPRESSI ON: IMMUNIZA TION STATUS UTD WILL SCREEN BASED ON RISK FACTORS. REGULAR DENTAL CARE AND SEATBELT USE ADVISED. DISTRACT ED DRIVING DISCUSSE D. ROUTINE CERVICAL /BREAST/ COLON CANCER SCREENIN G UTD ALTHOUGH ALL ARE DUE IN THE UPCOMING SEVERAL MONTHS.; RECORDED 07/25/20 13 10:11AM BY JENNI CRUZ MA, ANNOTATI ON/ADDEN DUM Tu Nguyễn MD [address] [address], [place], [address] , [facility] 6 09:13:07 Pure hypercho lesterol emia 540338578 Active 2013 Not Available [facility] 1 17:47:25 Hodgkin' s disease of extranod al AND/OR solid organ site 58561595 Completed 201204/17/2014 RECORDED 07/25/20 13 10:11AM BY JENNI CRUZ MA, SONAL ON/NAINA Nguyễn MD [address], [place], [address] , [facility] 6 09:13:07 Hypothyr oidism 96116557 Active 2013 Not Available [facility] 1 17:47:25 Irritabl e bowel syndrome 61758336 Active 2013 Not Available [facility] 1 17:47:25 Disorder of lung 10030765 Completed 201301/06/2018 Tu Nguyễn MD [address], [place], [address] , [facility] 8 14:15:17 Renewal of prescrip tion Completed 201104/17/2014 RECORDED 07/25/20 12 10:42AM BY JENNI CRUZ MA, SONAL ON/NAINA Nguyễn MD [address], [place], [address] , [facility] 6 09:13:07 Migraine 25402575 Active 2013 Not Available [facility] 1 17:47:25 Heart murmur 19678241 Active 2013 Not Available [facility] 1 17:47:25 Chronic sinusiti s 65347257 Completed 201204/17/2014 IMPRESSI ON: SOUNDS ALLERGY RELATED. PT WILL TRY NASAL STEROID AND IF DRAINAGE PERSISTS /BECOMES PURULENT WILL START ABX. CALL INB/WORS E WITH THESE INTERVEN TIONS.; RECORDED 10/03/20 13 1:00PM BY JENNI CRUZ MA, ANNOTATI ON/ADDEN DUM Tu Nguyễn MD [address], [place], [address] , [facility] 6 09:13:07 Primary malignan t neoplasm of skin 85518637 Completed 201301/06/2017 [facility]; RECORDED 01/18/20 14 3:16PM BY JENNI CRUZ MA, OFFICE VISIT Leanne Woodward MA [facility], [facility] 7 09:52:12 Edema 057837404 Completed 201204/17/2014 IMPRESSI ON: GIVEN POST SURGICAL LOCATION WILL IMAGE TO SEE IF C/W NL SCAR TISSUE AND RULE OUT FLUID COLLECTI ON.; RECORDED 10/28/19 13 8:53AM BY JENNI CRUZ MA, SONAL ON/ADDEN DUM Tu Nguyễn MD [address], [place], [address] , [facility] 6 09:13:07 Chronic low back pain 024027616 Active Not Available [facility] 1 17:47:25 Esophage al dysphagi a 52061040 Completed 01/10/2019 Tu Nguyễn MD [address], [place], [address] , [facility] 9 10:12:48 Acute pharyngi tis 107570384 Completed 201205/10/2014 RECORDED 10/03/20 13 1:01PM BY JENNI CRUZ MA, SONAL ON/ADDEN ALVIN Nguyễn MD [address], [place], [address] , [facility] 6 09:13:07 Patient status finding [id number] Completed 201205/10/2014 RECORDED 10/28/19 13 8:53AM BY JENNI CRUZ MA, ANNOTATI ON/ADDYARITZA Nguyễn MD [address] [facility] [address], [place], [address] , [facility] 6 09:13:07 Screenin g for malignan t neoplasm of breast Completed 201105/10/2014 RECORDED 07/25/20 12 10:41AM BY JENNI CRUZ MA, SONAL ON/NAINA Nguyễn MD [address] [facility] [address], [place], [address] , [facility] 6 09:13:07 Acute exacerba tion of bronchie ctasis 681563568 Completed 201205/10/2014 IMPRESSI ON: SEE PT MESSAGE; RECORDED 10/03/20 13 1:01PM BY JENNI CRUZ MA, SONAL ON/NAINA Nguyễn MD [address] [address], [place], [address] , [facility] 6 09:13:07 Dysphagi a 86353605 Completed 201205/10/2014 IMPRESSI ON: IF UGI ABNL, OR SYMPTOMS PERSIST WILL REFER TO GI.; RECORDED 10/28/19 13 8:53AM BY JENNI CRUZ MA, SONAL ON/NAINA Nguyễn MD [address] [address], [place], [address] , [facility] 6 09:13:07 Influenz a vaccine needed 40046766395 06 Completed 201205/10/2014 RECORDED 07/26/20 13 3:43PM BY JENNI CRUZ MA, OFFICE VISIT Tu Nguyễn MD [address] [address], [place], [address] , [facility] 6 09:13:07 Tobacco user 943949185 Completed 201305/10/2014 RECORDED 01/18/20 14 3:15PM BY JENNI CRUZ MA, SONAL ON/NAINA Nguyễn MD [address], [place], [address] , [facility] 6 09:13:07 Adult health examinat ion Completed 201205/10/2014 IMPRESSI ON: IMMUNIZA TION STATUS UTD WILL SCREEN BASED ON RISK FACTORS. REGULAR DENTAL CARE AND SEATBELT USE ADVISED. DISTRACT ED DRIVING DISCUSSE D. ROUTINE CERVICAL /BREAST/ COLON CANCER SCREENIN G UTD ALTHOUGH ALL ARE DUE IN THE UPCOMING SEVERAL MONTHS.; RECORDED 07/25/20 13 10:11AM BY JENNI CRUZ MA, SONAL ON/NAINA Nguyễn MD [address] [facility] [facility] [address], [place], [address] , [facility] 6 09:13:07 Hodgkin' s disease of extranod al AND/OR solid organ site 99612153 Completed 201205/10/2014 RECORDED 07/25/20 13 10:11AM BY JENNI CRUZ MA, ANNOTATI ON/NAINA Nguyễn MD [address] [facility], [place], [address] , [facility] 6 09:13:07 Renewal of prescrip tion Completed 201105/10/2014 RECORDED 07/25/20 12 10:42AM BY JENNI CRUZ MA, ANNOTATI ON/NAINA Nguyễn MD [address], [place], [address] , [facility] 6 09:13:07 Chronic sinusiti s 03679349 Completed 201205/10/2014 IMPRESSI ON: SOUNDS ALLERGY RELATED. PT WILL TRY NASAL STEROID AND IF DRAINAGE PERSISTS /BECOMES PURULENT WILL START ABX. CALL INB/WORS E WITH THESE INTERVEN TIONS.; RECORDED 10/03/20 13 1:00PM BY JENNI CRUZ MA, ANNOTATI ON/NAINA Nguyễn MD [address], [place], [address] , [facility] 6 09:13:07 Edema 930533432 Completed 201205/10/2014 IMPRESSI ON: GIVEN POST SURGICAL LOCATION WILL IMAGE TO SEE IF C/W NL SCAR TISSUE AND RULE OUT FLUID COLLECTI ON.; RECORDED 10/28/19 13 8:53AM BY JENNI CRUZ MA, ANNOTATI ON/NAINA Nguyễn MD [address], [place], [address] , [facility] 6 09:13:07 Acute pharyngi tis 003421851 Completed 201205/11/2014 RECORDED 10/03/20 13 1:01PM BY JENNI CRUZ MA, CHARLIEATI ON/NAINA Nguyễn MD [address] [address], [place], [address] , [facility] 6 09:13:07 Screenin g for malignan t neoplasm of breast Completed 201105/11/2014 RECORDED 07/25/20 12 10:41AM BY JENNI CRUZ MA, SONAL ON/NAINA Nguyễn MD [address], [place], [address] , [facility] 6 09:13:07 Acute exacerba tion of bronchie ctasis 548239479 Completed 201205/11/2014 IMPRESSI ON: SEE PT MESSAGE; RECORDED 10/03/20 13 1:01PM BY JENNI CRUZ MA, ANNOTATI ON/NAINA Nguyễn MD [address] [address], [place], [address] , [facility] 6 09:13:07 Dysphagi a 20293055 Completed 201205/11/2014 IMPRESSI ON: IF UGI ABNL, OR SYMPTOMS PERSIST WILL REFER TO GI.; RECORDED 10/28/19 13 8:53AM BY JENNI CRUZ MA, ANNOTATI ON/ADDEN DUM Tu Nguyễn MD [address], [place], [address] , [facility] 6 09:13:07 Influenz a vaccine needed 70462497824 06 Completed 201205/11/2014 RECORDED 07/26/20 13 3:43PM BY JENNI CRUZ MA, OFFICE VISIT Tu Nguyễn MD [address], [place], [address] , [facility] 6 09:13:07 Tobacco user [id number] Completed 201305/11/2014 RECORDED 01/18/20 14 3:15PM BY JENNI CRUZ MA, ANNOTATI ON/ADDEN DUM Tu Nguyễn MD [address], [place], [address] , [facility] 6 09:13:07 Adult health examinat ion Completed [...] [address], [place], [address] , [facility] 6 09:13:07 Hodgkin' s disease of extranod al AND/OR solid organ site 47359090 Completed 201205/11/2014 RECORDED 07/25/20 13 10:11AM BY JENNI CRUZ MA, ANNOTATI ON/ADDEN DUM Tu gNuyễn MD [address], [place], [address] , [facility] 6 09:13:07 Renewal of prescrip tion Completed 201105/11/2014 RECORDED 07/25/20 12 10:42AM BY JENNI CRUZ MA, ANNOTATI ON/ADDEN DUM Tu Nguyễn MD [address], [place], [address] , [facility] 6 09:13:07 Chronic sinusiti s 92252633 Completed 201205/11/2014 IMPRESSI ON: SOUNDS ALLERGY RELATED. PT WILL TRY NASAL STEROID AND IF DRAINAGE PERSISTS /BECOMES PURULENT WILL START ABX. CALL INB/WORS E WITH THESE INTERVEN TIONS.; RECORDED 10/03/20 13 1:00PM BY JENNI CRUZ MA, ANNOTATI ON/ADDEN DUM Tu Nguyễn MD [address], [place], [address] , [facility] 6 09:13:07 Edema 913976705 Completed 201205/11/2014 IMPRESSI ON: GIVEN POST SURGICAL LOCATION WILL IMAGE TO SEE IF C/W NL SCAR TISSUE AND RULE OUT FLUID COLLECTI ON.; RECORDED 10/28/19 13 8:53AM BY JENNI CRUZ MA, ANNOTATI ON/ADDEN DUM Tu Nguyễn MD [address], [place], [address] , [facility] 6 09:13:07 Strictur e of esophagu s 11338780 Active Not Available [facility] 1 17:47:25 Esophage al reflux finding 793173239 Completed 01/06/2018 Tu Nguyễn MD [address] [facility] [address], [place], [address] , [facility] 8 14:15:21 Asthma 925617947 Active Not Available [facility] 1 17:47:25 Body mass index 25-29 - overweig ht 343592732 Completed 07/14/2019 Removal Reason: dx changed Tu Nguyễn MD [address], [place], [address] , [facility] 4 10:22:02 Vitamin D deficien cy 68893184 Active Not Available [facility] 17:47:25 Aortic valve stenosis 15461301 Active mild Not Available [facility] 17:47:25 Aortic valve regurgit ation 37780351 Active mod Not Available [facility] 17:47:25 Acute asthma 284291968 Completed 11/06/2015 Tu Nguyễn MD [address], [place], [address] , [facility] 6 09:13:07 Sinusiti s 02295090 Completed 11/06/2015 Tu Nguyễn MD [address], [place], [address] , [facility] 6 09:13:07 Acute sinusiti s 15034920 Completed 01/06/2017 Leanne kyle, [facility] 7 09:50:19 Herpes labialis 0122915 Active Not Available [facility] 1 17:47:25 Allergy Completed 01/06/[address] [facility] 7 09:50:29 Pneumoni a caused by Streptoc occus 07302340 Completed 11/12/2015 Tu Nguyễn MD [address], [place], [address] , [facility] 6 09:13:07 Cough 53664768 Completed 11/06/2015 Leanne kyle, 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 7 09:51:35 Moderate asthma 141916127 Active Not Available [facility] 1 17:47:25 Mitral valve regurgit ation 59688755 Active 2015 mild/mod Not Available [facility] 1 17:47:25 Left heart failure 38530315 Active 2015 Not Available [facility] 1 17:47:25 Left cardiac ventricu lar dilatati on 952868603 Active 2015 Not Available [facility] 1 17:47:25 History of Hodgkin lymphoma 171323846 Active 1976 Not Available [facility] 1 17:47:25 Electroc ardiogra m abnormal 759895852 Active Not Available [facility] 1 17:47:25 Congesti ve heart failure 46202492 Active Not Available [facility] 1 17:47:25 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 228214586 Completed 01/10/2019 Tu Nguyễn MD [address], [place], [address] , [facility] 4 06:19:23 Thyroid hormone tests outside referenc e range 424739745 Completed 01/06/2017 Leanne kyle, [facility] 7 09:50:38 Left sided abdomina l pain 159385042 Completed 01/06/2017 Leanne kyle, [facility] 7 09:51:21 Blood in urine 00953835 Completed 01/06/2017 Leanne kyle, [facility] 7 09:51:18 Acute vaginiti s 39338422 Completed 01/06/2017 Leanne kyle, [facility] 7 09:51:01 Vaginiti s 19668995 Completed 01/06/2017 Leanne kyle, [facility] 7 09:51:13 Dysuria 48778247 Completed 01/06/2017 Leanne kyle, [facility] 7 09:51:41 Intermit tent dysphagi a 64697398 Completed 01/06/2018 Tu Nguyễn MD [address] [facility], [place], [address] , [facility] 8 14:14:48 Constipa tion 01029666 Active Not Available [facility] 1 17:47:25 Multiple nodules of lung 290428875 Active 2015 right, 1.3 and 1.2cm Tu Nguyễn MD [address], [place], [address] , [facility] 4 10:06:36 Pyuria 8055273 Completed 04/21/2017 Tu Nguyễn MD [address], [place], [address] , [facility] 7 09:39:53 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 Completed 201504/08/2020 Tu Nguyễn MD [address], [place], [address] , [facility] 0 14:50:05 Impaired fasting glycemia 288797359 Active 2016 Not Available [facility] 1 17:47:25 Asplenia 781101208 Active 2016 Not Available [facility] 1 17:47:25 Heart valve disorder 335853 Active 2016 Not Available [facility] 17:47:25 Fibrosis of lung 69417737 Active 2016 Not Available [facility] 17:47:25 Bronchie ctasis 26390338 Active 2016 Not Available [facility] 17:47:25 Gastroes ophageal reflux disease 268935119 Active 2017 Not Available [facility] 17:47:25 [employer] [facility] [employer] ion Classifi cation - Class III 357981977 Active 2017 Not Available [facility] 17:47:25 Asthma-c hronic obstruct eron pulmonar y disease overlap syndrome 79731129385 998940 Active 2017 Not Available [facility] 1 17:47:25 Fibromya lgia 851439608 Active 2018 Not Available [facility] 1 17:47:25 Raynaud' s disease 054771146 Active 2018 Not Available [facility] 17:47:25 History of malignan t neoplasm of breast 495103294 Active 2018 right, s/p mastecto my, no tamoxife n Not Available [facility] 17:47:25 Basal cell carcinom a of skin 620318781 Active 2018 neck Not Available [facility] 1 17:47:25 Hoarse 40306086 Completed 201804/08/2020 Tu Nguyễn MD [address], [place], [address] , [facility] 0 15:00:40 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 Not Available [facility] 1 17:47:24 Generali zed anxiety disorder 47695036 Active 2019 Not Available [facility] 17:47:25 Hypercal cemia 03382918 Active 2019 Not Available [facility] 1 17:47:25 Albuminu christophe 222281188 Completed 201906/10/2020 Tu Nguyễn MD [address] [facility] [address], [place], [address] , [facility] 0 20:18:14 Hyperpar athyroid ism 51057303 Active 2019 Not Available [facility] 1 17:47:25 Chronic kidney disease stage 3A 899847474 Completed 202008/05/2023 Tu Nguyễn MD [address] [address], [place], [address] , [facility] 3 11:00:48 Suspecte d COVID-19 192486267 Completed 04/08/2021 Removal Reason: Problem added by user [email or web address] from the COVID-19 watch flag Raegan Higgins null, 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 3 07:43:29 Anemia 766679516 Active 2020 Tu Nguyễn MD [address] [address], [place], [address] , [facility] 1 15:18:27 Prediabe pravin 823035521 Active 2020 Tu Nguyễn MD [address] [facility], [place], [address] , [facility] 1 08:14:49 Iron deficien cy anemia 86029958 Active 2020 Tu Nguyễn MD [address], [place], [address] , [facility] 1 07:10:33 Candidia sis of the esophagu s 31283218 Completed 202108/05/2023 Tu Nguyễn MD [address], [place], [address] , [facility] 3 11:01:01 Hiatal hernia 81417644 Active 2021 Tu Nguyễn MD [address], [place], [address] , [facility] 2 21:22:33 Lumbar radiculo corinne 997567538 Active 2021 Tu Nguyễn MD [address], [place], [address] , [facility] 2 16:36:56 Paralysi s of left vocal cord 741289571 Active 2021 Tu Nguyễn MD [address], [place], [address] , [facility] 2 16:15:47 Acute COVID-19 0490391167 Completed 202206/15/2023 Tu Nguyễn MD [address] [facility] [address], [place], [address] , [facility] 3 11:23:34 SARS-CoV -2 Completed 202208/05/2023 Tu Nguyễn MD [address] [facility] [address], [place], [address] , [facility] 3 11:05:26 History of bilatera l mastecto my 840765249 Active 2022 Tu Nguyễn MD [address] [facility] [address], [place], [address] , [facility] 3 11:19:24 Abdomina l pain [id number] Active 2023 Susan Martinez, [facility] [address] [facility] [address], [place], [address] , [facility] 4 11:58:17 Wheeze - rhonchi 59770682 Completed 202308/11/2024 Tu Nguyễn MD [address] [address], [place], [address] , [facility] 4 10:06:20 Urinary tract infectio us disease 64814596 Active 2023 Susan Martinez [facility] [address] [address], [place], [address] , [facility] 4 09:42:11 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 106896525 Active Tu Nguyễn MD [address] [address], [place], [address] , [facility] 4 06:19:23 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 55895011 Active 2023 Tu Nguyễn MD [address] [address], [place], [address] , [facility] 4 06:22:49 Compress ion fracture of thoracic vertebra 56982028775 04 Completed 202308/11/2024 T4 Tu Nguyễn MD [address] [facility] [address], [place], [address] , [facility] 4 10:07:16 Compress ion fracture of thoracic spine 024111403 Active 2023 T4 Tu Nguyễn MD [address], [place], [address] , [facility] 4 00:00:18 Osteopor osis 22587515 Active 2023 Tu Nguyễn MD [address], [place], [address] , [facility] 4 07:53:43 Body mass index 25-29 - overweig ht 661006481 Active 2023 Tu Nguyễn MD [address], [place], [address] , [facility] 4 10:22:02 Malignan t neoplasm of breast in [facility] n Active 2023 Tu Nguyễn MD [address], [place], [address] , [facility] 4 10:25:36 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 Procedures Surgical History Date Name Laterality Status Provider Name and Address Organization Details Recorded Time 01/17 right colectomy completed Tu Nguyễn MD [address] [facility]3] [address], [place], [address] , [facility] 5 06:15:24 11/07 Date of Last Colonoscopy completed Kathy Arambula [facility] 5 14:31:02 11/07 Egd diagnostic brush wash completed Tu Nguyễn MD [address], [place], [address] , [facility] 5 12:32:39 11/07 Colonoscopy completed Tu Nguyễn MD [address], [place], [address] , [facility] 5 12:33:27 06/06 Chronic Pain Assessment completed Anna Peck MA [facility] 4 11:01:18 12/05 Chronic Pain Assessment completed Anna Peck MA [facility] 4 10:21:29 06/15 Chronic Pain Assessment completed Anna Peck MA [facility] 3 11:05:37 03/08 Chronic Pain Assessment completed Anna Peck MA [facility] 3 10:16:18 12/04 Chronic Pain Assessment completed Guerline Smalls MA [facility] 3 09:02:03 06/09 Chronic Pain Assessment completed Jenni Cruz MA [facility] 2 09:23:02 04/30 Chronic Pain Assessment completed Jenni Cruz MA [facility] 2 10:48:45 03/13 Chronic Pain Assessment completed Guerline Smalls MA [facility] 2 10:03:09 01/12 Egd diagnostic brush wash completed Tu Nguyễn MD [address], [place], [address] , [facility] 2 21:23:08 12/16 Chronic Pain Assessment completed Jenni Cruz MA [facility] 2 13:49:31 09/16 Chronic Pain Assessment completed Jenni Cruz MA [facility] 1 11:46:34 08/11 Mast radical completed Mirian Garcia RN [facility] 2 08:56:29 06/24 incisional biopsy of breast completed Tu Nguyễn MD [address], [place], [address] , [facility] 1 12:40:15 06/19 Chronic Pain Assessment completed Jenni Cruz MA [facility] 1 11:52:12 06/17 Most Recent Mammogram completed Mirian Garcia RN [facility] 1 15:25:51 04/03 Bronchoscopy completed Tu Nguyễn MD [address], [place], [address] , [facility] 1 08:52:42 03/24 Echo transthoracic completed Tu Nguyễn MD [address], [place], [address] , [facility] 1 11:48:05 03/21 Chronic Pain Assessment completed Jenni Cruz MA [facility] 1 09:39:06 12/20 Chronic Pain Assessment completed Jenni Cruz MA [facility] 1 09:21:44 09/20 Chronic Pain Assessment completed Jenni Cruz MA [facility] 0 10:02:03 06/21 Chronic Pain Assessment completed Jenni Cruz MA [facility] 0 10:44:17 06/12 Bronchoscopy completed Kayli Braxton [facility] 0 14:05:01 06/12 Bronchoscopy completed Tu Nguyễn MD [address], [place], [address] , [facility] 0 06:27:35 10/10 Chronic Pain Assessment completed Catherine Christina MA [facility] 0 10:13:37 07/11 Chronic Pain Assessment completed Jenni Cruz MA [facility] 9 10:09:43 06/21 Mammogram one breast completed Stephaniedillon Foster [facility] 9 09:46:18 04/26 colonoscopy completed Tu Nguyễn MD [address], [place], [address] , [facility] 3 11:05:45 04/11 Chronic Pain Assessment completed Jenni Cruz MA [facility] 9 09:41:29 03/31 Most Recent Bone Density completed Jenni Cruz MA [facility] 0 14:35:02 03/31 Dxa bone density larry vrt fx completed Rosa Cruz MA [facility] 0 14:34:30 01/10 Chronic Pain Assessment completed Jenni Cruz MA [facility] 9 09:52:52 01/02 Colonoscopy completed Zaida Hebert MA [facility] 1 08:34:18 11/30 mohs surgery completed Tu Nguyễn MD [address], [place], [address] , [facility] 9 10:22:18 11/25 Date of Last Pap Smear completed Kayli Braxton [facility] 9 13:36:36 10/13 Chronic Pain Assessment completed Jenni Cruz MA [facility] 9 09:24:08 08/31 Bronchoscopy completed Stephanie Foster [facility] 8 11:46:22 07/14 Chronic Pain Assessment completed Jenni Cruz MA [facility] 8 15:22:31 04/18 Chronic Pain Assessment completed Jenni Cruz MA [facility] 8 14:00:54 01/31 Pmkr, dual, rate-resp completed Tu Nguyễn MD [address], [place], [address] , [facility] 8 16:51:46 01/06 Chronic Pain Assessment completed Jenni Cruz MA [facility] 8 13:57:30 10/15 Chronic Pain Assessment completed Leanne jones MA [facility] 8 10:13:38 07/20 Chronic Pain Assessment completed Jenni Cruz MA [facility] 7 10:17:38 04/21 Chronic Pain Assessment completed Jenni Cruz MA [facility] 7 09:25:02 01/20 Chronic Pain Assessment completed Jenni Cruz MA [facility] 7 11:25:10 10/23 Chronic Pain Assessment completed Jenni Cruz MA [facility] 7 08:16:24 06/09 esophagogastroduodenoscopy completed Tu Nguyễn MD [address], [place], [address] , [facility] 0 09:16:58 04/27 Chronic Pain Assessment completed Catherine Christina MA [facility] 6 08:23:04 03/13 Cardiac mri w/stress img completed Tu Nguyễn MD [address], [place], [address] , [facility] 7 15:13:01 02/02 Chronic Pain Assessment completed Jenni Cruz MA [facility] 6 09:26:40 01/02 Cardiac Surgery completed Tu Nguyễn MD [address], [place], [address] , [facility] 6 08:21:03 12/05 Echo Transthoracic completed Tu Nguyễn MD [address], [place], [address] , [facility] 6 08:18:17 05/04 EGD completed Tu Nguyễn MD [address], [place], [address] , [facility] 0 09:16:39 03/01 Mastectomy Partial completed Mirian Garcia RN [facility] 1 15:22:47 02/01 Breast Implants completed Jenni Cruz MA [facility] 6 09:21:57 02/01 Breast Surgery completed Zaida Hebert MA [facility] 1 08:34:18 02/01 Breast Implants completed Zaida Hebert MA [facility] 1 08:34:18 01/02 Breast Biopsy completed Zaida Hebert MA [facility] 1 08:34:18 07/23 Caesarean Section completed Zaida Hebert MA [facility] 1 08:34:18 05/04 Cholecystectomy completed Zaida Hebert MA [facility] 1 08:34:18 06/04 Appendectomy completed Zaida Hebert MA [facility] 1 08:34:18 Appendectomy completed Zaida Hebert MA [facility] 1 08:34:18 Splenectomy completed Jenni Cruz MA [facility] 6 09:21:57 Breast Surgery completed Zaida Hebert MA [facility] 1 08:34:18 Breast Biopsy completed Zaida Hebert MA [facility] 1 08:34:18 Hysterectomy completed Jenni Cruz MA [facility] 4 14:41:43 Caesarean Section completed Tu Nguyễn MD [address] [facility], [place], [address] , [facility] 8 14:29:05 Cholecystectomy completed Zaida Hebert MA [facility] 1 08:34:18 mohs surgery completed Anna Peck MA [facility] 3 10:47:08 Imaging Results None recorded. Procedure Notes None recorded. Medical Equipment None Reported. Allergies Allergen ID Allergen Name Allergen Category Reaction Reaction Severity Criticality Documentation Date Start Date Code Code System Note Provider Name and Address Organization Details Recorded Time 15981 Substance with sulfonami de structure and antibacte rial mechanism of action (substanc e) medicatio n rash Not available Not available 09/03/2014 27092 8003 SNOMED Lori PromiseLAURA Arango, [facility] 4 13:33:49 62172 Levaquin medicatio n headache nausea other Not available Not available Not available Not available 04/15/2021 95745 2 RxNorm dizzi ness uT Nguyễn MD [address], [place], [address], [facility] 1 09:01:30 01140 Compazine medicatio n palpitati ons severe Not available 03/13/2022 84816 [address] [facility] 2 09:55:43 3731 Bactrim medicatio n rash Not available Not available 04/17/20142013 63803 9 RxNorm Lori Promise-M LAURA de la cruz, [facility] 4 13:33:49 3732 Biaxin medicatio n rash Not available Not available 04/17/20142013 13627 9 RxNorm Lori LAURA Hwang, [facility] 4 13:33:49 3733 codeine sulfate medicatio n other Not available Not available 04/17/20142013 03894 RxNorm abdom inal pain LAURA Ware, [facility] 4 13:33:49 3734 naproxen medicatio n diarrhea Not available Not available 04/17/20142013 7258 RxNorm abdom inal pain Lori LAURA Hwang, [facility] 4 13:33:49 Medications Name Sig Start [...] capsule every day by oral route. active on hold Not Available Not Available No t Available [...] TABLET BY MOUTH TWICE A DAY FOR 14 DAYS 01/29 completed Not Available Not Available Not Available [...] tablet every day by oral route. active on hold Not Available Not Available No t Available lorazepam 0.5 mg tablet Take 1 tablet every day by oral route as needed for 30 days. active Not Available Not Available No t Available metoclopr amide 5 mg tablet PLEASE SEE ATTACHED FOR DETAILED DIRECTIO NS active on hold Not Available Not Available No t Available DOK 100 mg capsule TAKE ONE CAPSULE BY MOUTH TWICE A DAY 07/14 completed Not Available Not Available Not Available oxycodone -acetamin ophen 10 mg-325 mg tablet TAKE ONE TABLET BY MOUTH EVERY SIX HOURS NEEDED active Not Available Not Available No t Available calcitoni n (salmon) 200 unit/actu ation nasal spray USE 1 SPRAY INTRANAS ALLY ONCE A DAY FOR 30 DAYS 06/06 completed Not Available Not Available Not Available imiquimod 5 % topical cream packet Apply 1 applicat ion every day by topical route for 30 days. 05/06 completed Not Available Not Available Not Available diazepam 2 mg tablet TAKE 1 TABLET BY MOUTH EVERY 8 HOURS NEEDED FOR SPASMS. active Not Available Not Available No t Available benzonata te 100 mg capsule Take [...] ne-homatr opine 5 mg-1.5 mg/5 mL oral solution active Not Available Not Available Not Available [...] e 137 mcg (0.1 %) nasal spray [place] 2 sprays twice a day by nasal [...] sulfate HFA 90 mcg/actua tion aerosol inhaler INHALE 2 PUFFS BY MOUTH 4 TIMES A DAY NEEDED FOR WHEEZING active Not Available Not Available No t Available ondansetr on 4 mg disintegr ating tablet DISSOLVE 2 TABLETS BY MOUTH EVERY 8 HOURS NEEDED FOR NAUSEA/V OMITING active Not Available Not Available No t Available fluticaso ne propionat e 50 mcg/actua tion nasal spray,vidhya pension [place] 2 sprays every day by intranas al [...] Not Available Not Available No t Available enoxapari n 40 mg/0.4 mL subcutane ous syringe INJECT THE CONTENTS OF 1 SYRINGE (0.4ML) SUBCUTAN EOUSLY EVERY DAY FOR 21 DAYS. active Not Available Not Available No t [...] Probiotic take 1 tablet po daily active on hold Not Available Not Available No t Available krill oil 500 mg capsule Take 2 capsules every day by oral route. 06/19 completed Not Available Not Available Not Available krill oil active Not Available Not Cheryl ilable Not Available Vitamin D3 50 mcg (2,000 unit) capsule Take 1 capsule every day by oral route for 90 days. 2017 active on hold Not Available Not Available Not Avai lable [...] 5 mg-1.5 mg/5 mL (5 mL) oral solution Take 5 mL as needed by oral [...] Not Available Not Available Not Available Vitals None Recorded Social History Question Answer Notes LastModified by Organizat ion Details LastModified Time Tobacco Smoking Status Former Smoker quit 1976 Not Available [employer] 08/06/2020 03:36:42 Do You Have An Advance Directive? Yes HCP/ Rj Information not available 09/04/2022 What Is Your Level Of Alcohol Consumption? None [id number] Information not available 08/06/2020 Is Blood Transfusion Acceptable In An Emergency? Yes [id number] Information not available 08/06/2020 What Is Your Level Of Caffeine Consumption? None [id number] Information not available 08/06/2020 How Much Tobacco Do You Chew? None [id number] Information not available 08/06/2020 In The 14 [...] Are You Currently Employed? Yes [employer] [id number] Information not available 08/06/2020 What Type Of Diet Are You Following? REGULAR [id number] Information not available 08/06/2020 Which Illicit Or Recreational Drugs Have You Used? None [id number] Information not available 08/06/2020 Do You Or Have You Ever Used E-cigarettes Or Vape? Never Used Electronic Cigarettes Information not available 09/04/2022 Education 12 Information not available 09/04/2022 What Is Your Occupation? [employer] [id number] Information not available 08/06/2020 When Did You Quit Smoking? 16+yearssince lastcigarette Information not available 04/15/2021 Live Alone Or [...] Many Children Do You Have? 2 Kym ([facility]) [email or web address] Information not available 08/05/2023 What Is Your Current Pack Years? 10-19packyear s Information not available 09/04/2022 Seat Belts Used Routinely Yes Information not available 09/04/2022 Are You Sexually Active? No [id number] Information not available 08/06/2020 Smoke Alarm In Home Yes Information not available 09/04/2022 At What Age Did You Start Smoking Tobacco? 16 [id number] Information not available 08/06/2020 Are You Passively Exposed To Smoke? No Information not available 08/13/2014 Do You Or Have You Ever Used Smokeless Tobacco? Never Used Smokeless Tobacco [id number] Information not available 08/06/2020 How Much Tobacco Do You Smoke? 1 PPW [id number] Information not available 08/06/2020 Do You Use Any Illicit Or Recreational Drugs? No Information not available 09/04/2022 Do You Use Sunscreen Routinely? Yes [id number] Information not available 08/06/2020 How Many Years Have You Smoked Tobacco? 1 [email or web address] Information not available 04/15/2021 Do You Or Have You Ever Used Any Other Forms Of Tobacco Or Nicotine? No Information not available 09/04/2022 Sex: Unknown Functional Status Question Answer Note LastModified by Organizat ion Details LastModified Time Are you able to walk? YESWOREST Information not available 09/04/2022 Are you able to care for yourself? Yes [id number] Information not available 08/06/2020 What is your exercise level? Occasional [id number] Information not available 08/06/2020 Mental Status None recorded. Family History Relationship Description Onset Age of this Age Resolved Age Notes LastModified by Organization Details LastModified Time Mother Hypertensive disorder abolcun Not available 2015 10:53:05 Mother Cerebrovascu lar accident abolcun Not available 06/2016 10:53:05 Father Malignant tumor of colon abolcun Not available 2015 10:53:05 Father Harmful pattern of use of alcohol abolcun Not available 2015 10:53:05 Father Malignant melanoma Not available 2021 08:39:57 Sister Malignant tumor of breast [email or web address] Not available 04/15 08:33:47 Sister Well adult Not available 09/04/2022 08:39:57 Sister Chronic obstructive pulmonary disease [email or web address] Not available 04/15 08:33:47 Sister Migraine [email or web address] Not availab le 04/15/2021 08:33:47 Sister Anxiety disorder [email or web address] Not available 04/15 08:33:47 Sister Obesity [id number] Not availabl e 04/15/2021 08:33:47 Sister Malignant [...] virus, quadrivalent, PF 4 completed Not Available [facility] 02/25/2021 17:47:26 Influenza, split virus, quadrivalent, PF 5 completed Not Available [facility] 02/25/2021 17:47:26 Influenza, split virus, quadrivalent, preservative 0 completed Not Available [facility] 02/25/2021 17:47:26 COVID-19, mRNA, LNP-S, PF, 30 mcg/0.3 mL dose [address] [facility] 09/16/2021 11:35:53 Influenza, MDCK, quadrivalent, PF [address] [facility] 09/16/2021 11:35:53 COVID-19, mRNA, LNP-S, PF, 30 mcg/0.3 mL dose [address] [facility] 09/16/2021 11:35:53 meningococcal MCV4P [address] [facility] 09/16/2021 11:35:53 COVID-19, mRNA, LNP-S, PF, 30 mcg/0.3 mL dose 1 completed Jenni Cruz LAURA kyle, [facility] 09/16/2021 11:38:52 pneumococcal polysaccharide PPV23 1 completed Jenni Cruz LAURA anabella, [facility] 10/01/2021 09:26:18 Influenza, split virus, quadrivalent, PF 7 completed Jenni Cruz LAURA anabella, [facility] 04/30/2022 10:49:02 Influenza, split virus, quadrivalent, PF 8 completed Jenni Cruz LAURA anabella, [facility] 04/30/2022 10:49:02 pneumococcal polysaccharide PPV23 9 completed Jenni Cruz LAURA anabella, [facility] 04/30/2022 10:49:02 Tdap 9 [facility] [place] [facility] 10:49:02 Pneumococcal conjugate PCV 13 4 completed Jenni Cruz LAURA anabella, [facility] 04/30/2022 10:49:02 meningococcal MCV4P 8 completed Jenni Cruz LAURA anabella, [facility] 04/30/2022 10:49:02 Influenza, split virus, quadrivalent, PF 9 completed Jenni Cruz LAURA anabella, [facility] 04/30/2022 10:49:03 Influenza, split virus, quadrivalent, PF 1 completed LAURA Camarena, [facility] 04/30/2022 10:49:03 Influenza, split virus, quadrivalent, PF 2 completed LAURA Arroyo, [facility] 07/14/2022 11:16:28 COVID-19, mRNA, LNP-S, PF, 100 mcg/0.5mL dose or 50 mcg/0.25mL dose 2 completed LAURA Arroyo, [facility] 07/14/2022 11:16:28 COVID-19, mRNA, LNP-S, bivalent, PF, 50 mcg/0.5 mL or 25mcg/0.25 mL dose 2 completed LAURA Negrete, [facility] 08/31/2022 13:31:48 RSV, recombinant, protein subunit RSVpreF, adjuvant reconstituted, 0.5 mL, PF 3 completed LAURA Brannon, [facility] 08/05/2023 10:33:06 COVID-19, mRNA, LNP-S, PF, joseline-sucrose, 30 mcg/0.3 mL 4 completed [facility], [facility] 08/11/2024 09:40:31 Influenza, high-dose, trivalent, PF 4 completed Izabela Mayen PROJECT FACILITATOR null, [facility] 08/11/2024 09:40:31 Influenza, split virus, quadrivalent, PF 6 completed Not Available [facility] 10/21/2019 02:22:07 influenza, seasonal, intradermal, preservative free 2 completed Not Available [facility] 02/25/2021 17:47:26 meningococcal MPSV4 2 completed Not Available [facility] 02/25/2021 17:47:26 MMR 1 completed LAURA Camarena, [facility] 09/16/2021 11:35:53 pneumococcal polysaccharide PPV23 9 completed LAURA Camarena, [facility] 09/16/2021 11:35:53 Tdap 9 completed Not Available [facility] 02/25/2021 17:47:26 influenza, seasonal, intradermal, preservative free 3 completed Not Available [facility] 02/25/2021 17:47:26 Influenza, high-dose, quadrivalent, PF 3 completed Tu Nguyễn MD [address] [address], [place], [address], [facility] 07/07/2023 13:04:12 Past Encounters Encounter ID Performer Location Encounter Start Date Encounter Closed Date Diagnosis/Indication Diagnosis SNOMED-CT Code Diagnosis ICD10 Code Diagnosis Note [id number] GAGAN RUIZ MD Main Office [address] [place] [address] 01/13/2025 10:48:32 01/13/2025 11:17:44 Asthma-chronic obstructive pulmonary disease overlap syndrome [id number] 4634684 J44.9 - c/w albuterol HFA as needed- c/w spiriva 2 puff QD- c/w wixela 1 puff BID- pt follows with pulm, no change in regimen Fibrosis of lung 7955661 1 J84.10 - pt follows with pulm 11/24/2024 Atypical mycobacterial infection 759373086 A31.9 - c/w azithromyc in 500mg TID for treatment of MAC- in pulm note from 11/18 does mention to take doxy as needed Expiratory wheezing 9763 007 R06.2 - heard on exam- due to patient's history and upcoming surgery will provide patient with doxycline 100mg BID- will provide clearance note for surgery if needed [id number] Tu Nguyễn MD Main Office [address] [address] 01/29/2025 10:06:59 01/29/2025 12:46:18 Health Concerns Section Related Observation LastModified by Organization Detai ls LastModified Time None Recorded Concern Status LastModified by Organization Details LastModified Time None Recorded Payers Encounter Date Sequence Insurance Name Policy Number Policy Kirk Covered Member ID Kirk Member ID Guarantor Name 01/29/2025 1 [facility] ([facility] [id number] Paula Hsu [id number] Paula Hsu 01/29/2025 2 [place] Paula Hsu [id number] Paula Hsu Notes Date Note Type Note Provider Name and Address Organization Details Recorded Time 01/29/2025 text/html Hospitalization Contact RecordReported bypatient.[facility]; admit date: (Please enter in format 'MM/DD/YYYY') (01/17/25); date of discharge: (Please enter in format 'MM/DD/YYYY') (01/27/25); date of contact: (Please enter in format 'MM/DD/YYYY') (01/29/25)Notes:Medic are covered inpatient stay? no - [facility] planTOC with in 48 working hours? yesHCP on file? yesMOLST on file? noDischarge Summary available? 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 Pop. Surgery complicated and porlonged by severe adhesions form remote abdominal surgery.-She was admitted post operatively for monitoring.-NGT was left in place.-patient developed acute hypoxic respiratory failure and tachycardia r/t multifocal pneumonia requiring intubation and admission to the ST[facility].-received 7 day course of Zosyn-extubated 2 days after intubation.-diet was gradually advanced to low fiber with return of bowel function.-Due to pulmonary history, underwent pulmonology consultation who recommended to start on home inhalers and to perform diuresis as tolerated.- repeat CT Chest that revealed interval improvement in pneumonia however with bilateral pleural effusions.-pulm nurse consult revealed no need for supplemental oxygen and thus was weaned off as able.-Due to persistent tachycardia/palpitati on, was evaluated by cardiology who deemed tachycardia to be due to bisoprolol withdrawal, which had been held the acute period. This was re-started with good effect There were no additional recommendations other than follow up with her home heart failure specialist as outpatient-underwent Lovenox teaching with nursing.-Her surgical follow w/ staple removal appointment was scheduled for 02/01 and post op follow up for 02/22.On hospital day # 10, patient d/c home in care of family. No home services ordered 01/29/ - CM f/u call to patient. Chhaya alert and oriented x3. In good spirits today. No problems since getting home. Remains easily fatigued and SOB with exertion but better each day. Reports that she needs to stay on top of her pain control, or else she get very nauseated. Has been eating small frequent meals of soft foods. Moving bowels daily and they are still quite liquid. No strong smell. She is krishna of s/s c-diff and will report any issues immediately. Will try taking a bit of rice every day to see if that will help firm up her stools. Ddi not yet re-start her usual 3 x weekly azithromycin for mycobacterium colony infection. Will call pulm today to see what her orders are. Tu Nguyễn MD [address] [id number], [place], [id number], [facility] 01/29/2025 12:46:17 OBGyn Episode No OBEpisode recorded.
--- OUTSIDE RECORDS SUMMARY | 2025-02-02 09:34 | XMS_ITS | Data Portability ---
Author Organization [facility], Main Office Address [address] [place] [address] Care Team Providers Care Transformation Consultant Name Role Phone TU VALDEZ Primary Care Provider [phone] ELKE STALLINGS Dry House Wheeler TIMOTEO MARCIAL Clinical Cardiac Electrophysiolo gist GLENDY VELIZ Umbrella Tipper Machine DAMEON HOOK Infectious Disease [phone] BLANK LUBIN Precast Molder KRISTINE HUERTA Breast Surgeon DAMEON PETE General Surgeon FERNANDEZ MCPHERSON Gravity Prospecting Observer MONA MCNAMARA Student Services Director JASEN BAZAN Natural Gas Field Processing Supervisor WAN TAYLOR General Surgeon JESSI GAMBLE Medical Oncologist [phone] HERNAN SHERWOOD Diagnostic Radiologist JENNY KENNEY Neurosurgeon DAMEON PETE Inventory Control Supervisor [phone] WISAM CHRISTENSEN Medical Oncologist [phone] Assessment Encounter Date Assessment Date Assessment LastModified by Organization Details LastModified Time 11/17/2024 11/17/2024 This service was provided using telemedicine. Patient consented to video & audio visit Patient was located in the [facility]. Provider was located in the office. No other persons participated in the telemedicine visit except for the patient unless otherwise indicated here. {{}} Total time of visit was 17 minutes. [email or web address] Not available 11/17/2024 16:06:31 Plan of Treatment Reminders Order Date Submit Date Provider Last Modified By Organization Details Last Modified Time Details Appointments telehe alth20 2024 01:45P Bora Valdez MD Not available Not available Not available PE EST 2024 10:15A M Tu Valdez MD Not available Not available Not available Lab amylas e + lipase , serum 2023 [facility] (Centralized Electronic Ordering - All Locations), Patient Can Go To The Location Of Their Choice, [id number] 09/16/2024 14:06:07 CMP, serum or plasma 2023 [facility] ([facility]ized [facility] Ordering - All Locations), Patient Can Go To The Location Of Their Choice, [address] 09/16/2024 14:06:06 lipid panel, serum 2023 024 [facility] (Centralized Electronic Ordering - All Locations), Patient Can Go To The Location Of Their Choice, [address] 01/01/2025 18:05:45 HbA1c (hemog lobin A1c), blood 2023 [facility], [address], [address], [place], [address], 01/01/2025 18:05:46 CMP, serum or plasma 2023 024 [facility], [address], [address], [place], [address], 01/01/2025 18:05:44 iron + total iron-b inding capaci ty (TIBC) , serum 2023 024 [facility], [address], [address], [place], [address], 01/01/2025 18:05:45 CBC w/ auto diff 2023 024 [facility], [address], [address], [place], [address], 01/01/2025 18:05:43 BNP (B-typ e natriu retic peptid e), serum or plasma 2023 024 [place] [facility] (Centralized Electronic Ordering - All Locations), Patient Can Go To The Location Of Their Choice, [id number] 01/01/2025 18:05:46 Referral physic al therap ist referr al - for core streng thenin g, cervic al/tho racic and lumbar back 2023 024 [facility], [address], [place], [address], 09/25/2024 12:47:21 nutrit ionist /dieti chapincito referr al 2023 024 [email or web address] Not available 08/14/2024 09:06:21 Procedures colono scopy screen ing (PROC) 2023 024 [email or web address] In-Office Order, Internal Use Only DO Not Attach Compendium DO Not Attach Compendium, Do Not Delete/merge, [id number] 08/14/2024 09:07:52 Surgeries None record ed. Imaging CT, abdome n + pelvis , w/ contra st - Left sided abdomi nal pain and a h/o abdomi nal surger ies. R/o divert iculit is vs partia l bowel obstru ction. 2023 024 [facility], [address], [place], [address], 09/26/2024 15:54:00 Medication Orders doxycy escalante monohy drate 100 mg tablet 2024 025 [place] [id number], [address], [place], [address], 01/29/2025 10:29:42 oxycod one-ac etamin ophen 10 mg-325 mg tablet 2024 025 [place] [facility], [address] [place] [address], [address], 11/17/2024 16:10:10 oxycod one-ac etamin ophen 10 mg-325 mg tablet 2024 025 [place] [facility], [address] [place] [address], [address], 11/17/2024 16:10:08 oxycod one-ac etamin ophen 10 mg-325 mg tablet 2024 025 [facility], [address] [place] [address], [address], 11/22/2024 20:26:47 oxycod one-ac etamin ophen 10 mg-325 mg tablet 2023 024 [place] [facility], [address] [place] [address], [address], 08/11/2024 10:21:29 oxycod one-ac etamin ophen 10 mg-325 mg tablet 2023 024 [place] [facility], [address] [place] [address], [address], 08/11/2024 10:21:26 oxycod one-ac etamin ophen 10 mg-325 mg tablet 2023 024 [place] [facility], [address] [place] [address], [address], 08/11/2024 10:21:29 Patient TargetsNo targets recorded. Patient Instructions Encounter Date Encounter Id Patient Instructions Last Modified By Organization Details Last Modified Time 08/11/2024 [id number] high cholesterol : care instructions lisseth Not available 08/11/2024 10:13:23 gastroesophageal reflux disease (GERD): care instructions lisseth Not available 08/11/2024 10:13:23 anxiety disorder : care instructions lisseth Not available 08/11/2024 10:13:22 learning about colon cancer awychowski Not available 08/11/2024 10:13:21 When You Want to Lose Weight: Care Instructions lisseth Not available 08/11/2024 10:13:22 Nutrition Referr al and Weight Management Follow-up Information lisseth Not available 08/11/2024 10:13:23 09/15/2024 [id number] abdominal pain: care instructions jeffcesarbam Not available 09/15/2024 14:00:01 01/29/2025 [id number] During [facility] f/u call, all current and discharge medications (OTC, herbal therapies, supplements) reviewed and reconciled with patient, including potential side effects, drug interactions, instructions, and the consequences of not taking medication. Reviewed potential barriers to medication adherence, such as side effects from medication or cost of medication. matthieu Not available 01/29/2025 10:14:35 Reason for Referral Carriage Dogger/dietitian Refer ral for Body mass index 25-29 - overweight Referring Physician: Tu Valdez Family [facility], Encounter Date: 08/11/2024 Physical Therapist Referral for Strain of neck muscle for core strengthening, cervical/thoracic and lumbar back Referring Physician: Tu Valdez [facility] Medicine, Encounter Date: 08/11/2024 Results Created Date Observation Date Name Description Value Unit Range Abnormal Flag Note LastModifiedBy Organization Detail LastModifiedTime 09/15/20 24 09/16/2024 COMP. METAB OLIC PANEL (14) glucose 101 mg/dL 70-99 above high normal Not Available [facility] ([facility]) [address] [place], [address], 09/16/2024 14:06:06 09/15/20 24 09/16/2024 COMP. METAB OLIC PANEL (14) BUN 19 mg/dL 8-27 normal Not Available [facility] ([facility]) [address] [place], [address], 09/16/2024 14:06:06 09/15/20 24 09/16/2024 COMP. METAB OLIC PANEL (14) creatinine 0.97 mg/dL 0.57-1 .00 normal Not Available [facility] ([facility]) [address] [facility], [place], [address], 09/16/2024 14:06:06 09/15/20 24 09/16/2024 COMP. METAB OLIC PANEL (14) eGFR 64 mL/mi n/1.7 3 >59 normal Not Available [facility] ([facility]) [address] [facility] [place], [address], 09/16/2024 14:06:06 09/15/20 24 09/16/2024 COMP. METAB OLIC PANEL (14) BUN/creatini ne ratio 20 12-28 normal Not Available [facility] ([facility]) [address] [facility] [place], [address], 09/16/2024 14:06:06 09/15/20 24 09/16/2024 COMP. METAB OLIC PANEL (14) sodium 143 mmol/ L 134-14 4 normal Not Available [facility] ([facility]) [address] [facility], [place], [address], 09/16/2024 14:06:06 09/15/20 24 09/16/2024 COMP. METAB OLIC PANEL (14) potassium 5.4 mmol/ L 3.5-5. 2 above high normal Not Available [facility] ([facility]) [address] [facility] [place], [address], 09/16/2024 14:06:06 09/15/20 24 09/16/2024 COMP. METAB OLIC PANEL (14) chloride 105 mmol/ L 96-106 normal Not Available [facility] ([facility]) [address] [facility] [place], [address], 09/16/2024 14:06:06 09/15/20 24 09/16/2024 COMP. METAB OLIC PANEL (14) carbon dioxide, total 24 mmol/ L 20-29 normal Not Available [facility] ([facility]) [address] [facility] [place], [address], 09/16/2024 14:06:06 09/15/20 24 09/16/2024 COMP. METAB OLIC PANEL (14) calcium 10.4 mg/dL 8.7-10 .3 above high normal Not Available [facility] ([facility]) [address] [place], [address], 09/16/2024 14:06:06 09/15/20 24 09/16/2024 COMP. METAB OLIC PANEL (14) protein, total 6.8 g/dL 6.0-8. 5 normal Not Available [facility] ([facility]) [address] [place], [address], 09/16/2024 14:06:06 09/15/20 24 09/16/2024 COMP. METAB OLIC PANEL (14) albumin 4.4 g/dL 3.9-4. 9 normal Not Available [facility] ([facility]) [address] [place], [address], 09/16/2024 14:06:06 09/15/20 24 09/16/2024 COMP. METAB OLIC PANEL (14) globulin, total 2.4 g/dL 1.5-4. 5 Not Available [facility] ([facility]) [address] [place], [address], 09/16/2024 14:06:06 09/15/20 24 09/16/2024 COMP. METAB OLIC PANEL (14) bilirubin, total <0.2 mg/dL 0.0-1. 2 Not Available [facility] ([facility]) [address] [place], [address], 09/16/2024 14:06:06 09/15/20 24 09/16/2024 COMP. METAB OLIC PANEL (14) alkaline phosphatase 149 IU/L 44-121 above high normal Not Available [facility] ([facility]) [address] [place], [address], 09/16/2024 14:06:06 09/15/20 24 09/16/2024 COMP. METAB OLIC PANEL (14) AST (SGOT) 14 IU/L 0-40 normal Not Available [facility] ([facility]) [address] [facility] [place], [address], 09/16/2024 14:06:06 09/15/20 24 09/16/2024 COMP. METAB OLIC PANEL (14) ALT (SGPT) 13 IU/L 0-32 normal Not Available [facility] ([facility]) [address] [facility] [place], [address], 09/16/2024 14:06:06 09/15/20 24 09/16/2024 PEDRITO+L IPASE amylase 59 U/L 31-110 normal Not Available [facility] ([facility]) [address] [facility], [place], [address], 09/16/2024 14:06:07 09/15/20 24 09/16/2024 PEDRITO+L IPASE lipase 23 U/L 14-72 normal Not Available [facility] ([facility]) [address] [place], [address], 09/16/2024 14:06:07 12/31/19 25 12/31/2024 CBC WITH DIFFE RENTI AL/PL ATELE T WBC 5.9 x10e3 /uL 3.4-10 .8 normal Not Available [facility] ([facility]) [address] [place], [address], 01/01/2025 18:05:43 12/31/19 25 12/31/2024 CBC WITH DIFFE RENTI AL/PL ATELE T RBC 3.45 x10e6 /uL 3.77-5 .28 below low normal Not Available [facility] ([facility]) [address] [place], [address], 01/01/2025 18:05:43 12/31/19 25 12/31/2024 CBC WITH DIFFE RENTI AL/PL ATELE T hemoglobin 10.3 g/dL 11.1-1 5.9 below low normal Not Available [facility] ([facility]) [address] [facility], [place], [address], 01/01/2025 18:05:43 12/31/19 25 12/31/2024 CBC WITH DIFFE RENTI AL/PL ATELE T hematocrit 33.2 % 34.0-4 6.6 below low normal Not Available [facility] ([facility]) [address] [facility], [place], [address], 01/01/2025 18:05:43 12/31/19 25 12/31/2024 CBC WITH DIFFE RENTI AL/PL ATELE T MCV 96 fL 79-97 normal Not Available [facility] ([facility]) [address] [place], [address], 01/01/2025 18:05:43 12/31/19 25 12/31/2024 CBC WITH DIFFE RENTI AL/PL ATELE T MCH 29.9 pg 26.6-3 3.0 normal Not Available [facility] ([facility]) [address] [place], [address], 01/01/2025 18:05:43 12/31/19 25 12/31/2024 CBC WITH DIFFE RENTI AL/PL ATELE T MCHC 31.0 g/dL 31.5-3 5.7 below low normal Not Available [facility] ([facility]) [address] [place], [address], 01/01/2025 18:05:43 12/31/19 25 12/31/2024 CBC WITH DIFFE RENTI AL/PL ATELE T RDW 12.8 % 11.7-1 5.4 Not Available [facility] ([facility]) [address] [place], [address], 01/01/2025 18:05:43 12/31/19 25 12/31/2024 CBC WITH DIFFE RENTI AL/PL ATELE T platelets 243 x10e3 /uL 150-45 0 normal Not Available [facility] ([facility]) [address] [facility], [place], [address], 01/01/2025 18:05:43 12/31/19 25 12/31/2024 CBC WITH DIFFE RENTI AL/PL ATELE T neutrophils 53 % not estab. normal Not Available [facility] ([facility]) [address] [facility], [place], [address], 01/01/2025 18:05:43 12/31/19 25 12/31/2024 CBC WITH DIFFE RENTI AL/PL ATELE T lymphs 33 % not estab. normal Not Available [facility] ([facility]) [address] [facility], [place], [address], 01/01/2025 18:05:43 12/31/19 25 12/31/2024 CBC WITH DIFFE RENTI AL/PL ATELE T monocytes 10 % not estab. normal Not Available [facility] ([facility]) [address] [facility], [place], [address], 01/01/2025 18:05:43 12/31/19 25 12/31/2024 CBC WITH DIFFE RENTI AL/PL ATELE T eos 3 % not estab. normal Not Available [facility] ([facility]) [address] [facility], [place], [address], 01/01/2025 18:05:43 12/31/19 25 12/31/2024 CBC WITH DIFFE RENTI AL/PL ATELE T basos 1 % not estab. normal Not Available [facility] ([facility]) [address] [facility], [place], [address], 01/01/2025 18:05:43 12/31/19 25 12/31/2024 CBC WITH DIFFE RENTI AL/PL ATELE T immature cells ASSOCIATE PASTOR Not Available [facility] ([facility]) [address] [place], [address], 01/01/2025 18:05:43 12/31/19 25 12/31/2024 CBC WITH DIFFE RENTI AL/PL ATELE T neutrophils (absolute) 3.2 x10e3 /uL 1.4-7. 0 normal Not Available [facility] ([facility]) [address] [place], [address], 01/01/2025 18:05:43 12/31/19 25 12/31/2024 CBC WITH DIFFE RENTI AL/PL ATELE T lymphs (absolute) 1.9 x10e3 /uL 0.7-3. 1 normal Not Available [facility] ([facility]) [address] [place], [address], 01/01/2025 18:05:43 12/31/19 25 12/31/2024 CBC WITH DIFFE RENTI AL/PL ATELE T monocytes(ab solute) 0.6 x10e3 /uL 0.1-0. 9 normal Not Available [facility] ([facility]) [address] [place], [address], 01/01/2025 18:05:43 12/31/19 25 12/31/2024 CBC WITH DIFFE RENTI AL/PL ATELE T eos (absolute) 0.2 x10e3 /uL 0.0-0. 4 normal Not Available [facility] ([facility]) [address] [place], [address], 01/01/2025 18:05:43 12/31/19 25 12/31/2024 CBC WITH DIFFE RENTI AL/PL ATELE T baso (absolute) 0.1 x10e3 /uL 0.0-0. 2 normal Not Available [facility] ([facility]) [address] [place], [address], 01/01/2025 18:05:43 12/31/19 25 12/31/2024 CBC WITH DIFFE RENTI AL/PL ATELE T immature granulocytes 0 % not estab. Not Available [facility] ([facility]) [address] [facility], [place], [address], 01/01/2025 18:05:43 12/31/19 25 12/31/2024 CBC WITH DIFFE RENTI AL/PL ATELE T immature grans (abs) 0.0 x10e3 /uL 0.0-0. 1 Not Available [facility] ([facility]) [address] [facility], [place], [address], 01/01/2025 18:05:43 12/31/19 25 12/31/2024 CBC WITH DIFFE RENTI AL/PL ATELE T NRBC ASSOCIATE PASTOR Not Available [facility] ([facility]) [address] [facility], [place], [address], 01/01/2025 18:05:43 12/31/19 25 12/31/2024 CBC WITH DIFFE RENTI AL/PL ATELE T hematology comments: ASSOCIATE PASTOR Not Available [facility] ([facility]) [address] [facility], [place], [address], 01/01/2025 18:05:43 12/31/19 25 12/31/2024 COMP. METAB OLIC PANEL (14) glucose 98 mg/dL 70-99 normal Not Available [facility] ([facility]) [address] [facility], [place], [address], 01/01/2025 18:05:44 12/31/19 25 12/31/2024 COMP. METAB OLIC PANEL (14) BUN 16 mg/dL 8-27 normal Not Available [facility] ([facility]) [address] [facility], [place], [address], 01/01/2025 18:05:44 12/31/19 25 12/31/2024 COMP. METAB OLIC PANEL (14) creatinine 1.02 mg/dL 0.57-1 .00 above high normal Not Available [facility] ([facility]) [address] [place], [address], 01/01/2025 18:05:44 12/31/19 25 12/31/2024 COMP. METAB OLIC PANEL (14) eGFR 61 mL/mi n/1.7 3 >59 normal Not Available [facility] ([facility]) [address] [place], [address], 01/01/2025 18:05:44 12/31/19 25 12/31/2024 COMP. METAB OLIC PANEL (14) BUN/creatini ne ratio 16 12-28 normal Not Available [facility] ([facility]) [address] [facility] [place], [address], 01/01/2025 18:05:44 12/31/19 25 12/31/2024 COMP. METAB OLIC PANEL (14) sodium 139 mmol/ L 134-14 4 normal Not Available [facility] ([facility]) [address] [place], [address], 01/01/2025 18:05:44 12/31/19 25 12/31/2024 COMP. METAB OLIC PANEL (14) potassium 4.7 mmol/ L 3.5-5. 2 normal Not Available [facility] ([facility]) [address] [facility] [place], [address], 01/01/2025 18:05:44 12/31/19 25 12/31/2024 COMP. METAB OLIC PANEL (14) chloride 100 mmol/ L 96-106 normal Not Available [facility] ([facility]) [address] [facility] [place], [address], 01/01/2025 18:05:44 12/31/19 25 12/31/2024 COMP. METAB OLIC PANEL (14) carbon dioxide, total 27 mmol/ L 20-29 normal Not Available [facility] ([facility]) [address] [facility] [place], [address], 01/01/2025 18:05:44 12/31/19 25 12/31/2024 COMP. METAB OLIC PANEL (14) calcium 10.8 mg/dL 8.7-10 .3 above high normal Guerrero ified by kathya stanley eugenio sis Not Available [facility] ([facility] [address] [facility] [place], [address], 01/01/2025 18:05:44 12/31/19 25 12/31/2024 COMP. METAB OLIC PANEL (14) protein, total 6.4 g/dL 6.0-8. 5 normal Not Available [facility] ([facility]) [address] [facility] [place], [address], 01/01/2025 18:05:44 12/31/19 25 12/31/2024 COMP. METAB OLIC PANEL (14) albumin 4.0 g/dL 3.9-4. 9 normal Not Available [facility] ([facility]) [address] [facility], [place], [address], 01/01/2025 18:05:44 12/31/19 25 12/31/2024 COMP. METAB OLIC PANEL (14) globulin, total 2.4 g/dL 1.5-4. 5 Not Available [facility] ([facility]) [address] [facility] [place], [address], 01/01/2025 18:05:44 12/31/19 25 12/31/2024 COMP. METAB OLIC PANEL (14) bilirubin, total 0.2 mg/dL 0.0-1. 2 normal Not Available [facility] ([facility]) [address] [facility] [place], [address], 01/01/2025 18:05:44 12/31/19 25 12/31/2024 COMP. METAB OLIC PANEL (14) alkaline phosphatase 107 IU/L 44-121 normal Not Available [facility] ([facility]) [address] [place], [address], 01/01/2025 18:05:44 12/31/19 25 12/31/2024 COMP. METAB OLIC PANEL (14) AST (SGOT) 15 IU/L 0-40 normal Not Available [facility] ([facility]) [address] [place], [address], 01/01/2025 18:05:44 12/31/19 25 12/31/2024 COMP. METAB OLIC PANEL (14) ALT (SGPT) 12 IU/L 0-32 normal Not Available [facility] ([facility]) [address] [place], [address], 01/01/2025 18:05:44 12/31/19 25 12/31/2024 LIPID PANEL cholesterol, total 193 mg/dL 100-19 9 normal Not Available [facility] ([facility]) [address] [place], [address], 01/01/2025 18:05:45 12/31/19 25 12/31/2024 LIPID PANEL triglyceride s 136 mg/dL 0-149 normal Not Available [facility] ([facility]) [address] [place], [address], 01/01/2025 18:05:45 12/31/19 25 12/31/2024 LIPID PANEL HDL cholesterol 54 mg/dL >39 normal Not Available [facility] ([facility]) [address] [place], [address], 01/01/2025 18:05:45 12/31/19 25 12/31/2024 LIPID PANEL VLDL cholesterol estefani 24 mg/dL 5-40 Not Available [facility] ([facility]) [address] [place], [address], 01/01/2025 18:05:45 12/31/19 25 12/31/2024 LIPID PANEL LDL chol calc ([facility]) 115 mg/dL 0-99 above high normal Not Available [facility] ([facility]) [address] [place], [address], 01/01/2025 18:05:45 12/31/19 25 12/31/2024 LIPID PANEL LDL calc comment: ASSOCIATE PASTOR Not Available [facility] ([facility]) [address] [facility], [place], [address], 01/01/2025 18:05:45 12/31/19 25 12/31/2024 IRON AND TIBC iron bind.cap.(TI BC) 327 ug/dL 250-45 0 normal Not Available [facility] ([facility]) [address] [facility], [place], [address], 01/01/2025 18:05:45 12/31/19 25 12/31/2024 IRON AND TIBC UIBC 239 ug/dL 118-36 9 normal Not Available [facility] ([facility]) [address] [place], [address], 01/01/2025 18:05:45 12/31/19 25 12/31/2024 IRON AND TIBC iron 88 ug/dL 27-139 normal Not Available [facility] ([facility]) [address] [facility], [place], [address], 01/01/2025 18:05:45 12/31/19 25 12/31/2024 IRON AND TIBC iron saturation 27 % 15-55 normal Not Available [facility] ([facility]) [address] [place], [address], 01/01/2025 18:05:45 12/31/19 25 12/31/2024 HEMOG LOBIN A1C hemoglobin A1C 5.8 % 4.8-5. 6 above high normal Predi abete s: 5.7 - 6.4 Diabe pravin: >6.4 Glyce abram contr ol for adult s with diabe pravin: <7.0 Not Available [facility] ([facility]) [address] [place], [address], 01/01/2025 18:05:46 12/31/19 25 01/01/2025 B-TYP E NATRI URETI C PEPTI DE B-type natriuretic peptide 227.5 pg/mL 0.0-10 0.0 above high normal Sieme ns [facility] metho dolog y Not Available [facility] ([facility]) [address], [place], [address], 01/01/2025 18:05:46 09/26/20 24 09/26/2024 CT, abdom en + [...] CT abdome n pelvis 024, FINDIN GS: Tumbler Machine Operator Helper View Findin gs, Lines and Tubes: Dual-l [...] calcif icatio n along the right lower therapist rrt ior chest wall. Bones: Mild degene rative change s of the spine. IMPRES JET: No acute abnorm ality abdome n and pelvis . I have person ally review ed the images and I agree with this report . WSN: [id number] Orderi ng Physic margaret: Tony Alvarado Dictat ed By: Christy Reyes MD Dictat ed Date/T varun: 3:50 pm Review ed By: Don Gayle MD Signed By: Don Gayle MD Signed Date/T varun: 3:55 pm Transc ribed By: MARISABEL Transc ribed Date/T varun: 2:48 pm Patien t Class: Outpat ient lisseth [facility] (Outpt Imaging) [address] , [place], [address], 11/22/2024 20:33:33 11/03/19 25 10/09/2024 CT, chest , w/o contr ast No observ ation record ed. lisseth Not Available 11/22 20:33:32 01/03/20 25 01/02/2025 elect juan diego heard am No observ ation record ed. lisseth [facility] [address] , [place], [address], 01/02/2025 06:59:50 Result Notes None recorded. Problems Name Problem SNOMED Code Status Onset Date Resolution Date Notes Provider Name and Address Organization Details Recorded Time Mammogra phy abnormal 049544808 Completed 201301/06/2017 RECORDED 01/18/20 14 3:16PM BY JENNI WEIR MA, OFFICE VISIT Leanne kyle, [facility] 7 09:50:41 Acute pharyngi tis [id number] Completed 201204/17/2014 RECORDED 10/03/20 13 1:01PM BY JENNI WEIR MA, ANNOTATI ON/ADDEN DUM Tu Valdez MD [address], [place], [address] , [facility] 6 09:13:07 Multiple mitral and aortic valve involvem ent Completed 201101/10/2019 Tu Valdez MD [address], [place], [address] , [facility] 9 10:12:34 Arthropa thy [id number] Active 2013 Not Available [facility] 17:47:25 Patient status finding [id number] Completed 201204/17/2014 RECORDED 10/28/19 13 8:53AM BY JENNI WEIR MA, ANNOTATI ON/ADDEN DUM Tu Valdez MD [address], [place], [address] , [facility] 6 09:13:07 Blood transfus ion reaction [id number] Active 2013 Not Available [facility] 17:47:25 Primary malignan t neoplasm of female breast 64656734 Completed 201301/10/2019 Tu Valdez MD [address] [facility] [address], [place], [address] , [facility] 9 10:14:10 Screenin g for malignan t neoplasm of breast Completed 201104/17/2014 RECORDED 07/25/20 12 10:41AM BY JENNI WEIR MA, ANNOTATI ON/ADDEN DUM Tu Valdez MD [address] [address], [place], [address] , [facility] 6 09:13:07 Acute exacerba tion of bronchie ctasis 894056886 Completed 201204/17/2014 IMPRESSI ON: SEE PT MESSAGE; RECORDED 10/03/20 13 1:01PM BY JENNI WEIR MA, ANNOTATI ON/ADDEN DUM Tu Valdez MD [address] [address], [place], [address] , [facility] 6 09:13:07 Low back pain 051823413 Completed 201311/06/2015 IMPRESSI ON: PAIN IS STABLE AND WELL CONTROLL ED. MEDS REFILLED PER NARCOTIC CONTRACT .; RECORDED 01/30/20 14 6:41AM BY TU Xie MD, OFFICE VISIT Tu Valdez MD [address] [address], [place], [address] , [facility] 6 09:13:07 Depressi ve disorder 01583503 Active 2013 Not Available [facility] 1 17:47:25 Dysphagi a 30448682 Completed 201204/17/2014 IMPRESSI ON: IF UGI ABNL, OR SYMPTOMS PERSIST WILL REFER TO GI.; RECORDED 10/28/19 13 8:53AM BY JENNI WEIR MA, ANNOTATI ON/ADDEN DUM Tu Valdez MD [address] [address], [place], [address] , [facility] 6 09:13:07 Influenz a vaccine needed 28447074759 06 Completed 201204/17/2014 RECORDED 07/26/20 13 3:43PM BY JENNI WEIR MA, OFFICE VISIT Tu Valdez MD [address], [place], [address] , [facility] 6 09:13:07 Tobacco user [id number] Completed 201304/17/2014 RECORDED 01/18/20 14 3:15PM BY JENNI WEIR MA, SONAL ON/ADDEN DUM Tu Valdez MD [address] [facility] [address], [place], [address] , [facility] 6 09:13:07 Adult health examinat ion Completed 201204/17/2014 IMPRESSI ON: IMMUNIZA TION STATUS UTD WILL SCREEN BASED ON RISK FACTORS. REGULAR DENTAL CARE AND SEATBELT USE ADVISED. DISTRACT ED DRIVING DISCUSSE D. 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 site 11159742 Completed 201204/17/2014 RECORDED 07/25/20 13 10:11AM BY JENNI WEIR MA, SONAL ON/NAINA Valdez MD [address] [facility] [address], [place], [address] , [facility] 6 09:13:07 Hypothyr oidism 03338192 Active 2013 Not Available [facility] 1 17:47:25 Irritabl e bowel syndrome 36139131 Active 2013 Not Available [facility] 1 17:47:25 Disorder of lung 33537147 Completed 201301/06/2018 Tu Valdez MD [address], [place], [address] , [facility] 8 14:15:17 Renewal of prescrip tion Completed 201104/17/2014 RECORDED 07/25/20 12 10:42AM BY JENNI WEIR MA, CHARLIEATI ON/ADDEN ALVIN Valdez MD [address], [place], [address] , [facility] 6 09:13:07 Migraine 75511358 Active 2013 Not Available [facility] 1 17:47:25 Heart murmur 20603345 Active 2013 Not Available [facility] 1 17:47:25 Chronic sinusiti s 69959822 Completed 201204/17/2014 IMPRESSI ON: SOUNDS ALLERGY RELATED. PT WILL TRY NASAL STEROID AND IF DRAINAGE PERSISTS /BECOMES PURULENT WILL START ABX. CALL INB/WORS E WITH THESE INTERVEN TIONS.; RECORDED 10/03/20 13 1:00PM BY JENNI WEIR MA, ANNOTATI ON/NAINA Valdez MD [address], [place], [address] , [facility] 6 09:13:07 Primary malignan t neoplasm of skin 86584969 Completed 201301/06/2017 [facility]; RECORDED 01/18/20 14 3:16PM BY JENNI WEIR MA, [facility]ICE VISIT [facility] 09:[facility]12 Edema 041371406 Completed 201204/17/2014 IMPRESSI ON: GIVEN POST SURGICAL LOCATION WILL IMAGE TO SEE IF C/W NL SCAR TISSUE AND RULE OUT FLUID COLLECTI ON.; RECORDED 10/28/19 13 8:53AM BY JENNI WEIR MA, ANNOTATI ON/NAINA Valdez MD [address], [place], [address] , [facility] 6 09:13:07 Chronic low back pain 935895135 Active Not Available [facility] 1 17:47:25 Esophage al dysphagi a 15049139 Completed 01/10/2019 Tu Valdez MD [address] [facility] [address], [place], [address] , [facility] 9 10:12:48 Acute pharyngi tis 199520071 Completed 201205/10/2014 RECORDED 10/03/20 13 1:01PM BY JENNI WEIR MA, ANNOTATI ON/NAINA Valdez MD [address] [facility] [address], [place], [address] , [facility] 6 09:13:07 Patient status finding [id number] Completed 201205/10/2014 RECORDED 10/28/19 13 8:53AM BY JENNI WEIR MA, ANNOTATI ON/NAINA Valdez MD [address] [facility] [address], [place], [address] , [facility] 6 09:13:07 Screenin g for malignan t neoplasm of breast Completed 201105/10/2014 RECORDED 07/25/20 12 10:41AM BY JENNI WEIR MA, CHARLIEATI ON/NAINA Valdez MD [address] [facility] [address], [place], [address] , [facility] 6 09:13:07 Acute exacerba tion of bronchie ctasis 102602865 Completed 201205/10/2014 IMPRESSI ON: SEE PT MESSAGE; RECORDED 10/03/20 13 1:01PM BY JENNI WEIR MA, ANNOTATI ON/ADDEN DUM Tu Valdez MD [address] [facility] [address], [place], [address] , [facility] 6 09:13:07 Dysphagi a 81803621 Completed 201205/10/2014 IMPRESSI ON: IF UGI ABNL, OR SYMPTOMS PERSIST WILL REFER TO GI.; RECORDED 10/28/19 13 8:53AM BY JENNI WEIR MA, CHARLIEATI ON/ADDEN DUM Tu Valdez MD [address] [facility] [address], [place], [address] , [facility] 6 09:13:07 Influenz a vaccine needed 77701200132 06 Completed 201205/10/2014 RECORDED 07/26/20 13 3:43PM BY JENNI WEIR MA, OFFICE VISIT Tu Valdez MD [address] [address], [place], [address] , [facility] 6 09:13:07 Tobacco user [id number] Completed 201305/10/2014 RECORDED 01/18/20 14 3:15PM BY JENNI WEIR MA, SONAL ON/TOMEN DUM Tu Valdez MD [address] [address], [place], [address] , [facility] 6 09:13:07 Adult health examinat ion Completed 201205/10/2014 IMPRESSI ON: IMMUNIZA TION STATUS UTD WILL SCREEN BASED ON RISK FACTORS. REGULAR DENTAL CARE AND SEATBELT USE ADVISED. DISTRACT ED DRIVING DISCUSSE D. ROUTINE CERVICAL /BREAST/ COLON CANCER SCREENIN G UTD ALTHOUGH ALL ARE DUE IN THE UPCOMING SEVERAL MONTHS.; RECORDED 07/25/20 13 10:11AM BY JENNI WEIR MA, ANNOTATI ON/ADDEN DUM Tu Valdez MD [address] [address], [place], [address] , [facility] 6 09:13:07 Hodgkin' s disease of extranod al AND/OR solid organ site 76054867 Completed 201205/10/2014 RECORDED 07/25/20 13 10:11AM BY JENNI WEIR MA, SONAL ON/NAINA Valdez MD [address] [facility] [address], [place], [address] , [facility] 6 09:13:07 Renewal of prescrip tion Completed 201105/10/2014 RECORDED 07/25/20 12 10:42AM BY JENNI WEIR MA, SONAL ON/NAINA Valdez MD [address] [facility] [address], [place], [address] , [facility] 6 09:13:07 Chronic sinusiti s 92891700 Completed 201205/10/2014 IMPRESSI ON: SOUNDS ALLERGY RELATED. PT WILL TRY NASAL STEROID AND IF DRAINAGE PERSISTS /BECOMES PURULENT WILL START ABX. CALL INB/WORS E WITH THESE INTERVEN TIONS.; RECORDED 10/03/20 13 1:00PM BY JENNI WEIR MA, SONAL ON/NAINA Valdez MD [address] [facility] [address], [place], [address] , [facility] 6 09:13:07 Edema 067746224 Completed 201205/10/2014 IMPRESSI ON: GIVEN POST SURGICAL LOCATION WILL IMAGE TO SEE IF C/W NL SCAR TISSUE AND RULE OUT FLUID COLLECTI ON.; RECORDED 10/28/19 13 8:53AM BY JENNI WEIR MA, SONAL ON/NAINA Valdez MD [address] [facility] [address], [place], [address] , [facility] 6 09:13:07 Acute pharyngi tis 166675949 Completed 201205/11/2014 RECORDED 10/03/20 13 1:01PM BY JENNI WEIR MA, CHARLIEATI ON/NAINA Valdez MD [address] [facility] [address], [place], [address] , [facility] 6 09:13:07 Screenin g for malignan t neoplasm of breast Completed 201105/11/2014 RECORDED 07/25/20 12 10:41AM BY JENNI WEIR MA, CHARLIEATI ON/NAINA Valdez MD [address] [facility] [address], [place], [address] , [facility] 6 09:13:07 Acute exacerba tion of bronchie ctasis 575831209 Completed 201205/11/2014 IMPRESSI ON: SEE PT MESSAGE; RECORDED 10/03/20 13 1:01PM BY JENNI WEIR MA, ANNOTATI ON/NAINA Valdez MD [address] [address], [place], [address] , [facility] 6 09:13:07 Dysphagi a 03062487 Completed 201205/11/2014 IMPRESSI ON: IF UGI ABNL, OR SYMPTOMS PERSIST WILL REFER TO GI.; RECORDED 10/28/19 13 8:53AM BY JENNI WEIR MA, SONAL ON/NAINA Valdez MD [address] [address], [place], [address] , [facility] 6 09:13:07 Influenz a vaccine needed 67802471458 06 Completed 201205/11/2014 RECORDED 07/26/20 13 3:43PM BY JENNI WEIR MA, OFFICE VISIT Tu Valdez MD [address] [address], [place], [address] , [facility] 6 09:13:07 Tobacco user [id number] Completed 201305/11/2014 RECORDED 01/18/20 14 3:15PM BY JENNI WEIR MA, ANNOTATI ON/NAINA Valdez MD [address] [facility] [address], [place], [address] , [facility] 6 09:13:07 Adult health examinat ion Completed 201205/11/2014 IMPRESSI ON: IMMUNIZA TION STATUS UTD WILL SCREEN BASED ON RISK FACTORS. REGULAR DENTAL CARE AND SEATBELT USE ADVISED. DISTRACT ED DRIVING DISCUSSE D. ROUTINE CERVICAL /BREAST/ COLON CANCER SCREENIN G UTD ALTHOUGH ALL ARE DUE IN THE UPCOMING SEVERAL MONTHS.; RECORDED 07/25/20 13 10:11AM BY JENNI WEIR MA, ANNOTATI ON/NAINA Valdez MD [address] [facility] [address], [place], [address] , [facility] 6 09:13:07 Hodgkin' s disease of extranod al AND/OR solid organ site 44606570 Completed 201205/11/2014 RECORDED 07/25/20 13 10:11AM BY JENNI WEIR MA, ANNOTATI ON/NAINA Valdez MD [address] [facility] [address], [place], [address] , [facility] 6 09:13:07 Renewal of prescrip tion Completed 201105/11/2014 RECORDED 07/25/20 12 10:42AM BY JENNI WEIR MA, ANNOTATI ON/NAINA Valdez MD [address], [place], [address] , [facility] 6 09:13:07 Chronic sinusiti s 72793213 Completed 201205/11/2014 IMPRESSI ON: SOUNDS ALLERGY RELATED. PT WILL TRY NASAL STEROID AND IF DRAINAGE PERSISTS /BECOMES PURULENT WILL START ABX. CALL INB/WORS E WITH THESE INTERVEN TIONS.; RECORDED 10/03/20 13 1:00PM BY JENNI WEIR MA, ANNOTATI ON/ADDEN DUM Tu Valdez MD [address], [place], [address] , [facility] 6 09:13:07 Edema 329219154 Completed 201205/11/2014 IMPRESSI ON: GIVEN POST SURGICAL LOCATION WILL IMAGE TO SEE IF C/W NL SCAR TISSUE AND RULE OUT FLUID COLLECTI ON.; RECORDED 10/28/19 13 8:53AM BY JENNI WEIR MA, ANNOTATI ON/ADDEN DUM Tu Valdez MD [address], [place], [address] , [facility] 6 09:13:07 Strictur e of esophagu s 37099957 Active Not Available [facility] 17:47:25 Esophage al reflux finding 268889702 Completed 01/06/2018 Tu Valdez MD [address], [place], [address] , [facility] 8 14:15:21 Asthma 947259707 Active Not Available [facility] 17:47:25 Body mass index 25-29 - overweig ht 443829184 Completed 07/14/2019 Removal Reason: dx changed Tu Valdez MD [address], [place], [address] , [facility] 4 10:22:02 Vitamin D deficien cy 25434458 Active Not Available [facility] 17:47:25 Aortic valve stenosis 81651786 Active mild Not Available [facility] 17:47:25 Aortic valve regurgit ation 99152436 Active mod Not Available [facility] 17:47:25 Acute asthma 216797948 Completed 11/06/2015 Tu Valdez MD [address], [place], [address] , [facility] 6 09:13:07 Sinusiti s 26791455 Completed 11/06/2015 Tu Valdez MD [address], [place], [address] , [facility] 6 09:13:07 Acute sinusiti s 23241095 Completed 01/06/2017 Leanne kyle, [facility] 7 09:50:19 Herpes labialis 4169722 Active Not Available [facility] 1 17:47:25 Allergy Completed 01/06/2017 Leanne kyle, [facility] 7 09:50:29 Pneumoni a caused by Streptoc occus 09763000 Completed 11/12/2015 Tu Valdez MD [address], [place], [address] , [facility] 6 09:13:07 Cough 85436552 Completed 11/06/2015 Leanne kyle, [facility] 7 09:51:35 Hoarse 45616904 Completed 01/10/2019 Tu Valdez MD [address], [place], [address] , [facility] 0 15:00:40 Exacerba tion of persiste nt asthma Completed 01/06/2018 Tu Valdez MD [address], [place], [address] , [facility] 8 14:15:54 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 13563977 Active Not Available [facility] 1 17:47:25 Left bundle branch block 42137246 Active 2015 Not Available [facility] 1 17:47:25 Cough 40717112 Completed 01/06/2017 Leanne kyle, [facility] 7 09:51:35 Moderate asthma 882289146 Active Not Available [facility] 1 17:47:25 Mitral valve regurgit ation 40502742 Active 2015 mild/mod Not Available [facility] 17:47:25 Left heart failure 96819685 Active 2015 Not Available [facility] 17:47:25 Left cardiac ventricu lar dilatati on 400444062 Active 2015 Not Available [facility] 17:47:25 History of Hodgkin lymphoma 728189172 Active 1976 Not Available [facility] 17:47:25 Electroc ardiogra m abnormal 088929204 Active Not Available [facility] 17:47:25 Congesti ve heart failure 63111964 Active Not Available [facility] 17:47:25 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 434384628 Completed 01/10/2019 Tu Valdez MD [address] [facility] [address], [facility] [place], [address] , [facility] 4 06:19:23 Thyroid hormone tests outside referenc e range 256801530 Completed 01/06/2017 Leanne kyle [facility] 7 09:50:38 Left sided abdomina l pain 675235455 Completed 01/06/2017 Leanne kyle [facility] 7 09:51:21 Blood in urine 83978494 Completed 01/06/2017 Leanne kyle [facility] 7 09:51:18 Acute vaginiti s 10285371 Completed 01/06/2017 Leanne kyle [facility] 7 09:51:01 Vaginiti s 45857745 Completed 01/06/2017 Leanne kyle [facility] 7 09:51:13 Dysuria 63193421 Completed 01/06/2017 Leanne kyle [facility] 7 09:51:41 Intermit tent dysphagi a 37370601 Completed 01/06/2018 Tu Valdez MD [address], [place], [address] , [facility] 8 14:14:48 Constipa tion 77727669 Active Not Available [facility] 1 17:47:25 Multiple nodules of lung 417425885 Active 2015 right, 1.3 and 1.2cm Tu Valdez MD [address], [place], [address] , [facility] 4 10:06:36 Pyuria 7965394 Completed 04/21/2017 Tu Valdez MD [address], [place], [address] , [facility] 7 09:39:53 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 Completed 201504/08/2020 Tu Valdez MD [address], [place], [address] , [facility] 0 14:50:05 Impaired fasting glycemia 281982943 Active 2016 Not Available [facility] 1 17:47:25 Asplenia 713638899 Active 2016 Not Available [facility] 1 17:47:25 Heart valve disorder 751600 Active 2016 Not Available [facility] 1 17:47:25 Fibrosis of lung 77372012 Active 2016 Not Available [facility] 1 17:47:25 Bronchie ctasis 14090114 Active 2016 Not Available [facility] 1 17:47:25 Gastroes ophageal reflux disease 226584404 Active 2017 Not Available [facility] 1 17:47:25 [facility] ion Classifi cation - Class III 393622674 Active 2017 Not Available [facility] 1 17:47:25 Asthma-c hronic obstruct eron pulmonar y disease overlap syndrome 51682338498 403603 Active 2017 Not Available [facility] 1 17:47:25 Fibromya lgia 230938457 Active 2018 Not Available [facility] 17:47:25 Raynaud' s disease 769239298 Active 2018 Not Available [facility] 1 17:47:25 History of malignan t neoplasm of breast 875003375 Active 2018 right, s/p mastecto my, no tamoxife n Not Available [facility] 17:47:25 Basal cell carcinom a of skin 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 Not Available [facility] 17:47:25 Hoarse 40884590 Completed 201804/08/2020 Tu Valdez MD [address], [place], [address] , [facility] 0 15:00:40 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 Not Available [facility] 1 17:47:24 Generali zed anxiety disorder 88082668 Active 2019 Not Available [facility] 17:47:25 Hypercal cemia 77972837 Active 2019 Not Available [facility] 17:47:25 Albuminu christophe 535430658 Completed 201906/10/2020 Tu Valdez MD [address], [place], [address] , [facility] 0 20:18:14 Hyperpar athyroid ism 99212606 Active 2019 Not Available [facility] 1 17:47:25 Chronic kidney disease stage 3A 908320710 Completed 202008/05/2023 Tu Valdez MD [address], [place], [address] , [facility] 3 11:00:48 Suspecte d COVID-19 910214654 Completed 04/08/2021 Removal Reason: Problem added by user dorian Alvarado from the COVID-19 watch flag Raegan Higgins anabella, [facility] 1 13:43:15 Osteopen ia 195530025 Active 2020 Tu Valdez MD [address] [address], [place], [address] , [facility] 1 08:56:02 Bilatera l cataract s 83552785 Active 2020 Tu Valdez MD [address] [address], [place], [address] , [facility] 1 21:33:41 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 321670109 Completed 202008/23/2023 T1cN0 IDC 2-/-/- Removal Reason: mastecto my Jenny Ang null, [facility] 3 07:43:29 Anemia 509585524 Active 2020 Tu Valdez MD [address] [address], [place], [address] , [facility] 1 15:18:27 Prediabe pravin 317986162 Active 2020 Tu Valdez MD [address] [address], [place], [address] , [facility] 1 08:14:49 Iron deficien cy anemia 44077279 Active 2020 Tu Valdez MD [address] [address], [place], [address] , [facility] 1 07:10:33 Candidia sis of the esophagu s 99157946 Completed 202108/05/2023 Tu Valdez MD [address], [place], [address] , [facility] 3 11:01:01 Hiatal hernia 33993105 Active 2021 Tu Valdez MD [address], [place], [address] , [facility] 2 21:22:33 Lumbar radiculo corinne 565645207 Active 2021 Tu Valdez MD [address], [place], [address] , [facility] 2 16:36:56 Paralysi s of left vocal cord 118457091 Active 2021 Tu Valdez MD [address], [place], [address] , [facility] 2 16:15:47 Acute COVID-19 9164602436 Completed 202206/15/2023 Tu Valdez MD [address], [place], [address] , [facility] 3 11:23:34 SARS-CoV -2 Completed 202208/05/2023 Tu Valdez MD [address], [place], [address] , [facility] 3 11:05:26 History of bilatera l mastecto my 704477503 Active 2022 Tu Valdez MD [address], [place], [address] , [facility] 3 11:19:24 Abdomina l pain 76163233 Active 2023 Susan Martinez [facility] [address], [place], [address] , [facility] 4 11:58:17 Wheeze - rhonchi 98739874 Completed 202308/11/2024 Tu Valdez MD [address] [facility] [address], [place], [address] , [facility] 4 10:06:20 Urinary tract infectio us disease 02037175 Active 2023 Susan Martinez [facility] [address] [facility] [address], [place], [address] , [facility] 4 09:42:11 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 639047165 Active Tu Valdez MD [address] [facility] [address], [place], [address] , [facility] 4 06:19:23 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 76562035 Active 2023 Tu Valdez MD [address] [facility] [address], [place], [address] , [facility] 4 06:22:49 Compress ion fracture of thoracic vertebra 35869653428 04 Completed 202308/11/2024 T4 Tu Valdez MD [address] [facility] [address], [place], [address] , [facility] 4 10:07:16 Compress ion fracture of thoracic spine 348271199 Active 2023 T4 Tu Valdez MD [address] [facility] [address], [place], [address] , [facility] 4 00:00:18 Osteopor osis 07373495 Active 2023 Tu Valdez MD [address] [facility] [address], [place], [address] , [facility] 4 07:53:43 Body mass index 25-29 - overweig ht 080631044 Active 2023 Tu Valdez MD [address], [place], [address] , [facility] 4 10:22:02 Malignan t neoplasm of breast in 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 Procedures Surgical History Date Name Laterality Status Provider Name and Address Organization Details Recorded Time 01/17 right colectomy completed Tu Valdez MD [address], [place], [address] , [facility] 5 06:15:24 11/07 Date of Last Colonoscopy completed Kathy Arambula [facility] 5 14:31:02 11/07 Egd diagnostic brush wash completed Tu Valdez MD [address], [place], [address] , [facility] 5 12:32:39 11/07 Colonoscopy completed Tu Valdez MD [address], [place], [address] , [facility] 5 12:33:27 06/06 Chronic Pain Assessment completed Anna Peck [facility] 4 11:01:18 12/05 Chronic Pain Assessment completed Anna Peck [facility] 4 10:21:29 06/15 Chronic Pain Assessment completed Anna Peck [facility] 3 11:05:37 03/08 Chronic Pain Assessment completed Anna Peck [facility] 3 10:16:18 12/04 Chronic Pain Assessment completed Guerline Smalls [facility] 3 09:02:03 06/09 Chronic Pain Assessment completed Jenni Weir [facility] 2 09:23:02 04/30 Chronic Pain Assessment completed Jenni Weir [facility] 2 10:48:45 03/13 Chronic Pain Assessment completed Guerline Smalls [facility] 2 10:03:09 01/12 Egd diagnostic brush wash completed Tu Valdez MD [address], [place], [address] , [facility] 2 21:23:08 12/16 Chronic Pain Assessment completed Jenni Weir [facility] 2 13:49:31 09/16 Chronic Pain Assessment completed Jenni Weir [facility] 1 11:46:34 08/11 Mast radical completed Mirian Garcia RN [facility] 2 08:56:29 06/24 incisional biopsy of breast completed Tu Valdez MD [address], [place], [address] , [facility] 1 12:40:15 06/19 Chronic Pain Assessment completed Jenni Weir [facility] 1 11:52:12 06/17 Most Recent Mammogram completed Mirian Garcia RN [facility] 1 15:25:51 04/03 Bronchoscopy completed Tu Valdez MD [address], [place], [address] , [facility] 1 08:52:42 03/24 Echo transthoracic completed Tu Valdez MD [address], [place], [address] , [facility] 1 11:48:05 03/21 Chronic Pain Assessment completed Jenni Weir [facility] 1 09:39:06 12/20 Chronic Pain Assessment completed Jenni Weir [facility] 1 09:21:44 09/20 Chronic Pain Assessment completed Jenni Weir [facility] 0 10:02:03 06/21 Chronic Pain Assessment completed Jenni Weir [facility] 0 10:44:17 06/12 Bronchoscopy completed Kyali Braxton [facility] 0 14:05:01 06/12 Bronchoscopy completed Tu Valdez MD [address] [facility] [address], [place], [address] , [facility] 0 06:27:35 10/10 Chronic Pain Assessment completed Catherine Christina [facility] 0 10:13:37 07/11 Chronic Pain Assessment completed Jenni Weir [facility] 9 10:09:43 06/21 Mammogram one breast completed Stephanie Foster [facility] 9 09:46:18 04/26 colonoscopy completed Tu Valdez MD [address], [place], [address] , [facility] 3 11:05:45 04/11 Chronic Pain Assessment completed Jenni Weir [facility] 9 09:41:29 03/31 Most Recent Bone Density completed Jenni Weir MA [facility] 0 14:35:02 03/31 Dxa bone density larry vrt fx completed Rosa Weir MA [facility] 0 14:34:30 01/10 Chronic Pain Assessment completed Jenni Weir [facility] 9 09:52:52 01/02 Colonoscopy completed Zaida Hebert [facility] 1 08:34:18 11/30 mohs surgery completed Tu Valdez MD [address], [place], [address] , [facility] 9 10:22:18 11/25 Date of Last Pap Smear completed Kayli Braxton [facility] 9 13:36:36 10/13 Chronic Pain Assessment completed Jenni Weir [facility] 9 09:24:08 08/31 Bronchoscopy completed Stephanie Foster [facility] 8 11:46:22 07/14 Chronic Pain Assessment completed Jenni Weir [facility] 8 15:22:31 04/18 Chronic Pain Assessment completed Jenni Weir [facility] 8 14:00:54 01/31 Pmkr, dual, rate-resp completed Tu Valdez MD [address], [place], [address] , [facility] 8 16:51:46 01/06 Chronic Pain Assessment completed Jenni Weir [facility] 8 13:57:30 10/15 Chronic Pain Assessment completed Leanne jones [facility] 8 10:13:38 07/20 Chronic Pain Assessment completed Jenni Weir [facility] 7 10:17:38 04/21 Chronic Pain Assessment completed Jenni Weir [facility] 7 09:25:02 01/20 Chronic Pain Assessment completed Jenni Weir [facility] 7 11:25:10 10/23 Chronic Pain Assessment completed Jenni Weir [facility] 7 08:16:24 06/09 esophagogastroduodenoscopy completed Tu Valdez MD [address], [place], [address] , [facility] 0 09:16:58 04/27 Chronic Pain Assessment completed Catherine Christina [facility] 6 08:23:04 03/13 Cardiac mri w/stress img completed Tu Valdez MD [address], [place], [address] , [facility] 7 15:13:01 02/02 Chronic Pain Assessment completed Jenni Weir MA [facility] 6 09:26:40 01/02 Cardiac Surgery completed Tu Valdez MD [address], [place], [address] , [facility] 6 08:21:03 12/05 Echo Transthoracic completed Tu Valdez MD [address], [place], [address] , [facility] 6 08:18:17 05/04 EGD completed Tu Valdez MD [address], [place], [address] , [facility] 0 09:16:39 03/01 Mastectomy Partial completed Mirian Garcia RN [facility] 1 15:22:47 02/01 Breast Implants completed Jenni Weir MA [facility] 6 09:21:57 02/01 Breast Surgery completed Zaida Hebert [facility] 1 08:34:18 02/01 Breast Implants completed Zaida Hebert [facility] 1 08:34:18 01/02 Breast Biopsy completed Zaida Hebert [facility] 1 08:34:18 07/23 Caesarean Section completed Zaida Hebert [facility] 1 08:34:18 05/04 Cholecystectomy completed Zaida Hebert [facility] 1 08:34:18 06/04 Appendectomy completed Zaida Hebert [facility] 1 08:34:18 Appendectomy completed Zaida Hebert [facility] 1 08:34:18 Splenectomy completed Jenni Weir MA [facility] 6 09:21:57 Breast Surgery completed Zaida Hebert [facility] 1 08:34:18 Breast Biopsy completed Zaida Hebert [facility] 1 08:34:18 Hysterectomy completed Jenni Weir MA [facility] 4 14:41:43 Caesarean Section completed Tu Valdez MD [address], [place], [address] , [facility] 8 14:29:05 Cholecystectomy completed Zaida Hebert [facility] 1 08:34:18 mohs surgery completed Anna Peck MA [facility] 3 10:47:08 Imaging Results Imaging Date Name Status LastModified by Organization Details LastModified Time 09/26/2024 CT, abdomen + pelvis, w/ contrast completed [facility] [address] [place], [address], 11/22/2024 20:33:33 10/09/2024 CT, chest, w/o contrast completed [facility] Information not available 11/22/2024 20:33:32 01/02/2025 electrocardiogram completed [facility] [address] [place], [address], 01/02/2025 06:59:50 Procedure Notes None recorded. Medical Equipment None Reported. Allergies Allergen ID Allergen Name Allergen Category Reaction Reaction Severity Criticality Documentation Date Start Date Code Code System Note Provider Name and Address Organization Details Recorded Time 52824 Substance with sulfonami de structure and antibacte rial mechanism of action (substanc e) medicatio n rash Not available Not available 09/03/2014 09039 8003 SNOMED Lori LA[place]A Hwang [facility] 4 13:33:49 19968 Levaquin medicatio n headache nausea other Not available Not available Not available Not available 04/15/2021 74424 2 RxNorm dizzi ness Tu Valdez MD [address] [facility] [address], [facility] [place], [address] , [facility] 1 09:01:30 05029 Compazine medicatio n palpitati ons severe Not available 03/13/2022 03460 6 RxNorm [place]A Garcia [facility] 2 09:55:43 3731 Bactrim medicatio n rash Not available Not available 04/17/20142013 40708 9 RxNorm Lori So de la cruz [place] anabella, [facility] 4 13:33:49 3732 Biaxin medicatio n rash Not available Not available 04/17/20142013 18875 9 RxNorm Lori So de la cruz [place] an[place], [facility] 4 13:33:49 3733 codeine sulfate medicatio n other Not available Not available 04/17/20142013 74176 RxNorm abdom inal pain Lori So de la cruz [place] anabella, [facility] 4 13:33:49 3734 naproxen medicatio n diarrhea Not available Not available 04/17/20142013 7258 RxNorm abdom inal pain Lori [place] Hwang, [facility] 4 13:33:49 Medications Name Sig Start [...] e 137 mcg (0.1 %) nasal spray Bo[place] 2 sprays twice a day by nasal [...] e 50 mcg/actua tion nasal spray,vidhya pension Boerne 2 sprays every day by intranas al [...] Available Not Available No t Available Flucelvax 2556-8587 (PF) 45 mcg (15 mcg x 3)/0.5 [...] Updated DateTime 4 162.56 cm 25.9 kg/m2 56670.4 5 g 87 /min 96 % 96 % 98.2 [degF] 99 mm[Hg] 58 mm[Hg] Izabela Mayen LPN [facility] 4 09:40:12 Date Recorded Body height Body mass index (BMI) Body weight Heart rate Oxygen saturation Oxygen saturation in Arterial blood by Pulse oximetry Body temperature Systolic blood pressure Diastolic blood pressure Provider Name and Address Organization Details Last Updated DateTime 4 162.56 cm 25.4 kg/m2 08459.6 7 g 89 /min 98 % 98 % 98 [degF] 90 mm[Hg] 57 mm[Hg] Rhina calabrese MA [facility] 4 13:22:08 Date Recorded Body height Provider Name an d Address Organization Details Last Updated DateTime 11/17/2024 162.56 cm Jessica Quintana MA [facility] 11/17/2024 14:51:46 Date Recorded Body height Body mass index (BMI) Body weight Oxygen saturation Oxygen saturation in Arterial blood by Pulse oximetry Heart rate Body temperature Systolic blood pressure Diastolic blood pressure Provider Name and Address Organization Details Last Updated DateTime 5 162.56 cm 24.4 kg/m2 31467.2 2 g 99 % 99 % 92 /min 98.2 [degF] 108 mm[Hg] 70 mm[Hg] Catherine Christina MA [facility] 5 10:56:18 Social History Question Answer Notes LastModified by Organizat ion Details LastModified Time Tobacco Smoking Status Former [facility]oker quit 1976 [facility] 08/06/2020 03:36:42 Do You Have An Advance Directive? Yes HCP/ Son-Rolly peralta Information not available 09/04/2022 What Is Your Level Of Alcohol Consumption? None [id number] Information not available 08/06/2020 Is Blood Transfusion Acceptable In An Emergency? Yes [id number] Information not available 08/06/2020 What Is Your Level Of Caffeine Consumption? None [id number] Information not available 08/06/2020 How Much Tobacco Do You Chew? None [id number] Information not available 08/06/2020 In The 14 [...] Are You Currently Employed? Yes [employer] [id number] Information not available 08/06/2020 What Type Of Diet Are You Following? REGULAR [id number] Information not available 08/06/2020 Which Illicit Or Recreational Drugs Have You Used? None [id number] Information not available 08/06/2020 Do You Or Have You Ever Used E-cigarettes Or Vape? Never Used Electronic Cigarettes Information not available 09/04/2022 Education 12 Information not available 09/04/2022 What Is Your Occupation? [place] [id number] Information not available 08/06/2020 When Did You Quit Smoking? 16+yearssince lastciayush [email or web address] Information not available 04/15/2021 Live Alone Or [...] 06/21/2020 Have You Recently Traveled To A [place] [address] High Risk Area Or Gathering In The Last 10 Days? No Information not available 12/20/2020 What Was The Date Of Your Most Recent Tobacco Screening? 08/05/2023 [email or web address] Information not available 08/05/2023 How Many Children Do You Have? 2 [facility] [email or web address] Information not available 08/05/2023 What Is Your Current Pack Years? 10-19palisandra pascal Information not available 09/04/2022 Seat Belts Used Routinely Yes Information not available 09/04/2022 Are You Sexually Active? No [id number] Information not available 08/06/2020 Smoke Alarm In Home Yes Information not available 09/04/2022 At What Age Did You Start Smoking Tobacco? 16 [id number] Information not available 08/06/2020 Are You Passively Exposed To Smoke? No Information not available 08/13/2014 Do You Or Have You Ever Used Smokeless Tobacco? Never Used Smokeless Tobacco [id number] Information not available 08/06/2020 How Much Tobacco Do You Smoke? 1 PPW [id number] Information not available 08/06/2020 Do You Use Any Illicit Or Recreational Drugs? No Information not available 09/04/2022 Do You Use Sunscreen Routinely? Yes [id number] Information not available 08/06/2020 How Many Years Have You Smoked Tobacco? 1 Information not available 04/15/2021 Do You Or Have You Ever Used Any Other Forms Of Tobacco Or Nicotine? No Information not available 09/04/2022 Sex: Unknown Functional Status Question Answer Note LastModified by Organizat ion Details LastModified Time Are you able to walk? YESWOREST Information not available 09/04/2022 Are you able to care for yourself? Yes [id number] Information not available 08/06/2020 What is your exercise level? Occasional [id number] Information not available 08/06/2020 Mental Status None [...] 2021 08:39:57 Sister Malignant tumor of breast Not available 04/15 08:33:47 Sister Well adult Not available 09/04/2022 08:39:57 Sister Chronic obstructive pulmonary disease [email or web address] Not available 04/15 08:33:47 Sister Migraine [email or web address] Not availab le 04/15/2021 08:33:47 Sister Anxiety disorder Not available 04/15 08:33:47 Sister Obesity Not availabl e 04/15/2021 08:33:47 Sister Malignant tumor of breast abolcun Not available 2015 10:53:05 Son Well adult Not available 09/04/2022 08:39:57 Son Well adult Not available 09/04/2022 08:39:57 Medical History Condition Response Other N Gout N Blood Diseases N Kidney Stones N Hyperthyroidism N Breast Cancer Y Hypothyroidism [...] virus, quadrivalent, PF 4 completed Not Available [facility] 02/25/2021 17:47:26 Influenza, split virus, quadrivalent, PF 5 completed Not Available [facility] 02/25/2021 17:47:26 Influenza, split virus, quadrivalent, preservative 0 completed Not Available [facility] 02/25/2021 17:47:26 COVID-19, mRNA, LNP-S, PF, 30 mcg/0.3 mL dose 1 completed [place] Camarena [facility] 09/16/2021 11:35:53 Influenza, MDCK, quadrivalent, PF 0 completed LAURA Camarena [facility] 09/16/2021 11:35:53 COVID-19, mRNA, LNP-S, PF, 30 mcg/0.3 mL dose 1 completed LAURA Camarena [facility] 09/16/2021 11:35:53 meningococcal MCV4P 2 completed LA[place]A Camarena [facility] 09/16/2021 11:35:53 COVID-19, mRNA, LNP-S, PF, 30 mcg/0.3 mL dose 1 completed [place]A Camarena [facility] 09/16/2021 11:38:52 pneumococcal polysaccharide PPV23 1 completed [place]A Camarena [facility] 10/01/2021 09:26:18 Influenza, split virus, quadrivalent, PF 7 completed [place]A Camarena, [facility] 04/30/2022 10:49:02 Influenza, split virus, quadrivalent, PF 8 completed LA[place]A Camarena, [facility] 04/30/2022 10:49:02 pneumococcal polysaccharide PPV23 9 completed LAURA Camarena, [facility] 04/30/2022 10:49:02 Tdap 9 completed LAURA Camarena, [facility] 04/30/2022 10:49:02 Pneumococcal conjugate PCV 13 4 completed [place]URA Camarena [facility] 04/30/2022 10:49:02 meningococcal MCV4P 8 [facility] 10:49:02 Influenza, split virus, quadrivalent, PF 9 completed LAURA Camarena, [facility] 04/30/2022 10:49:03 Influenza, split virus, quadrivalent, PF 1 completed LAURA Camarena, [facility] 04/30/2022 10:49:03 Influenza, split virus, quadrivalent, PF 2 completed LAURA Arroyo [facility] 07/14/2022 11:16:28 COVID-19, mRNA, LNP-S, PF, 100 mcg/0.5mL dose or 50 mcg/0.25mL dose 2 completed [place]A Arroyo [facility] 07/14/2022 11:16:28 COVID-19, mRNA, LNP-S, bivalent, PF, 50 mcg/0.5 mL or 25mcg/0.25 mL dose 2 completed [place] Negrete [facility] 08/31/2022 13:31:48 RSV, recombinant, protein subunit RSVpreF, adjuvant reconstituted, 0.5 mL, PF 3 completed [place]A Brannon, [facility] 08/05/2023 10:33:06 COVID-19, mRNA, LNP-S, PF, joseline-sucrose, 30 mcg/0.3 mL 4 completed Izabela Caporale, HYDRO PNEUMATIC TESTER null, [facility] 08/11/2024 09:40:31 Influenza, high-dose, trivalent, PF 4 completed Izabela Caporale, HYDRO PNEUMATIC TESTER null, [facility] 08/11/2024 09:40:31 Influenza, split virus, quadrivalent, PF 6 completed Not Available [facility] 10/21/2019 02:22:07 influenza, seasonal, intradermal, preservative free 2 completed [facility] Available [facility] 02/25/2021 17:47:26 meningococcal MPSV4 2 completed Not Available [facility] 02/25/2021 17:47:26 MMR 1 completed LAURA Camarena, [facility] 09/16/2021 11:35:53 pneumococcal polysaccharide PPV23 9 completed LAURA Camarena, [facility] 09/16/2021 11:35:53 Tdap 9 completed Not Available [facility] 02/25/2021 17:47:26 influenza, seasonal, intradermal, preservative free 3 completed Not Available [facility] 02/25/2021 17:47:26 Influenza, high-dose, quadrivalent, PF 3 completed Tu Valdez MD [address], [address], [facility] 07/07/2023 13:04:12 Past Encounters Encounter ID Performer Location Encounter Start Date Encounter Closed Date Diagnosis/Indication Diagnosis SNOMED-CT Code Diagnosis ICD10 Code Diagnosis Note [id number] Tu Valdez MD Main Office [address] [place], [place] [address] 04/20/2014 14:12:22 04/20/2014 15:12:51 Chronic low back pain 591188878 Stable/wel l controlled . 3 months of prescripti ons provided as per term of narcotic contract. Esophageal dysphagia 91917339 Concerning especially in the context of her history of chest irradiatio n. Due for colonoscop y as well. Will refer to GI for considerat ion of both and EGD/colono scopy. [id number] autoEComm erce [address] [facility] [place], [place] [address] 07/26/2012 00:00:00 [id number] autoEComm erce [address] [facility] [place] [address] 10/28/2012 00:00:00 [id number] autoEComm erce [address] [facility] [place] [address] 01/27/2013 00:00:00 [id number] autoEComm erce [address] [facility] [place] [address] 04/27/2013 00:00:00 [id number] autoEComm erce [address] [facility] [place] [address] 07/26/2013 00:00:00 [id number] autoEComm erce [address] [facility] [place] [address] 08/04/2013 00:00:00 [id number] autoEComm erce [address] [facility] [place] [address] 10/25/2013 00:00:00 [id number] autoEComm erce [address] [facility] [place] [address] 01/17/2014 00:00:00 [id number] Tu Valdez MD Main Office [address] [facility] [address] [place], [place] [address] 08/13/2014 10:17:11 08/13/2014 11:47:48 Adult health examination 606946661 Will update immunizati on status and screen based on risk factors. Regular dental and ophtho care advised as well as sunscreen and seatbelt use. Distracted driving discussed. Cervical, breast and colon cancer screening utd. Advance directives discussed and in place. Low back pain 671602307 Body mass index 25-29 - overweight 337735814 Hypothyroidism 90199962 Anxiety state 765505165 Administra tion of pneumococcal vaccine 17271444 Vitamin D deficiency 83245923 Pure hypercholesterolemia 748721275 Bordeline in the past. Will reassess. Heart murmur 43258191 Mi ld aortic stenosis and AI seen in 2011. Pt remains asymptomat ic. Will reassess for progressio n. [id number] Joe Pike MD Main Office [address] [place] [address] [place] [address] 09/03/2014 13:22:39 09/03/2014 14:00:47 Acute asthma 119732960 [id number] Tu Valdez MD Main Office [address] [place] [address] [place] [address] 11/14/2014 10:34:38 11/14/2014 11:14:51 Low back pain 576019260 Chronic and stable with improved ADL function on meds. Narcotic contract renewed, 3 months med supply provided. Acute sinusitis 13662193 On prednisone and given symptom duration as well as risk factors will cover for possible bacterial process. [id number] Jillian garcia MD Main Office [address] [place] [address] [place] [address] 12/27/2014 10:22:37 12/27/2014 11:18:36 Disorder of lung 31915897 pt with pulmonary fibrosis, mild increase in her cough, no fever, lung exam with good air mvt, no rales, no role for antibiotic s, continue inhalers, reevaluati on if any worsening. Allergy 766520603 use na danyel spray daily [id number] Tu Valdez MD Main Office [address] [place] [address] [place] [address] 01/07/2015 14:24:18 03/29/2015 13:58:03 [id number] Tu Valdez MD Main Office [address] [place] [address] [place] [address] 01/09/2015 10:40:18 01/09/2015 11:35:46 Pneumonia caused by Streptococcus 05270752 Symptoms improving, O2 sats normal, completed course of therapy. Acute asthma 137089253 S uspect that asthma is being trigerred by recent infection/ inflammati on. Will try a steroid taper to help calm this down. Cough 19182297 Chronic low back pain 503344003 Chronic issue aggravated by acute illness including pleurisy and chest wall pain. Will see if prednisone helps address this issue as well. Chronic med rx rewritten to accommodat e temporary increase in med use during acute illness. [id number] Tu Valdez MD Main Office [address] [place] [address] 02/08/2015 09:53:14 02/08/2015 10:49:03 Low back pain 044433270 Chronic and stable with improved ADL function on meds. Narcotic contract renewed, 3 months med supply provided. Anxiety state 461070314 Seems like it should only be short term. PRN benzo filled but if use increases/ persist will need to discuss other management options. [id number] Tu Valdez MD Main Office [address] [place] [address] 05/10/2015 09:58:13 05/10/2015 10:51:28 Chronic low back pain 635588199 Stable and well controlled with improved level of function on meds. Will continue. Meds refilled x 90 days per terms of narcotic contract. Anxiety state 354567021 Using appropriat dayami. PRN benzo filled but if use increases/ persist will need to discuss other management options. Cough 16642301 See if antihistam ine affords more relief. [id number] Tu Valdez MD Main Office [address] [place] [address] 08/07/2015 09:25:03 08/07/2015 10:08:42 Chronic low back pain 900508059 M54.5 Stable and well controlled with improved level of function on meds. Will continue. Meds refilled x 90 days per terms of narcotic contract. Anxiety state 926235990 F41.1 Using appropriat dayami. PRN benzo filled but if use increases/ persist will need to discuss other management options. Hypothyroidism 69200658 E03.9 Clinically and biochemica lly euthyroid. Will continue current dosing. Hoarse 48890703 R49.0 Persistent issue. With history of radiation therapy will image thyroid. If persistent /worse and thyroid does not appear to be the issue would refer to ENT for laryngosco py. [id number] Yasmeen Dumont PA-C Main Office [address] [place] [address] 09/20/2015 11:23:51 09/20/2015 11:54:42 Sinusitis 12873264 J32.9 Acute sinusitis. Start Doxycyclin e 100 mg BID for 7 days. Use Sudafed 30-60 mg q 4-6 hrs. Cherutussi n AC twice per day. 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 Will treat symptomati tono for comfort, and pt advised to complete current course of abx and prednisone taper. Pt has f/u scheduled tomorrow with Dr Rosado. [id number] Tu Valdez MD Main Office [address] [address] [place] [address] 10/28/2015 10:47:40 10/29/2015 14:09:24 [id number] Tu Valdez MD Main Office [address] [address] [place] [address] 11/06/2015 10:37:03 11/06/2015 11:40:29 Adult health examination 823238833 Z00.00 Will update immunizati on status and screen based on risk factors. Regular dental and ophtho care advised as well as sunscreen and seatbelt use. Distracted driving discussed. Cervical, breast and colon cancer screening utd. Advance directives discussed and in place. Chronic low back pain 27 1853266 M54.5 Stable and well controlled with improved level of function on meds. Will continue. Meds refilled x 90 days as per terms of narcotic contract which was renewed Body mass index 25-29 - overweight 656997605 Z68.29 Hypothyroidism 83522094 E03.9 Heart murmur 22900087 R0 1.1 Mild aortic stenosis and AI seen in 2011. Pt remains asymptomat ic. Will reassess for progressio n. 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 PRN benzo filled but if use increases/ persist will need to discuss other management options. Hoarse 48441870 R49.0 If not continuing to slowly improve will refer to ENT for laryngosco py. [id number] BRIDGET Dean Main Office [address] [facility] [address] [facility] [place] [address] 11/20/2015 10:37:35 11/20/2015 11:26:08 Fibrosis of lung caused by radiation 73026563 J70.1 Cough 39113575 R05 Will treat with doxy x 7 [...] humidifier as needed, continue inhalers as directed. [id number] Tu Valdez MD Main Office [address] [facility] [place] [address] 12/11/2015 10:26:37 12/11/2015 11:35:58 Left heart failure 36423962 I50.1 New finding, ? if related to conduction vs perfusion issue. Likely a result of prior chest irradiatio n. Will refer to cardiology to help evaluate further. Will try adding low dose BB and monitor for hypotensio n, asthma exacerbati on. If BNP elevated will consider diuretic trial. Left cardi ac ventricular dilatation 758962832 I51.7 Herpes labialis 6270063 B00.1 pt requesting refill. Cough 05983815 R05 Chronic issue. Transition ing to another pulmonolog ist. Cough medicine helping at night. Electrocar diogram abnormal 540680142 R94.31 New findings to coincide with ECHO. Had ECG's done recently at [facility] will track down to try and isolate when these cardiac issues may have occured. [id number] Tu Valdez MD Main Office [address] [facility] [address] 01/09/2016 10:39:35 01/09/2016 11:39:18 Congestive heart failure 80524808 I50.9 Currently compensate d on appropriat e medical regimen. Etiology unclear at this time but with unremarkab le cath need to suspect prior chemo/radi ation therapy as being a factor. Has appt with CHF clinic. Will check BNP given recent start of ARB and dye load from cath. [id number] Tu Valdez MD Main Office [address] [place] [address] 02/03/2016 09:10:15 02/03/2016 09:59:24 Chronic low back pain 234479390 M54.5 Stable and well controlled with improved level of function on meds. Will continue. Meds refilled x 90 days as per terms of narcotic contract which was renewed Hypothyroidism 25906826 E03.9 Will verify stability/ control. Overall clinically euthyroid. Alkaline p hosphatase above reference range 944419830 R74.8 Screen for osteomalac ia. Congestive heart failure 33294236 I50.9 Currently compensate d on appropriat e medical regimen. Etiology unclear at this time but with unremarkab le cath need to suspect prior chemo/radi ation therapy as being a factor. Seen by Dr. Smart will track down notes. Scheduled for cardiac MRI per pt. [id number] Tu Valdez MD Main Office [address] [place] [address] 02/10/2016 10:43:33 02/10/2016 11:29:55 Left sided abdominal pain 322400298 R10.9 ? obstructio n vs constipati on vs gastritis. Will start with xray and depending on results and response to this treatment may require further testing and possibly referral. Pt advised that if pain acutely worsens to go to ED. Call if persistent or additional symptoms develop. [id number] Tu Valdez MD Main Office [address] [address] [place] [address] 04/27/2016 08:11:02 04/27/2016 08:56:21 Chronic low back pain 575880709 M54.5 Stable and well controlled with improved level of function on meds. Will continue. Meds refilled x 90 days as per terms of narcotic contract. Will check xray to rule out arthritis as possible contributo r to her pain. Vaginitis 92321918 N76.0 Non responsive to course of fluconazol e. Will screen for UTI and if unremarkab le, pt will arrange evaluation with gynecology . Dysuria 93609574 R30.0 Intermitte nt dysphagia 91978968 R13.19 Has history of stricture. Will refer to GI for f/u. Constipation 95103531 K5 9.00 [id number] Yasmeen Dumont PA-C Main Office [address] [address] [place] [address] 07/22/2016 14:45:32 07/22/2016 15:29:59 Chronic low back pain 458549723 M54.5 Continue current meds. F/u with PCP as scheduled in 2017. [id number] Tu Valdez MD Main Office [address] [address] [place] [address] 09/16/2016 14:12:34 09/16/2016 15:05:34 Acute pharyngitis 730645438 J02.9 Based on risk for exposure and Centor score will treat empiricall y and d/c if culture is negative. Supportive /symptomat ic tx advised in the meantime. Needs infl uenza immunization 906668577 Z23 [id number] Yasmeen Dumont PA-C Main Office [address] [address] [place] [address] 10/13/2016 10:29:02 10/13/2016 11:04:07 Upper respiratory infection 29086284 J06.9 Pt. is advised to try Mucinex 120 mg BID for congestion , continue Flonase spray and add saline solution. If in 1 week worsening of symptoms, will add Abx. [id number] Tu Valdez MD Main Office [address] [address] [place] [address] 10/23/2016 08:09:41 10/23/2016 08:47:13 Chronic low back pain 201849488 M54.5 Stable and well controlled with improved level of function on meds. Will continue. Meds refilled x 90 days as per terms of narcotic contract. [id number] Yasmeen Dumont PA-C Main Office [address] [address] [place] [address] 12/01/2016 09:21:14 12/01/2016 10:18:02 Adult health examination 778099576 Z00.00 up to date on immunizati ons Pure hypercholesterolemia 379466371 E78.00 Hypothyroidism 09779082 E03.9 Continue current meds. Recheck TFTs. Moderate asthma 17907080 9 J45.40 Congestive heart failure 43355599 I50.9 Continue current meds and f/u with cardiologi st. [id number] Kristopher Dumont PA-C Main Office [address] [address] [place] [address] 01/06/2017 09:26:07 01/06/2017 10:19:00 Chronic constipation 107763369 K59.00 25 minute office visit with greater than 50% of the visit face-to-fa ce with the patient and/or family providing counseling and/or coordinati on of care. Abdominal pain 14952104 R10.9 most likely d/t ibs - c (adhesions , narcotics) --- see below re: chronic constipati on [id number] Tu Valdez MD Main Office [address] [address] [place] [address] 01/20/2017 11:14:02 01/20/2017 12:12:24 Constipation 70679724 K59.00 Possible IBS component. See if OTC supplement helps. Pure hypercholesterolemia 193640290 E78.01 Current 10 yr risk 2.6%, with minimal CAD on 2016 cath. Will follow for now,. Chronic low back pain 27 0499651 M54.5 Stable and well controlled with improved level of function on meds. Will continue. Meds refilled x 90 days as per terms of narcotic contract. [id number] Tu Valdez MD Main Office [address] [address] [place] [address] 04/21/2017 09:17:54 04/21/2017 09:54:20 Chronic low back pain 187303296 M54.5 Stable and well controlled with improved level of function on meds. Will continue. Meds refilled x 90 days as per terms of narcotic contract. [id number] Tu Valdez MD Main Office [address] [address] [place] [address] 07/20/2017 09:59:53 07/20/2017 10:45:37 Needs influenza immunization 420755410 Z23 Chronic low back pain 27 9516168 M54.5 Stable and well controlled with improved level of function on meds. Will continue. Meds refilled x 90 days as per terms of narcotic contract which was updated today. Anxiety state 535614966 F41.1 Using appropriat dayami. Will monitor use. Benzo contract created today. Constipation 33420389 K5 9.00 Well controlled with stool softener and Senna. Will call with any problems. [id number] Tu Valdez MD Main Office [address] [address] [place] [address] 09/07/2017 09:30:44 09/07/2017 10:25:14 Bronchiectasis 05512169 J47.9 Fever 562528330 R50.9 Based on risk factors/co morbiditie s will cover empiricall y for flu. If CXR abnl will need abx. Nausea 443600029 R11.0 Cough 95316496 R05 Tachycardia 7473308 R00. 0 Suspect related to acute illness. Doubt these issues are primarily cardiac. [id number] Tu Valdez MD Main Office [address] [address] [place] [address] 10/15/2017 09:15:54 10/15/2017 10:11:40 Chronic low back pain 530747833 M54.5 Stable and well controlled with improved level of function on meds. Will continue. Meds refilled x 90 days as per terms of narcotic contract. Chronic constipation 236 643991 K59.09 [id number] Tu Valdez MD Main Office [address] [facility] [address] [place] [address] 01/06/2018 13:47:12 01/06/2018 15:13:42 Adult health examination 033053339 Z00.00 Will update immunizati on status, flu advised in the Fall and Shingrix via local pharmacy. Will screen based on risk factors. Regular dental and ophtho care advised as well as sunscreen and seat belt use. Distracted driving discussed. Cervical, breast and colon cancer screening utd. Advance directives discussed and in place. Anxiety state 501629391 F41.1 Using appropriat dayami. Will monitor use. Benzo contract in place. Chronic low back pain 27 4209959 M54.5 Stable and well controlled with improved level of function on meds. Will continue. Meds refilled x 90 days as per terms of narcotic contract. Congestive heart failure 83213777 I50.9 Currently compensate d on appropriat e medical regimen. Being referred to EP for ICD placement. Bronchiectasis 24723078 J47.9 Impaired f asting glycemia 710923145 R73.01 Multiple n odules of lung 130156684 R91.8 Being followed by pulmonary Alkaline p hosphatase above reference range 714138917 R74.8 Has been low/stable , will monitor. Vitamin D deficiency 347 44895 E55.9 Hypothyroidism 75528042 E03.9 Clinically euthyroid, due for labs. Requires a meningitis vaccination 499648351 Z23 s/p splenectom y Varicella vaccination 68 356526 Z23 [id number] Tu Valdez MD Main Office [address] [facility] [address] [place] [address] 04/18/2018 13:51:28 04/18/2018 14:51:00 Chronic low back pain 728702458 M54.5 Stable and well controlled with improved level of function on meds. Will continue. Meds refilled x 90 days as per terms of narcotic contract. Multiple n odules of lung 498130609 R91.8 Being followed by pulmonary Constipation 19084269 K5 9.00 Well controlled with stool softener and Senna. Will call with any problems. Pure hypercholesterolemia 659991458 E78.01 Current 10 yr risk 1.4%, with minimal CAD on 2016 cath. Will follow for now,. [id number] Tu Valdez MD Main Office [address] [address] [place] [address] 07/14/2018 15:10:25 07/14/2018 16:02:38 Chronic low back pain 219755251 M54.5 Stable and well controlled with improved level of function on meds. Will continue. Meds refilled x 90 days as per terms of narcotic contract. Needs infl uenza immunization 779625133 Z23 Constipation 50573180 K5 9.00 Well controlled with stool softener and Senna. Will call with any problems. Fatigue 31008881 R53.83 Bichemical ly euthyroid in April. Had a low vitamin D level and isn't taking supplement . Will start for the WInter months. If fatigue persists/w orsens will need labs. Hypothyroidism 89323640 E03.9 Clinically euthyroid [id number] Tu Valdez MD Main Office [address] [address] [place] [address] 10/13/2018 09:06:06 10/13/2018 09:59:31 Chronic low back pain 159422501 M54.5 Stable and well controlled with improved level of function on meds. Will continue. Meds refilled x 90 days as per terms of narcotic contract. [id number] Tu Valdez MD Main Office [address] [address] [place] [address] 01/10/2019 09:26:04 01/10/2019 10:41:10 Adult health examination 679321420 Z00.00 Will update immunizati on status, flu advised in the Fall and Shingrix via local pharmacy. Will screen based on risk factors. Regular dental and ophtho care advised as well as sunscreen and seat belt use. Distracted driving discussed. Cervical, breast cancer screening utd. Due for colonoscop y in the Fall. Advance directives discussed and in place. Chronic low back pain 27 3746620 M54.5 Stable and well controlled with improved level of function on meds. Will continue. Meds refilled x 90 days as per terms of narcotic contract. Administra tion of viral vaccine 41346697 Z23 Screening for malignant neoplasm of breast 239008213 Z12.39 Screening for malignant neoplasm of colon 762253686 Z12.11 Due in May for f/u colon Varicella vaccination 68 977687 Z23 Vitamin D deficiency 347 11296 E55.9 Impaired f asting glycemia 948439953 R73.01 Congestive heart failure 09598199 I50.9 Currently compensate d on appropriat e medical regimen. Following with cardiology Bronchiectasis 94195549 J47.9 Following with pulmonary. [place] [employer] Classification - Class III 563888243 I50.9 Asplenia 189623832 Q89.0 1 Gastroesop hageal reflux disease 797872675 K21.9 Hypothyroidism 80303164 E03.9 Clinically euthyroid Body mass index 25-29 - overweight 174527258 E66.3 Z68.25 [id number] Tu Valdez MD Main Office [address] [address] 04/11/2019 09:10:42 04/11/2019 10:22:45 Chronic low back pain 196463876 M54.5 Stable and well controlled with improved level of function on meds. Will continue. Meds refilled x 90 days as per terms of narcotic contract. Osteopenia 985736772 M85 .80 Regular weigh bearing exercise and adequate dietary Ca/Vit D intake advised. Generalize d anxiety disorder 67714589 F41.1 Abnormal t hyroid hormone 830491778 R94.6 asymptomat ic. Will monitor labs, and titrate dose if still >4 at f/u. [id number] Tu Valdez MD Main Office [address] [address] 07/11/2019 10:00:41 07/11/2019 10:40:18 Chronic pain syndrome 101663677 G89.4 Chronic low back pain 27 6207040 M54.5 Stable and well controlled with improved level of function on meds. Will continue. Meds refilled x 90 days as per terms of narcotic contract. Needs infl uenza immunization 231778622 Z23 Pain of manuel int of ankle and/or foot 241480619 M79.672 I suspect that this is related to her sitting technique. Will image if persistent /worse Left lower quadrant pain 664796460 R10.32 Will see if XR demonstrat es significan t stool burden. If not and symptoms persist will need further evaluation . Hypothyroidism 75818610 E03.9 Clinically euthyroid, but biochemica lly hypo. Will increase T4 supplement dose. [id number] Tu Valdez MD Main Office [address] [address] [place] [address] 10/10/2019 09:52:27 10/10/2019 10:36:32 Chronic pain syndrome 907209924 G89.4 Acute sinusitis 55770101 J01.90 Symptoms mild x 3 days. Continue supportive tx and knows to start abx and call for steroids if symptoms progress/p ersist. [id number] Tu Valdez MD Main Office [address] [address] [place] [address] 01/01/2020 16:15:12 01/02/2020 09:14:42 [id number] Tu Valdez MD Main Office [address] [address] [place] [address] 01/05/2020 09:06:21 01/05/2020 11:49:33 Chronic low back pain 056471019 M54.5 Stable and well controlled with improved level of function on meds. Will continue. Meds refilled x 90 days as per terms of narcotic contract. Chronic pain syndrome 37 0045985 G89.4 Allergic rhinitis 831901 04 J30.9 ? if allergies are a factor given symptoms for over 1 month and relief with prednisone . Will see if antihistam ine helps. [id number] Tu Valdez MD Main Office [address] [address] [place] [address] 02/01/2020 10:54:44 02/01/2020 13:46:54 Exposure to viral disease 6804642219 54662 Z03.818 Fever 252684500 R50.9 Based on symptoms, comorbidit ies and active pandemic will screen for COVID 19. Pt is currently minimally symptomati c but advised to go to ED with shortness of breath or hypoxia. If testing negative and fever persists will need further eval. [id number] Tu Valdez MD Main Office [address] [address] [place] [address] 04/08/2020 14:01:48 04/08/2020 15:10:54 Adult health examination 117116665 Z00.00 Will update immunizati on status, flu advised in the Fall and Shingrix via local pharmacy. Will screen based on risk factors. Regular dental and ophtho care advised as well as sunscreen and seat belt use. Distracted driving discussed. Cervical, breast and colon cancer screening utd. Advance directives discussed and in place. Generalize d anxiety disorder 49539204 F41.1 Symptoms mild and intermitte nt. Rx refilled, will monitor use. Varicella vaccination 68 111398 Z23 Screening for malignant neoplasm of breast 557296923 Z12.39 Congestive heart failure 23884413 I50.9 Currently compensate d on appropriat e medical regimen. Following with cardiology Bronchiectasis 11001678 J47.9 Following with pulmonary. Gastroesop hageal reflux disease 114029226 K21.9 Symptoms worsening despite 20mg of omeprazole . Will increase to 40mg and arrange GI eval given her history. Stricture of esophagus 32341684 K22.2 Chronic pain syndrome 37 8974218 G89.4 Hypothyroidism 05842803 E03.9 Clinically and biochemica lly euthyroid. Will reassess. Vitamin D deficiency 347 22995 E55.9 Impaired f asting glycemia 922099272 R73.01 Pure hypercholesterolemia 123106450 E78.01 Current 10 yr risk 1.9%, with minimal CAD on 2016 cath. Will follow for now,. Body mass index 25-29 - overweight 008522618 E66.3 Z68.29 [id number] Jillian garcia MD Main Office [address] [place] [address] 05/06/2020 11:22:15 05/06/2020 12:52:37 Irritable bowel syndrome 90113624 K58.9 fiber and adequate fluids. discussed meds for IBS but due to heart issues and possible anticholin ergie effect will hold off for now as, probiotic, small frequent bland meals. Esophageal dysphagia 408 15843 R13.19 pt with hx of strictures , needs to see GI for possible dilation. Small meals, soft foods, chew well. Call if any food impactions or worsening sx. Nausea 514646686 R11.0 lab today, likely related to above [id number] Tu Valdez MD Main Office [address] [address] [place] [address] 06/19/2020 07:58:37 06/20/2020 10:15:30 [id number] Tu Valdez MD [facility] [address] [place] [address] [place] [address] 06/21/2020 08:26:41 06/27/2020 09:26:32 Chronic low back pain 040230839 M54.5 Stable and well controlled with improved level of function on meds. Will continue. Meds refilled x 90 days as per terms of narcotic contract. Nausea and vomiting 1692 1999 R11.2 Question if post procedure narcotic withdrawal was a factor. Improving, continue odansetron . Has GI appt in Aug for this and persistent dysphagia. Continue PPI. Hyperparathyroidism 6699 9008 E21.3 Noted on routine labs. Given history of radiation therapy will ask endo to help with evaluation . [id number] Tu Valdez MD [address] [address] [place] [address] 09/20/2020 09:13:48 09/20/2020 11:07:38 Chronic low back pain 937104693 M54.5 Stable and well controlled with improved level of function on meds. Will continue. Meds refilled x 90 days as per terms of narcotic contract. Acute sinusitis 05657478 J01.90 Symptoms mild x 3 days. Continue supportive tx and knows to start abx and steroids if symptoms progress/p ersist. [id number] Tu Valdez MD [address] [address] [place] [address] 12/20/2020 08:46:20 12/20/2020 13:23:19 Chronic low back pain 552891453 M54.5 Stable and well controlled with improved level of function on meds. Will continue. Meds refilled x 90 days as per terms of narcotic contract. Hypothyroidism 36540879 E03.9 Clinically euthyroid and biochemica lly hypothyroi d. Will reassess since dose decrease. Bronchiectasis 08138319 J47.9 Following with pulmonary. 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 Congestive heart failure 30177996 I50.9 Currently compensate d on appropriat e medical regimen. Following with cardiology [id number] [facility] [address] [facility] [address] [place] [address] 01/28/2021 13:54:23 02/03/2021 10:44:55 Cough 14811051 R05 cont proph abx as per pulm & ID, as well as inhalers and chest physiother apy as dir - concerned about possible [place] pna - will check cxr and labs and cc: to pulm pt already has apptmt gracie pulm for 8:30am tomorrow, so advised pt to go to [facility] to check both cxr and labs -- this will ideally help c her pulm visit tomorrow, and help to keep her out of the hospital *will cc: this note to pulm* Fever 947720426 R50.9 encouraged pt to stay hydrated, take prn tyl Nausea 384121376 R11.0 if no help c edilberto then use prn zofran Counseling 733656598 Z71 .9 Health advice, education or counseling done for COVID 19 pt already had 2 covid vaccinatio ns - last one on 3.3 - has pending covid test from yesterday [id number] [facility] [address] [facility] [address] [place] [address] 03/21/2021 08:34:44 03/21/2021 11:40:11 Chronic low back pain 697537931 M54.5 Stable and well controlled with improved level of function on meds. Will continue. Meds refilled x 90 days as per terms of narcotic contract. Hypercalcemia 40081098 E 83.52 Will request recent endo notes. Likely that active pulmonary process is contributi ng. [id number] Tu Valdez MD Main Office [address] [facility] [address] [place] [address] 04/15/2021 08:30:57 04/15/2021 09:26:58 Adult health examination 408898961 Z00.00 Will update immunizati on status, flu [...] endo to help with evaluation . Osteopenia 470065072 M85 .80 Regular weigh bearing exercise and adequate dietary Ca/Vit D intake advised. Due for follow up bone density Body mass index 25-29 - overweight 458654853 E66.3 Z68.27 Screening for malignant neoplasm of breast 966482215 Z12.39 Varicella vaccination 68 650886 Z23 Chronic ki dney disease stage 3A 790953048 N18.31 On ARB with good BP control. Will monitor. Impaired f asting glycemia 559720006 R73.01 Will monitor. Pure hypercholesterolemia 219035341 E78.01 Current 10 yr risk 1.9%, with minimal CAD on 2016 cath. Will follow for now,. [id number] Tu Valdez MD Main Office [address] [facility] [address] [place] [address] 06/19/2021 11:18:44 06/19/2021 12:31:11 Chronic low back pain 869410735 M54.5 Stable and well controlled with improved level of function on meds. Will continue. Meds refilled x 90 days as per terms of narcotic contract. Anxiety state 964843725 F41.1 Using appropriat dayami. Will monitor use. Benzo contract in place. Mammography abnormal 168 167962 R92.8 Has biopsy scheduled on 06/24, advised to call with any problems throughout the process. Nausea 987864849 R11.0 Likely from daily azithro. Working with ID and pulm to find appropriat e/tolerabl e regimen. [id number] Tu Valdez MD Main Office [address] [facility] [address] [place] [address] 07/17/2021 14:04:12 07/17/2021 15:13:14 Pre-surgery evaluation 075294567 Z01.818 Cruz CV risk score is 0.05%. Patient is at high risk for cardiopulm onary complicati ons with planned procedure based on comorbidit ies.? ? ? Has had pulmonary clearance with cardiology appt next week. Pt advised to avoid aspirin and NSAIDS for 7 days prior.? ? ? Medically stable/latha ared to proceed with surgery as planned pending formal cardiac clearance. 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 Postoperative pain 63325 9007 G89.18 Pt will continue her current regimen. Once surgery is scheduled I will send in a 2 week supply of 10/325mg oxycodone/ APAP to accommodat e post op pain. Chronic constipation 236 105456 K59.09 Advised to increase fluid/fibe r intake. Will resume senna and continue Miralax. Anemia 177265732 D64.9 Measured on 07/02 during ED eval. Has been stable. Will reassess and screen for nutritiona l deficienci es. Needs infl uenza immunization 731721177 Z23 Congestive heart failure 21554853 I50.9 Currently compensate d on appropriat e medical regimen. Following with cardiology , and has appt next week. Prediabetes 119645540 R7 3.03 [id number] Tu Valdez MD Main Office [address] [facility] [address] [place] [address] 09/16/2021 11:28:40 09/16/2021 12:13:19 Chronic low back pain 882461843 M54.50 Stable and well controlled with improved level of function on meds. Will continue. Meds refilled x 90 days per terms of narcotic contract. 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 Chemo plan has been coordinate d with cardiology and pulmonary. Being followed very closely by all specialist s. Will request/mo sepideh hansen. Generalize d anxiety disorder 82523240 F41.1 Symptoms mild and intermitte nt. Rx refilled, will monitor use. [id number] Tony Fine MD [facility] [address] [facility] [place] [address] 10/01/2021 08:12:08 10/01/2021 10:23:23 Acute pharyngitis 644256101 J02.9 laryngitis resolving after prednisone . Asthma-chr onic obstructive pulmonary disease overlap syndrome 3352514667 2879559 J44.9 Chronic ki dney disease stage 3A 119392896 N18.31 Fibrosis of lung 1540418 1 J84.10 [place] H eart Association Classification - Class III 539791948 I50.9 Bronchiectasis 79537316 J47.9 [id number] Tu Valdez MD Main Office [address] [facility] [address] [place] [address] 12/16/2021 13:36:31 12/16/2021 14:15:03 Chronic low back pain 631288720 M54.50 Stable and well controlled with improved level of function on meds. Will continue. Meds refilled x 90 days per terms of narcotic contract. Infiltrati ng duct carcinoma of breast 689065101 C50.919 s/p mastectomy and proceeding with chemo for triple negative disease. Chemo plan has been coordinate d with cardiology and pulmonary. Being followed very closely by all specialist s. Will request/mo nitor correspond ence. [id number] [facility] [address] [place] [address] 03/13/2022 09:43:13 03/16/2022 11:08:48 Chronic pain syndrome 787025202 G89.4 Chronic/st able. Will renew/main tain on currently effective regimen. Chronic hoarseness 36484 22628 105 R49.0 Needs ENT f/u to consider laryngosco py. Could be related to asthma/[employer] D vs candidiasi s vs cancer history/ erapy. Lumbar radiculopathy 128 915058 M54.16 Symptoms stable/wel l controlled on current narcotic regimen. Candidiasi s of the esophagus 18602411 B37.81 Has been treated. Will see what ENT eval shows. Hypercalcemia 62131875 E 83.52 Will request recent endo notes. Likely that active pulmonary process is contributi ng. Infiltrati ng duct carcinoma of breast 252251086 C50.919 s/p mastectomy and proceeding with chemo for triple negative disease. Chemo plan has been coordinate d with cardiology and pulmonary. Being followed very closely by all medical oncology given intoleranc e to chemo. Scheduled for port removal in March. Anemia due to unknown mechanism 33699884 D64.9 Will monitor off of chemo and screen for nutritonal deficienci es. Chronic ki dney disease stage 3A 402220853 N18.31 On ARB with good BP control. Will monitor. Hypothyroidism 77590811 E03.9 Clinically euthyroid and biochemica lly hypothyroi d. Will reassess since dose decrease. [id number] Tu Valdez MD Main Office [address] [facility] [address] [place] [address] 04/30/2022 10:16:57 04/30/2022 11:12:38 Adult health examination 057551961 Z00.00 Will update immunizati on status, flu advised in the Fall and Shingrix via local pharmacy. Will screen based on risk factors. Regular dental and ophtho care advised as well as sunscreen and seat belt use. Distracted driving discussed. Cervical, breast and colon cancer screening utd. Advance directives discussed and in place. Anxiety state 611761825 F41.1 Using appropriat dayami. Will monitor use. Benzo contract in place. Pure hypercholesterolemia 988126329 E78.01 Current 10 yr risk 3.2%, with minimal CAD on 2016 cath. Will follow for now,. Prediabetes 623525598 R7 3.03 Will monitor. Varicella vaccination 68 082432 Z23 Generalize d anxiety disorder 80306429 F41.1 Symptoms mild and intermitte nt. Rx refilled, will monitor use. Lumbar radiculopathy 128 388665 M54.16 Symptoms worsening but left sided and MRI showing more significan t right sided disease. Will refer to pain mgmt/PMR if persistent /worse depending on what today's PET scan shows. Infiltrati ng duct carcinoma of breast 126552394 C50.919 s/p mastectomy and proceeding with chemo for triple negative disease. Did not tolerate chemo, and recent spine MRI shows question of mets. Having PET scan today which will likely guide further treatment/ evaluation . Hyperparathyroidism 6699 9008 E21.3 Noted on routine labs. Given history of radiation therapy will ask endo to help with evaluation . Asthma-chr onic obstructive pulmonary disease overlap syndrome 3117414207 3506814 J44.9 Well controlled currently and following with pulm. [place] H eart Association Classification - Class III 794725051 I50.9 Compensate d and well controlled currently. Followed/m anaged by cardiology . Fibrosis of lung 9352116 1 J84.10 [id number] Tu Valdez MD Main Office [address] [facility] [address] [place] [address] 06/09/2022 09:11:53 06/09/2022 10:00:29 Chronic low back pain 980960504 M54.50 Stable and well controlled with improved level of function on meds. Will continue. Meds refilled x 90 days per terms of narcotic contract. Lumbar radiculopathy 128 641551 M54.16 Symptoms stable and more left sided with MRI showing more significan t right sided disease. Consider PMR referral if worsening. Constipation 35957648 K5 9.00 Well controlled with stool softener and Senna. Will call with any problems. Lesion of lumbar spine 120735389 M99.9 L3 lesion was seen, but PET scan was negative. Back pain is currently well controlled . Consider f/u MRI or other spinal imaging in 3-6 months. [id number] GAGAN RUIZ MD Main Office [address] [facility] [address] [place] [address] 07/14/2022 10:45:49 07/14/2022 11:46:13 Chronic low back pain 691042555 M54.50 - acute on chronic lower back [...] like to hold off at this time. [id number] Tu Valdez MD Main Office [address] [address] [place] [address] 08/31/2022 10:21:37 08/31/2022 15:05:01 [id number] Tu Valdez MD [facility] [address] [place] [address] [place] [address] 09/04/2022 08:39:49 09/04/2022 15:17:19 Lumbar radiculopathy 124264927 M54.16 Symptoms worsening and MRI pending. Consider PMR vs neurosurg referral depending on results. Try adding low dose gabapentin in meantime. Acute kidn ey injury due to hypovolemia 395828961 E86.1 GI symptoms resolved, will reassess renal function. [id number] Tu Valdez MD [facility] [address] [facility] [address] [place] [address] 12/04/2022 08:12:46 12/04/2022 15:40:49 Chronic low back pain 851544174 M54.50 Stable and well controlled with improved level of function on meds. Will continue. Meds refilled x 90 days per terms of narcotic contract. Lumbar radiculopathy 128 719613 M54.16 Symptoms worsening and MRI pending. Consider PMR vs neurosurg referral depending on results. Try adding low dose gabapentin in meantime. Hypercalcemia 56612030 E 83.52 Had labs done last month by endo. Pt has referral in place for considerat ion of parathyroi dectomy. [id number] Tony Fine MD [facility] [address] [place] [address] 02/04/2023 10:34:40 02/04/2023 13:04:57 Viral syndrome 723720389 B34.9 We spoke about blood work specifical ly looking at mono but decided against this since the dx is highly unlikely given her age and lack of sore throat, She will take aleve on a regular basis and rest, fluids and continue to check COVID. [id number] Jesus Franklin MD [facility] [address] [place] [address] 02/08/2023 08:57:42 02/08/2023 09:55:11 Seasonal allergic rhinitis 707293944 J30.2 Symptoms likely related to seasonal allergy. Recommend to switch from claritin to fexofenadi ne 180 mg daily, continue flonase and asthma treatments with nebulizer every 4-6 hrs. If spike fever again , have CBC done. Exposure t o viral disease 0048580648 11373 Z20.828 [id number] Tu Valdez MD Main Office [address] [place] [address] 03/08/2023 09:59:53 03/08/2023 10:45:52 Chronic pain syndrome 251930982 G89.4 Chronic/st able. Will renew/main tain on currently effective regimen. Hypercalcemia 44893870 E 83.52 Had labs done last month by endo. Pt has referral in place for considerat ion of parathyroi dectomy. Lumbar radiculopathy 128 452001 M54.16 Symptoms worsening and MRI pending. Consider PMR vs neurosurg referral depending on results. No long. Chronic ki dney disease stage 3A 810363301 N18.31 On ARB with good BP control. Will monitor. Congestive heart failure 79747014 I50.9 Currently compensate d on appropriat e medical regimen. Following with cardiology , and has appt next week. Hyperparathyroidism 66[address] Bazan, appt with Dr. Taylor postponed with recent acute illness. [id number] Tu Valdez MD [facility] [address] [address] [place] [address] 04/27/2023 09:31:09 04/27/2023 16:40:43 [id number] Tu Valdez MD Main Office [address] [address] [place] [address] 05/03/2023 09:51:21 05/03/2023 11:12:19 [id number] Tu Valdez MD Main Office [address] [address] [place] [address] 06/15/2023 10:47:41 06/15/2023 11:41:52 Chronic kidney disease stage 3A 053591572 N18.31 On ARB with good BP control. Will monitor. Chronic low back pain 27 6844785 M54.50 Stable and well controlled with improved level of function on meds. Will continue. Meds refilled x 90 days per terms of narcotic contract. Lumbar radiculopathy 128 621186 M54.16 Symptoms worsening and MRI pending. Consider PMR vs neurosurg referral depending on results. No long. Influenza vaccine needed 8445514306 106 Z23 Asplenia 114488609 Q89.0 1 Due for meningitis booster as well as RSV and Shingrix. [id number] Tu Valdez MD Main Office [address] [address] [place] [address] 08/05/2023 10:17:28 08/05/2023 12:03:00 Adult health examination 073775190 Z00.00 RSV, Shingrix, and PCV20 advised via local pharmacy. Will screen based on risk factors. Regular dental and ophtho care advised as well as sunscreen and seat belt use. Distracted driving discussed. Cervical, breast and colon cancer screening utd. Advance directives discussed and in place. Moderate c hronic obstructive pulmonary disease 819586416 J44.9 Well controlled , following with pulmonary. Constipation 91322235 K5 9.00 Well controlled with stool softener and Senna. Will call with any problems. Gastroesop hageal reflux disease 281131782 K21.9 Symptoms worsening despite 20mg of omeprazole . Will increase to 40mg and arrange GI eval given her history. Anemia 975421779 D64.9 Measured on 07/02 during ED eval. Has been stable. Will reassess and screen for nutritiona l deficienci es. Asplenia 629947146 Q89.0 1 Due for meningitis booster as well as RSV and Shingrix. Congestive heart failure 70884013 I50.9 Currently compensate d on appropriat e medical regimen. Following with cardiology , and has appt next week. Generalize d anxiety disorder 67816839 F41.1 Symptoms mild and intermitte nt. Rx refilled, will monitor use. Hypercalcemia 15604350 E 83.52 Recent labs showed normalizat ion Hyperparathyroidism [address] Bazan, appt with Dr. Taylor postponed with recent acute illness. Iron defic iency anemia 52681261 D50.9 Prediabetes 792177946 R7 3.03 Will monitor. Pure hypercholesterolemia 463188778 E78.01 Current 10 yr risk 2.5%, with minimal CAD on 2016 cath. Will follow for now,. Screening for malignant neoplasm of colon 523414358 Z12.11 Due in 04/2024 for f/u colon Fibrosis of lung 1808057 1 J84.10 Symptoms stable, following with Dr. Whitman. Administra tion of pneumococcal vaccine 03807779 Z23 Body mass index 25-29 - overweight 698416142 E66.3 Z68.26 Strain of neck muscle 36 7325623 S16.1XXA Call inb/worse. History of bilateral mastectomy 998961167 Z90.13 History of malignant neoplasm of breast 281371061 Z85.3 s/p b/l mastectomy [id number] Tu Valdez MD Tele[facility] 36[address] [facility] [address] [facility] [place] [address] 09/03/2023 08:25:36 09/03/2023 09:24:15 Lumbar radiculopathy 319044413 M54.16 Symptoms worsening and MRI pending. Consider PMR vs neurosurg referral depending on results. No long. Chronic low back pain 27 3153004 M54.50 Stable and well controlled with improved level of function on meds. Will continue. Meds refilled x 90 days per terms of narcotic contract. [id number] Tony Fine MD Main Office 36[address] [facility] [address] [place] [address] 10/05/2023 11:32:46 10/05/2023 12:09:20 Abdominal pain 58359960 R10.9 LUQ pain but tender to palp [...] add lactulose- stop gavilax for now. Constipation 59908862 K5 9.00 Wheeze - rhonchi 2547745 1 R09.89 just finished doxy 2 weeks ago and sx re-started this wekeend, does not do well on prednsione , will tx with zpak, she has a call in to [facility] as well. [id number] Tu Valdez MD Main Office [address] [facility] [address] [facility] [place] [address] 12/06/2023 10:02:38 12/06/2023 10:45:24 Chronic low back pain 769132235 M54.50 Stable and well controlled with improved level of function on meds. Will continue. Meds refilled x 90 days per terms of narcotic contract. Prediabetes 932840279 R7 3.03 Will monitor. Anemia 428748157 D64.9 Stable and likely related to chronic disease. Will monitor. Lumbar radiculopathy 128 959673 M54.16 Symptoms stable and well controlled on current regimen. Will continue. Hyperparathyroidism 66[address] Bazan, appt with Dr. Taylor postponed with recent acute illness. Allergy 947192303 Z91.09 [id number] Tu Valdez MD Main Office [address] [facility] [address] [place] [address] 12/16/2023 08:53:50 12/20/2023 10:59:11 [id number] [facility] [facility] [address] [place] [address] 12/17/2023 12:57:10 12/17/2023 14:10:20 Right lower zone pneumonia 430725517 J18.1 Clinically improving. Will complete course of cefpodoxin e and doxy. Will confirm CBC stability and hopefully improvemen t. Pleural effusion 3696401 8 J90 Needs follow up imaging in 4-5 weeks to confirm resolution Acute vaginitis 82599111 N76.0 Will cover for likely candidiasi s based on recent abx and risk factors. Administra tion of viral vaccine 87617430 Z23 Due for meningitis booster and pneumococc al booster given her risk factors/co morbiditie s. Asplenia 124929867 Q89.0 1 Due for meningitis booster and pneumococc al booster given her risk factors/co morbiditie s. Hypophosphatemia 4178374 E83.39 Will reassess following repletion at hospital discharge. Bronchiectasis 08496394 J47.9 Following with pulmonary. [id number] Tu Valdez MD Main Office [address] [facility] [address] [place] [address] 03/06/2024 10:02:59 03/06/2024 10:43:45 Chronic low back pain 674600970 M54.50 Stable and well controlled with improved level of function on meds. Will continue. Meds refilled x 90 days per terms of narcotic contract. Anemia 320861555 D64.9 Stable and likely related to chronic disease. Will monitor., has labs pending. Chronic pain syndrome 37 9414219 G89.4 Chronic/st able. Will renew/main tain on currently effective regimen. Lumbar radiculopathy 128 658108 M54.16 Symptoms stable and well controlled on current regimen. Will continue. [id number] Tu Valdez MD [facility] 36[address] [facility] [address] [place] [address] 04/25/2024 14:18:16 04/26/2024 08:36:39 Fall from stairs 589742488 W10.9XXA accident going downstairs c laundry basket in hand, bounced down last 4 stairs - didn't go to ER, didn't want to wait - will check xrays - jorge to r/o vcfmeanwhi le, cont moist heat, prn percocet (already has), cont hep, but add ibu 200mg 2-3 tabs 3x/day c food x several days Pain of le ft shoulder joint 0385807618 4252549 M25.512 accident going downstairs c laundry basket in hand, bounced down last 4 stairs - didn't go to ER, didn't want to wait - will check xrays - jorge to r/o vcfmeanwhi le, cont moist heat, prn percocet (already has), cont hep, but add ibu 200mg 2-3 tabs 3x/day c food x several days Thoracic back pain 93933 8004 M54.6 Low back pain 396385126 M54.50 [id number] Tu Valdez MD Main Office [address] [facility] [address] [place] [address] 05/18/2024 08:39:29 05/18/2024 09:40:22 Pain of left shoulder joint 3825981192 4673157 M25.512 accident going downstairs c laundry basket in hand, bounced down last 4 stairs - didn't go to ER, didn't want to wait - will check xrays - jorge to r/o vcfmeanwhi le, cont moist heat, prn percocet (already has), cont hep, but add ibu 200mg 2-3 tabs 3x/day c food x several days Thoracic back pain 11505 8004 M54.6 found to have T4 vcf - seen by IR - rev in pvix - had fluoroscop y & bone scan & just had ct scan this am Fall from stairs 7121867 02 W10.9XXA accident going downstairs c laundry [...] below History of malignant neoplasm of breast 006563113 Z85.3 stable, cont f/u c hem/onc and breast sx Paresthesi a of upper limb 51517978 R20.2 L forearm in C6 distributi on - no obvious fx in this cervical region noted on bone scan - so ? has some form of impingemen t d/t L shoulder pain above - will get pmr evalrec moist heat, hep [id number] Tu Valdez MD Main Office [address] [place] [address] 2024 10:50:43 2024 11:26:50 Chronic pain syndrome 526534791 G89.4 Chronic/st able. Will renew/main tain on currently effective regimen. Lumbar radiculopathy 128 605850 M54.16 Symptoms stable and well controlled on updated dosing needed in context of recent vertebral fracture. Compressio n fracture of thoracic spine 915238018 S22.000S Having CT scan and f/u with Dr. Sherwood in upcoming weeks. Multiple n odules of lung 233733765 R91.8 Being followed by pulmonary, but insurance is balking at f/u imaging orders. Pt advised to d/w Dr Stallings and let me know if there is anything I can do to help with the process. [id number] Tu Valdez MD Main Office [address] [facility] [address] [place] [address] 08/11/2024 09:30:29 08/11/2024 10:22:37 Adult health examination 809409086 Z00.00 Shingrix, and MCV advised via local pharmacy, will need PCV in 2025. Will screen based on risk factors. Regular dental and ophtho care advised as well as sunscreen and seat belt use. Distracted driving discussed. Cervical, breast and colon cancer screening utd. Advance directives discussed and in place. Body mass index 25-29 - overweight 987031184 E66.3 Z68.25 Hypercalcemia 26506670 E 83.52 Recent labs showed normalizat ion, following with endo because of hyperparat hyroidism. Moderate c hronic obstructive pulmonary disease 632616088 J44.9 Well controlled , following with pulmonary. Constipation 72223602 K5 9.00 Well controlled with stool softener and Senna. Will call with any problems. Gastroesop hageal reflux disease 372244943 K21.9 Well controlled without warning signs. Continue current regimen. Anemia 517916376 D64.9 Has been stable. Will reassess and screen for nutritiona l deficienci es. Asplenia 393552238 Q89.0 1 Due for meningitis booster Congestive heart failure 62785152 I50.9 Currently compensate d on appropriat e medical regimen. Following with cardiology , and has appt next week. Generalize d anxiety disorder 14914469 F41.1 Symptoms mild and intermitte nt. Rx refilled, will monitor use. Hyperparathyroidism 6699 [address] Bazan, appt with Dr. Taylor postponed with recent acute illness. Prediabetes 185700779 R7 3.03 Will monitor. Pure hypercholesterolemia 621920861 E78.01 Current 10 yr risk 2.5%, with minimal CAD on 2016 cath. Will follow for now,. Fibrosis of lung 2792023 1 J84.10 Symptoms stable, following with Dr. Stallings Strain of neck muscle 36 2133169 S16.1XXA Will try PT for this and general core strengthen ing. Screening for malignant neoplasm of colon 322109578 Z12.11 Overdue but scheduled in Oct. 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 [place] H eart Association Classification - Class III 047204813 I50.9 Compensate d and well controlled currently. Followed/m anaged by cardiology . Moderate asthma 96657787 9 J45.40 Well controlled and managed via Dr. Stallings. Lumbar radiculopathy 128 358892 M54.16 Symptoms stable and well controlled on updated dosing needed in context of recent vertebral fracture. Compressio n fracture of thoracic spine 818584902 S22.000S Did not qualify for vertebropl asty, and working with endo for osteoporos is. Will try PT for core strengthen ing. Malignant neoplasm of breast in remission 7438633459 [address] Lopez. [id number] Tony Fine MD Main Office [address] [facility] [address] [place] [address] 09/15/2024 13:11:37 09/15/2024 14:03:22 Abdominal pain 16186466 R10.9 This may be related to her IBS but given her h/o abdominal surgeries a partial bowel obstructio n is a possibilit y. Also given the location must consider diverticul itis. Will check labs and get a CT scan. She will go to the ER if her symptoms worsen. [id number] Tu Valdez MD [facility] [address] [facility] [address] [place] [address] 11/17/2024 14:41:24 11/17/2024 16:05:35 Lumbar radiculopathy 832381259 M54.16 Symptoms stable and well controlled on updated dosing needed in context of recent vertebral fracture. 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 Has appt with oncology and colorectal surgery to guide mgmt moving forward. [id number] GAGAN RUIZ MD Main Office [address] [facility] [address] [place] [address] 01/13/2025 10:48:32 01/13/2025 11:17:44 Asthma-chronic obstructive pulmonary disease overlap syndrome 7799665103 6053540 J44.9 - c/w albuterol HFA as needed- c/w spiriva 2 puff QD- c/w wixela 1 puff BID- pt follows with pulm, no change in regimen Fibrosis of lung 8993296 1 J84.10 - pt follows with pulm 11/24/2024 Atypical mycobacterial infection 709037723 A31.9 - c/w azithromyc in 500mg TID for treatment of MAC- in pulm note from 11/18 does mention to take doxy as needed Expiratory wheezing 9763 007 R06.2 - heard on exam- due to patient's history and upcoming surgery will provide patient with doxycline 100mg BID- will provide clearance note for surgery if needed [id number] Tu Valdez MD Main Office [address] [place] [address] 01/29/2025 10:06:59 01/29/2025 12:46:18 Health Concerns Section Related Observation LastModified by Organization Detai ls LastModified Time None Recorded Concern Status LastModified by Organization Details LastModified Time None Recorded Advance Directives Directive Y: HCP/ [employer] Payers Encounter Date Sequence Insurance Name Policy Number Policy Kirk Covered Member ID Kirk Member ID Guarantor Name 08/11/2024 1 [employer] - [place] ([place]) [id number] Paula L Shadi [id number] Paula L Shadi 08/11/2024 2 [place] Paula L Shadi [id number] Paula L Shadi 09/15/2024 1 [employer] [place]) [id number] Paula L Shadi [id number] Paula L Shadi 09/15/2024 2 [place] Paula L Shadi [id number] Paula L Shadi 11/17/2024 1 [employer] [place] [id number] Paula L Shadi [id number] Paula L Shadi 11/17/2024 2 [place] Paula L Shadi [id number] Paula L Shadi 01/13/2025 1 [employer] [place] [id number] Paula L Shadi [id number] Paula L Shadi 01/13/2025 2 [place] Paula L Shadi [id number] Paula L Shadi 01/29/2025 1 [employer] [place] [id number] Paula L Shadi [id number] Paula L Shadi 01/29/2025 2 [place] Paula L Shadi [id number] Paula L Shadi Notes Date Note Type Note Provider Name and Address Organization Details Recorded Time 08/11/2024 text/html Generic HPI TemplateReported bypatient.Notes:Here for physical. Feels well. Seeing dentist and ophtho regularly. Tu Valdez MD [address], [place], [address], [facility] 08/11/2024 10:27:33 09/15/2024 text/html Has chronic abdo [...] including a splenectomy. Tony Fine MD [address] [facility] [address], [place], [address], [facility] 09/15/2024 14:14:49 11/17/2024 text/html Abdominal PainRe ported bypatient.Location:[facility] Severity:moderate Duration:intermittent Onset/Timing:wax/wane Associated Symptoms:no fever; no [...] chronic lung disease/bronchiectasis and CHF. 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 Tu Valdez MD [address] [facility] [address], [place], [address], [facility] 11/22/2024 20:57:17 01/13/2025 text/html Upper Respirator y SymptomsReported bypatient.Location:[facility] Severity:mild Duration:started on 01/12 Onset/Timing:sudden Context:no sick contacts; no foreign travel; non-smoker Associated Symptoms:no sputum production; no shortness of breath; no change in number of pillows needed to sleep at night; no sweats; no fever; no significant weight gain; no significant weight loss; no morning cough; no sore throat; no vomiting; no diarrhea; no rash; no nausea;wheezing Paula Hsu is a 64 year old F who presents to the clinic for concerns of wheezing. Pt has a complex pulmonary history for which she follows closely with Dr. Stallings. She mentions that when starts having these symptoms she will start a course of doxycline. Paula has tried calling Dr. Stallings however got the on-call provider who would not provide the antibiotic. Pt mentions she has noted symptoms yesterday evening (01/12). Does mention that after 24-48 hours of the antibiotic symptoms usually improve. Please note patient is having surgery on Wednesday. GAGAN RUIZ MD [address], [address], [facility] 01/13/2025 13:31:02 01/29/2025 text/html Hospitalization Contact RecordReported bypatient.[facility]; admit date: (Please enter in format 'MM/DD/YYYY') (01/17/25); date of discharge: (Please enter in format 'MM/DD/YYYY') (01/27/25); date of contact: (Please enter in format 'MM/DD/YYYY') (01/29/25)Notes:Medica re covered inpatient stay? no - [employer] planTOC [...] adenocarcinoma.-She underwent neoadjuvant immunotherapy and presented to [facility] 01/17 for elective oncologic resection.She underwent R [...] was weaned off as able.-Due to persistent tachycardia/palpitatio n, was evaluated by cardiology who deemed tachycardia to be due to bisoprolol withdrawal, which had been held the acute period. This was re-started with good effect There were no additional recommendations other than follow up with her home heart failure specialist as outpatient-underwent [facility] teaching with nursing.-Her surgical follow w/ staple removal appointment was scheduled for 02/01 and post op follow up for 02/22.On hospital day # 10, patient d/c home in care of family. No home services ordered 01/29/25 - CM f/u call to patient. Chhaya [...] to see what her orders are. Tu Valdez MD [address] [address], [place], [address], [facility] 01/29/2025 12:46:17 OBGyn Episode No OBEpisode recorded.
== END 2025-02-02 09:33 | disposition home or self-care (01) ==
LOC: HO.HPS 09:03
PROVIDERS: PCP Pediatrics; Visit Provider Hospitalist
DX: J18.9 Pneumonia, unspecified organism (principal); R91.8 Other nonspecific abnormal finding of lung field; J47.9 Bronchiectasis, uncomplicated; I27.20 Pulmonary hypertension, unspecified; I42.9 Cardiomyopathy, unspecified; C18.6 Malignant neoplasm of descending colon
CPT/HCPCS: 99215

== ENCOUNTER → 2025-02-02 10:22 | Outpatient (BNV) | payer OTHER, MEDICAID, SELFPAY | PROVIDERS: PCP Pediatrics; Visit Provider Radiology Diagnostic Radiology | DX: J84.9 Interstitial pulmonary disease, unspecified (principal) | CPT/HCPCS: 71046 ==

== ENCOUNTER 2025-02-28 09:50 | Outpatient (AMB) | payer OTHER, MEDICAID, SELFPAY ==
[2025-02-28 09:55] VITALS: BP 100/48; PULSE 82; O2SAT 100; BMI 23.0
--- NOTE | 2025-02-28 09:55 | MHC.OFFVIS ---
Vital Signs 02/28/25 09:55 Height 5 ft 3 in Weight 130 lb 1.164 oz BMI 23.0 BP 100/48 L Blood Pressure Location Lt brachial Position Sitting Pulse 82 Pulse Source Pulse Oximeter Pulse Oximetry (%) 100 Oxygen Delivery Method Room Air Intake Visit Reasons: Bronchiectasis Merchandise Coordinator Required: No Accompanied by: Self / Same As Patient Allergies prochlorperazine [From Compazine] Allergy (Severe, Verified 02/28/25 10:03) Agitated clarithromycin [CLARITHROMYCIN] Allergy (Intermediate, Verified 02/28/25 10:03) RASH codeine [CODEINE] Allergy (Intermediate, Verified 02/28/25 10:03) STOMACH PAIN- GI UPSET naproxen [NAPROXEN] Allergy (Intermediate, Verified 02/28/25 10:03) GI PAIN, DIARRHEA Sulfa (Sulfonamide Antibiotics) [SULFA (SULFONAMIDE ANTIBIOTICS)] Allergy (Intermediate, Verified 02/28/25 10:03) RASH sulfamethoxazole [From BACTRIM] Allergy (Intermediate, Verified 02/28/25 10:03) RASH trimethoprim [From BACTRIM] Allergy (Intermediate, Verified 02/28/25 10:03) RASH HPI Comments Details: The patient is a 64-year-old woman with a known history of breast cancer, 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 Also has underlying bronchiectasis and nonischemic cardiomyopathy likely related to her chemo radiation. She currently has been doing very well. Until recently when she started noticing worsening shortness of breath. She also has some hoarseness. Also some raspiness of her voice. [id number] severity. Started noticing increasing shortness of breath. Has been using her inhaler with good effect. Has not use her nebulizer although it may help her expectorate better with the nebulized therapy. We talked also using hypertonic saline as a way of minimizing medications. We did go for brief walking oximetry in the patient was able to maintain a pulse ox between 94-96%. Heart rate stayed below 100. She was increasing to get more winded. Her Cumberland score is elevated 09/26. At this point based on a daytime drowsiness her cardiac history and her elevated Cumberland score the patient will also undergo a sleep study. 01/26/2024 the patient is here for hospital follow-up visit. She was in his usual state health until beginning of the month when she started developing worsening shortness of breath will addition to other constitutional symptoms including abdominal pain and nausea. The patient was brought to the [facility] ER where she was evaluated. She did have a CT scan of the abdomen which I personally reviewed. It appeared that she had a consolidation right lower lobe with small trace pleural effusion. Otherwise limited due to the lung cuts on the abdominal CT scan. She was placed on antibiotics and subsequently discharged. She has been feeling better. Although since she stopped the antibiotics she does feel that she is tired again and having some raspiness of voice. Subsequently, the patient had a formal CT scan when s not need aggressive shshe was discharged about a week ago. I personally reviewed the CT scan to. It appears that the right lower lobe consolidation and the pleural effusion has significantly improved. She still has some residual changes though. In addition to that she also has some nodular changes. Chronic blunting changes noted. It is reassuring overall that her CT scan looks a lot better. Unfortunately the CT scan of the chest was not compared to the CT scan of the abdomen on the actual for more we know mentioned about the significant improvement. 04/18/2024 this is a telehealth visit. The patient started developing worsening cough in addition to fevers and chills. She became concerned. She did call the office on Wednesday of last week. We have no availability so she went to an urgent care [facility]. There she did have a chest x-ray which I personally reviewed without any acute disease. Although she does have chronic airway disease. The patient was given a course of doxycycline which she completed. And then in the urgent care she got a Z-Zackary. Now she is feeling little better. She also use prednisone and they did give her a high dose starting at 60 mg and she has having significant symptoms with palpitations and insomnia so she only took 20 mg this morning. Seems like she is doing better overall. Will go ahead and continue the 20 mg for another pretty 4 days. She is also going to go back on azithromycin 3 times a week. We did review her last CT scan was back in 01/22/2024 with increasing airspace disease and pneumonia. She also has underlying pulmonary nodules. In view of her worsening disease will go ahead and repeat her chest CT scan in June. If she has any worsening symptoms she will call may have to consider getting the CT scan sooner. But I am hopeful that with the medication changes and adjustments she will be okay. In addition to that she needs to go back on the Advair HFA. The patient can not tolerate powdered inhalers because it causes thrush and also hoarseness. She also has a cardiac history so therefore the Advair HFA works very well for her cardiac disease. She has been on it for many years in his work well in view of her comorbidities a rather not change it to anything else either. The patient is adamant she wants to stay on that inhaler as well. Therefore will send to the pharmacy and will perform a PA. 06/19/2024 the patient is here for pulmonary follow-up visit. Since we last spoke the patient did have a fall injuring her back. Mainly the thoracic vertebral body. She did have evaluation by pain management. She was found to have a shattered T4 vertebral body. Was initially recommended she undergo kyphoplasty. Although she was referred to Neurosurgery since appeared to be in a difficult place. She has been having some back pain also some neck discomfort. Prior to that she was having some hyper paresthesias. Seems that she has had some improvement. She continues on pain medications however. She was wondering if she should just let it be. I did emphasize that she needs to follow-up with Neurosurgery and request her recommendation is this may need some interventions specially since his abutting the spinal cord based on my evaluation. As far as her pulmonary nodules could not be well visualized on her CT scan of the thorax. However, what I was able to see that the airways were stable and did and see any significant worsening of disease on the limited lung windows. The patient appears to have significant amount of musculoskeletal issues going on right now in therefore will hold off on any additional imaging studies of the pulmonary nodules at this time. We had requested when before but was denied by the insurance company. Her last CT scan was back in 01/22/2024 which demonstrated some new findings in the right lower lobe area. Therefore will go ahead and request a repeat CT scan in the next 3-4 months and review. Hopefully by then her back issues have resolved. Respiratory was the patient is doing well, and is not requiring aggressive chest PT. Chest congestion is also stable. If the patient develops any worsening symptoms she will call. Otherwise will have a repeat CT scan the next 3-4 months and will follow-up sometime after that. If she has any issues or concerns she can always call for an earlier assessment. 11/24/2024 the patient is here for a pulmonary follow-up visit. Since we last spoke she was having abdominal discomfort and recently underwent a colonoscopy demonstrating what appears to be a colon cancer. She had had a CT scan of the abdomen prior and it was not visualized. Now after the fact she had a repeat CT scan of the abdomen that did see something that area. 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 She did follow-up with Oncology also surgery. Seems like they want to try immunotherapy 1st and then have her undergo surgery. From a respiratory status she has been noticing increasing chest congestion. She had stopped the azithromycin for some time and she did restarted recently. And will go ahead and place on doxycycline just to cover all the bases specially if she is going to need surgery. I did review her CT scan of the chest which was personally by me done in 11/23/2024 and also the 1 she had in October. They just show chronic changes but her lower bases appeared to be clear. No evidence of any active airspace disease. She will continue with respiratory medications and I will make sure to send to the pharmacy and she will take the course of antibiotics as prescribed. She may need a preoperative evaluation. But at this point she is able to proceed with surgery and anesthesia from a pulmonary standpoint. She does have increased perioperative pulmonary complications which includes atelectasis, hypoxia, pneumonia, bronchospasms. However, the patient is medically optimized at this time. 02/02/2025 the patient is here for hospital follow-up visit. She went in for elective surgery for colon cancer. Prior to going to the hospital she did develop worsening cough and she was started on doxycycline. She went ahead and had her surgery. It was prolonged surgery lasting about 7 hours due to the significant amount of adhesions. Surgery with success she was able to remove all the cancer and no evidence of any extension of the cancer noted. I do not have those details is all per patient report. The patient postoperatively has some issues with her breathing. She developed respiratory distress. She had a CTA which I personally reviewed demonstrating extensive airspace disease bilaterally right more than left likely from an aspiration event and she had an NG tube in place. She subsequently had to be intubated for respiratory failure was admitted to the ICU briefly. She was able to be liberated from the ventilator. Post liberation CT scan demonstrated significant airspace disease although significant improvement also bilateral pleural effusions. It was also noted that hemoglobin had dropped significantly. The lowest that I saw basal 7.1. Upon discharge it was 7.3. The patient is very dyspneic. She feels that she has significant shortness of breath and dyspnea with minimal activity. She has a hard time standing. She has been working on the inside spirometer and also the Acapella valve. Her respiratory exam is actually reassuring. And I did visualize both CT scans demonstrating significant airspace disease but significant improvement. She did have significant bilateral pleural effusions likely from 3rd spacing from her very prolonged surgery. During the visit we did go for walking oximetry the patient maintain a pulse ox of 98% which is reassuring heart rate of 97 and she was weak. She was using a cane. At this point will have her get an x-ray and also blood work. I am concerned that she may need a transfusion if her hemoglobin drops to 7 or below. In addition to that will have her get a chest x-ray to assess her fluid status. Right now her white count has been normalized although recheck it again. I do not believe she needs any additional antibiotics but I do believe that she is going to need additional diuresis. Patient follow-up in 3-4 weeks with me. Otherwise I will call her once I get the blood work in the x-ray for further recommendations. 02/28/2025 the patient is here for a pulmonary follow-up visit. Overall she is feeling better. She did take the Lasix for few days and helped her volume overload status. She has been off antibiotics which is reassuring. She is following closely with her anemia. Seems to be getting better as well. She is also trying to work on conditioning and weight gain. She did follow-up with her surgeon seems to be healing well from the surgery. She also had a recent CT scan of the chest at [facility] back on 02/12/2025 which demonstrated interval improvement of the airspace disease and also improvement of the effusion. Overall doing better. Therefore will continue with current therapy she does complaint of nasal congestion and postnasal drip causing cough. She will try some Mucinex and also holistic remedies could also help. If she starts noticing worsening consistency color or frequency of the congestion she can always call. But right now her respiratory exam is reassuring and does not need any additional medicines right now. She will continue with respiratory therapy in her CPT. 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 Bronchiectasis Surgical History H/O right mastectomy History of cholecystectomy H/O: hysterectomy H/O splenectomy Family History Other Hypertension Social History Patient Tobacco Use Status: Former Tobacco user Tobacco use type: Cigarette Years Smoked: 10 years Review of Systems Const Denies chills, Denies fatigue, Denies fever(s), Reports weight gain and Denies weight loss ENT Denies dizziness, Reports hoarseness, Denies lip swelling and Denies tongue swelling Card Denies chest pain, Denies leg edema, Denies lightheadedness, Denies palpitations, Reports dyspnea on exertion, Denies orthopnea and Denies other Resp Reports cough and Reports dyspnea on exertion GI Denies hematochezia and Denies change in stool character Musc Denies abnormal gait, Denies muscle weakness, Denies numbness, Denies radiating pain into limb and Denies tingling Skin/Breast Reports as per HPI Neuro Denies abnormal gait, Denies dizziness, Denies numbness and Denies tingling Psych Denies no additional complaints Endo Denies fatigue and Denies palpitations Guzman/Lymph Denies easy bleeding and Denies lymphadenopathy Aller/Immun Denies lip swelling and Denies tongue swelling Physical Exam Vital Signs: Last Vital Signs Pulse 82 02/28/25 09:55 BP 100/48 L 02/28/25 09:55 Pulse Ox 100 02/28/25 09:55 Oxygen Delivery Method Room Air 02/28/25 09:55 BMI result Body Mass Index 23.0 Const General: comfortable and alert HEENT Throat: Yes postnasal drainage Eyes Pupils: Equal, round and reactive pupils present Neck Neck: Yes normal visual inspection, Yes full ROM and Yes no lymphadenopathy Chest Chest palpation & inspection: normal inspection of the chest Resp Effort & Inspection: normal respiratory effort Auscultation: clear to auscultation bilaterally, no rhonchi and no wheezes Cardio Rate: regular rate Rhythm: regular rhythm Heart sounds: S1 normal heart sound present and S2 normal heart sound present GI Palpation (GI): Soft to palpation and nontender Auscultation: normal bowel sounds Skin General skin exam: no rashes or lesions noted Neuro Cranial nerves: Yes Equal, round and reactive pupils present Extrem General: No clubbing, No cyanosis and No edema Assessment & Plan Assessment & Plan (1) Pneumonia: Comment: resolved Code(s): J18.9 - Pneumonia, unspecified organism Category: Medical Qualifiers: Laterality: right Lung location: lower lobe of lung Pneumonia type: due to unspecified organism Qualified Code(s): J18.9 - Pneumonia, unspecified organism (2) Anemia: Code(s): D64.9 - Anemia, unspecified Category: Medical Qualifiers: Anemia type: unspecified type Qualified Code(s): D64.9 - Anemia, unspecified (3) Pleural effusion: Code(s): J90 - Pleural effusion, not elsewhere classified Category: Medical (4) Pulmonary nodules: Code(s): R91.8 - Other nonspecific abnormal finding of lung field Category: Medical (5) Mycobacterial disease, pulmonary: Comment: clinically better Code(s): A31.0 - Pulmonary mycobacterial infection Category: Medical (6) Bronchiectasis: Code(s): J47.9 - Bronchiectasis, uncomplicated Category: Medical Qualifiers: Bronchiectasis type: uncomplicated Qualified Code(s): J47.9 - Bronchiectasis, uncomplicated (7) Cardiomyopathy: Comment: related to XRT from the lymphoma history Code(s): I42.9 - Cardiomyopathy, unspecified Category: Medical Qualifiers: Cardiomyopathy type: unspecified Qualified Code(s): I42.9 - Cardiomyopathy, unspecified (8) Pulmonary hypertension: Code(s): I27.20 - Pulmonary hypertension, unspecified Category: Medical (9) Pulmonary nodules: Code(s): R91.8 - Other nonspecific abnormal finding of lung field Category: Medical (10) Colon cancer: Code(s): C18.9 - Malignant neoplasm of colon, unspecified Category: Medical Qualifiers: Colon location: descending Qualified Code(s): C18.6 - Malignant neoplasm of descending colon Plan Continue CPT with nebulized therapy, hypertonic saline Wixela holding azithromycin MWF Bloodwork/CXR continue Spirva. Does not tolerate powdered inhalers due to larygeal disease, vocal cord paralysis and hoarseness STEFANI as needed Astelin nasal spray diuresis as tolerated F/U in 3 months Medications: Refilled fluticasone propionate 50 mcg/actuation 2 sprays intranasal DAILY 48 mL 11RF J31.0 - Chronic rhinitis Coding Level of Care Code Est Pt Level 4 (35661) Complex EM visit Add On G2211 Diagnoses Pneumonia of right lower lobe due to infectious organism J18.9 Laterality: right Lung location: lower lobe of lung Pneumonia type: due to unspecified organism Anemia, unspecified type D64.9 Anemia type: unspecified type Pleural effusion J90 Pulmonary nodules R91.8 Mycobacterial disease, pulmonary A31.0 Bronchiectasis without complication J47.9 Bronchiectasis type: uncomplicated Cardiomyopathy, unspecified type I42.9 Cardiomyopathy type: unspecified Pulmonary hypertension I27.20 Malignant neoplasm of descending colon C18.6 Colon location: descending Time Spent (min) 17
== END 2025-02-28 10:27 | disposition home or self-care (01) ==
LOC: HO.HPS 09:50
PROVIDERS: PCP Pediatrics; Visit Provider Hospitalist
DX: J18.9 Pneumonia, unspecified organism (principal); D64.9 Anemia, unspecified; J90 Pleural effusion, not elsewhere classified; R91.8 Other nonspecific abnormal finding of lung field; A31.0 Pulmonary mycobacterial infection; J47.9 Bronchiectasis, uncomplicated; I42.9 Cardiomyopathy, unspecified; I27.20 Pulmonary hypertension, unspecified; C18.6 Malignant neoplasm of descending colon
CPT/HCPCS: 99214

== ENCOUNTER 2025-05-22 09:56 | Outpatient (AMB) | payer OTHER, MEDICAID, SELFPAY ==
[2025-05-22 09:59] VITALS: BP 96/54; PULSE 86; O2SAT 100; BMI 23.0
--- NOTE | 2025-05-22 09:59 | A.OFFVIS_ITS ---
Vital Signs 05/22/25 09:59 Height 5 ft 3 in Weight 130 lb 1.164 oz BMI 23.0 BP 96/54 L Blood Pressure Location Lt brachial Position Sitting Pulse 86 Pulse Source Pulse Oximeter Pulse Oximetry (%) 100 Oxygen Delivery Method Room Air Intake Visit Reasons: Bronchiectasis Theater Projectionist Required: No Allergies prochlorperazine (From Compazine) Allergy (Severe, Verified 05/22/25 10:03) Agitated clarithromycin (CLARITHROMYCIN) Allergy (Intermediate, Verified 05/22/25 10:03) RASH codeine (CODEINE) Allergy (Intermediate, Verified 05/22/25 10:03) STOMACH PAIN- GI UPSET naproxen (NAPROXEN) Allergy (Intermediate, Verified 05/22/25 10:03) GI PAIN, DIARRHEA Sulfa (Sulfonamide Antibiotics) (SULFA (SULFONAMIDE ANTIBIOTICS)) Allergy (Intermediate, Verified 05/22/25 10:03) RASH sulfamethoxazole (From BACTRIM) Allergy (Intermediate, Verified 05/22/25 10:03) RASH trimethoprim (From BACTRIM) Allergy (Intermediate, Verified 05/22/25 10:03) RASH HPI Comments Details: The patient is a 64-year-old woman with a known history of breast cancer, 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 Also has underlying bronchiectasis and nonischemic cardiomyopathy likely related to her chemo radiation. She currently has been doing very well. Until recently when she started noticing worsening shortness of breath. She also has some hoarseness. Also some raspiness of her voice. [id number] severity. Started noticing increasing shortness of breath. Has been using her inhaler with good effect. Has not use her nebulizer although it may help her expectorate better with the nebulized therapy. We talked also using hypertonic saline as a way of minimizing medications. We did go for brief walking oximetry in the patient was able to maintain a pulse ox between 94-96%. Heart rate stayed below 100. She was increasing to get more winded. Her Force score is elevated 09/26. At this point based on a daytime drowsiness her cardiac history and her elevated Force score the patient will also undergo a sleep study. 01/26/2024 the patient is here for hospital follow-up visit. She was in his usual state health until beginning of the month when she started developing worsening shortness of breath will addition to other constitutional symptoms including abdominal pain and nausea. The patient was brought to the [facility] ER where she was evaluated. She did have a CT scan of the abdomen which I personally reviewed. It appeared that she had a consolidation right lower lobe with small trace pleural effusion. Otherwise limited due to the lung cuts on the abdominal CT scan. She was placed on antibiotics and subsequently discharged. She has been feeling better. Although since she stopped the antibiotics she does feel that she is tired again and having some raspiness of voice. Subsequently, the patient had a formal CT scan when s not need aggressive shshe was discharged about a week ago. I personally reviewed the CT scan to. It appears that the right lower lobe consolidation and the pleural effusion has significantly improved. She still has some residual changes though. In addition to that she also has some nodular changes. Chronic blunting changes noted. It is reassuring overall that her CT scan looks a lot better. Unfortunately the CT scan of the chest was not compared to the CT scan of the abdomen on the actual for more we know mentioned about the significant improvement. 04/18/2024 this is a telehealth visit. The patient started developing worsening cough in addition to fevers and chills. She became concerned. She did call the office on Wednesday of last week. We have no availability so she went to an urgent care [facility]. There she did have a chest x-ray which I personally reviewed without any acute disease. Although she does have chronic airway disease. The patient was given a course of doxycycline which she completed. And then in the urgent care she got a Z-Zackary. Now she is feeling little better. She also use prednisone and they did give her a high dose starting at 60 mg and she has having significant symptoms with palpitations and insomnia so she only took 20 mg this morning. Seems like she is doing better overall. Will go ahead and continue the 20 mg for another pretty 4 days. She is also going to go back on azithromycin 3 times a week. We did review her last CT scan was back in 01/22/2024 with increasing airspace disease and pneumonia. She also has underlying pulmonary nodules. In view of her worsening disease will go ahead and repeat her chest CT scan in June. If she has any worsening symptoms she will call may have to consider getting the CT scan sooner. But I am hopeful that with the medication changes and adjustments she will be okay. In addition to that she needs to go back on the Advair HFA. The patient can not tolerate powdered inhalers because it causes thrush and also hoarseness. She also has a cardiac history so therefore the Advair HFA works very well for her cardiac disease. She has been on it for many years in his work well in view of her comorbidities a rather not change it to anything else either. The patient is adamant she wants to stay on that inhaler as well. Therefore will send to the pharmacy and will perform a PA. 06/19/2024 the patient is here for pulmonary follow-up visit. Since we last spoke the patient did have a fall injuring her back. Mainly the thoracic vertebral body. She did have evaluation by pain management. She was found to have a shattered T4 vertebral body. Was initially recommended she undergo kyphoplasty. Although she was referred to Neurosurgery since appeared to be in a difficult place. She has been having some back pain also some neck discomfort. Prior to that she was having some hyper paresthesias. Seems that she has had some improvement. She continues on pain medications however. She was wondering if she should just let it be. I did emphasize that she needs to follow-up with Neurosurgery and request her recommendation is this may need some interventions specially since his abutting the spinal cord based on my evaluation. As far as her pulmonary nodules could not be well visualized on her CT scan of the thorax. However, what I was able to see that the airways were stable and did and see any significant worsening of disease on the limited lung windows. The patient appears to have significant amount of musculoskeletal issues going on right now in therefore will hold off on any additional imaging studies of the pulmonary nodules at this time. We had requested when before but was denied by the insurance company. Her last CT scan was back in 01/22/2024 which demonstrated some new findings in the right lower lobe area. Therefore will go ahead and request a repeat CT scan in the next 3-4 months and review. Hopefully by then her back issues have resolved. Respiratory was the patient is doing well, and is not requiring aggressive chest PT. Chest congestion is also stable. If the patient develops any worsening symptoms she will call. Otherwise will have a repeat CT scan the next 3-4 months and will follow-up sometime after that. If she has any issues or concerns she can always call for an earlier assessment. 11/24/2024 the patient is here for a pulmonary follow-up visit. Since we last spoke she was having abdominal discomfort and recently underwent a colonoscopy demonstrating what appears to be a colon cancer. She had had a CT scan of the abdomen prior and it was not visualized. Now after the fact she had a repeat CT scan of the abdomen that did see something that area. 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 She did follow-up with Oncology also surgery. Seems like they want to try immunotherapy 1st and then have her undergo surgery. From a respiratory status she has been noticing increasing chest congestion. She had stopped the azithromycin for some time and she did restarted recently. And will go ahead and place on doxycycline just to cover all the bases specially if she is going to need surgery. I did review her CT scan of the chest which was personally by me done in 11/23/2024 and also the 1 she had in October. They just show chronic changes but her lower bases appeared to be clear. No evidence of any active airspace disease. She will continue with respiratory medications and I will make sure to send to the pharmacy and she will take the course of antibiotics as prescribed. She may need a preoperative evaluation. But at this point she is able to proceed with surgery and anesthesia from a pulmonary standpoint. She does have increased perioperative pulmonary complications which includes atelectasis, hypoxia, pneumonia, bronchospasms. However, the patient is medically optimized at this time. 02/02/2025 the patient is here for hospital follow-up visit. She went in for elective surgery for colon cancer. Prior to going to the hospital she did develop worsening cough and she was started on doxycycline. She went ahead and had her surgery. It was prolonged surgery lasting about 7 hours due to the significant amount of adhesions. Surgery with success she was able to remove all the cancer and no evidence of any extension of the cancer noted. I do not have those details is all per patient report. The patient postoperatively has some issues with her breathing. She developed respiratory distress. She had a CTA which I personally reviewed demonstrating extensive airspace disease bilaterally right more than left likely from an aspiration event and she had an NG tube in place. She subsequently had to be intubated for respiratory failure was admitted to the ICU briefly. She was able to be liberated from the ventilator. Post liberation CT scan demonstrated significant airspace disease although significant improvement also bilateral pleural effusions. It was also noted that hemoglobin had dropped significantly. The lowest that I saw basal 7.1. Upon discharge it was 7.3. The patient is very dyspneic. She feels that she has significant shortness of breath and dyspnea with minimal activity. She has a hard time standing. She has been working on the inside spirometer and also the Acapella valve. Her respiratory exam is actually reassuring. And I did visualize both CT scans demonstrating significant airspace disease but significant improvement. She did have significant bilateral pleural effusions likely from 3rd spacing from her very prolonged surgery. During the visit we did go for walking oximetry the patient maintain a pulse ox of 98% which is reassuring heart rate of 97 and she was weak. She was using a cane. At this point will have her get an x-ray and also blood work. I am concerned that she may need a transfusion if her hemoglobin drops to 7 or below. In addition to that will have her get a chest x-ray to assess her fluid status. Right now her white count has been normalized although recheck it again. I do not believe she needs any additional antibiotics but I do believe that she is going to need additional diuresis. Patient follow-up in 3-4 weeks with me. Otherwise I will call her once I get the blood work in the x-ray for further recommendations. 02/28/2025 the patient is here for a pulmonary follow-up visit. Overall she is feeling better. She did take the Lasix for few days and helped her volume overload status. She has been off antibiotics which is reassuring. She is following closely with her anemia. Seems to be getting better as well. She is also trying to work on conditioning and weight gain. She did follow-up with her surgeon seems to be healing well from the surgery. She also had a recent CT scan of the chest at [facility] back on 02/12/2025 which demonstrated interval improvement of the airspace disease and also improvement of the effusion. Overall doing better. Therefore will continue with current therapy she does complaint of nasal congestion and postnasal drip causing cough. She will try some Mucinex and also holistic remedies could also help. If she starts noticing worsening consistency color or frequency of the congestion she can always call. But right now her respiratory exam is reassuring and does not need any additional medicines right now. She will continue with respiratory therapy in her CPT. 05/22/2025 the patient is here for pulmonary follow-up visit. Overall she is doing better. Although recently she started getting more chest congestion. She has been concerned because she does not want to buildup like it did before. She had been on the azithromycin 3 times a week for the mycobacterial disease and also she had responded well to doxycycline. Therefore will start her on course of doxycycline and then she can start the azithromycin 3 times a week. She will need to get EKGs to make sure her QT intervals are within normal limits. She c ontinues with the cardiac medications doing well. No recent imaging to review. She will continue with the current respiratory therapy and continue with CPT. 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 Bronchiectasis Surgical History H/O right mastectomy History of cholecystectomy H/O: hysterectomy H/O splenectomy Family History Other Hypertension Social History Patient Tobacco Use Status: Former Tobacco user Tobacco use type: Cigarette Years Smoked: 10 years Review of Systems Const Denies chills, Denies fatigue, Denies fever(s), Reports weight gain and Denies weight loss ENT Denies dizziness, Reports hoarseness, Denies lip swelling and Denies tongue swelling Card Denies chest pain, Denies leg edema, Denies lightheadedness, Denies palpitations, Reports dyspnea on exertion, Denies orthopnea and Denies other Resp Reports chest congestion, Reports cough and Reports dyspnea on exertion GI Denies hematochezia and Denies change in stool character Musc Denies abnormal gait, Denies muscle weakness, Denies numbness, Denies radiating pain into limb and Denies tingling Skin/Breast Reports as per HPI Neuro Denies abnormal gait, Denies dizziness, Denies numbness and Denies tingling Psych Denies no additional complaints Endo Denies fatigue and Denies palpitations Guzman/Lymph Denies easy bleeding and Denies lymphadenopathy Aller/Immun Denies lip swelling and Denies tongue swelling Physical Exam Vital Signs: Last Vital Signs Pulse 86 05/22/25 09:59 BP 96/54 L 05/22/25 09:59 Pulse Ox 100 05/22/25 09:59 Oxygen Delivery Method Room Air 05/22/25 09:59 BMI result Body Mass Index 23.0 Const General: comfortable and alert HEENT Throat: Yes postnasal drainage Eyes Pupils: Equal, round and reactive pupils present Neck Neck: Yes normal visual inspection, Yes full ROM and Yes no lymphadenopathy Chest Chest palpation & inspection: normal inspection of the chest Resp Effort & Inspection: normal respiratory effort Auscultation: no rhonchi, no wheezes and diminished lung sounds Cardio Rate: regular rate Rhythm: regular rhythm Heart sounds: S1 normal heart sound present and S2 normal heart sound present GI Palpation (GI): Soft to palpation and nontender Auscultation: normal bowel sounds Skin General skin exam: no rashes or lesions noted Neuro Cranial nerves: Yes Equal, round and reactive pupils present Extrem General: No clubbing, No cyanosis and No edema Assessment & Plan Assessment & Plan (1) Pulmonary nodules: Code(s): R91.8 - Other nonspecific abnormal finding of lung field Category: Medical (2) Mycobacterial disease, pulmonary: Comment: clinically better Code(s): A31.0 - Pulmonary mycobacterial infection Category: Medical (3) Bronchiectasis: Code(s): J47.9 - Bronchiectasis, uncomplicated Category: Medical Qualifiers: Bronchiectasis type: uncomplicated Qualified Code(s): J47.9 - Bronchiectasis, uncomplicated (4) Cardiomyopathy: Comment: related to XRT from the lymphoma history Code(s): I42.9 - Cardiomyopathy, unspecified Category: Medical Qualifiers: Cardiomyopathy type: unspecified Qualified Code(s): I42.9 - Cardi omyopathy, unspecified (5) Pulmonary hypertension: Code(s): I27.20 - Pulmonary hypertension, unspecified Category: Medical (6) Pulmonary nodules: Code(s): R91.8 - Other nonspecific abnormal finding of lung field Category: Medical (7) Colon cancer: Code(s): C18.9 - Malignant neoplasm of colon, unspecified Category: Medical Qualifiers: Colon location: descending Qualified Code(s): C18.6 - Malignant neoplasm of descending colon (8) Pleural effusion: Code(s): J90 - Pleural effusion, not elsewhere classified Category: Medical Plan Continue CPT with nebulized therapy, hypertonic saline Wixela restart azithromycin MWF doxycycline x 10 days continue Spirva. Does not tolerate powdered inhalers due to larygeal disease, vocal cord paralysis and hoarseness STEFANI as needed Astelin nasal spray diuresis as tolerated F/U in 4-6 months Medications: New doxycycline hyclate 100 mg PO BID 20 caps 0RF 10 days azithromycin Take 1 tablet on Wednesday/Wednesday/Wednesday 250 mg PO 3XW 12 tabs 6RF 28 days K21.9 - Gastro-esophageal reflux disease without esophagitis Coding Level of Care Code Est Pt Level 4 (77723) Complex EM visit Add On G2211 Diagnoses Pulmonary nodules R91.8 Mycobacterial disease, pulmonary A31.0 Bronchiectasis without complication J47.9 Bronchiectasis type: uncomplicated Cardiomyopathy, unspecified type I42.9 Cardiomyopathy type: unspecified Pulmonary hypertension I27.20 Malignant neoplasm of descending colon C18.6 Colon location: descending Pleural effusion J90 Time Spent (min) 17
== END 2025-05-22 10:31 | disposition home or self-care (01) ==
LOC: HO.HPS 09:57
PROVIDERS: PCP Pediatrics; Visit Provider Hospitalist
DX: R91.8 Other nonspecific abnormal finding of lung field (principal); A31.0 Pulmonary mycobacterial infection; J47.9 Bronchiectasis, uncomplicated; I42.9 Cardiomyopathy, unspecified; I27.20 Pulmonary hypertension, unspecified; C18.6 Malignant neoplasm of descending colon; J90 Pleural effusion, not elsewhere classified
CPT/HCPCS: 99214

== ENCOUNTER 2025-07-24 10:55 | Outpatient (AMB) | payer OTHER, MEDICAID, SELFPAY ==
[2025-07-24 11:12] VITALS: BP 100/50; PULSE 80; O2SAT 100; BMI 23.8
--- NOTE | 2025-07-24 11:12 | A.OFFVIS_ITS ---
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 Accompanied by: Self / Same As Patient Allergies prochlorperazine (From Compazine) Allergy (Severe, Verified 07/24/25 11:16) Agitated clarithromycin (CLARITHROMYCIN) Allergy (Intermediate, Verified 07/24/25 11:16) RASH codeine (CODEINE) Allergy (Intermediate, Verified 07/24/25 11:16) STOMACH PAIN- GI UPSET naproxen (NAPROXEN) Allergy (Intermediate, Verified 07/24/25 11:16) GI PAIN, DIARRHEA Sulfa (Sulfonamide Antibiotics) (SULFA (SULFONAMIDE ANTIBIOTICS)) Allergy (Intermediate, Verified 07/24/25 11:16) RASH sulfamethoxazole (From BACTRIM) Allergy (Intermediate, Verified 07/24/25 11:16) RASH trimethoprim (From BACTRIM) Allergy (Intermediate, Verified 07/24/25 11:16) RASH HPI Comments Details: The patient is a 65-year-old woman with a known history of breast cancer, 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 Also has underlying bronchiectasis and nonischemic cardiomyopathy likely related to her chemo radiation. She currently has been doing very well. Until recently when she started noticing worsening shortness of breath. She also has some hoarseness. Also some raspiness of her voice. Hbtw-qu-fijdspls severity. Started noticing increasing shortness of breath. Has been using her inhaler with good effect. Has not use her nebulizer although it may help her expectorate better with the nebulized therapy. We talked also using hypertonic saline as a way of minimizing medications. We did go for brief walking oximetry in the patient was able to maintain a pulse ox between 94-96%. Heart rate stayed below 100. She was incre asing to get more winded. Her [place] score is elevated 09/26. At this point based on a daytime drowsiness her cardiac history and her elevated [place] score the patient will also undergo a sleep study. 01/26/2024 the patient is here for hospital follow-up visit. She was in his usual state health until beginning of the month when she started developing worsening shortness of breath will addition to other constitutional symptoms including abdominal pain and nausea. The patient was brought to the [facility] ER where she was evaluated. She did have a CT scan of the abdomen which I personally reviewed. It appeared that she had a consolidation right lower lobe with small trace pleural effusion. Otherwise limited due to the lung cuts on the abdominal CT scan. She was placed on antibiotics and subsequently discharged. She has been feeling better. Although since she stopped the antibiotics she does feel that she is tired again and having some raspiness of voice. Subsequently, the patient had a formal CT scan when s not need aggressive shshe was discharged about a week ago. I personally reviewed the CT scan to. It appears that the right lower lobe consolidation and the pleural effusion has significantly improved. She still has some residual changes though. In addition to that she also has some nodular changes. Chronic blunting changes noted. It is reassuring overall that her CT scan looks a lot better. Unfortunately the CT scan of the chest was not compared to the CT scan of the abdomen on the actual for more we know mentioned about the significant improvement. 04/18/2024 this is a telehealth visit. The patient started developing worsening cough in addition to fevers and chills. She became concerned. She did call the office on Wednesday of last week. We have no availability so she went to an urgent care [facility]. There she did have a chest x-ray which I personally reviewed without any acute disease. Although she does have chronic airway disease. The patient was given a course of doxycycline which she completed. And then in the urgent care she got a Z-Zackary. Now she is feeling little better. She also use prednisone and they did give her a high dose starting at 60 mg and she has having significant symptoms with palpitations and insomnia so she only took 20 mg this morning. Seems like she is doing better overall. Will go ahead and continue the 20 mg for another pretty 4 days. She is also going to go back on azithromycin 3 times a week. We did review her last CT scan was back in 01/22/2024 with increasing airspace disease and pneumonia. She also has underlying pulmonary nodules. In view of her worsening disease will go ahead and repeat her chest CT scan in June. If she has any worsening symptoms she will call may have to consider getting the CT scan sooner. But I am hopeful that with the medication changes and adjustments she will be okay. In addition to that she needs to go back on the Advair HFA. The patient can not tolerate powdered inhalers because it causes thrush and also hoarseness. She also has a cardiac history so therefore the Advair HFA works very well for her cardiac disease. She has been on it for many years in his work well in view of her comorbidities a rather not change it to anything else either. The patient is adamant she wants to stay on that inhaler as well. Therefore will send to the pharmacy and will perform a PA. 06/19/2024 the patient is here for pulmonary follow-up visit. Since we last spoke the patient did have a fall injuring her back. Mainly the thoracic vertebral body. She did have evaluation by pain management. She was found to have a shattered T4 vertebral body. Was initially recommended she undergo kyphoplasty. Although she was referred to Neurosurgery since appeared to be in a difficult place. She has been having some back pain also some neck discomfort. Prior to that she was having some hyper paresthesias. Seems that she has had some improvement. She continues on pain medications however. She was wondering if she should just let it be. I did emphasize that she needs to follow-up with Neurosurgery and request her recommendation is this may need some interventions specially since his abutting the spinal cord based on my evaluation. As far as her pulmonary nodules could not be well visualized on her CT scan of the thorax. However, what I was able to see that the airways were stable and did and see any significant worsening of disease on the limited lung windows. The patient appears to have significant amount of musculoskeletal issues going on right now in therefore will hold off on any additional imaging studies of the pulmonary nodules at this time. We had requested when before but was denied by the insurance company. Her last CT scan was back in 01/22/2024 which demonstrated some new findings in the right lower lobe area. Therefore will go ahead and request a repeat CT scan in the next 3-4 months and review. Hopefully by then her back issues have resolved. Respiratory was the patient is doing well, and is not requiring aggressive chest PT. Chest congestion is also stable. If the patient develops any worsening symptoms she will call. Otherwise will have a repeat CT scan the next 3-4 months and will follow-up sometime after that. If she has any issues or concerns she can always call for an earlier assessment. 11/24/2024 the patient is here for a pulmonary follow-up visit. Since we last spoke she was having abdominal discomfort and recently underwent a colonoscopy demonstrating what appears to be a colon cancer. She had had a CT scan of the abdomen prior and it was not visualized. Now after the fact she had a repeat CT scan of the abdomen that did see something that area. 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 She did follow-up with Oncology also surgery. Seems like they want to try immunotherapy 1st and then have her undergo surgery. From a respiratory status she has been noticing increasing chest congestion. She had stopped the azithromycin for some time and she did restarted recently. And will go ahead and place on doxycycline just to cover all the bases specially if she is going to need surgery. I did review her CT scan of the chest which was personally by me done in 11/23/2024 and also the 1 she had in October. They just show chronic changes but her lower bases appeared to be clear. No evidence of any active airspace disease. She will continue with respiratory medications and I will make sure to send to the pharmacy and she will take the course of antibiotics as prescribed. She may need a preoperative evaluation. But at this point she is able to proceed with surgery and anesthesia from a pulmonary standpoint. She does have increased perioperative pulmonary complications which includes atelectasis, hypoxia, pneumonia, bronchospasms. However, the patient is medically optimized at this time. 02/02/2025 the patient is here for hospital follow-up visit. She went in for elective surgery for colon cancer. Prior to going to the hospital she did develop worsening cough and she was started on doxycycline. She went ahead and had her surgery. It was prolonged surgery lasting about 7 hours due to the significant amount of adhesions. Surgery with success she was able to remove all the cancer and no evidence of any extension of the cancer noted. I do not have those details is all per patient report. The patient postoperatively has some issues with her breathing. She developed respiratory distress. She had a CTA which I personally reviewed demonstrating extensive airspace disease bilaterally right more than left likely from an aspiration event and she had an NG tube in place. She subsequently had to be intubated for respiratory failure was admitted to the ICU briefly. She was able to be liberated from the ventilator. Post liberation CT scan demonstrated significant airspace disease although significant improvement also bilateral pleural effusions. It was also noted that hemoglobin had dropped significantly. The lowest that I saw basal 7.1. Upon discharge it was 7.3. The patient is very dyspneic. She feels that she has significant shortness of breath and dyspnea with minimal activity. She has a hard time standing. She has been working on the inside spirometer and also the Acapella valve. Her respiratory exam is actually reassuring. And I did visualize both CT scans demonstrating significant airspace disease but significant improvement. She did have significant bilateral pleural effusions likely from 3rd spacing from her very prolonged surgery. During the visit we did go for walking oximetry the patient maintain a pulse ox of 98% which is reassuring heart rate of 97 and she was weak. She was using a cane. At this point will have her get an x-ray and also blood work. I am concerned that she may need a transfusion if her hemoglobin drops to 7 or below. In addition to that will have her get a chest x-ray to assess her fluid status. Right now her white count has been normalized although recheck it again. I do not believe she needs any additional antibiotics but I do believe that she is going to need additional diuresis. Patient follow-up in 3-4 weeks with me. Otherwise I will call her once I get the blood work in the x-ray for further recommendations. 02/28/2025 the patient is here for a pulmonary follow-up visit. Overall she is feeling better. She did take the Lasix for few days and helped her volume overload status. She has been off antibiotics which is reassuring. She is following closely with her anemia. Seems to be getting better as well. She is also trying to work on conditioning and weight gain. She did follow-up with her surgeon seems to be healing well from the surgery. She also had a recent CT scan of the chest at [facility] back on 02/12/2025 which demonstrated interval improvement of the airspace disease and also improvement of the effusion. Overall doing better. Therefore will continue with current therapy she does complaint of nasal congestion and postnasal drip causing cough. She will try some Mucinex and also holistic remedies could also help. If she starts noticing worsening consistency color or frequency of the congestion she can always call. But right now her respiratory exam is reassuring and does not need any additional medicines right now. She will continue with respiratory therapy in her CPT. 05/22/2025 the patient is here for pulmonary follow-up visit. Overall she is doing better. Although recently she started getting more chest congestion. She has been concerned because she does not want to buildup like it did before. She had been on the azithromycin 3 times a week for the mycobacterial disease and also she had responded well to doxycycline. Therefore will start her on course of doxycycline and then she can start the azithromycin 3 times a week. She will need to get EKGs to make sure her QT intervals are within normal limits. She continues with the cardiac medications doing well. No recent imaging to review. She will continue with the current respiratory therapy and continue with CPT. 07/24/2025 the patient is here for sick visit. Apparently she started developing worsening cough. Chest congestion. She had to use her nebulizer with good response although did make her a little tremulous. The patient did have a CT scan of the chest recently at [facility]. It was a CT scan of the abdomen and chest because of her colon cancer. It was personally by me. She has 2 new nodules 1 in the left lower lobe and also 1 in the right middle lobe area. 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 The patient had been treated at that time with Amikacin neb treatments in addition to azithromycin. And she did recover in the nodules did subside. He is currently off the amikacin. She had been on the azithromycin and we had started the last visit but then she stopped it. Therefore will go ahead and start the azithromycin 500 mg daily and will try to get him a sputum and has also an AFB culture to see if there is any evidence of any recurrence of the mycobacterial disease. In the meantime the patient is scheduled to undergo a repeat CAT scan in 6 weeks. If the nodules are still there she will need to get those nodules looked at further with invasive or semi-invasive diagnostic interventions. I did recommend Interventional Pulmonary as an option specially with navigational bronchoscopy or robotic bronchoscopy to provide better accurate results especially with the high risk due to her comorbidities. So the patient will start his azithromycin for now she is going to call if she is no better and she will provide us with a sputum sample. Otherwise will follow-up in 6 weeks after her CAT scan. 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 Bronchiectasis Surgical History H/O right mastectomy History of cholecystectomy H/O: hysterectomy H/O splenectomy Family History Other Hypertension Social History Patient Tobacco Use Status: Former Tobacco user Tobacco use type: Cigarette Years Smoked: 10 years Review of Systems Const Denies chills, Denies fatigue, Denies fever(s) and Denies weight loss ENT Denies dizziness, Reports hoarseness, Denies lip swelling and Denies tongue swelling Card Denies chest pain, Denies leg edema, Denies lightheadedness, Denies palpitations, Reports dyspnea on exertion, Denies orthopnea and Denies other Resp Reports chest congestion, Reports cough and Reports dyspnea on exertion GI Denies hematochezia and Denies change in stool character Musc Denies abnormal gait, Denies muscle weakness, Denies numbness, Denies radiating pain into limb and Denies tingling Skin/Breast Reports as per HPI Neuro Denies abnormal gait, Denies dizziness, Denies numbness and Denies tingling Psych Denies no additional complaints Endo Denies fatigue and Denies palpitations Guzman/Lymph Denies easy bleeding and Denies lymphadenopathy Aller/Immun Denies lip swelling and Denies tongue swelling Physical Exam Vital Signs: Last Vital Signs Pulse 80 07/24/25 11:12 BP 100/50 L 07/24/25 11:12 Pulse Ox 100 07/24/25 11:12 Oxygen Delivery Method Room Air 07/24/25 11:12 BMI result Body Mass Index 23.8 Const General: comfortable and alert HEENT Throat: Yes postnasal drainage Eyes Pupils: Equal, round and reactive pupils present Neck Neck: Yes normal visual inspection, Yes full ROM and Yes no lymphadenopathy Chest Chest palpation & inspection: normal inspection of the chest Resp Effort & Inspection: normal respiratory effort Auscultation: no rhonchi, no wheezes and diminished lung sounds Cardio Rate: regular rate Rhythm: regular rhythm Heart sounds: S1 normal heart sound present and S2 normal heart sound present GI Palpation (GI): Soft to palpation and nontender Auscultation: normal bowel sounds Skin General skin exam: no rashes or lesions noted Neuro Cranial nerves: Yes Equal, round and reactive pupils present Extrem General: No clubbing, No cyanosis and No edema Assessment & Plan Assessment & Plan (1) Pulmonary nodules: Code(s): R91.8 - Other nonspecific abnormal finding of lung field Category: Medical (2) Mycobacterial disease, pulmonary: Comment: clinically better Code(s): A31.0 - Pulmonary mycobacterial infection Category: Medical (3) Bronchiectasis: Code(s): J47.9 - Bronchiectasis, uncomplicated Category: Medical Qualifiers: Bronchiectasis type: uncomplicated Qualified Code(s): J47.9 - Bronchiectasis, uncomplicated (4) Cardiomyopathy: Comment: related to XRT from the lymphoma history Code(s): I42.9 - Cardiomyopathy, unspecified Category: Medical Qualifiers: Cardiomyopathy type: unspecified Qualified Code(s): I42.9 - Cardiomyopathy, unspecified (5) Pulmonary hypertension: Code(s): I27.20 - Pulmonary hypertension, unspecified Category: Medical (6) Pulmonary nodules: Comment: Has had waxing and waning nodules from mycobacterial disease. Code(s): R91.8 - Other nonspecific abnormal finding of lung field Category: Medical (7) Colon cancer: Code(s): C18.9 - Malignant neoplasm of colon, unspecified Category: Medical Qualifiers: Colon location: descending Qualified Code(s): C18.6 - Malignant neoplasm of descending colon Plan Continue CPT with nebulized therapy, hypertonic saline Wixela restart azithromycin 500mg daily sputum for AFB/cx continue Spirva. Does not tolerate powdered inhalers due to larygeal disease, vocal cord paralysis and hoarseness STEFANI as needed Astelin nasal spray diuresis as tolerated CT chest at [facility] in 4-6 weeks. If nodules are still present, referral to Interventional Pulmonary for Navigational Bronchoscopy/robotic bronchosocpy EKG by Cardiology F/U in 6-8 weeks Medications: New azithromycin 500 mg PO DAILY 30 tabs 3RF 30 days dextromethorphan-guaifenesin 30-600 mg (Mucinex DM) 1 tab PO Q12H 28 tabs 1RF 14 days Coding Level of Care Code Est Pt Level 5 (39029) Complex EM visit Add On G2211 Diagnoses Pulmonary nodules R91.8 Mycobacterial disease, pulmonary A31.0 Bronchiectasis without complication J47.9 Bronchiectasis type: uncomplicated Cardiomyopathy, unspecified type I42.9 Cardiomyopathy type: unspecified Pulmonary hypertension I27.20 Malignant neoplasm of descending colon C18.6 Colon location: descending Time Spent (min) 60
--- OUTSIDE RECORDS SUMMARY | 2025-07-24 13:38 | XMS_ITS | Data Portability ---
Author Organization [facility], Main Office Address [address] [facility] [address] [place] [id number] Care Team Providers Care Senior Teradata Developer Name Role Phone UT VALDEZ Primary Care Provider [phone] ELKE STALLINGS Bobbin Cleaner Hand [phone] TIMOTEO MARCIAL Clinical Cardiac Electrophysiolo gist GLENDY VELIZ Abrasive Grinder DAMEON HOOK Infectious Disease [phone] BLANK LUBIN Screening Representative KRISTINE HUERTA Breast Surgeon DAMEON PETE General Surgeon FERNANDEZ MCPHERSON Cleater MONA MCNAMARA Steam Tender JASEN BAZAN Teacher Vocational Training WAN TAYLOR General Surgeon JESSI GAMBLE Medical Oncologist [phone] HERNAN SHERWOOD Diagnostic Radiologist [phone] JENNY KENNEY Neurosurgeon DAMEON PETE Fire Range Technician [phone] WISAM CHRISTENSEN Medical Oncologist HUBERT CONTRERAS Presser Hand Assessment Encounter Date Assessment Date Assessment LastModified by Organization Details LastModified Time 02/09/2025 02/09/2025 This service was provided using telemedicine. Patient consented to video & audio visit Patient was located at home in the [facility]. Provider was located in the office. No other persons participated in the telemedicine visit except for the patient unless otherwise indicated here. Total time of visit was 25 minutes. [email or web address] Not available 02/09/2025 14:28:37 Plan of Treatment Reminders Order Date Submit Date Provider Last Modified By Organization Details Last Modified Time Details Appointments PE EST 2024 10:15A M Tu Valdez MD Not available Not available Not available Lab CBC w/ auto diff 2024 025 ALICIA [facility] (Centralized Electronic Ordering - All Locations), Patient Can Go To The Location Of Their Choice, [address] 04/22/2025 08:06:20 iron + total iron-b inding capaci ty (TIBC) , serum 2024 025 ALICIA [facility] (Centralized Electronic Ordering - All Locations), Patient Can Go To The Location Of Their Choice, [address] 04/22/2025 08:06:21 Referral physic al therap ist referr al - Please see for BPPV 2024 025 Not available 03/05/2025 15:39:02 Procedures None record ed. Surgeries None record ed. Imaging XR, sinuse s, parana danyel, 3 or more view - Screen for sinusi tis [facility]24 [facility] [address] [place], [address], 05/09/2025 12:43:58 Medication Orders oxycod one-ac etamin ophen 10 mg-325 mg tablet 2024 025 [facility], [address] [place], [address], 05/11/2025 11:37:10 oxycod one-ac etamin ophen 10 mg-325 mg tablet 2024 025 [facility], [address] [place] [address], [address], 05/11/2025 11:37:08 oxycod one-ac etamin ophen 10 mg-[address] [facility], [address] [place], [address], 06/20/2025 15:09:55 loraze kunal 0.[address] [facility] [address] [place], [address], 04/20/2025 12:03:57 Medrol (Zackary) 4 mg tablet s in a dose pack [address] [facility] [address] [place], [address], 03/28/2025 05:01:47 amoxic illin 875 mg-pot assium clavul anate 125 [address] tablet [address] [facility] [address] [place], [address], 03/15/2025 09:11:05 oxycod one-ac etamin ophen 10 mg-325 mg tablet 2024 025 [facility], [address] [place] [address], [address], 02/09/2025 14:29:14 oxycod one-ac etamin ophen 10 mg-325 mg tablet 2024 025 [facility], [address] [place] [address], [address], 02/09/2025 14:29:12 oxycod one-ac etamin ophen 10 mg-325 mg tablet 2024 025 [facility], [address] [place] [address], [address], 05/11/2025 11:00:34 Patient Targets Encounter Date Encounter Id Patient Goals Patient Target Last Modified By Organization Details Last Modified Time 02/09/2025 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 Patient specific goals (e.g. return to work, increase in general activity level, daily exercise) reviewed. Patient preferences and goals incorporated in plan and updated as needed to reflect progress toward goal. [email or web address] Not available 02/09/2025 14:26:20 Patient Instructions Encounter Date Encounter Id Patient Instructions Last Modified By Organization Details Last Modified Time 02/09/2025 [id number] chronic pain: care instructions [email or web address] Not available 02/09/2025 14:29:09 Learning About Take-Home Naloxone Kits for Opioid Emergencies awychowski Not available 02/09/2025 14:29:08 Reviewed the risks and benefits of long-term use of opiate for chronic, non-malignant pain. 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 Not available 02/09/2025 13:56:10 03/05/2025 [id number] saline nasal washes: care instructions pmadden Not available 03/05/2025 15:34:40 Acute Sinusitis: Care Instructions pmadden Not available 03/05/2025 15:34:40 eustachian tube problems: care instructions pmadden Not available 03/05/2025 15:34:40 benign paroxysmal positional vertigo (bppv): care instructions pmadden Not available 03/05/2025 15:34:40 Follow up if no improvement or if symptoms worsen. 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 [email or web address] Not available 05/11/2025 10:49:50 Reason for Referral Physical Therapist Referral for Benign paroxysmal positional vertigo Please see for BPPV Referring Physician: Kristopher Dumont, Internal Medicine, Encounter Date: 03/05/2025 Results Created Date Observation Date Name Description Value Unit Range Abnormal Flag Note LastModifiedBy Organization Detail LastModifiedTime 02/22/2002/22/2025 CMP14 +EGFR glucose 104 mg/dL 70-99 above high normal Not Available [facility] ([facility]) [address] [place], [address], 02/22/2025 06:07:28 02/22/2002/22/2025 CMP14 +EGFR BUN 12 mg/dL 8-27 normal Not Available [facility] ([facility]) [address] [place], [address], 02/22/2025 06:07:28 02/22/2002/22/2025 CMP14 +EGFR creatinine 0.98 mg/dL 0.57-1 .00 normal Not Available [facility] ([facility]) [address] [place], [address], 02/22/2025 06:07:28 02/22/2002/22/2025 CMP14 +EGFR eGFR 64 mL/mi n/1.7 3 >59 normal Not Available [facility] ([facility]) [address] [place], [address], 02/22/2025 06:07:28 02/22/20 25 02/22/2025 CMP14 +EGFR BUN/creatini ne ratio 12 12-28 normal Not Available [facility] ([facility]) [address] [facility], [place], [address], 02/22/2025 06:07:28 02/22/20 25 02/22/2025 CMP14 +EGFR sodium 139 mmol/ L 134-14 4 normal Not Available [facility] ([facility]) [address] [place], [address], 02/22/2025 06:07:28 02/22/20 25 02/22/2025 CMP14 +EGFR potassium 5.3 mmol/ L 3.5-5. 2 above high normal Not Available [facility] ([facility]) [address] [place], [address], 02/22/2025 06:07:28 02/22/20 25 02/22/2025 CMP14 +EGFR chloride 100 mmol/ L 96-106 normal Not Available [facility] ([facility]) [address] [place], [address], 02/22/2025 06:07:28 02/22/20 25 02/22/2025 CMP14 +EGFR carbon dioxide, total 19 mmol/ L 20-29 below low normal Not Available [facility] ([facility]) [address] [place], [address], 02/22/2025 06:07:28 02/22/20 25 02/22/2025 CMP14 +EGFR calcium 10.8 mg/dL 8.7-10 .3 above high normal Guerrero ified by kathya stanley eugenio sis Not Available [facility] ([facility]) [address] [place], [address], 02/22/2025 06:07:28 02/22/20 25 02/22/2025 CMP14 +EGFR protein, total 7.1 g/dL 6.0-8. 5 normal Not Available [facility] ([facility]) [address] [place], [address], 02/22/2025 06:07:28 02/22/20 25 02/22/2025 CMP14 +EGFR albumin 4.3 g/dL 3.9-4. 9 normal Not Available [facility] ([facility]) [address] [place], [address], 02/22/2025 06:07:28 02/22/20 25 02/22/2025 CMP14 +EGFR globulin, total 2.8 g/dL 1.5-4. 5 Not Available [facility] ([facility]) [address] [place], [address], 02/22/2025 06:07:28 02/22/20 25 02/22/2025 CMP14 +EGFR bilirubin, total <0.2 mg/dL 0.0-1. 2 Not Available [facility] ([facility]) [address] [place], [address], 02/22/2025 06:07:28 02/22/20 25 02/22/2025 CMP14 +EGFR alkaline phosphatase 114 IU/L 44-121 normal Not Available [facility] ([facility]) [address] [place], [address], 02/22/2025 06:07:28 02/22/20 25 02/22/2025 CMP14 +EGFR AST (SGOT) 16 IU/L 0-40 normal Not Available [facility] ([facility]) [address] [place], [address], 02/22/2025 06:07:28 02/22/20 25 02/22/2025 CMP14 +EGFR ALT (SGPT) 8 IU/L 0-32 normal Not Available [facility] ([facility]) [address] [place], [address], 02/22/2025 06:07:28 04/21/20 25 04/22/2025 CBC WITH DIFFE RENTI AL/PL ATELE T WBC 5.0 x10e3 /uL 3.4-10 .8 normal Not Available [facility] ([facility]) [address] [place], [address], 04/22/2025 08:06:20 04/21/20 25 04/22/2025 CBC WITH DIFFE RENTI AL/PL ATELE T RBC 3.72 x10e6 /uL 3.77-5 .28 below low normal Not Available [facility] ([facility]) [address] [place], [address], 04/22/2025 08:06:20 04/21/20 25 04/22/2025 CBC WITH DIFFE RENTI AL/PL ATELE T hemoglobin 11.0 g/dL 11.1-1 5.9 below low normal Not Available [facility] ([facility]) [address] [place], [address], 04/22/2025 08:06:20 04/21/20 25 04/22/2025 CBC WITH DIFFE RENTI AL/PL ATELE T hematocrit 36.1 % 34.0-4 6.6 normal Not Available [facility] ([facility]) [address] [place], [address], 04/22/2025 08:06:20 04/21/20 25 04/22/2025 CBC WITH DIFFE RENTI AL/PL ATELE T MCV 97 fL 79-97 normal Not Available [facility] ([facility]) [address] [place], [address], 04/22/2025 08:06:20 04/21/20 25 04/22/2025 CBC WITH DIFFE RENTI AL/PL ATELE T MCH 29.6 pg 26.6-3 3.0 normal Not Available [facility] ([facility]) [address] [place], [address], 04/22/2025 08:06:20 04/21/20 25 04/22/2025 CBC WITH DIFFE RENTI AL/PL ATELE T MCHC 30.5 g/dL 31.5-3 5.7 below low normal Not Available [facility] ([facility]) [address] [facility], [place], [address], 04/22/2025 08:06:20 04/21/20 25 04/22/2025 CBC WITH DIFFE RENTI AL/PL ATELE T RDW 13.1 % 11.7-1 5.4 Not Available [facility] ([facility]) [address] [facility], [place], [address], 04/22/2025 08:06:20 04/21/20 25 04/22/2025 CBC WITH DIFFE RENTI AL/PL ATELE T platelets 337 x10e3 /uL 150-45 0 normal Not Available [facility] ([facility]) [address] [facility], [place], [address], 04/22/2025 08:06:20 04/21/20 25 04/22/2025 CBC WITH DIFFE RENTI AL/PL ATELE T neutrophils 53 % not estab. normal Not Available [facility] ([facility]) [address] [place], [address], 04/22/2025 08:06:20 04/21/20 25 04/22/2025 CBC WITH DIFFE RENTI AL/PL ATELE T lymphs 33 % not estab. normal Not Available [facility] ([facility]) [address] [place], [address], 04/22/2025 08:06:20 04/21/20 25 04/22/2025 CBC WITH DIFFE RENTI AL/PL ATELE T monocytes 11 % not estab. normal Not Available [facility] ([facility]) [address] [facility], [place], [address], 04/22/2025 08:06:20 04/21/20 25 04/22/2025 CBC WITH DIFFE RENTI AL/PL ATELE T eos 2 % not estab. normal Not Available [facility] ([facility]) [address] [facility], [place], [address], 04/22/2025 08:06:20 04/21/20 25 04/22/2025 CBC WITH DIFFE RENTI AL/PL ATELE T basos 1 % not estab. normal Not Available [facility] ([facility]) [address] [place], [address], 04/22/2025 08:06:20 04/21/20 25 04/22/2025 CBC WITH DIFFE RENTI AL/PL ATELE T immature cells COMMUNITY RELATIONS COORDINATOR Not Available [facility] ([facility]) [address] [place], [address], 04/22/2025 08:06:20 04/21/20 25 04/22/2025 CBC WITH DIFFE RENTI AL/PL ATELE T neutrophils (absolute) 2.6 x10e3 /uL 1.4-7. 0 normal Not Available [facility] ([facility]) [address] [place], [address], 04/22/2025 08:06:20 04/21/20 25 04/22/2025 CBC WITH DIFFE RENTI AL/PL ATELE T lymphs (absolute) 1.7 x10e3 /uL 0.7-3. 1 normal Not Available [facility] ([facility]) [address] [place], [address], 04/22/2025 08:06:20 04/21/20 25 04/22/2025 CBC WITH DIFFE RENTI AL/PL ATELE T monocytes(ab solute) 0.5 x10e3 /uL 0.1-0. 9 normal Not Available [facility] ([facility]) [address] [place], [address], 04/22/2025 08:06:20 04/21/20 25 04/22/2025 CBC WITH DIFFE RENTI AL/PL ATELE T eos (absolute) 0.1 x10e3 /uL 0.0-0. 4 normal Not Available [facility] ([facility]) [address] [facility], [place], [address], 04/22/2025 08:06:20 04/21/20 25 04/22/2025 CBC WITH DIFFE RENTI AL/PL ATELE T baso (absolute) 0.1 x10e3 /uL 0.0-0. 2 normal Not Available [facility] ([facility]) [address] [facility], [place], [address], 04/22/2025 08:06:20 04/21/20 25 04/22/2025 CBC WITH DIFFE RENTI AL/PL ATELE T immature granulocytes 0 % not estab. Not Available [facility] ([facility]) [address] [facility], [place], [address], 04/22/2025 08:06:20 04/21/20 25 04/22/2025 CBC WITH DIFFE RENTI AL/PL ATELE T immature grans (abs) 0.0 x10e3 /uL 0.0-0. 1 Not Available [facility] ([facility]) [address] [facility], [place], [address], 04/22/2025 08:06:20 04/21/20 25 04/22/2025 CBC WITH DIFFE RENTI AL/PL ATELE T NRBC COMMUNITY RELATIONS COORDINATOR Not Available [facility] ([facility]) [address] [facility], [place], [address], 04/22/2025 08:06:20 04/21/20 25 04/22/2025 CBC WITH DIFFE RENTI AL/PL ATELE T hematology comments: COMMUNITY RELATIONS COORDINATOR Not Available [facility] ([facility]) [address] [facility], [place], [address], 04/22/2025 08:06:20 04/21/20 25 04/22/2025 IRON AND TIBC iron bind.cap.(TI BC) 389 ug/dL 250-45 0 normal Not Available [facility] ([facility]) [address] [facility], [place], [address], 04/22/2025 08:06:21 04/21/20 25 04/22/2025 IRON AND TIBC UIBC 313 ug/dL 118-36 9 normal Not Available [facility] ([facility]) [address] [facility], [place], [address], 04/22/2025 08:06:21 04/21/20 25 04/22/2025 IRON AND TIBC iron 76 ug/dL 27-139 normal Not Available [facility] ([facility]) [address] [facility], [place], [address], 04/22/2025 08:06:21 04/21/20 25 04/22/2025 IRON AND TIBC iron saturation 20 % 15-55 normal Not Available [facility] ([facility]) [address] [facility], [place], [address], 04/22/2025 08:06:21 02/03/20 25 02/02/2025 XR, chest , 2 view No observ ation record ed. [facility] (Medical Records) [address] [facility], [place], [address], 02/09/2025 14:09:48 04/23/20 25 04/21/2025 XR, sinus es Sinuse s Comp Min 3 Views INDICA TION: Reason : dysfun ction of left eustac hian tube; Clinic al Questi on(s): Sinusi tis TECHNI QUE: Lees , abdome n, latera l, and submen juancho views. Compar javan: None. FINDIN GS: The parana danyel sinuse s are clear. No fractu re seen. IMPRES JET: 1. No plain film eviden ce of sinus diseas e. WSN: [id number] Orderi ng Physic amrgaret: Tu Vázquez Dictat ed By: Tigre Steele MD Dictat ed Date/T varun: 0:09 am Review ed By: Tigre Steele MD Signed By: Tigre Steele MD Signed Date/T varun: 0:09 am Transc ribed By: MARISABEL Transc ribed Date/T varun: 0:09 am Patien t Class: Outpat ient [facility] (Outpt Imaging) [address] [place], [address], 04/24/2025 14:19:21 Result Notes Documentation Provider Name and Address Organization Details Recorded Time Xr, Sinuses : Sinuses Comp Min 3 Views INDICATION: Reason: dysfunction of left eustachian tube; Clinical Question(s): Sinusitis TECHNIQUE: Lees, abdomen, lateral, and submental views. Comparison: None. FINDINGS: The paranasal sinuses are clear. No fracture seen. IMPRESSION: 1. No plain film evidence of sinus disease. WSN: [id number] Ordering Physician: Tu Valdez Dictated By: Tigre Steele MD Dictated Date/Time: 04/23/25 0:09 am Reviewed By: Tigre Steele MD Signed By: Tigre Steele MD Signed Date/Time: 04/23/25 0:09 am Transcribed By: MARISABEL Transcribed Date/Time: 04/23/25 0:09 am Patient Class: Outpatient Tu Valdez MD [address] [facility] [address] [facility], [place], [address], [facility] [place] 04/23/2025 08:48:44 Problems Name Problem SNOMED Code Status Onset Date Resolution Date Notes Provider Name and Address Organization Details Recorded Time Chronic low back pain 472022877 Active Not Available Critical [facility] hospital 17:47:25 Esophage al dysphagi a 41040617 Completed 01/10/2019 Tu Valdez MD [address] [facility] [address], [place], [address] , [facility] 9 10:12:48 Strictur e of esophagu s 43944956 Active Not Available [facility] 1 17:47:25 Esophage al reflux finding 333422118 Completed 01/06/2018 Tu Valdez MD [address], [place], [address] , [facility] 8 14:15:21 Asthma 402693111 Active Not Available [facility] 1 17:47:25 Body mass index -29 - [facility] 999969758 Completed 07/14/2019 Removal Reason: dx changed Tu Valdez MD [address], [place], [address] , [facility] 4 10:22:02 Vitamin D deficien cy 53703518 Active Not Available [facility] 17:47:25 Aortic valve stenosis 93098799 Active mild Not Available [facility] 1 17:47:25 Aortic valve regurgit ation 88211195 Active mod Not Available Critical access hospital 1 17:47:25 Acute asthma 228563442 Completed 11/06/2015 Tu Valdez MD [address], [place], [address] , [facility] 6 09:13:07 Sinusiti s 96284014 Completed 11/06/2015 Tu Valdez MD [address], [place], [address] , [facility] 6 09:13:07 Acute sinusiti s 70616132 Completed 01/06/2017 Leanne kyle, [facility] 7 09:50:19 Herpes labialis 5583511 Active Not Available Critical access hospital 1 17:47:25 Allergy Completed 01/06/2017 Leanne kyle, [facility] 7 09:50:29 Pneumoni a caused by Streptoc occus 99296826 Completed 11/12/2015 Tu Valdez MD [address], [place], [address] , [facility] 6 09:13:07 Cough 24410033 Completed 11/06/2015 Leanne kyle, [facility] 7 09:51:35 Hoarse 25884606 Completed 01/10/2019 Tu Valdez MD [address], [place], [address] , [facility] 0 15:00:40 Exacerba tion of persiste nt asthma Completed 01/06/2018 Tu Valdez MD [address], [place], [address] , [facility] 8 14:15:54 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 44232862 Active Not Available Critical [facility] hospital 1 17:47:25 Cough 23700238 Completed 01/06/2017 Leanne kyle, [facility] 7 09:51:35 Moderate asthma 163343772 Active Not Available Critical [facility] hospital 1 17:47:25 Electroc ardiogra m abnormal 554771632 Active Not Available [facility] hospital 1 17:47:25 Congesti ve heart failure 77725697 Active Not Available Critical access hospital 17:47:25 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 385466011 Completed 01/10/2019 Tu Valdez MD [address], [place], [address] , [facility] 4 06:19:23 Thyroid hormone tests outside referenc e range 902100277 Completed 01/06/2017 Leanne kyle [facility] 7 09:50:38 Left sided abdomina l pain 241331571 Completed 01/06/2017 Leanne kyle [facility] 7 09:51:21 Blood in urine 56941911 Completed 01/06/2017 Leanne Woodward LAURA anabella, [facility] 7 09:51:18 Acute vaginiti s 90451722 Completed 01/06/2017 Leannefiliberto Keekaren LAURA kyle, [facility] 7 09:51:01 Vaginiti s 71084651 Completed 01/06/2017 Leannefiliberto Keekaren LAURA kyle, [facility] 7 09:51:13 Dysuria 87850760 Completed 01/06/2017 Leanne Keekaren LAURA kyle, [facility] 7 09:51:41 Intermit tent dysphagi a 36243170 Completed 01/06/2018 Tu Valdez MD [address], [place], [address] , [facility] 8 14:14:48 Constipa tion 23919162 Active Not Available [facility] 1 17:47:25 Pyuria 1933464 Completed 04/21/2017 Tu Valdez MD [address], [place], [address] , [facility] 7 09:39:53 Suspecte d COVID-19 556183810 Completed 04/08/2021 Removal Reason: Problem added by user [email or web address] from the COVID-19 watch flag Raegan Higgins anabella, [facility] 1 13:43:15 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 924694663 Active Tu Valdez MD [address], [place], [address] , [facility] 4 06:19:23 History of Hodgkin lymphoma 635514400 Active 1976 Not Available [facility] 1 17:47:25 Screenin g for malignan t neoplasm of breast Completed 201104/17/2014 RECORDED 07/25/20 12 10:41AM BY JENNI WEIR MA, SONAL ON/NAINA Valdez MD [address], [place], [address] , [facility] 6 09:13:07 Renewal of prescrip tion Completed 201104/17/2014 RECORDED 07/25/20 12 10:42AM BY JENNI WEIR MA, SONAL ON/NAINA Valdez MD [address], [place], [address] , [facility] 6 09:13:07 Screenin g for malignan t neoplasm of breast Completed 201105/10/2014 RECORDED 07/25/20 12 10:41AM BY JENNI WEIR MA, SONAL ON/NAINA Valdez MD [address] [facility] [address], [place], [address] , [facility] 6 09:13:07 Renewal of prescrip tion Completed 201105/10/2014 RECORDED 07/25/20 12 10:42AM BY JENNI WEIR MA, SONAL FLORES/NAINA Valdez MD [address] [facility] [address], [place], [address] , [facility] 6 09:13:07 Screenin g for malignan t neoplasm of breast Completed 201105/11/2014 RECORDED 07/25/20 12 10:41AM BY JENNI WEIR MA, SONAL ON/NAINA Valdez MD [address], [place], [address] , [facility] 6 09:13:07 Renewal of prescrip tion Completed 201105/11/2014 RECORDED 07/25/20 12 10:42AM BY JENNI WEIR MA, SONAL FLORES/NAINA Valdez MD [address], [place], [address] , [facility] 6 09:13:07 Multiple mitral and aortic valve involvem ent Completed 201101/10/2019 Tu Valdez MD [address], [place], [address] , [facility] 9 10:12:34 Patient status finding [id number] Completed 201204/17/2014 RECORDED 10/28/19 13 8:53AM BY JENNI WEIR MA, ANNOTATI ON/ADDEN DUM Tu Valdez MD [address], [place], [address] , [facility] 6 09:13:07 Dysphagi a 67095964 Completed 201204/17/2014 IMPRESSI ON: IF UGI ABNL, OR SYMPTOMS PERSIST WILL REFER TO GI.; RECORDED 10/28/19 13 8:53AM BY JENNI WEIR MA, ANNOTATI ON/ADDEN DUM Tu Valdez MD [address], [place], [address] , [facility] 6 09:13:07 Edema [id number] Completed 201204/17/2014 IMPRESSI ON: GIVEN POST SURGICAL LOCATION WILL IMAGE TO SEE IF C/W NL SCAR TISSUE AND RULE OUT FLUID COLLECTI ON.; RECORDED 10/28/19 13 8:53AM BY JENNI WEIR MA, ANNOTJABARI ON/ADDEN DUM Tu Valdez MD [address], [place], [address] , [facility] 6 09:13:07 Patient status finding [id number] Completed 201205/10/2014 RECORDED 10/28/19 13 8:53AM BY JENNI WEIR MA, ANNOTATI ON/ADDEN DUM Tu Valdez MD [address], [place], [address] , [facility] 6 09:13:07 Dysphagi a [id number] Completed 201205/10/2014 IMPRESSI ON: IF UGI ABNL, OR SYMPTOMS PERSIST WILL REFER TO GI.; RECORDED 10/28/19 13 8:53AM BY JENNI WEIR MA, ANNOTATI ON/NAINA Valdez MD [address], [place], [address] , [facility] 6 09:13:07 Edema [id number] Completed 201205/10/2014 IMPRESSI ON: GIVEN POST SURGICAL LOCATION WILL IMAGE TO SEE IF C/W NL SCAR TISSUE AND RULE OUT FLUID COLLECTI ON.; RECORDED 10/28/19 13 8:53AM BY JENNI WEIR MA, ANNOTATI ON/NAINA Valdez MD [address], [place], [address] , [facility] 6 09:13:07 Dysphagi a [id number] Completed 201205/11/2014 IMPRESSI ON: IF UGI ABNL, OR SYMPTOMS PERSIST WILL REFER TO GI.; RECORDED 10/28/19 13 8:53AM BY JENNI WEIR MA, ANNOTATI ON/NAINA Valdez MD [address], [place], [address] , [facility] 6 09:13:07 Edema [id number] Completed 201205/11/2014 IMPRESSI ON: GIVEN POST SURGICAL LOCATION WILL IMAGE TO SEE IF C/W NL SCAR TISSUE AND RULE OUT FLUID COLLECTI ON.; RECORDED 10/28/19 13 8:53AM BY JENNI WEIR MA, ANNOTATI ON/NAINA Valdez MD [address], [place], [address] , [facility] 6 09:13:07 Adult health examinat ion Completed [...] Valdez MD [address], [place], [address] , [facility] 6 09:13:07 Hodgkin' s disease of extranod al AND/OR solid organ site [id number] Completed 201204/17/2014 RECORDED 07/25/20 13 10:11AM BY JENNI WEIR MA, SONAL ON/NAINA Valdez MD [address] [facility] [address], [place], [address] , [facility] 6 09:13:07 Adult health examinat ion Completed 201205/10/2014 IMPRESSI ON: IMMUNIZA TION STATUS UTD WILL SCREEN BASED ON RISK FACTORS. REGULAR DENTAL CARE AND SEATBELT USE ADVISED. DISTRACT ED DRIVING DISCUSSE D. ROUTINE CERVICAL /BREAST/ COLON CANCER SCREENIN G UTD ALTHOUGH ALL ARE DUE IN THE UPCOMING SEVERAL MONTHS.; RECORDED 07/25/20 13 10:11AM BY JENNI WEIR MA, SONAL FLORES/NAINA Valdez MD [address] [facility] [address], [place], [address] , [facility] 6 09:13:07 Hodgkin' s disease of extranod al AND/OR solid organ site [id number] Completed 201205/10/2014 RECORDED 07/25/20 13 10:11AM BY JENNI WEIR MA, SONAL ON/NAINA Valdez MD [address], [place], [address] , [facility] 6 09:13:07 Adult health examinat ion Completed 201205/11/2014 IMPRESSI ON: IMMUNIZA TION STATUS UTD WILL SCREEN BASED ON RISK FACTORS. REGULAR DENTAL CARE AND SEATBELT USE ADVISED. DISTRACT ED DRIVING [place]. ROUTINE CERVICAL /BREAST/ COLON CANCER SCREENIN G UTD ALTHOUGH ALL ARE DUE IN THE UPCOMING SEVERAL MONTHS.; RECORDED 07/25/20 13 10:11AM BY JENNI WEIR MA, SONAL FLORES/NAINA Valdez MD [address] [address], [place], [address] , [facility] 6 09:13:07 Hodgkin' s disease of extranod al AND/OR solid organ site [id number] Completed 201205/11/2014 RECORDED 07/25/20 13 10:11AM BY JENNI WEIR MA, SONAL ON/NAINA Valdez MD [address] [address], [place], [address] , [facility] 6 09:13:07 Influenz a vaccine needed [id number] 06 Completed 201204/17/2014 RECORDED 07/26/20 13 3:43PM BY JENNI WEIR MA, OFFICE VISIT Tu Valdez MD [address] [address], [place], [address] , [facility] 6 09:13:07 Influenz a vaccine needed [id number] 06 Completed 201205/10/2014 RECORDED 07/26/20 13 3:43PM BY JENNI WEIR MA, OFFICE VISIT Tu Valdez MD [address] [address], [place], [address] , [facility] 6 09:13:07 Influenz a vaccine needed [id number] 06 Completed 201205/11/2014 RECORDED 07/26/20 13 3:43PM BY JENNI WEIR MA, OFFICE VISIT Tu Valdez MD [address] [address], [place], [address] , [facility] 6 09:13:07 Acute pharyngi tis 293287292 Completed 201204/17/2014 RECORDED 10/03/20 13 1:01PM BY JENNI WEIR MA, SONAL ON/NAINA Valdez MD [address] [facility] [address], [place], [address] , [facility] 6 09:13:07 Acute exacerba tion of bronchie ctasis 476872255 Completed 201204/17/2014 IMPRESSI ON: SEE PT MESSAGE; RECORDED 10/03/20 13 1:01PM BY JENNI WEIR MA, SONAL ON/NAINA Valdez MD [address] [facility] [address], [place], [address] , [facility] 6 09:13:07 Chronic sinusiti s 27828589 Completed 201204/17/2014 IMPRESSI ON: SOUNDS ALLERGY RELATED. PT WILL TRY NASAL STEROID AND IF DRAINAGE PERSISTS /BECOMES PURULENT WILL START ABX. CALL INB/WORS E WITH THESE INTERVEN TIONS.; RECORDED 10/03/20 13 1:00PM BY JENNI WEIR MA, SONAL ON/NAINA Valdez MD [address] [facility] [address], [place], [address] , [facility] 6 09:13:07 Acute pharyngi tis [id number] Completed 201205/10/2014 RECORDED 10/03/20 13 1:01PM BY JENNI WEIR MA, SONAL FLORES/NAINA Valdez MD [address] [facility] [address], [place], [address] , [facility] 6 09:13:07 Acute exacerba tion of bronchie ctasis 301952380 Completed 201205/10/2014 IMPRESSI ON: SEE PT MESSAGE; RECORDED 10/03/20 13 1:01PM BY JENNI WEIR MA, SONAL ON/NAINA Valdez MD [address] [facility] [address], [place], [address] , [facility] 6 09:13:07 Chronic sinusiti s 82832784 Completed 201205/10/2014 IMPRESSI ON: SOUNDS ALLERGY RELATED. PT WILL TRY NASAL STEROID AND IF DRAINAGE PERSISTS /BECOMES PURULENT WILL START ABX. CALL INB/WORS E WITH THESE INTERVEN TIONS.; RECORDED 10/03/20 13 1:00PM BY JENNI WEIR MA, SONAL ON/NAINA Valdez MD [address] [facility] [address], [place], [address] , [facility] 6 09:13:07 Acute pharyngi tis 908075355 Completed 201205/11/2014 RECORDED 10/03/20 13 1:01PM BY JENNI WEIR MA, ANNOTATI ON/NAINA Valdez MD [address] [facility] [address], [place], [address] , [facility] 6 09:13:07 Acute exacerba tion of bronchie ctasis 397039485 Completed 201205/11/2014 IMPRESSI ON: SEE PT MESSAGE; RECORDED 10/03/20 13 1:01PM BY JENNI WEIR MA, ANNOTATI ON/NAINA Valdez MD [address] [facility] [address], [place], [address] , [facility] 6 09:13:07 Chronic sinusiti s 37473642 Completed 201205/11/2014 IMPRESSI ON: SOUNDS ALLERGY RELATED. PT WILL TRY NASAL STEROID AND IF DRAINAGE PERSISTS /BECOMES PURULENT WILL START ABX. CALL INB/WORS E WITH THESE INTERVEN TIONS.; RECORDED 10/03/20 13 1:00PM BY JENNI WEIR MA, ANNOTATI ON/NAINA Valdez MD [address], [place], [address] , [facility] 6 09:13:07 Mammogra phy abnormal 334603581 Completed 201301/06/2017 RECORDED 01/18/20 14 3:16PM BY JENNI WEIR MA, OFFICE VISIT Leanne Woodward MA 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 14169765 Completed 201301/10/2019 Tu Valdez MD [address], [place], [address] , [facility] 9 10:14:10 Depressi ve disorder 26802409 Active 2013 Not Available [facility] 17:47:25 Tobacco user [id number] Completed 201304/17/2014 RECORDED 01/18/20 14 3:15PM BY JENNI WEIR MA, ANNOTATI ON/NAINA Valdez MD [address], [place], [address] , [facility] 6 09:13:07 Pure hypercho lesterol emia 990003308 Active 2013 Not Available [facility] 17:47:25 Hypothyr oidism 49166301 Active 2013 Not Available [facility] 17:47:25 Irritabl e bowel syndrome 49513932 Active 2013 Not Available [facility] 17:47:25 Migraine 70050086 Active 2013 Not Available [facility] 17:47:25 Heart murmur 04030529 Active 2013 Not Available [facility] 1 17:47:25 Primary malignan t neoplasm of skin 56223012 Completed 201301/06/2017 [facility]; RECORDED 01/18/20 14 3:16PM BY JENNI WEIR MA, OFFICE VISIT Leanne Woodward MA [facility] 7 09:52:12 Tobacco user [id number] Completed 201305/10/2014 RECORDED 01/18/20 14 3:15PM BY JENNI WEIR MA, ANNOTATI ON/ADDEN DUM Tu Valdez MD [address], [place], [address] , [facility] 6 09:13:07 Tobacco user [id number] Completed 201305/11/2014 RECORDED 01/18/20 14 3:15PM BY JENNI WEIR MA, ANNOTATI ON/ADDEN DUM Tu Valdez MD [address], [place], [address] , [facility] 6 09:13:07 Low back pain 731697287 Completed 201311/06/2015 IMPRESSI ON: PAIN IS STABLE AND WELL CONTROLL ED. MEDS REFILLED PER NARCOTIC CONTRACT .; RECORDED 01/30/20 14 6:41AM BY UT Xie MD, OFFICE VISIT Tu Valdez MD [address], [place], [address] , [facility] 6 09:13:07 Disorder of lung 33227246 Completed 201301/06/2018 Tu Valdez MD [address], [place], [address] , [facility] 8 14:15:17 Left bundle branch block 64813771 Active 2015 Not Available [facility] 1 17:47:25 Mitral valve regurgit ation 33816489 Active 2015 mild/mod Not Available [facility] 1 17:47:25 Left heart failure 25830385 Active 2015 Not Available [facility] 1 17:47:25 Left cardiac ventricu lar dilatati on 731503099 Active 2015 Not Available [facility] 1 17:47:25 Multiple nodules of lung 381728524 Active 2015 right, 1.3 and 1.2cm Tu Valdez MD [address], [place], [address] , [facility] 4 10:06:36 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 Completed 201504/08/2020 Tu Valdez MD [address], [place], [address] , [facility] 0 14:50:05 Impaired fasting glycemia 319914288 Active 2016 Not Available [facility] 1 17:47:25 Asplenia 931929293 Active 2016 Not Available [facility] 1 17:47:25 Heart valve disorder 319682 Active 2016 Not Available [facility] 1 17:47:25 Fibrosis of lung 88375884 Active 2016 Not Available [facility] 1 17:47:25 Bronchie ctasis 33876621 Active 2016 Not Available [facility] 1 17:47:25 Gastroes ophageal reflux disease 132836511 Active 2017 Not Available [facility] 1 17:47:25 [place] [facility] [employer] ion Classifi cation - Class III 786103660 Active 2017 Not Available [facility] 1 17:47:25 Asthma-c hronic obstruct eron pulmonar y disease overlap syndrome 83439385053 667956 Active 2017 Not Available [facility] 1 17:47:25 Fibromya lgia 588118625 Active 2018 Not Available [facility] 17:47:25 Raynaud' s disease 820093636 Active 2018 Not Available [facility] 17:47:25 History of malignan t neoplasm of breast 539538457 Active 2018 right, s/p mastecto my, no tamoxife n Not Available [facility] 17:47:25 Basal cell carcinom a of skin 685849237 Active 2018 neck Not Available [facility] 17:47:25 Hoarse 01362317 Completed 201804/08/2020 Tu Valdez MD [address] [facility] [address], [place], [address] , [facility] 0 15:00:40 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 Not Available [facility] 17:47:24 Generali zed anxiety disorder 40850214 Active 2019 Not Available [facility] 17:47:25 Hypercal cemia 65848503 Active 2019 Not Available [facility] 17:47:25 Albuminu christophe 852065408 Completed 201906/10/2020 Tu Valdez MD [address] [facility] [address], [place], [address] , [facility] 20:18:14 Hyperpar athyroid ism 25162767 Active 2019 Not Available [facility] 17:47:25 Chronic kidney disease stage 3A 946083121 Completed 202008/05/2023 Tu Valdez MD [address] [facility] [address], [place], [address] , [facility] 3 11:00:48 Osteopen ia 882053853 Active 2020 Tu Valdez MD [address], [place], [address] , [facility] 1 08:56:02 Bilatera l cataract s 63177522 Active 2020 Tu Valdez MD [address], [place], [address] , [facility] 1 21:33:41 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 549399927 Completed 202008/23/2023 T1cN0 IDC 2-/-/- Removal Reason: mastecto my Jenny Ang null, [facility] 3 07:43:29 Anemia 388754629 Active 2020 Tu Valdez MD [address], [place], [address] , [facility] 1 15:18:27 Prediabe pravin 034258493 Active 2020 Tu Valdez MD [address], [place], [address] , [facility] 1 08:14:49 Iron deficien cy anemia 48827768 Active 2020 Tu Valdez MD [address], [place], [address] , [facility] 1 07:10:33 Candidia sis of esophagu s 22181419 Completed 202108/05/2023 Tu Valdez MD [address], [place], [address] , [facility] 3 11:01:01 Hiatal hernia 10902915 Active 2021 Tu Valdez MD [address], [place], [address] , [facility] 21:22:33 Lumbar radiculo corinne 789872524 Active 2021 Tu Valdez MD [address] [facility] [address], [place], [address] , [facility] 2 16:36:56 Paralysi s of left vocal cord 832776611 Active 2021 Tu Valdez MD [address] [facility] [address], [place], [address] , [facility] 16:15:47 Acute COVID-19 0183780552 Completed 202206/15/2023 Tu Valdez MD [address] [facility] [address], [place], [address] , [facility] 3 11:23:34 SARS-CoV -2 Completed 202208/05/2023 Tu Valdez MD [address] [facility] [address], [place], [address] , [facility] 3 11:05:26 History of bilatera l mastecto my 945987546 Active 2022 Tu Valdez MD [address] [facility] [address], [place], [address] , [facility] 3 11:19:24 Abdomina l pain 59190522 Active 2023 BRIDGET Dean [address] [facility] [address], [place], [address] , [facility] 4 11:58:17 Wheeze - rhonchi 45577259 Completed 202308/11/2024 Tu Valdez MD [address] [facility] [address], [place], [address] , [facility] 4 10:06:20 Urinary tract infectio us disease 90833909 Active 2023 BRIDGET Dean [address] [facility] [address], [place], [address] , [facility] 4 09:42:11 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 41727104 Active 2023 Tu Valdez MD [address] [facility] [address], [place], [address] , [facility] 5 22:08:26 Compress ion fracture of thoracic vertebra 53285060577 04 Completed 202308/11/2024 T4 Tu Valdez MD [address] [facility] [address], [place], [address] , [facility] 4 10:07:16 Compress ion fracture of thoracic spine 666683481 Active 2023 T4 Tu Valdez MD [address] [facility] [address], [place], [address] , [facility] 4 00:00:18 Osteopor osis 68054172 Active 2023 Tu Valdez MD [address] [facility] [address], [place], [address] , [facility] 4 07:53:43 Body mass index 25-29 - overweig ht 137340136 Active 2023 Tu Valdez MD [address] [facility] [address], [place], [address] , [facility] 4 10:22:02 Malignan t neoplasm of breast in [facility] n Active 2023 Tu Valdez MD [address] [facility] [address], [place], [address] , [facility] 4 10:25:36 Adenocar cinoma of cecum 427019681 Completed 202405/11/2025 Tu Valdez MD [address] [facility] [address], [place], [address] , [facility] 5 11:26:31 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 Procedures Surgical History Date Name Laterality Status Provider Name and Address Organization Details Recorded Time 05/11 Chronic Pain Assessment completed Lori rossi MA [facility] 5 11:05:46 02/09 Chronic Pain Assessment completed Catherine Christina MA [facility] 5 13:59:24 01/17 right colectomy completed Tu Valdez MD [address] [facility] [address], [place], [address] , [facility] 5 06:15:24 11/07 Date of Last Colonoscopy completed Kathy Arambula [facility] 5 14:31:02 11/07 Egd diagnostic brush wash completed Tu Valdez MD [address] [facility] [address], [place], [address] , [facility] 5 12:32:39 11/07 Colonoscopy completed Tu Valdez MD [address] [facility] [address], [place], [address] , [facility] 5 12:33:27 06/06 Chronic Pain Assessment completed Anna Peck MA [facility] 4 11:01:18 12/05 Chronic Pain Assessment completed Anna Peck MA [facility] 4 10:21:29 06/15 Chronic Pain Assessment completed Anna Peck MA [facility] 3 11:05:37 03/08 Chronic Pain Assessment completed Anna Peck MA [facility] 3 10:16:18 12/04 Chronic Pain Assessment completed Guerline Smalls MA [facility] 3 09:02:03 06/09 Chronic Pain Assessment completed Jenni Weir MA [facility] 2 09:23:02 04/30 Chronic Pain Assessment completed Jenni Weir MA [facility] 2 10:48:45 03/13 Chronic Pain Assessment completed Guerline Smalls MA [facility] 2 10:03:09 01/12 Egd diagnostic brush wash completed Tu Valdez MD [address], [place], [address] , [facility] 2 21:23:08 12/16 Chronic Pain Assessment completed Jenni Weir MA [facility] 2 13:49:31 09/16 Chronic Pain Assessment completed Jenni Weir MA [facility] 1 11:46:34 08/11 Mast radical completed Mirian Garcia RN [facility] 2 08:56:29 06/24 incisional biopsy of breast completed Tu Valdez MD [address], [place], [address] , [facility] 1 12:40:15 06/19 Chronic Pain Assessment completed Jenni Weir MA [facility] 1 11:52:12 06/17 Most Recent Mammogram completed Mirian Garcia RN [facility] 1 15:25:51 04/03 Bronchoscopy completed Tu Valdez MD [address], [place], [address] , [facility] 1 08:52:42 03/24 Echo transthoracic completed Tu Valdez MD [address], [place], [address] , [facility] 1 11:48:05 03/21 Chronic Pain Assessment completed Jenni Weir MA [facility] 1 09:39:06 12/20 Chronic Pain Assessment completed Jenni Weir MA [facility] 1 09:21:44 09/20 Chronic Pain Assessment completed Jenni Weir MA [facility] 0 10:02:03 06/21 Chronic Pain Assessment completed Jenni Weir MA [facility] 0 10:44:17 06/12 Bronchoscopy completed Tu Valdez MD [address], [place], [address] , [facility] 0 06:27:35 10/10 Chronic Pain Assessment completed Catherine Christina MA [facility] 0 10:13:37 07/11 Chronic Pain Assessment completed Jenni Weir MA [facility] 9 10:09:43 06/21 Mammogram one breast completed Stephanie Foster [facility] 9 09:46:18 04/26 colonoscopy completed Tu Valdez MD [address], [place], [address] , [facility] 3 11:05:45 04/11 Chronic Pain Assessment completed Jenni Weir MA [facility] 9 09:41:29 03/31 Most Recent Bone Density completed Jenni Weir MA [facility] 0 14:35:02 03/31 Dxa bone density larry vrt fx completed Rosa Weir MA [facility] 0 14:34:30 01/10 Chronic Pain Assessment completed Jenni Weir MA [facility] 9 09:52:52 01/02 Colonoscopy completed Zaida Hebert MA [facility] 1 08:34:18 11/30 Mohs surgery completed Tu Valdez MD [address], [place], [address] , [facility] 9 10:22:18 11/25 Date of Last Pap Smear completed Kayli Braxton [facility] 9 13:36:36 10/13 Chronic Pain Assessment completed Jenni Weir MA [facility] 9 09:24:08 08/31 Bronchoscopy completed Stephanie Foster [facility] 8 11:46:22 07/14 Chronic Pain Assessment completed Jenni Weir MA [facility] 8 15:22:31 04/18 Chronic Pain Assessment completed Jenni Weir MA [facility] 8 14:00:54 01/31 Pmkr, dual, rate-resp completed Tu Valdez MD [address], [place], [address] , [facility] 8 16:51:46 01/06 Chronic Pain Assessment completed Jenni Weir MA [facility] 8 13:57:30 10/15 Chronic Pain Assessment completed Leanne jones MA [facility] 8 10:13:38 07/20 Chronic Pain Assessment completed Jenni Weir MA [facility] 7 10:17:38 04/21 Chronic Pain Assessment completed Jenni Weir MA [facility] 7 09:25:02 01/20 Chronic Pain Assessment completed Jenni Weir MA [facility] 7 11:25:10 10/23 Chronic Pain Assessment completed Jenni Weir MA [facility] 7 08:16:24 06/09 esophagogastroduodenoscopy completed Tu Valdez MD [address], [place], [address] , [facility] 0 09:16:58 04/27 Chronic Pain Assessment completed Catherine Christina MA [facility] 6 08:23:04 03/13 Cardiac mri w/stress img completed Tu Valdez MD [address], [place], [address] , [facility] 7 15:13:01 02/02 Chronic Pain Assessment completed Jenni Weir MA [facility] 6 09:26:40 01/02 Cardiac Surgery completed Tu Valdez MD [address], [address] , [facility] 6 08:21:03 12/05 Echo Transthoracic completed Tu Valdez MD [address], [place], [address] , [facility] 6 08:18:17 05/04 EGD completed Tu Valdez MD [address], [place], [address] , [facility] 0 09:16:39 03/01 Mastectomy Partial completed Mirian Garcia RN [facility] 1 15:22:47 02/01 Breast Implants completed Jenni Weir MA [facility] 6 09:21:57 02/01 Breast Surgery completed Zaida Hebert MA [facility] 1 08:34:18 02/01 Breast Implants completed Zaida Hebert MA [facility] 1 08:34:18 01/02 Breast Biopsy completed Zaida Hebert MA [facility] 1 08:34:18 07/23 Caesarean Section completed Zaida Hebert MA [facility] 1 08:34:18 05/04 Cholecystectomy completed Zaida Hebert MA [facility] 1 08:34:18 06/04 Appendectomy completed Zaida Hebert MA [facility] 1 08:34:18 Appendectomy completed Zaida Hebert MA [facility] 1 08:34:18 Splenectomy completed Jenni Weir MA [facility] 6 09:21:57 Breast Surgery completed Zaida Hebert MA [facility] 1 08:34:18 Breast Biopsy completed Zaida Hebert MA [facility] 1 08:34:18 Hysterectomy completed Jenni Weir MA [facility] 4 14:41:43 Caesarean Section completed Tu Valdez MD [address], [place], [address] , [facility] 8 14:29:05 Cholecystectomy completed Zaida Hebert MA [facility] 1 08:34:18 Mohs surgery completed Anna Peck MA [facility] 3 10:47:08 Imaging Results None recorded. Procedure Notes None recorded. Medical Equipment None Reported. Allergies Allergen ID Allergen Name Allergen Category Reaction Reaction Severity Criticality Documentation Date Start Date Code Code System Note Provider Name and Address Organization Details Recorded Time 34897 Substance with sulfonami de structure and antibacte rial mechanism of action (substanc e) medicatio n rash Not available Not available 09/03/2014 40357 8003 SNOMED Lori LA[place]A Hwang [facility] 4 13:33:49 46209 Levaquin medicatio n headache nausea other Not available Not available Not available Not available 04/15/2021 58698 2 RxNorm dizzi ness Tu Valdez MD [address] [facility] [address] [address] [place] [address] 1 09:01:30 47077 Compazine medicatio n palpitati ons severe Not available 03/13/202246852 6 RxNorm LAURA Garcia [facility] 2 09:55:43 3731 Bactrim medicatio n rash Not available Not available 04/17/20142013 65314 9 RxNorm Lori Promise-LAURA Liz [facility] 4 13:33:49 3732 Biaxin medicatio n rash Not available Not available 04/17/20142013 83538 9 RxNorm Lori Promise-LAURA Liz [facility] 4 13:33:49 3733 codeine sulfate medicatio n other Not available Not available 04/17/20142013 52498 RxNorm abdom inal pain LAURA Ware [facility] 4 13:33:49 3734 naproxen medicatio n diarrhea Not available Not available 04/17/20142013 7258 RxNorm abdom inal pain Lori LAURA Hwang [facility] 4 13:33:49 Medications Name Sig Start Date [...] Not Available Not Available No t Available magnesium 500 mg tablet Take 1 tablet every [...] Available doxycycli ne hyclate 100 mg capsule TAKE 1 CAPSULE BY MOUTH TWICE A DAY FOR 10 DAYS 07/01 completed Not Available Not Available Not Available Vitamin C 500 mg tablet Take 1 tablet every day by oral route. 07/14 completed Not Available Not Available Not Available cefpodoxi me 200 mg tablet TAKE 1 TABLET BY MOUTH EVERY 12 HOURS FOR 7 DAYS 03/06 completed Not Available Not Available Not Available azithromy sintia 250 mg tablet TAKE 1 TABLET BY MOUTH 3 TIMES A WEEK FOR 28 DAYS TAKE 1 TABLET ON WEDNESDAY/ /WEDNESDAY active Not Available Not Available No t Available fluconazo le 150 mg tablet Take [...] completed Not Available Not Available Not Available Medrol (Zackary) 4 mg tablets in a dose pack Take 1 dose pk by oral route as directed for 6 days. 03/28 completed Not Available Not Available Not Available [...] peg-elect rolyte solution 420 gram oral solution MIX DIRECTED AND DRINK 240ML EVERY 15 MINUTES DIRECTED 03/05 completed Not Available Not Available Not Available omeprazol e 40 mg capsule,d elayed release TAKE 1 CAPSULE BY MOUTH EVERY DAY 2024 active Not Available Not Available Not Avai lable doxycycli ne monohydra te 100 mg tablet [...] No t Available lorazepam 0.5 mg tablet TAKE 1 TABLET BY MOUTH ONCE A DAY NEEDED active Not Available Not Available No t Available metoclopr amide 5 mg tablet PLEASE SEE ATTACHED FOR DETAILED DIRECTIO NS 03/05 completed on hold Not Available Not Available Not Available DOK 100 mg capsule TAKE ONE CAPSULE BY MOUTH TWICE A DAY 07/14 completed Not Available Not Available Not Available oxycodone -acetamin ophen 10 mg-325 mg tablet TAKE 1 TABLET BY MOUTH EVERY 6 HOURS NEEDED FOR 30 DAYS active Not Available Not Available No t Available calcitoni n (salmon) 200 unit/actu ation nasal spray Take 1 spray every day by nasal route for 30 days. 06/06 completed Not Available Not Available Not Available imiquimod 5 % topical cream packet Apply 1 applicat ion every day by topical route for 30 days. 05/06 completed Not Available Not Available Not Available diazepam 2 mg tablet TAKE 1 TABLET BY MOUTH EVERY 8 HOURS NEEDED FOR SPASMS. 03/05 completed Not Available Not Available Not Available benzonata te 100 mg capsule Take 1 capsule 3 times a day by oral route as needed for 5 days. active Not Available Not Available No t Available erythromy sintia 5 mg/gram (0.5 %) eye ointment APPLY TO RIGHT EYE TWICE A DAY 05/11 completed Not Available Not Available Not Available oseltamiv ir 75 mg capsule Take [...] Not Available furosemid e 20 mg tablet TAKE 1 TABLET BY MOUTH EVERY DAY FOR 7 DAYS 02/09 completed Not Available Not Available Not Available [...] e 137 mcg (0.1 %) nasal spray [place] 2 sprays twice a day by nasal [...] 90 mcg/actua tion aerosol inhaler INHALE 2 PUFF INTO THE LUNGS 4 TIMES A DAY NEEDED FOR FOR WHEEZING active Not Available Not Available No t Available ondansetr on 4 mg disintegr ating tablet DISSOLVE 2 TABLETS BY MOUTH EVERY 8 HOURS NEEDED FOR NAUSEA/V OMITING active Not Available Not Available No t Available fluticaso ne propionat e 50 mcg/actua tion nasal spray,viviana pension SPRAY 2 SPRAYS INTRANAS ALLY DAILY active Not Available Not Available No [...] MOUTH EVERY 12 HOURS FOR 7 DAYS 03/15 completed Not Available Not Available Not Available Vitamin B-12 1,000 mcg tablet Take 1 tablet every day by oral route. 12/05 completed Not Available Not Available Not Available tobramyci n 0.3 %-dexamet hasone 0.1 % eye drops,viviana pension active Not Available Not Available Not Available Stool Softener 50 mg capsule Take 1 capsule every day by oral route. active Not Available Not Available No t Available enoxapari n 40 mg/0.4 mL subcutane ous syringe INJECT THE CONTENTS OF 1 SYRINGE (0.4ML) SUBCUTAN EOUSLY EVERY DAY FOR 21 DAYS. 03/05 completed Not Available Not Available Not Available azithromy sitnia 500 mg tablet TAKE 1 TABLET BY MOUTH 3 TIMES PER WEEK ON WEDNESDAY/ /03/05 completed Not Available Not Available Not Available valsartan 40 mg tablet Take 1 [...] completed Not Available Not Available Not Available Multivita min With Minerals dosage as [...] Not Available Not Available No t Available sodium,po tassium,m ag sulfates 17.5 gram-3.13 gram-1.6 gram oral soln PLEASE SEE ATTACHED FOR DETAILED DIRECTIO NS active upcoming COLONOSC OPY in November 2025 Not Available Not Available Not Available krill oil 500 mg capsule Take [...] on route as needed for 30 days. 05/11 completed Not Available Not Available Not Available Flucelvax 5824-0854 (PF) 45 mcg (15 mcg x 3)/0.5 [...] powder for inhalatio n INHALE 1 PUFF BY MOUTH EVERY 12 HOURS FOR 30 DAYS active [...] d Address Organization Details Last Updated DateTime 02/09/2025 162.56 cm Catherine Christina MA [facility] 02/09/2025 13:56:22 Date Recorded Systolic And Diastolic Provider Name and Address Organization Details Last Updated DateTime 03/05/2025 87/56 mm[Hg] Kristopher Dumont PA-C [address] [address], [place], [address], [facility] 03/05/2025 15:14:56 Date Recorded Body height Body mass index (BMI) Body weight Heart rate Oxygen saturation Oxygen saturation in Arterial blood by Pulse oximetry Body temperature Systolic And Diastolic Provider Name and Address Organization Details Last Updated DateTime 5 162.56 cm 22.2 kg/m2 30039.8 2 g 100 /min 98 % 98 % 98 [degF] 82/48 mm[Hg] Anna Peck [facility] 5 14:33:47 Date Recorded Body height Body mass index (BMI) Body weight Heart rate Oxygen saturation Oxygen saturation in Arterial blood by Pulse oximetry Body temperature Systolic And Diastolic Provider Name and Address Organization Details Last Updated DateTime 5 162.56 cm 22.3 kg/m2 73208.0 1 g 95 /min 96 % 96 % 98 [degF] 103/66 mm[Hg] Rhina calabrese MA [facility] 5 09:10:42 Date Recorded Body height Provider Name an d Address Organization Details Last Updated DateTime 04/20/2025 162.56 cm Rhina rehman MA [facility] 04/20/2025 11:25:29 Date Recorded Body height Body mass index (BMI) Body weight Heart rate Oxygen saturation Oxygen saturation in Arterial blood by Pulse oximetry Body temperature Pain severity - 0-10 verbal numeric rating [Score] - Reported Systolic And Diastolic Provider Name and Address Organization Details Last Updated DateTime 5 162.56 cm 22.3 kg/m2 39822.0 1 g 77 /min 100 % 100 % 98.1 [degF] 7 106/61 mm[Hg] Lori de la cruz MA [facility] 5 10:59:07 Social History Question Answer Notes LastModified by Organizat ion Details LastModified Time Tobacco Smoking Status Former Smoker quit 1976 Not Available [facility] 08/06/2020 03:36:42 Do You Have An Advance Directive? Yes HCP/ Son-Sergio ferrera Information not available 09/04/2022 Is Blood Transfusion Acceptable In An Emergency? Yes [id number] Information not available 08/06/2020 What Is Your Level Of Caffeine Consumption? None [id number] Information not available 08/06/2020 How Much Tobacco Do You Chew? None [id number] Information not available 08/06/2020 What Type Of Diet Are You Following? REGULAR [id number] Information not available 08/06/2020 Which Illicit Or Recreational Drugs Have You Used? None [id number] Information not available 08/06/2020 Education 12 Information no t available 09/04/2022 When Did You Quit Smoking? 16+yearssin jd chavez [email or web address] Information not available 04/15/2021 Live Alone Or [...] Date Of Your Most Recent Tobacco Screening? 05/11/2025 [email or web address] Information not available 05/11/2025 How Many Children Do You Have? 2 Kym (grandson -Jeffery) [email or web address] Information not available 08/05/2023 What Is Your Current Pack Years? 10-19packye ars Information not available 09/04/2022 Seat Belts Used Routinely Yes Information not available 09/04/2022 Are You Sexually Active? No [id number] Information not available 08/06/2020 Smoke Alarm In Home Yes Information not available 09/04/2022 At What Age Did You Start Smoking Tobacco? 16 [id number] Information not available 08/06/2020 Are You Passively Exposed To Smoke? No Information no t available 08/13/2014 How Much Tobacco Do You Smoke? 1 PPW [id number] Information not available 08/06/2020 Do You Use Sunscreen Routinely? Yes [id number] Information not available 08/06/2020 How Many Years Have You Smoked Tobacco? 1 [email or web address] Information not available 04/15/2021 Sex: Unknown Functional Status Question Answer Note LastModified by Organizat ion Details LastModified Time Do you use any illicit or recreational drugs? No Information not available 09/04/2022 Do you or have you ever used any other forms of tobacco or nicotine? No Information not available 09/04/2022 What is your level of alcohol consumption? None [id number] Information not available 08/06/2020 Do you or have you ever used smokeless tobacco? Never used smokeless tobacco [id number] Information not available 08/06/2020 Are you currently employed? Yes Tristen Lou [id number] Information not available 08/06/2020 Are you able to walk independently without assistance or assistive devices? YESWOREST Information not available 09/04/2022 Are you able to care for yourself independently? 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 Never used electronic cigarettes Information not available 09/04/2022 What is your exercise level? Occasional [id number] Information not available 08/06/2020 Mental Status None recorded. Family History Relationship Description Onset Age of this Age Resolved Age Notes LastModified by Organization Details LastModified Time Mother Hypertensive disorder abolcun Not available 2015 10:53:05 Mother Cerebrovascu lar accident abolcun Not available 06/2016 10:53:05 Father Malignant neoplasm of colon abolcun Not available 2015 10:53:05 Father Harmful pattern of use of alcohol abolcun Not available 2015 10:53:05 Father Malignant melanoma Not available 2021 08:39:57 Sister Malignant neoplasm of breast [email or web address] Not available 04/15 08:33:47 Sister Well adult Not available 09/04/2022 08:39:57 Sister Chronic obstructive pulmonary disease [email or web address] Not available 04/15 08:33:47 Sister Migraine [email or web address] Not availab le 04/15/2021 08:33:47 Sister Anxiety disorder [email or web address] Not available 04/15 08:33:47 Sister Obesity [email or web address] Not availabl e 04/15/2021 08:33:47 Sister Malignant neoplasm of breast abolcun Not available 2015 10:53:05 [...] mcg/0.3 mL dose 1 completed LAURA Camarena [facility] 09/16/2021 11:35:53 Influenza, MDCK, quadrivalent, PF 0 completed LAURA Camarena [facility] 09/16/2021 11:35:53 COVID-19, mRNA, LNP-S, PF, 30 mcg/0.3 mL dose 1 completed LAURA Camarena [facility] 09/16/2021 11:35:53 meningococcal MCV4P 2 completed LAURA Camarena [facility] 09/16/2021 11:35:53 COVID-19, mRNA, LNP-S, PF, 30 mcg/0.3 mL dose 1 completed LAURA Camarena [facility] 09/16/2021 11:38:52 pneumococcal polysaccharide PPV23 1 completed LAURA Camarena [facility] 10/01/2021 09:26:18 Influenza, split virus, quadrivalent, PF 7 completed LAURA Camarena, [facility] 04/30/2022 10:49:02 Influenza, split virus, quadrivalent, PF 8 completed LAURA Camarena, [facility] 04/30/2022 10:49:02 pneumococcal polysaccharide PPV23 9 completed LAURA Camarena, [facility] 04/30/2022 10:49:02 Tdap 9 completed LAURA Camarena, [facility] 04/30/2022 10:49:02 Pneumococcal conjugate PCV 13 4 completed LAURA Camarena [facility] 04/30/2022 10:49:02 meningococcal MCV4P 8 completed LAURA Camarena, [facility] 04/30/2022 10:49:02 Influenza, split virus, quadrivalent, PF 9 completed LAURA Camarena, [facility] 04/30/2022 10:49:03 Influenza, split virus, quadrivalent, PF 1 completed LAURA Camarena [facility] 04/30/2022 10:49:03 Influenza, split virus, quadrivalent, PF 2 completed LAURA Arroyo, [facility] 07/14/2022 11:16:28 COVID-19, mRNA, LNP-S, PF, 100 mcg/0.5mL dose or 50 mcg/0.25mL dose 2 completed LAURA Arroyo, [facility] 07/14/2022 11:16:28 COVID-19, mRNA, LNP-S, bivalent, PF, 50 mcg/0.5 mL or 25mcg/0.25 mL dose 2 completed Chester Mensah MA null, [facility] 08/31/2022 13:31:48 RSV, recombinant, protein subunit RSVpreF, adjuvant reconstituted, 0.5 mL, PF 3 completed LAURA Brannon, [facility] 08/05/2023 10:33:06 COVID-19, mRNA, LNP-S, PF, joseline-sucrose, 30 mcg/0.3 mL 4 completed Izabela Caporale SYSTEMS DEVELOPMENT MANAGER null, [facility] 08/11/2024 09:40:31 Influenza, high-dose, trivalent, PF 4 completed Izabela Caporale, SYSTEMS DEVELOPMENT MANAGER null, [facility] 08/11/2024 09:40:31 Influenza, split virus, quadrivalent, PF 6 completed Not Available [facility] 10/21/2019 02:22:07 influenza, seasonal, intradermal, preservative free 2 completed Not Available [facility] 02/25/2021 17:47:26 meningococcal MPSV4 2 completed Not Available [facility] 02/25/2021 17:47:26 MMR 1 completed LAURA Camarena, [facility] 09/16/2021 11:35:53 pneumococcal polysaccharide PPV23 9 completed LAURA Camarena, [facility] 09/16/2021 11:35:53 Tdap 9 completed Not Available [facility] 02/25/2021 17:47:26 influenza, seasonal, intradermal, preservative free 3 completed Not Available [facility] 02/25/2021 17:47:26 Influenza, high-dose, quadrivalent, PF 3 completed Tu Valdez MD [address] [address], [place], [address], [facility] 07/07/2023 13:04:12 Past Encounters Encounter ID Performer Location Encounter Start Date Encounter Closed Date Diagnosis/Indication Diagnosis SNOMED-CT Code Diagnosis ICD10 Code Diagnosis IMO Codes Diagnosis Note [id number] Tu Valdez MD Main Office [address] [place], [place] [address] 04/20/2014 14:12:22 04/20/2014 15:12:51 Chronic low back pain 434992607 Stable /wel l controlled . 3 months of prescripti ons provided as per term of narcotic contract. Esophageal dysphagia 26399474 Concerning especially in the context of her history of chest irradiatio n. Due for colonoscop y as well. Will refer to GI for considerat ion of both and EGD/colono scopy. [id number] autoEComm erce [address] [facility] [place] [address] 07/26/2012 00:00:00 [id number] autoEComm erce [address] [facility] [place] [address] 10/28/2012 00:00:00 [id number] autoEComm erce [address] [facility] [place] [address] 01/27/2013 00:00:00 [id number] autoEComm erce [address] [facility] [place] [address] 04/27/2013 00:00:00 [id number] autoEComm erce [address] [facility] [place] [address] 07/26/2013 00:00:00 [id number] autoEComm erce [address] [facility] [place] [address] 08/04/2013 00:00:00 [id number] autoEComm erce [address] [facility] [place] [address] 10/25/2013 00:00:00 [id number] autoEComm erce [address] [facility] [place] [address] 01/17/2014 00:00:00 [id number] Tu Valdez MD Main Office [address] [place] [address] 08/13/2014 10:17:11 08/13/2014 11:47:48 Adult health examination 210657986 Will update immunizati on status and screen based on risk factors. Regular dental and ophtho care advised as well as sunscreen and seatbelt use. Distracted driving discussed. Cervical, breast and colon cancer screening utd. Advance directives discussed and in place. Low back pain 993723669 Body mass index 25-29 - overweight 400613199 Hypothyroidism 45122851 Anxiety state 527000873 Administra tion of pneumococcal vaccine 54915984 Vitamin D deficiency 72420896 Pure hypercholesterolemia 820422235 Bordeline in the past. Will reassess. Heart murmur 86919702 Mild aortic stenosis and AI seen in 2011. Pt remains asymptomat ic. Will reassess for progressio n. [id number] Joe Pike MD Main Office [address] [address] [place] [address] 09/03/2014 13:22:39 09/03/2014 14:00:47 Acute asthma 836671429 [id number] Tu Valdez MD Main Office [address] [address] [place] [address] 11/14/2014 10:34:38 11/14/2014 11:14:51 Low back pain 964682266 Chronic and stable with improved ADL function on meds. Narcotic contract renewed, 3 months med supply provided. Acute sinusitis 51168905 O n prednisone and given symptom duration as well as risk factors will cover for possible bacterial process. [id number] Jillian garcia MD Main Office [address] [address] [place] [address] 12/27/2014 10:22:37 12/27/2014 11:18:36 Disorder of lung 86265772 pt with pulmonary fibrosis, mild increase in her cough, no fever, lung exam with good air mvt, no rales, no role for antibiotic s, continue inhalers, reevaluati on if any worsening. Allergy 700613215 use nasa l spray daily [id number] Tu Valdez MD Main Office [address] [address] [place] [address] 01/07/2015 14:24:18 03/29/2015 13:58:03 [id number] Tu Valdez MD Main Office [address] [address] [place] [address] 01/09/2015 10:40:18 01/09/2015 11:35:46 Pneumonia caused by Streptococcus 82682430 Symptoms improving, O2 sats normal, completed course of therapy. Acute asthma 277222885 Viviana pect that asthma is being trigerred by recent infection/ inflammati on. Will try a steroid taper to help calm this down. Cough 27359301 Chronic low back pain 998999078 Chronic issue aggravated by acute illness including pleurisy and chest wall pain. Will see if prednisone helps address this issue as well. Chronic med rx rewritten to accommodat e temporary increase in med use during acute illness. [id number] Tu Valdez MD Main Office [address] [address] [place] [address] 02/08/2015 09:53:14 02/08/2015 10:49:03 Low back pain 214706029 Chronic and stable with improved ADL function on meds. Narcotic contract renewed, 3 months med supply provided. Anxiety state 429717259 ems like it should only be short term. PRN benzo filled but if use increases/ persist will need to discuss other management options. [id number] Tu Valdez MD Main Office [address] [address] [place] [address] 05/10/2015 09:58:13 05/10/2015 10:51:28 Chronic low back pain 844867466 Stable and well controlled with improved level of function on meds. Will continue. Meds refilled x 90 days per terms of narcotic contract. Anxiety state 765389257 [facility] appropriat dayami. PRN benzo filled but if use increases/ persist will need to discuss other management options. Cough 12540802 See if antihistam ine affords more relief. [id number] Tu Valdez MD Main Office [address] [address] [place] [address] 08/07/2015 09:25:03 08/07/2015 10:08:42 Chronic low back pain 667902647 M54.5 Stable and well controlled with improved level of function on meds. Will continue. Meds refilled x 90 days per terms of narcotic contract. Anxiety state 519487484 F41.1 Using appropriat dayami. PRN benzo filled but if use increases/ persist will need to discuss other management options. Hypothyroidism 11587522 E03.9 Clinically and biochemica lly euthyroid. Will continue current dosing. Hoarse 27558102 R49.0 Persistent issue. With history of radiation therapy will image thyroid. If persistent /worse and thyroid does not appear to be the issue would refer to ENT for laryngosco py. [id number] Yasmeen Dumont PA-C Main Office [address] [address] [place] [address] 09/20/2015 11:23:51 09/20/2015 11:54:42 Sinusitis 58879274 J32.9 Acute sinusitis. Start Doxycyclin e 100 mg BID for 7 days. Use Sudafed 30-60 mg q 4-6 hrs. Cherutussi n AC twice per day. 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 Will treat symptomati tono for comfort, and pt advised to complete current course of abx and prednisone taper. Pt has f/u scheduled tomorrow with Dr Rosado. [id number] Tu Valdez MD Main Office [address] [place] [address] [place] [address] 10/28/2015 10:47:40 10/29/2015 14:09:24 [id number] Tu Valdez MD Main Office [address] [place] [address] [place] [address] 9 11/06/2015 10:37:03 11/06/2015 11:40:29 Adult health examination 482977247 Z00.00 Will update immunizati on status and screen based on risk factors. Regular dental and ophtho care advised as well as sunscreen and seatbelt use. Distracted driving discussed. Cervical, breast and colon cancer screening utd. Advance directives discussed and in place. Chronic low back pain 27 6183338 M54.5 Stable and well controlled with improved level of function on meds. Will continue. Meds refilled x 90 days as per terms of narcotic contract which was renewed Body mass index 25-29 - overweight 752989397 Z68.29 Hypothyroidism 12845786 E03.9 Heart murmur 00132715 R0 1.1 Mild aortic stenosis and AI seen in 2011. Pt remains asymptomat ic. Will reassess for progressio n. 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 PRN benzo filled but if use increases/ persist will need to discuss other management options. Hoarse 20319633 R49.0 If not continuing to slowly improve will refer to ENT for laryngosco py. [id number] BRIDGET Dean Main Office [address] [facility] 207 [place] [address] 11/20/2015 10:37:35 11/20/2015 11:26:08 Fibrosis of lung caused by radiation 55407758 J70.1 Cough 37268287 R05 Will treat with doxy x 7 [...] humidifier as needed, continue inhalers as directed. [id number] Tu Valdez MD Main Office [address] [facility] 207 [facility] [place] [address] 12/11/2015 10:26:37 12/11/2015 11:35:58 Left heart failure 80532932 I50.1 New finding, ? if related to conduction vs perfusion issue. Likely a result of prior chest irradiatio n. Will refer to cardiology to help evaluate further. Will try adding low dose BB and monitor for hypotensio n, asthma exacerbati on. If BNP elevated will consider diuretic trial. Left cardi ac ventricular dilatation 250596356 I51.7 Herpes labialis 5442809 B00.1 pt requesting refill. Cough 18149622 R05 Chronic issue. Transition ing to another pulmonolog ist. Cough medicine helping at night. Electrocar diogram abnormal 415922549 R94.31 New findings to coincide with ECHO. Had ECG's done recently at [facility] will track down to try and isolate when these cardiac issues may have occured. [id number] Tu Valdez MD Main Office [address] [facility] [place] [address] 01/09/2016 10:39:35 01/09/2016 11:39:18 Congestive heart failure 34517929 I50.9 Currently compensate d on appropriat e medical regimen. Etiology unclear at this time but with unremarkab le cath need to suspect prior chemo/radi ation therapy as being a factor. Has appt with CHF clinic. Will check BNP given recent start of ARB and dye load from cath. [id number] Tu Valdez MD Main Office [address] [facility] [place] [address] 02/03/2016 09:10:15 02/03/2016 09:59:24 Chronic low back pain 413676103 M54.5 Stable and well controlled with improved level of function on meds. Will continue. Meds refilled x 90 days as per terms of narcotic contract which was renewed Hypothyroidism 65245645 E03.9 Will verify stability/ control. Overall clinically euthyroid. Alkaline p hosphatase above reference range 251674802 R74.8 Screen for osteomalac ia. Congestive heart failure 60248804 I50.9 Currently compensate d on appropriat e medical regimen. Etiology unclear at this time but with unremarkab le cath need to suspect prior chemo/radi ation therapy as being a factor. Seen by Dr. Smart will track down notes. Scheduled for cardiac MRI per pt. [id number] Tu Valdez MD Main Office [address] [facility] [place] [address] 02/10/2016 10:43:33 02/10/2016 11:29:55 Left sided abdominal pain 104016007 R10.9 ? obstructio n vs constipati on vs gastritis. Will start with xray and depending on results and response to this treatment may require further testing and possibly referral. Pt advised that if pain acutely worsens to go to ED. Call if persistent or additional symptoms develop. [id number] Tu Valdez MD Main Office [address] [address] [place] [address] 04/27/2016 08:11:02 04/27/2016 08:56:21 Chronic low back pain 803268121 M54.5 Stable and well controlled with improved level of function on meds. Will continue. Meds refilled x 90 days as per terms of narcotic contract. Will check xray to rule out arthritis as possible contributo r to her pain. Vaginitis 26384724 N76.0 Non responsive to course of fluconazol e. Will screen for UTI and if unremarkab le, pt will arrange evaluation with gynecology . Dysuria 43664796 R30.0 Intermitte nt dysphagia 16847193 R13.19 Has history of stricture. Will refer to GI for f/u. Constipation 83873517 K5 9.00 [id number] Yasmeen Dumont PA-C Main Office [address] [address] [place] [address] 07/22/2016 14:45:32 07/22/2016 15:29:59 Chronic low back pain 746684590 M54.5 Continue current meds. F/u with PCP as scheduled in 2017. [id number] Tu Valdez MD Main Office [address] [address] [place] [address] 09/16/2016 14:12:34 09/16/2016 15:05:34 Acute pharyngitis 952025085 J02.9 Based on risk for exposure and Centor score will treat empiricall y and d/c if culture is negative. Supportive /symptomat ic tx advised in the meantime. Needs infl uenza immunization 843256776 Z23 [id number] Yasmeen Dumont PA-C Main Office [address] [address] [place] [address] 10/13/2016 10:29:02 10/13/2016 11:04:07 Upper respiratory infection 38331139 J06.9 Pt. is advised to try Mucinex 120 mg BID for congestion , continue Flonase spray and add saline solution. If in 1 week worsening of symptoms, will add Abx. [id number] Tu Valdez MD Main Office [address] [address] [place] [address] 10/23/2016 08:09:41 10/23/2016 08:47:13 Chronic low back pain 890986839 M54.5 Stable and well controlled with improved level of function on meds. Will continue. Meds refilled x 90 days as per terms of narcotic contract. [id number] Yasmeen Dumont PA-C Main Office [address] [address] [place] [address] 12/01/2016 09:21:14 12/01/2016 10:18:02 Adult health examination 125251657 Z00.00 up to date on immunizati ons Pure hypercholesterolemia 937153369 E78.00 Hypothyroidism 77549453 E03.9 Continue current meds. Recheck TFTs. Moderate asthma 60563760 9 J45.40 Congestive heart failure 51209448 I50.9 Continue current meds and f/u with cardiologi . [id number] Kristopher Dumont PA-C Main Office [address] [address] [place] [address] 01/06/2017 09:26:07 01/06/2017 10:19:00 Chronic constipation 263820534 K59.00 25 minute office visit with greater than 50% of the visit face-to-fa ce with the patient and/or family providing counseling and/or coordinati on of care. Abdominal pain 26629540 R10.9 most likely d/t ibs - c (adhesions , narcotics) --- see below re: chronic constipati on [id number] Tu Valdez MD Main Office [address] [place] [address] [place] [address] 01/20/2017 11:14:02 01/20/2017 12:12:24 Constipation 05286599 K59.00 Possible IBS component. See if OTC supplement helps. Pure hypercholesterolemia 309443889 E78.01 Current 10 yr risk 2.6%, with minimal CAD on 2016 cath. Will follow for now,. Chronic low back pain 27 0690929 M54.5 Stable and well controlled with improved level of function on meds. Will continue. Meds refilled x 90 days as per terms of narcotic contract. [id number] Tu Valdez MD Main Office [address] [address] [place] [address] 04/21/2017 09:17:54 04/21/2017 09:54:20 Chronic low back pain 761080099 M54.5 Stable and well controlled with improved level of function on meds. Will continue. Meds refilled x 90 days as per terms of narcotic contract. [id number] Tu Valdez MD Main Office [address] [address] [place] [address] 07/20/2017 09:59:53 07/20/2017 10:45:37 Needs influenza immunization 713686788 Z23 Chronic low back pain 27 1588579 M54.5 Stable and well controlled with improved level of function on meds. Will continue. Meds refilled x 90 days as per terms of narcotic contract which was updated today. Anxiety state 710079179 F41.1 Using appropriat dayami. Will monitor use. Benzo contract created today. Constipation 23878534 K5 9.00 Well controlled with stool softener and Senna. Will call with any problems. [id number] Tu Valdez MD Main Office [address] [address] [place] [address] 09/07/2017 09:30:44 09/07/2017 10:25:14 Bronchiectasis 52777015 J47.9 Fever 065075539 R50.9 Based on risk factors/co morbiditie s will cover empiricall y for flu. If CXR abnl will need abx. Nausea 272377706 R11.0 Cough 30120683 R05 Tachycardia 9539406 R00. 0 Suspect related to acute illness. Doubt these issues are primarily cardiac. [id number] Tu Valdez MD Main Office [address] [address] [place] [address] 10/15/2017 09:15:54 10/15/2017 10:11:40 Chronic low back pain 018140872 M54.5 Stable and well controlled with improved level of function on meds. Will continue. Meds refilled x 90 days as per terms of narcotic contract. Chronic constipation 236 560626 K59.09 [id number] Tu Valdez MD Main Office [address] [facility] 207 [place] [address] 01/06/2018 13:47:12 01/06/2018 15:13:42 Adult health examination 489418906 Z00.00 Will update immunizati on status, flu advised in the Fall and Shingrix via local pharmacy. Will screen based on risk factors. Regular dental and ophtho care advised as well as sunscreen and seat belt use. Distracted driving discussed. Cervical, breast and colon cancer screening utd. Advance directives discussed and in place. Anxiety state 249757916 F41.1 Using appropriat dayami. Will monitor use. Benzo contract in place. Chronic low back pain 27 2863021 M54.5 Stable and well controlled with improved level of function on meds. Will continue. Meds refilled x 90 days as per terms of narcotic contract. Congestive heart failure 03520213 I50.9 Currently compensate d on appropriat e medical regimen. Being referred to EP for ICD placement. Bronchiectasis 95160073 J47.9 Impaired f asting glycemia 719336777 R73.01 Multiple n odules of lung 942381257 R91.8 Being followed by pulmonary Alkaline p hosphatase above reference range 504619686 R74.8 Has been low/stable , will monitor. Vitamin D deficiency 347 45159 E55.9 Hypothyroidism 50864239 E03.9 Clinically euthyroid, due for labs. Requires a meningitis vaccination 371760655 Z23 s/p splenectom y Varicella vaccination 68 589887 Z23 [id number] Tu Valdez MD Main Office [address] [facility] 207 [place] [address] 04/18/2018 13:51:28 04/18/2018 14:51:00 Chronic low back pain 420271249 M54.5 Stable and well controlled with improved level of function on meds. Will continue. Meds refilled x 90 days as per terms of narcotic contract. Multiple n odules of lung 152380551 R91.8 Being followed by pulmonary Constipation 93863227 K5 9.00 Well controlled with stool softener and Senna. Will call with any problems. Pure hypercholesterolemia 043735084 E78.01 Current 10 yr risk 1.4%, with minimal CAD on 2016 cath. Will follow for now,. [id number] Tu Valdez MD Main Office [address] [address] [place] [address] 07/14/2018 15:10:25 07/14/2018 16:02:38 Chronic low back pain 106386578 M54.5 Stable and well controlled with improved level of function on meds. Will continue. Meds refilled x 90 days as per terms of narcotic contract. Needs infl uenza immunization 654528006 Z23 Constipation 46389902 K5 9.00 Well controlled with stool softener and Senna. Will call with any problems. Fatigue 30280932 R53.83 Bichemical ly euthyroid in April. Had a low vitamin D level and isn't taking supplement . Will start for the winter months. If fatigue persists/w orsens will need labs. Hypothyroidism 09938812 E03.9 Clinically euthyroid [id number] uT Valdez MD Main Office [address] [address] [place] [address] 10/13/2018 09:06:06 10/13/2018 09:59:31 Chronic low back pain 413048704 M54.5 Stable and well controlled with improved level of function on meds. Will continue. Meds refilled x 90 days as per terms of narcotic contract. [id number] Tu Valdez MD Main Office [address] [address] [place] [address] 01/10/2019 09:26:04 01/10/2019 10:41:10 Adult health examination 144726706 Z00.00 Will update immunizati on status, flu advised in the Fall and Shingrix via local pharmacy. Will screen based on risk factors. Regular dental and ophtho care advised as well as sunscreen and seat belt use. Distracted driving discussed. Cervical, breast cancer screening utd. Due for colonoscop y in the Fall. Advance directives discussed and in place. Chronic low back pain 27 8453317 M54.5 Stable and well controlled with improved level of function on meds. Will continue. Meds refilled x 90 days as per terms of narcotic contract. Administra tion of viral vaccine 90258664 Z23 Screening for malignant neoplasm of breast 159938239 Z12.39 Screening for malignant neoplasm of colon 774366523 Z12.11 Due in May for f/u colon Varicella vaccination 68 210265 Z23 Vitamin D deficiency 347 06577 E55.9 Impaired f asting glycemia 140049100 R73.01 Congestive heart failure 68650863 I50.9 Currently compensate d on appropriat e medical regimen. Following with cardiology Bronchiectasis 91512934 J47.9 Following with pulmonary. [place] H eart Association Classification - Class III 476495268 I50.9 Asplenia 953836254 Q89.0 1 Gastroesop hageal reflux disease 577493182 K21.9 Hypothyroidism 70817481 E03.9 Clinically euthyroid Body mass index 25-29 - overweight 973791420 E66.3 Z68.25 [id number] Tu Valdez MD Main Office [address] [facility] [address] [place] [address] 04/11/2019 09:10:42 04/11/2019 10:22:45 Chronic low back pain 129573923 M54.5 Stable and well controlled with improved level of function on meds. Will continue. Meds refilled x 90 days as per terms of narcotic contract. Osteopenia 934463394 M85 .80 Regular weigh bearing exercise and adequate dietary Ca/Vit D intake advised. Generalize d anxiety disorder 27410046 F41.1 Abnormal t hyroid hormone 527744409 R94.6 asymptomat ic. Will monitor labs, and titrate dose if still >4 at f/u. [id number] Tu Valdez MD Main Office [address] [facility] 207 [facility] [place] [address] 07/11/2019 10:00:41 07/11/2019 10:40:18 Chronic pain syndrome 146115802 G89.4 Chronic low back pain 27 5403953 M54.5 Stable and well controlled with improved level of function on meds. Will continue. Meds refilled x 90 days as per terms of narcotic contract. Needs infl uenza immunization 915560634 Z23 Pain of manuel int of ankle and/or foot 757434377 M79.672 I suspect that this is related to her sitting technique. Will image if persistent /worse Left lower quadrant pain 158262606 R10.32 Will see if XR demonstrat es significan t stool burden. If not and symptoms persist will need further evaluation . Hypothyroidism 57041246 E03.9 Clinically euthyroid, but biochemica lly hypo. Will increase T4 supplement dose. [id number] Tu Valdez MD Main Office [address] [address] [place] [address] 10/10/2019 09:52:27 10/10/2019 10:36:32 Chronic pain syndrome 826755464 G89.4 Acute sinusitis 23726587 J01.90 Symptoms mild x 3 days. Continue supportive tx and knows to start abx and call for steroids if symptoms progress/p ersist. [id number] Tu Valdez MD Main Office [address] [place] [address] [place] [address] 01/01/2020 16:15:12 01/02/2020 09:14:42 [id number] Tu Valdez MD Main Office [address] [address] [place] [address] 01/05/2020 09:06:21 01/05/2020 11:49:33 Chronic low back pain 299537860 M54.5 Stable and well controlled with improved level of function on meds. Will continue. Meds refilled x 90 days as per terms of narcotic contract. Chronic pain syndrome 37 4770720 G89.4 Allergic rhinitis 980726 04 J30.9 ? if allergies are a factor given symptoms for over 1 month and relief with prednisone . Will see if antihistam ine helps. [id number] Tu Valdez MD Main Office [address] [address] [place] [address] 02/01/2020 10:54:44 02/01/2020 13:46:54 Exposure to viral disease 0152604734 92640 Z03.818 Fever 580824567 R50.9 Based on symptoms, comorbidit ies and active pandemic will screen for COVID 19. Pt is currently minimally symptomati c but advised to go to ED with shortness of breath or hypoxia. If testing negative and fever persists will need further eval. [id number] Tu Valdez MD Main Office [address] [facility] [address] [place] [address] 04/08/2020 14:01:48 04/08/2020 15:10:54 Adult health examination 693611690 Z00.00 Will update immunizati on status, flu advised in the Fall and Shingrix via local pharmacy. Will screen based on risk factors. Regular dental and ophtho care advised as well as sunscreen and seat belt use. Distracted driving discussed. Cervical, breast and colon cancer screening utd. Advance directives discussed and in place. Generalize d anxiety disorder 37727783 F41.1 Symptoms mild and intermitte nt. Rx refilled, will monitor use. Varicella vaccination 68 243169 Z23 Screening for malignant neoplasm of breast 100580321 Z12.39 Congestive heart failure 74556688 I50.9 Currently compensate d on appropriat e medical regimen. Following with cardiology Bronchiectasis 31862811 J47.9 Following with pulmonary. Gastroesop hageal reflux disease 091449596 K21.9 Symptoms worsening despite 20mg of omeprazole . Will increase to 40mg and arrange GI eval given her history. Stricture of esophagus 55518896 K22.2 Chronic pain syndrome 37 4838628 G89.4 Hypothyroidism 95184134 E03.9 Clinically and biochemica lly euthyroid. Will reassess. Vitamin D deficiency 347 33438 E55.9 Impaired f asting glycemia 684171451 R73.01 Pure hypercholesterolemia 823566335 E78.01 Current 10 yr risk 1.9%, with minimal CAD on 2016 cath. Will follow for now,. Body mass index 25-29 - overweight 291997083 E66.3 Z68.29 [id number] Jillian garcia MD Main Office [address] [facility] [address] [place] [address] 05/06/2020 11:22:15 05/06/2020 12:52:37 Irritable bowel syndrome 17452776 K58.9 fiber and adequate fluids. discussed meds for IBS but due to heart issues and possible anticholin ergie effect will hold off for now as, probiotic, small frequent bland meals. Esophageal dysphagia 408 97333 R13.19 pt with hx of strictures , needs to see GI for possible dilation. Small meals, soft foods, chew well. Call if any food impactions or worsening sx. Nausea 274824851 R11.0 lab today, likely related to above [id number] Tu Valdez MD Main Office [address] [address] [place] [address] 06/19/2020 07:58:37 06/20/2020 10:15:30 [id number] Tu Valdez MD [facility] [address] [address] [place] [address] 06/21/2020 08:26:41 06/27/2020 09:26:32 Chronic low back pain 360175798 M54.5 Stable and well controlled with improved [...] ask endo to help with evaluation . [id number] Tu Valdez MD [facility] [address] [address] [place] [address] 09/20/2020 09:13:48 09/20/2020 11:07:38 Chronic low back pain 861515685 M54.5 Stable and well controlled with improved level of function on meds. Will continue. Meds refilled x 90 days as per terms of narcotic contract. Acute sinusitis 61804188 J01.90 Symptoms mild x 3 days. Continue supportive tx and knows to start abx and steroids if symptoms progress/p ersist. [id number] Tu Valdez MD [facility] [address] [address] [place] [address] 12/20/2020 08:46:20 12/20/2020 13:23:19 Chronic low back pain 297882025 M54.5 Stable and well controlled with improved level of function on meds. Will continue. Meds refilled x 90 days as per terms of narcotic contract. Hypothyroidism 40761711 E03.9 Clinically euthyroid and biochemica lly hypothyroi d. Will reassess since dose decrease. Bronchiectasis 34701804 J47.9 Following with pulmonary. 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 Congestive heart failure 06752822 I50.9 Currently compensate d on appropriat e medical regimen. Following with cardiology [id number] Tu Valdez MD [facility] h [address] [facility] [address] [facility] [place] [address] 01/28/2021 13:54:23 02/03/2021 10:44:55 Cough 86980891 R05 cont proph abx as per pulm & ID, as well as inhalers and chest physiother apy as dir - concerned about possible bloss[place] pna - will check cxr and labs and cc: to pulm pt already has apptmt gracie pulm for 8:30am tomorrow, so advised pt to go to [address] to check both cxr and labs -- this will ideally help c her pulm visit tomorrow, and help to keep her out of the hospital *will cc: this note to pulm* Fever 294197548 R50.9 encouraged pt to stay hydrated, take prn tyl Nausea 703702468 R11.0 if no help c edilberto then use prn zofran Counseling 105616879 Z71 .9 Health advice, education or counseling done for COVID 19 pt already had 2 covid vaccinatio ns - last one on 3.3 - has pending covid test from yesterday [id number] Tu Valdez MD [facility] [address] [facility] [address] [facility] [place] [address] 03/21/2021 08:34:44 03/21/2021 11:40:11 Chronic low back pain 283963700 M54.5 Stable and well controlled with improved level of function on meds. Will continue. Meds refilled x 90 days as per terms of narcotic contract. Hypercalcemia 47957341 E 83.52 Will request recent endo notes. Likely that active pulmonary process is contributi ng. [id number] Tu Valdez MD Main Office [address] [facility] 207 [facility] [place] [address] 04/15/2021 08:30:57 04/15/2021 09:26:58 Adult health examination 499479944 Z00.00 Will update immunizati on status, flu [...] endo to help with evaluation . Osteopenia 259316282 M85 .80 Regular weigh bearing exercise and adequate dietary Ca/Vit D intake advised. Due for follow up bone density Body mass index 25-29 - overweight 345098172 E66.3 Z68.27 Screening for malignant neoplasm of breast 333912816 Z12.39 Varicella vaccination 68 537962 Z23 Chronic ki dney disease stage 3A 829302252 N18.31 On ARB with good BP control. Will monitor. Impaired f asting glycemia 917197916 R73.01 Will monitor. Pure hypercholesterolemia 542401632 E78.01 Current 10 yr risk 1.9%, with minimal CAD on 2016 cath. Will follow for now,. [id number] Tu Valdez MD Main Office [address] [facility] [address] [place] [address] 06/19/2021 11:18:44 06/19/2021 12:31:11 Chronic low back pain 428193528 M54.5 Stable and well controlled with improved level of function on meds. Will continue. Meds refilled x 90 days as per terms of narcotic contract. Anxiety state 120425709 F41.1 Using appropriat dayami. Will monitor use. Benzo contract in place. Mammography abnormal 168 739281 R92.8 Has biopsy scheduled on 06/24, advised to call with any problems throughout the process. Nausea 332752336 R11.0 Likely from daily azithro. Working with ID and pulm to find appropriat e/tolerabl e regimen. [id number] Tu Valdez MD Main Office [address] [facility] [address] [place] [address] 07/17/2021 14:04:12 07/17/2021 15:13:14 Pre-surgery evaluation 002427035 Z01.818 Cruz CV risk score is 0.05%. Patient is at high risk for cardiopulm onary complicati ons with planned procedure based on comorbidit ies. Has had pulmonary clearance with cardiology appt next week. Pt advised to avoid aspirin and NSAIDS for 7 days prior. Medically stable/latha ared to proceed with surgery as planned pending formal cardiac clearance. 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 Postoperative pain 26348 9007 G89.18 Pt will continue her current regimen. Once surgery is scheduled I will send in a 2 week supply of 10/325mg oxycodone/ APAP to accommodat e post op pain. Chronic constipation 236 403038 K59.09 Advised to increase fluid/fibe r intake. Will resume senna and continue Miralax. Anemia 355319324 D64.9 Measured on 07/02 during ED eval. Has been stable. Will reassess and screen for nutritiona l deficienci es. Needs infl uenza immunization 910580663 Z23 Congestive heart failure 82040653 I50.9 Currently compensate d on appropriat e medical regimen. Following with cardiology , and has appt next week. Prediabetes 264925610 R7 3.03 [id number] Tu Valdez MD Main Office [address] [address] 09/16/2021 11:28:40 09/16/2021 12:13:19 Chronic low back pain 785607695 M54.50 Stable and well controlled with improved level of function on meds. Will continue. Meds refilled x 90 days per terms of narcotic contract. 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 Chemo plan has been coordinate d with cardiology and pulmonary. Being followed very closely by all specialist s. Will request/mo nitor correspond ence. Generalize d anxiety disorder 03827721 F41.1 Symptoms mild and intermitte nt. Rx refilled, will monitor use. [id number] Tony Fine MD Tele[facility] 3640 [facility] [address] [facility] [place] [address] 10/01/2021 08:12:08 10/01/2021 10:23:23 Acute pharyngitis 481725083 J02.9 laryngitis resolving after prednisone . Asthma-chr onic obstructive pulmonary disease overlap syndrome [id number] 8379094 J44.9 Chronic ki dney disease stage 3A 306999101 N18.31 Fibrosis of lung 1963086 1 J84.10 [place] H eart Association Classification - Class III 341933778 I50.9 Bronchiectasis 07955495 J47.9 [id number] Tu Valdez MD Main Office [address] [place] [address] 12/16/2021 13:36:31 12/16/2021 14:15:03 Chronic low back pain 172404363 M54.50 Stable and well controlled with improved level of function on meds. Will continue. Meds refilled x 90 days per terms of narcotic contract. Infiltrati ng duct carcinoma of breast 545950051 C50.919 s/p mastectomy and proceeding with chemo for triple negative disease. Chemo plan has been coordinate d with cardiology and pulmonary. Being followed very closely by all specialist s. Will request/mo nickor rod ence. [id number] Tu Valdez MD [facility] [address] [place] [address] 03/13/2022 09:43:13 03/16/2022 11:08:48 Chronic pain syndrome 093389745 G89.4 Chronic/st able. Will renew/main tain on currently effective regimen. Chronic hoarseness 66645 27309 105 R49.0 Needs ENT f/u to consider laryngosco py. 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 Lumbar radiculopathy 128 582445 M54.16 Symptoms stable/wel l controlled on current narcotic regimen. Candidiasi s of esophagus 70416844 B37.81 Has been treated. Will see what ENT eval shows. Hypercalcemia 90490978 E 83.52 Will request recent endo notes. Likely that active pulmonary process is contributi ng. Infiltrati ng duct carcinoma of breast 930365893 C50.919 s/p mastectomy and proceeding with chemo for triple negative disease. Chemo plan has been coordinate d with cardiology and pulmonary. Being followed very closely by all medical oncology given intoleranc e to chemo. Scheduled for port removal in March. Anemia due to unknown mechanism 73682457 D64.9 Will monitor off of chemo and screen for nutritonal deficienci es. Chronic ki dney disease stage 3A 425539217 N18.31 On ARB with good BP control. Will monitor. Hypothyroidism 25331464 E03.9 Clinically euthyroid and biochemica lly hypothyroi d. Will reassess since dose decrease. [id number] Tu Valdez MD Main Office 3640 [facility] [address] [place] [address] 04/30/2022 10:16:57 04/30/2022 11:12:38 Adult health examination 169950225 Z00.00 Will update immunizati on status, flu advised in the Fall and Shingrix via local pharmacy. Will screen based on risk factors. Regular dental and ophtho care advised as well as sunscreen and seat belt use. Distracted driving discussed. Cervical, breast and colon cancer screening utd. Advance directives discussed and in place. Anxiety state 649131772 F41.1 Using appropriat dayami. Will monitor use. Benzo contract in place. Pure hypercholesterolemia 604711282 E78.01 Current 10 yr risk 3.2%, with minimal CAD on 2016 cath. Will follow for now,. Prediabetes 755884359 R7 3.03 Will monitor. Varicella vaccination 68 843251 Z23 Generalize d anxiety disorder 91145423 F41.1 Symptoms mild and intermitte nt. Rx refilled, will monitor use. Lumbar radiculopathy 128 968589 M54.16 Symptoms worsening but left sided and MRI showing more significan t right sided disease. Will refer to pain mgmt/PMR if persistent /worse depending on what today's PET scan shows. Infiltrati ng duct carcinoma of breast 389119073 C50.919 s/p mastectomy and proceeding with chemo for triple negative disease. Did not tolerate chemo, and recent spine MRI shows question of mets. Having PET scan today which will likely guide further treatment/ evaluation . Hyperparathyroidism 6699 9008 E21.3 Noted on routine labs. Given history of radiation therapy will ask endo to help with evaluation . Asthma-chr onic obstructive pulmonary disease overlap syndrome 6301339884 9719076 J44.9 Well controlled currently and following with pulm. [place] H eart Association Classification - Class III 854478123 I50.9 Compensate d and well controlled currently. Followed/m anaged by cardiology . Fibrosis of lung 9071861 1 J84.10 [id number] Tu Valdez MD Main Office [address] [address] 06/09/2022 09:11:53 06/09/2022 10:00:29 Chronic low back pain 308995844 M54.50 Stable and well controlled with improved level of function on meds. Will continue. Meds refilled x 90 days per terms of narcotic contract. Lumbar radiculopathy 128 026241 M54.16 Symptoms stable and more left sided with MRI showing more significan t right sided disease. Consider PMR referral if worsening. Constipation 11144709 K5 9.00 Well controlled with stool softener and Senna. Will call with any problems. Lesion of lumbar spine 988683015 M99.9 L3 lesion was seen, but PET scan was negative. Back pain is currently well controlled . Consider f/u MRI or other spinal imaging in 3-6 months. [id number] GAGAN RUIZ MD Main Office [address] [address] 07/14/2022 10:45:49 07/14/2022 11:46:13 Chronic low back pain 116980278 M54.50 - acute on chronic lower back [...] like to hold off at this time. [id number] Tu Valdez MD Main Office [address] [place] [address] 08/31/2022 10:21:37 08/31/2022 15:05:01 [id number] Tu Valdez MD [address] [place] [address] 09/04/2022 08:39:49 09/04/2022 15:17:19 Lumbar radiculopathy 226270259 M54.16 Symptoms worsening and MRI pending. Consider PMR vs neurosurg referral depending on results. Try adding low dose gabapentin in meantime. Acute kidn ey injury due to hypovolemia 476491886 E86.1 GI symptoms resolved, will reassess renal function. [id number] Tu Valdez MD [address] [place] [address] 12/04/2022 08:12:46 12/04/2022 15:40:49 Chronic low back pain 349837424 M54.50 Stable and well controlled with improved level of function on meds. Will continue. Meds refilled x 90 days per terms of narcotic contract. Lumbar radiculopathy 128 979561 M54.16 Symptoms worsening and MRI pending. Consider PMR vs neurosurg referral depending on results. Try adding low dose gabapentin in meantime. Hypercalcemia 60488938 E 83.52 Had labs done last month by endo. Pt has referral in place for considerat ion of parathyroi dectomy. [id number] Tony Fine MD [facility] 3640 [facility] [address] [place] [address] 02/04/2023 10:34:40 02/04/2023 13:04:57 Viral syndrome 977989968 B34.9 We spoke about blood work specifical ly looking at mono but decided against this since the dx is highly unlikely given her age and lack of sore throat, She will take aleve on a regular basis and rest, fluids and continue to check COVID. [id number] Jesus Franklin MD [place] [address] [address] 02/08/2023 08:57:42 02/08/2023 09:55:11 Seasonal allergic rhinitis 142579086 J30.2 Symptoms likely related to seasonal allergy. Recommend to switch from claritin to fexofenadi ne 180 mg daily, continue flonase and asthma treatments with nebulizer every 4-6 hrs. If spike fever again , have CBC done. Exposure t o viral disease 8834329563 44967 Z20.828 [id number] Tu Valdez MD Main Office [address] [place] [address] 03/08/2023 09:59:53 03/08/2023 10:45:52 Chronic pain syndrome 720749902 G89.4 Chronic/st able. Will renew/main tain on currently effective regimen. Hypercalcemia 68874640 E 83.52 Had labs done last month by endo. Pt has referral in place for considerat ion of parathyroi dectomy. Lumbar radiculopathy 128 814236 M54.16 Symptoms worsening and MRI pending. Consider PMR vs neurosurg referral depending on results. No long. Chronic ki dney disease stage 3A 469982485 N18.31 On ARB with good BP control. Will monitor. Congestive heart failure 71026687 I50.9 Currently compensate d on appropriat e medical regimen. Following with cardiology , and has appt next week. Hyperparathyroidism 66[address] Bazan, appt with Dr. Taylor postponed with recent acute illness. [id number] Tu Valdez MD [facility] 3640 [facility] [address] [place] [address] 04/27/2023 09:31:09 04/27/2023 16:40:43 [id number] Tu Valdez MD Main Office [address] [facility] [address] [place] [address] 05/03/2023 09:51:21 05/03/2023 11:12:19 [id number] Tu Valdez MD Main Office [address] [facility] [address] [place] [address] 06/15/2023 10:47:41 06/15/2023 11:41:52 Chronic kidney disease stage 3A 393184116 N18.31 On ARB with good BP control. Will monitor. Chronic low back pain 27 7339393 M54.50 Stable and well controlled with improved level of function on meds. Will continue. Meds refilled x 90 days per terms of narcotic contract. Lumbar radiculopathy 128 766634 M54.16 Symptoms worsening and MRI pending. Consider PMR vs neurosurg referral depending on results. No long. Influenza vaccine needed 5943221910 106 Z23 Asplenia 904654241 Q89.0 1 Due for meningitis booster as well as RSV and Shingrix. [id number] Tu Valdez MD Main Office 3640 [place] [address] [place] [address] 08/05/2023 10:17:28 08/05/2023 12:03:00 Adult health examination 324233280 Z00.00 RSV, Shingrix, and PCV20 advised via local pharmacy. Will screen based on risk factors. Regular dental and ophtho care advised as well as sunscreen and seat belt use. Distracted driving discussed. Cervical, breast and colon cancer screening utd. Advance directives discussed and in place. Moderate c hronic obstructive pulmonary disease 509369188 J44.9 Well controlled , following with pulmonary. Constipation 19911240 K5 9.00 Well controlled with stool softener and Senna. Will call with any problems. Gastroesop hageal reflux disease 808883330 K21.9 Symptoms worsening despite 20mg of omeprazole . Will increase to 40mg and arrange GI eval given her history. Anemia 718533145 D64.9 Measured on 07/02 during ED eval. Has been stable. Will reassess and screen for nutritiona l deficienci es. Asplenia 778073543 Q89.0 1 Due for meningitis booster as well as RSV and Shingrix. Congestive heart failure 17050356 I50.9 Currently compensate d on appropriat e medical regimen. Following with cardiology , and has appt next week. Generalize d anxiety disorder 90013581 F41.1 Symptoms mild and intermitte nt. Rx refilled, will monitor use. Hypercalcemia 28239456 E 83.52 Recent labs showed normalizat ion Hyperparathyroidism 66[address] Bazan, appt with Dr. Taylor postponed with recent acute illness. Iron defic iency anemia 22724794 D50.9 Prediabetes 735120686 R7 3.03 Will monitor. Pure hypercholesterolemia 406875063 E78.01 Current 10 yr risk 2.5%, with minimal CAD on 2015 cath. Will follow for now,. Screening for malignant neoplasm of colon 803552226 Z12.11 Due in 04/2024 for f/u colon Fibrosis of lung 4920801 1 J84.10 Symptoms stable, following with Dr. Whitman. Administra tion of pneumococcal vaccine 71338697 Z23 Body mass index 25-29 - overweight 169782084 E66.3 Z68.26 Strain of neck muscle 36 9715202 S16.1XXA Call inb/worse. History of bilateral mastectomy 952215493 Z90.13 History of malignant neoplasm of breast 783421758 Z85.3 s/p b/l mastectomy [id number] Tu Valdez MD [facility] [address] [place], [place] [address] 09/03/2023 08:25:36 09/03/2023 09:24:15 Lumbar radiculopathy 482677667 M54.16 Symptoms worsening and MRI pending. Consider PMR vs neurosurg referral depending on results. No long. Chronic low back pain 27 3901810 M54.50 Stable and well controlled with improved level of function on meds. Will continue. Meds refilled x 90 days per terms of narcotic contract. [id number] Tony Fine MD Main Office [address] [facility] [address] [place] [address] 10/05/2023 11:32:46 10/05/2023 12:09:20 Abdominal pain 74380099 R10.9 LUQ pain but tender to palp [...] add lactulose- stop gavilax for now. Constipation 63982363 K5 9.00 Wheeze - rhonchi 3188051 1 R09.89 just finished doxy 2 weeks ago and sx re-started this wekeend, does not do well on prednsione , will tx with zlashak, she has a call in to [facility] as well. [id number] Tu Valdez MD Main Office [address] [facility] [address] [place] [address] 12/06/2023 10:02:38 12/06/2023 10:45:24 Chronic low back pain 789175913 M54.50 Stable and well controlled with improved level of function on meds. Will continue. Meds refilled x 90 days per terms of narcotic contract. Prediabetes 533964473 R7 3.03 Will monitor. Anemia 261588461 D64.9 Stable and likely related to chronic disease. Will monitor. Lumbar radiculopathy 128 636237 M54.16 Symptoms stable and well controlled on current regimen. Will continue. Hyperparathyroidism 6699 [address] Bazan, appt with Dr. Taylor postponed with recent acute illness. Allergy 470897241 Z91.09 [id number] Tu Valdez MD Main Office [address]40 [place] [address] [place] [address] 12/16/2023 08:53:50 12/20/2023 10:59:11 [id number] Tu Valdez MD [place] [address] [place] [address] [place] [address] 12/17/2023 12:57:10 12/17/2023 14:10:20 Right lower zone pneumonia 634837700 J18.1 Clinically improving. Will complete course of cefpodoxin e and doxy. Will confirm CBC stability and hopefully improvemen t. Pleural effusion 5414329 8 J90 Needs follow up imaging in 4-5 weeks to confirm resolution Acute vaginitis 35461447 N76.0 Will cover for likely candidiasi s based on recent abx and risk factors. Administra tion of viral vaccine 87376465 Z23 Due for meningitis booster and pneumococc al booster given her risk factors/co morbiditie s. Asplenia 575981943 Q89.0 1 Due for meningitis booster and pneumococc al booster given her risk factors/co morbiditie s. Hypophosphatemia 7280997 E83.39 Will reassess following repletion at hospital discharge. Bronchiectasis 91333376 J47.9 Following with pulmonary. [id number] Tu Valdez MD Main Office [facility] [place] [address] [place] [address] 03/06/2024 10:02:59 03/06/2024 10:43:45 Chronic low back pain 949056495 M54.50 Stable and well controlled with improved level of function on meds. Will continue. Meds refilled x 90 days per terms of narcotic contract. Anemia 390135977 D64.9 Stable and likely related to chronic disease. Will monitor., has labs pending. Chronic pain syndrome 37 7619682 G89.4 Chronic/st able. Will renew/main tain on currently effective regimen. Lumbar radiculopathy 128 040297 M54.16 Symptoms stable and well controlled on current regimen. Will continue. [id number] Tu Valdez MD [place] [address] [place] [address] [place] [address] 04/25/2024 14:18:16 04/26/2024 08:36:39 Fall from stairs 477724530 W10.9XXA accident going downstairs c laundry basket in hand, bounced down last 4 stairs - didn't go to ER, didn't want to wait - will check xrays - jorge to r/o vcfmeanwhi le, cont moist heat, prn percocet (already has), cont hep, but add ibu 200mg 2-3 tabs 3x/day c food x several days Pain of le ft shoulder joint 7578230603 1876774 M25.512 accident going downstairs c laundry basket in hand, bounced down last 4 stairs - didn't go to ER, didn't want to wait - will check xrays - jorge to r/o vcfmeanwhi le, cont moist heat, prn percocet (already has), cont hep, but add ibu 200mg 2-3 tabs 3x/day c food x several days Thoracic back pain 83326 8004 M54.6 Low back pain 837349942 M54.50 [id number] Tu Valdez MD Main Office [address], [place] [address] 05/18/2024 08:39:29 05/18/2024 09:40:22 Pain of left shoulder joint 5060107637 2568913 M25.512 accident going downstairs c laundry basket in hand, bounced down last 4 stairs - didn't go to ER, didn't want to wait - will check xrays - jorge to r/o vcfmeanwhi le, cont moist heat, prn percocet (already has), cont hep, but add ibu 200mg 2-3 tabs 3x/day c food x several days Thoracic back pain 04861 8004 M54.6 found to have T4 vcf - seen by IR - rev in pvix - had fluoroscop y & bone scan & just had ct scan this am Fall from stairs 0719806 02 W10.9XXA accident going downstairs c laundry [...] below History of malignant neoplasm of breast 703745820 Z85.3 stable, cont f/u c hem/onc and breast sx Paresthesi a of upper limb 20462974 R20.2 L forearm in C6 distributi on - no obvious fx in this cervical region noted on bone scan - so ? has some form of impingemen t d/t L shoulder pain above - will get pmr evalrec moist heat, hep [id number] Tu Valdez MD Main Office [address] [facility] [address] [facility] [place] [address] 2024 10:50:43 2024 11:26:50 Chronic pain syndrome 368792184 G89.4 Chronic/st able. Will renew/main tain on currently effective regimen. Lumbar radiculopathy 128 973767 M54.16 Symptoms stable and well controlled on updated dosing needed in context of recent vertebral fracture. Compressio n fracture of thoracic spine 931469695 S22.000S Having CT scan and f/u with Dr. Sherwood in upcoming weeks. Multiple n odules of lung 206995558 R91.8 Being followed by pulmonary, but insurance is balking at f/u imaging orders. Pt advised to d/w Dr Stallings and let me know if there is anything I can do to help with the process. [id number] Tu Valdez MD Main Office [address] [facility] [address] [facility] [place] [address] 08/11/2024 09:30:29 08/11/2024 10:22:37 Adult health examination 726041019 Z00.00 Shingrix, and MCV advised via local pharmacy, will need PCV in 2025. Will screen based on risk factors. Regular dental and ophtho care advised as well as sunscreen and seat belt use. Distracted driving discussed. Cervical, breast and colon cancer screening utd. Advance directives discussed and in place. Body mass index 25-29 - overweight 230037905 E66.3 Z68.25 Hypercalcemia 18483600 E 83.52 Recent labs showed normalizat ion, following with endo because of hyperparat hyroidism. Moderate c hronic obstructive pulmonary disease 966103087 J44.9 Well controlled , following with pulmonary. Constipation 81627617 K5 9.00 Well controlled with stool softener and Senna. Will call with any problems. Gastroesop hageal reflux disease 080859594 K21.9 Well controlled without warning signs. Continue current regimen. Anemia 068288421 D64.9 Has been stable. Will reassess and screen for nutritiona l deficienci es. Asplenia 786892875 Q89.0 1 Due for meningitis booster Congestive heart failure 42311530 I50.9 Currently compensate d on appropriat e medical regimen. Following with cardiology , and has appt next week. Generalize d anxiety disorder 78849388 F41.1 Symptoms mild and intermitte nt. Rx refilled, will monitor use. Hyperparathyroidism 6699 [address] Bazan, appt with Dr. Taylor postponed with recent acute illness. Prediabetes 374510529 R7 3.03 Will monitor. Pure hypercholesterolemia 063029502 E78.01 Current 10 yr risk 2.5%, with minimal CAD on 2016 cath. Will follow for now,. Fibrosis of lung 5597198 1 J84.10 Symptoms stable, following with Dr. Stallings Strain of neck muscle 36 3732924 S16.1XXA Will try PT for this and general core strengthen ing. Screening for malignant neoplasm of colon 352978562 Z12.11 Overdue but scheduled in Oct. 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 [place] H eart Association Classification - Class III 851285230 I50.9 Compensate d and well controlled currently. Followed/m anaged by cardiology . Moderate asthma 08926884 9 J45.40 Well controlled and managed via Dr. Stallings. Lumbar radiculopathy 128 306689 M54.16 Symptoms stable and well controlled on updated dosing needed in context of recent vertebral fracture. Compressio n fracture of thoracic spine 009532393 S22.000S Did not qualify for vertebropl asty, and working with endo for osteoporos is. Will try PT for core strengthen ing. Malignant neoplasm of breast in remission 3893996573 [address] Lopez. [id number] Tony Fine MD Main Office 3640 [facility] [address] [facility] [place] [address] 09/15/2024 13:11:37 09/15/2024 14:03:22 Abdominal pain 12929860 R10.9 This may be related to her IBS but given her h/o abdominal surgeries a partial bowel obstructio n is a possibilit y. Also given the location must consider diverticul itis. Will check labs and get a CT scan. She will go to the ER if her symptoms worsen. [id number] Tu Valdez MD [facility] [address] [place] [address] 11/17/2024 14:41:24 11/17/2024 16:05:35 Lumbar radiculopathy 477011001 M54.16 Symptoms stable and well controlled on updated dosing needed in context of recent vertebral fracture. 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 Has appt with oncology and colorectal surgery to guide mgmt moving forward. [id number] GAGAN RUIZ MD Main Office [address] [facility] [address] [facility] [place] [address] 01/13/2025 10:48:32 01/13/2025 11:17:44 Asthma-chronic obstructive pulmonary disease overlap syndrome 9083415425 7193920 J44.9 - c/w albuterol HFA as needed- c/w spiriva 2 puff QD- c/w wixela 1 puff BID- pt follows with pulm, no change in regimen Fibrosis of lung 5184491 1 J84.10 - pt follows with pulm 11/24/2024 Atypical mycobacterial infection 746095840 A31.9 - c/w azithromyc in 500mg TID for treatment of MAC- in pulm note from 11/18 does mention to take doxy as needed Expiratory wheezing 9763 007 R06.2 - heard on exam- due to patient's history and upcoming surgery will provide patient with doxycline 100mg BID- will provide clearance note for surgery if needed [id number] Tu Valdez MD Main Office [address] [facility] [address] [place] [address] 01/29/2025 10:06:59 01/29/2025 12:46:18 [id number] Tu Valdez MD [facility] 3640 [facility] [address] [place] [address] 02/09/2025 12:40:12 02/09/2025 14:43:03 Chronic pain syndrome 483416707 G89.4 Chronic/st able. Will renew/main tain on currently effective regimen. Lumbar radiculopathy 128 960990 M54.16 Symptoms stable and well controlled on updated dosing needed in context of recent vertebral fracture. History of partial resection of colon 724148315 Z90.49 03986974 Recovering well. Patient advised to contact her surgeon regarding restart of Miralax and whether there are issues with OTC ibuprofen to address post op inflammati on/healing . Otherwise pain medication dosing modified for the next 4 weeks to accomodate post op pain. [id number] Tu Valdez MD Main Office [address] [facility] [address] [place] [address] 03/05/2025 14:19:32 03/05/2025 15:39:01 Benign paroxysmal positional vertigo [id number] H81.10 if sxs persist despite abx treatment, then suggest vest therapy eval Dizziness [id number] R42 86820 could be multifacto rial - see below - ? vertigo vs orthostasi s vs other Orthostati c hypotension [id number] I95.1 001679 see above - rec increase water intake Congestive heart failure [id number] I50.9 rev last card ov note in pvix - cont meds as dir for now - her baseline bp is ~ 90/50 Dysfunctio n of bilateral eustachian tubes [id number] 764440 H69.93 [id number] rec warm compress to side of neck Acute fron juancho sinusitis 56288886 J01.10 [id number] no pur nasal dc, but has sinus samson, frontal sinus tenderness and eustachian tube dysfxnreco mmend probiotics while on abx [id number] Tony Fine MD Main Office [address] [facility] [address] [facility] [place] [address] 03/15/2025 08:50:38 03/15/2025 09:32:38 Dysfunction of right eustachian tube [id number] 862026 H69.91 [id number] She will also try an OTC decongesta nt and will keeping calling ENT to try to get an earlier appointmen t. No role continuing abx. This does not appear to be infectious but rather related to obstructio n. [id number] Tu Valdez MD Main Office [address] [place] [address] 04/20/2025 11:16:37 04/20/2025 12:06:37 Generalized anxiety disorder [id number] F41.1 Symptoms mild and intermitte nt. Rx refilled, will monitor use. Depressive disorder 4935 9007 F33.41 Seems to be coping well overall, will monitor. Loss of hair 400929198 L 65.9 87330 Screen for metabolic etiologies . Recent stressors likely a factor. Will address iron deficiency /anemia if found. Dysfunctio n of left eustachian tube [id number] 269224 H69.92 [id number] Check XR to rule out air fluid levels and need for additional abx/steroi ds. If normal will continue current regimen and wait for ENT eval. [id number] Tu Valdez MD Main Office [address] [facility] [address] [facility] [place] [address] 05/11/2025 10:44:12 05/11/2025 11:38:10 Chronic pain syndrome [id number] G89.4 Chronic/st able. Will renew/main tain on currently effective regimen. Chronic low back pain 27 7016021 M54.50 Stable and well controlled with improved level of function on meds. Will continue. Meds refilled x 90 days per terms of narcotic contract. Lumbar radiculopathy 128 498063 M54.16 Symptoms stable and well controlled on current dosing. Narcotic contract renewed. Health Concerns Section Related Observation LastModified by Organization Detai ls LastModified Time None Recorded Concern Status LastModified by Organization Details LastModified Time None Recorded Advance Directives Directive Y: HCP/ Rj Payers Insurance Date Sequence Insurance Name Policy Number Policy Kirk Covered Member ID Kirk Member ID Guarantor Name 06/12/2025 2 [place]: [employer] Paula Hsu [id number] Paula Hsu 06/12/2025 1 [facility] (PPO) [id number] Paula Hsu [id number] Paula Hsu 06/12/2025 3 [place] Paula Hsu [id number] Paula Hsu 10/05/2023 1 [facility] (INDEMNITY) [id number] Paula Hsu [id number] Paula Hsu Notes Date Note Type Note Provider Name and Address Organization Details Recorded Time 5 text/html Back PainReported by PatientHPIFor location, patient reportspain radiating to the legsandpain radiating to the ankle. For quality, patient reportssharpanddull. For severity, patient reportssame. For duration, patient reportschronic. For context, patient reportsoveruse. For alleviating factors, patient reportsrest. For associated symptoms, patient reportsno incontinenceandno shortness of breath.56 year old year old female for f/u on chronic low back pain medications. Pain is chronic and is under control with Oxycodone 5-325 mg taken QID. Pt. is not seeing any other specialists at this time for her back. MRI revealed suspicious L3 lesion and lower lumbar spine disc disease with right sided neuroforaminal impingement. PET scan not suggestive of metastatic disease. Following recent surgery pt has been taking oxycodone every 4 hours. Hospitalization Contact RecordReported by PatientHospitalization Contact RecordFor follow up, [facility]sh[facility]mit date: (please enter in format 'mm/dd/yyyy') (01/17/25),date of discharge: (please enter in format 'mm/dd/yyyy') (01/27/25), anddate of contact: (please enter in format 'mm/dd/yyyy') (01/29/25).Medicare covered inpatient stay? no - [facility] planT with in 48 working hours? yesHCP on [...] adenocarcinoma.-She underwent neoadjuvant immunotherapy and presented to [facility] 01/17 for elective oncologic resection.She underwent R [...] was weaned off as able.-Due to persistent tachycardia/palpitation, was evaluated by cardiology who deemed tachycardia to be due to bisoprolol withdrawal, which had been held the acute period. This was re-started with good effect There were no additional recommendations other than follow up with her home heart failure specialist as outpatient-underwent [facility] teaching with nursing.-Her surgical follow w/ [...] pulm today to see what her orders are.ROS as noted in the HPI Tu Valdez MD [address] [facility] [address], [place], [address], [facility] [place] 02/09/2025 14:29:33 5 text/html intermittent bilateral loud ringing/vibration on ears since Saturday 03/03, which is making her feel dizzy and nauseous 64yoF c/o ringing/vibration in ears, dizziness, nausea, hearing loss, chest palpitations, and SOB all starting on Wednesday. Patient had colorectal surgery for colon CA 01/17, subsequently got pneumonia and was hospitalized in ICU and intubated for 4 days. Now c/o of URI with congestion and SAMSON. Hearing loss began with L-sided hearing loss on Wednesday, but now has returned to normal and now experiencing R-sided hearing loss. No known family hx of Meniere's, sister had vertigo that has resolved. Feels better laying down. Symptoms are worse in the morning, but fluctuates throughout the day. Patient has taken loratidine and fluticasone with no help. Feels better laying down, vibration feels like a car is driving through her head and it vibrates very loud . curr - no cp, sob, palp 87/54 [facility] [facility] visit on Wednesday, lungs CTA. More hoarse than usual. No cough, runny nose. Kristopher Dumont PA-C [address] [facility] [address], [place], [address], [facility] [place] 03/05/2025 17:25:46 5 text/html ROS as noted in the HPI She completed a course augmentin a few days ago which was prescribed on 03/05/25 for 1 week for a presumed sinus infection. She had some improvement but her symptoms have persisted. Her main complains are nasal congestion and pain in her right ear. She has been c/w loratidine and fluticasone and tried zyrtec D but stopped it because she felt like her heart was racing. She has an appointment with ENT in 2 months and has garland calling their office frequently to check on cancellations. Tony Fine MD [address] [address], [place], [address], [facility] [place] 03/15/2025 13:06:32 5 text/html Anxiety/DepressionReported by PatientHPIFor quality, patient reportsincreased anxiety. For context, patient reportsmajor life stressors (recent surgery and treatment for sinus infection). For severity, patient reportsdenies suicidal ideationsandable to maintain relationships. For duration, patient reportssymptoms lasting over 2 weeks. For onset/timing, patient reportsgradual.Has returned to work, having mild anxiety and sleep difficulty. Stopped lorazepam in 2021. Sinusitis/AllergyReported by PatientShe completed a course augmentin on 03/13. She had some improvement but her symptoms have persisted. Her main complains are nasal congestion and pain in her right ear. She has been c/w loratidine and fluticasone and tried zyrtec D but stopped it because she felt like her heart was racing. She has an appointment with ENT in 1 months and has garland calling their office frequently to check on cancellations. Medrol prescribed at last visit helped minimally.ROS as noted in the HPI Jenny kyle, [facility] [place] 05/04/2025 13:09:09 5 text/html Back PainReported by PatientHPIFor location, patient reportspain radiating to the legsandpain radiating to the ankle. For quality, patient reportssharpanddull. For severity, patient reportssame. For duration, patient reportschronic. For context, patient reportsoveruse. For alleviating factors, patient reportsrest. For associated symptoms, patient reportsno incontinenceandno shortness of breath.56 year old year old female for f/u on chronic low back pain medications. Pain is chronic and is under control with Oxycodone 5-325 mg taken QID. Pt. is not seeing any other specialists at this time for her back. MRI revealed suspicious L3 lesion and lower lumbar spine disc disease with right sided neuroforaminal impingement. PET scan not suggestive of metastatic disease. Following recent surgery pt has been taking oxycodone every 4 hours.ROS as noted in the HPI Tu Valdez MD [address] [facility] [address], [place], [address], [facility] 05/11/2025 11:38:37 OBGyn Episode No OBEpisode recorded.
--- OUTSIDE RECORDS SUMMARY | 2025-07-24 13:38 | XMS_ITS | Data Portability ---
Author Organization [place] - [facility], Allergy Address [address] [facility] [address] [place] [address] Care Team Providers Care Stereoptic Projection Topographer Name Role Phone EMERALD NGUYỄN Primary Care Provider Assessment Encounter Date Assessment Date Assessment LastModified by Organization Details LastModified Time 04/02/2025 04/02/2025 64-year-old female with allergic rhinitis, migraine, and TMJ presents for evaluation of the ears. TMs are normal to inspection. Audiometric testing demonstrates normal sloping to mild to moderate sensorineural hearing loss. Word recognition is excellent. Tympanometry is essentially normal. Patient is not a candidate for amplification. We discussed her ear popping is consistent with mild eustachian tube dysfunction. Recommended continuing intranasal Flonase, and trialing auto insufflation 10 times daily and Afrin for 3 days. We discussed there is likely contribution from her daily migraine, and she may benefit from a neurology referral. Reviewed TMJ and tinnitus precautions. She will follow up as needed. [email or web address] Not available 04/02/2025 13:08:49 Plan of Treatment Reminders Order Date Submit Date Provider Last Modified By Organization Details Last Modified Time Details Appointments None record ed. Lab None record ed. Referral None record ed. Procedures None record ed. Surgeries None record ed. Imaging None record ed. Medication Orders None record ed. Patient TargetsNo targets recorded. Patient InstructionsNo instructions recorded. Reason for Referral None Reported. Results Created Date Observation Date Name Description Value Unit Range Abnormal Flag Note LastModifiedBy Organization Detail LastModifiedTime 04/03/20 25 audio gram No observ ation record ed. BARCODE Not Available 2024 09:42:28 Result Notes None recorded. 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, unilatera l; Location: left Note : Date Diagnosed : 6 11:36 AM (J38.01) Not Available [facility] 4 02:13:58 Allergic rhinitis 00710040 Active 2018 Other allergic rhinitis; Note: Date Diagnosed : 05/18/2019 9:29 AM (J30.89) ALIYA FORREST PA-C [address] [facility],[place] [address], [place], [address] , [facility] - [facility] 5 11:18:28 Impacted cerumen in right ear 07879973414 80258 Active 2018 Impacted cerumen, right ear; Note: Date Diagnosed : 05/18/2019 9:26 AM (H61.21) Not Available [facility] 4 02:13:07 Bilateral disorder of Eustachia n tubes 55009219251 74754 Active 2018 Other specified disorders of Eustachia n tube, bilateral ; Note: Date Diagnosed : 05/18/2019 9:29 AM (H69.83) Not Available [facility] 4 02:13:35 Bilateral tinnitus 24996979857 02 Active 2024 ALIYA FORREST PA-C [address] [facility] [address], [place], [address] , [facility] - [facility] 5 22:13:18 Sensorine ural hearing loss of bilateral ears 586368425 Active 2024 ROSIE GONG [address] [facility] [address], [place], [address] , [facility] - [facility] 5 10:38:31 Temporoma ndibular joint disorder 88446619 Active 2024 ALIYA FORREST PA-C [address] [facility],[place] [address], [place], [address] , [place] - [facility] 11:18:03 Migraine 51772109 Active 2024 ALIYA FORREST PA-C [address] [facility] [address], [place], [address] , [place] - [facility] 11:18:16 Problem Notes None recorded. Procedures Surgical History Date Name Laterality Status Provider Name and Address Organization Details Recorded Time 04/02/20 Comp Audio with Tymps - 63641 & 46428 completed ROSIE GONG [address] [facility],[place] [address], [place], [address], [place] - [facility] 04/02/2025 10:38:23 splenectomy completed Crystal Barksdale [place] - [facility] 04/02/2025 10:51:26 appendectomy completed Crystal Barksdale [place] - [facility] 04/02/2025 10:51:35 cholecystectomy completed Crystal Oliverioyka [place] - [facility] 04/02/2025 10:51:48 section completed Crystal Barksdale [place] - [facility] 04/02/2025 10:52:27 lumpectomy of breast completed Crystal Shamir SANCHE[place] - [facility] 04/02/2025 10:52:43 partial hysterectomy completed Crystal Shamir SANCHEZ - [facility] 04/02/2025 10:53:10 partial mastectomy completed Crystal Motyka LAURA - [facility] 04/02/2025 10:54:12 cardiac pacemaker procedure completed Crystal Oliverioyka LAURA - [facility] 04/02/2025 10:55:16 operative procedure on large intestine completed Crystal Oliverioyka LAURA - [facility] 04/02/2025 10:58:13 Imaging Results None recorded. Procedure Notes None recorded. Medical Equipment None Reported. Allergies Allergen ID Allergen Name Allergen Category Reaction Reaction Severity Criticality Documentation Date Start Date Code Code System Note Provider Name and Address Organization Details Recorded Time 307367 Soma Compound with Codeine medicatio n abdominal pain moderate Not available 04/02/2025 43882 0 RxNorm Crystal Motyka null, [place] - [facility] 5 10:49:49 495156 Compazine medicatio n abdominal pain moderate Not available 04/02/2025 69137 6 RxNorm Crystal Motyka null, [place] - [facility] 5 10:49:49 37144 Bactrim medicatio n other Not available Not available 02/15/2024 45034 9 RxNorm React ion: unkno wn, unspe cifie d;; Not Available [facility] 4 00:48:23 04610 clarithro mycin medicatio n other Not available Not available 02/15/202476499 RxNorm React ion: unkno wn, unspe cifie d;; Not Available [facility] 4 00:48:32 22061 Substance with sulfonami de structure and antibacte rial mechanism of action (substanc e) medicatio n other Not available Not available 02/15/2024 14063 8003 SNOMED React ion: unkno wn, unspe cifie d;; Not Available [facility] 4 00:48:49 26909 naproxen medicatio n other Not available Not available 02/15/2024 7258 RxNorm React ion: unkno wn, unspe cifie d;; Not Available [facility] 4 00:48:49 Medications Name Sig Start Date Stop Date Status Note LastModified by Organization Details LastModified Time amoxicill in 500 mg capsule 05/18 completed Medicati on ID: [id number] D uration Value: 10 Reason: () Brand Name: amoxicil trini Send Method: E-Prescr ibed Sub s Allowed: subs OK Medic ationGen ericName : amoxicil trini Not Available Not Available Not Available vitamin A 2,400 mcg capsule 2021 active Not Available Not Available Not Avai lable magnesium 500 mg tablet active Not Available Not Available Not Available carvedilo l 6.25 mg tablet 05/18 completed Medicati on ID: [id number] D uration Value: 30 Reason: () Brand Name: carvedil ol Send Method: E-Prescr ibed Sub s Allowed: subs OK Medic ationGen ericName : carvedil ol Not Available Not Available Not Available azithromy sintia 250 mg tablet TAKE 2 TABLETS BY MOUTH TODAY, THEN TAKE 1 TABLET DAILY FOR 4 DAYS DIRECTED active Not Available Not Available No t Available ondansetr on HCl 4 mg tablet 05/18 completed Medicati on ID: [id number] D uration Value: 3 Reason: () Brand Name: ondanset dewey HCl Send Method: E-Prescr ibed Sub s Allowed: subs OK Medic ationGen ericName : ondatomaet dewey HCl Not Available Not Available Not Available prednison e 20 mg tablet PLEASE SEE ATTACHED FOR DETAILED DIRECTIO NS active Not Available Not Available No t Available Doc-Q-Lac e 100 mg capsule 2015 active Medicati on ID: [id number] D uration Value: 30 Brand Name: Doc-Q-La ce Send Method: E-Prescr ibed Sub s Allowed: subs OK Speci al Instruct ion: TAKE ONE CAPSULE BY MOUTH TWICE A DAY NEEDED M maxine Mendoza Name: Doc-Q-La ce Not Available Not Available Not Available peg-elect rolyte solution 420 gram oral solution MIX DIRECTED AND DRINK 240ML EVERY 15 MINUTES DIRECTED active Not Available Not Available No t Available omeprazol e 40 mg capsule,d elayed release TAKE 1 CAPSULE BY MOUTH EVERY DAY active Not Available Not Available No t Available doxycycli ne monohydra te 100 mg tablet TAKE 1 TABLET BY MOUTH TWICE A DAY FOR 14 DAYS active Not Available Not Available No t Available levothyro xine 75 mcg tablet TAKE 1 TABLET BY MOUTH EVERY DAY. EVERY OTHER WEDNESDAY TAKE AN EXTRA 1/2 TAB active Not Available Not Available No t Available bisoprolo l fumarate 5 mg tablet TAKE 1 TABLET BY MOUTH EVERY DAY active Not Available Not Available No t Available oxycodone -acetamin ophen 5 mg-325 mg tablet 2015 active Medicati on ID: [id number] D uration Value: 25 Brand Name: oxycodon e-acetam inophen Send Method: E-Prescr ibed Sub s Allowed: subs OK Speci al Instruct ion: TAKE ONE TABLET BY MOUTH FOUR TIMES A DAY NEEDED M maxine Swaineneric Name: oxycodon e-acetam inophen Not Available Not Available Not Available lorazepam 0.5 mg tablet 2015 active Medicati on ID: [id number] D uration Value: 30 Brand Name: lorazepa m Send Method: E-Prescr ibed Sub s Allowed: subs OK Speci al Instruct ion: ONE TABLET EVERY DAY NEEDED. Medicati onGeneri cName: lorazepa m Not Available Not Available Not Available metoclopr amide 5 mg tablet PLEASE SEE ATTACHED FOR DETAILED DIRECTIO NS active Not Available Not Available No t Available oxycodone -acetamin ophen 10 mg-325 mg tablet TAKE ONE TABLET BY MOUTH EVERY SIX HOURS NEEDED active Not Available Not Available No t Available calcitoni n (salmon) 200 unit/actu ation nasal spray USE 1 SPRAY INTRANAS ALLY ONCE A DAY FOR 30 DAYS active Not Available Not Available No t Available diazepam 2 mg tablet TAKE 1 TABLET BY MOUTH EVERY 8 HOURS NEEDED FOR SPASMS. active Not Available Not Available No t Available omeprazol e 20 mg capsule,d elayed release 40 mg every day by oral route. 2024 active Not Available Not Available Not Avai lable aspirin 81 mg chewable tablet 03/28 completed Medicati on ID: [id number] B rand Name: aspirin Send Method: E-Prescr ibed Sub s Allowed: subs OK Medic ationGen ericName : aspirin Not Available Not Available Not Available zinc 50 mg tablet 50 mg every day by oral route. 2021 active Not Available Not Available Not Avai lable furosemid e 20 mg tablet TAKE 1 TABLET BY MOUTH EVERY DAY FOR 7 DAYS active Not Available Not Available No t Available levalbute rol 1.25 mg/3 mL solution for nebulizat ion INHALE 1 VIAL WITH NEBULIZE R EVERY 4 HOURS NEEDED FOR FOR WHEEZING active Not Available Not Available No t Available levofloxa sintia 500 mg tablet 05/18 completed Medicati on ID: [id number] D uration Value: 10 Reason: () Brand Name: levoflox acin Sen d Method: E-Prescr ibed Sub s Allowed: subs OK Medic ationGen ericName : levoflox acin Not Available Not Available Not Available methylpre dnisolone 4 mg tablets in a dose pack TAKE 6 TABLETS ON DAY 1 DIRECTED ON PACKAGE AND DECREASE BY 1 TAB EACH DAY FOR A TOTAL OF 6 DAYS active Not Available Not Available No t Available albuterol sulfate HFA 90 mcg/actua tion aerosol inhaler INHALE 2 PUFFS ORALLY 4 TIMES A DAY NEEDED FOR WHEEZING active Not Available Not Available No t Available ondansetr on 4 mg disintegr ating tablet DISSOLVE 2 TABLETS BY MOUTH EVERY 8 HOURS NEEDED FOR NAUSEA/V OMITING active Not Available Not Available No t Available fluticaso ne propionat e 50 mcg/actua tion nasal spray,vidhya pension 2015 active Medicati on ID: [id number] D uration Value: 30 Brand Name: fluticas one Send Method: E-Prescr ibed Sub s Allowed: subs ERNESTO Guillen al Instruct ion: USE 2 SPRAYS IN EACH NOSTRIL EVERY DAY Medi cationGe nericNam e: fluticas one Not Available Not Available Not Available loratadin e 10 mg tablet 2021 active Not Available Not Available Not Avai lable amoxicill in 875 mg-potass ium clavulana te 125 mg tablet TAKE 1 TABLET BY MOUTH EVERY 12 HOURS FOR 7 DAYS active Not Available Not Available No t Available enoxapari n 40 mg/0.4 mL subcutane ous syringe INJECT THE CONTENTS OF 1 SYRINGE (0.4ML) SUBCUTAN EOUSLY EVERY DAY FOR 21 DAYS. active Not Available Not Available No t Available azithromy sintia 500 mg tablet TAKE 1 TABLET BY MOUTH 3 TIMES A WEEK FOR 28 DAYS WEDNESDAY, , WEDNESDAY active Not Available Not Available No t Available valsartan 40 mg tablet 05/18 completed Medicati on ID: [id number] D uration Value: 30 Reason: () Brand Name: valsarta n Send Method: E-Prescr ibed Sub s Allowed: subs ERNESTO Guillen al Instruct ion: TAKE ONE TABLET BY MOUTH EVERY DAY Medi cationGe nericNam e: valsarta n Not Available Not Available Not Available levalbute rol HFA 45 mcg/actua tion aerosol inhaler 2020 active Not Available Not Available Not Avai lable Vitamin C 2015 active Medicati on ID: [id number] B rand Name: Vitamin C Send Method: E-Prescr ibed Sub s Allowed: subs OK Medic ationGen ericName : Vitamin C Not Available Not Available Not Available Multivita mins 03/28 completed Medicati on ID: [id number] B rand Name: multivit amins Se nd Method: E-Prescr ibed Sub s Allowed: subs OK Medic ationGen ericName : multivit amins Not Available Not Available Not Available Advair HFA 230 mcg-21 mcg/actua tion aerosol inhaler 04/01 completed Medicati on ID: [id number] D uration Value: 90 Brand Name: Advair HFA Send Method: E-Prescr ibed Sub s Allowed: subs OK Speci al Instruct ion: INHALE 2 PUFFS INTO THE LUNGS TWICE A DAY, RINSE MOUTH AND THROAT AFTE R USE Medi cationGe nericNam e: Advair HFA Not Available Not Available Not Available Vitamin D3 50 mcg (2,000 unit) tablet 2020 active Not Available Not Available Not Avai lable Citracal- D3 Petites 200 mg (as citrate)- 6.25 mcg (250 unit) tablet 2021 active Not Available Not Available Not Avai lable Spiriva Respimat 2.5 mcg/actua tion solution for inhalatio n INHALE 2 PUFFS BY MOUTH EVERY DAY active Not Available Not Available No t Available Entresto 24 mg-26 mg tablet TAKE 1 TABLET BY MOUTH TWICE A DAY active Not Available Not Available No t Available Daily Probiotic (10 Strains) 2020 active Not Available Not Available Not Avai lable Wixela Inhub 250 mcg-50 mcg/dose powder for inhalatio n INHALE 1 PUFF INTO THE LUNGS EVERY 12 HOURS FOR 30 DAYS active Not Available Not Available No t Available Vitals Date Recorded Body height Body mass index (BMI) Body weight Provider Name and Address Organization Details Last Updated DateTime 04/02/2025 160.02 cm 22.5 kg/m2 59779.23 g Crystal Barksdale [place] - [facility] 04/02/2025 10:49:39 Social History Question Answer Notes LastModified by Organizat ion Details LastModified Time Tobacco Smoking Status Former Smoker Crystal kyle [place] - [facility] 04/02/2025 10:50:02 What Type Of Coroner Technician Do You Use? None Information not available 04/02/2025 When Did You Quit Smoking? 16+yearssinc elastcigaret te Information not available 04/02/2025 What Is Your Current Pack Years? 10packyears Information not available 04/02/2025 Do You Have Any Pets? No Information not available 04/02/2025 At What Age Did You Start Smoking Tobacco? 16 Information not available 04/02/2025 Are You Passively Exposed To Smoke? No Information not available 04/02/2025 Are There Any Smokers In Your House? No Information not available 04/02/2025 How Much Tobacco Do You Smoke? No Information not available 04/02/2025 How Many Years Have You Smoked Tobacco? 1 Information not available 04/02/2025 Sex: Unknown Functional Status Question Answer Note LastModified by Organization Details LastModified Time Do you use any illicit or recreational drugs? No Information not available 04/02/2025 Do you or have you ever used any other forms of tobacco or nicotine? No Information not available 04/02/2025 What type of noise exposure are you exposed to? noExposureToExcessiveNoise Infor mation not available 04/02/2025 Mental Status None recorded. Family History Nothing Reported. Medical History Condition Response Heart Problems Y Immune System Disorder Y Hearing Loss Y Anxiety Y Cancer Y Migraines Y Thyroid Problems Y Depression Y COPD Y Asthma Y Gynecological HistoryNo gynecological history recorded. Obstetrics History GPAL:G 0 P 0 0 0 0 Past Encounters Encounter ID Performer Location Encounter Start Date Encounter Closed Date Diagnosis/Indication Diagnosis SNOMED-CT Code Diagnosis ICD10 Code Diagnosis IMO Codes Diagnosis Note [id number] ALIYA FORREST PA-C [facility] [address] [address] 04/02/2025 10:46:24 04/02/2025 11:13:55 Bilateral tinnitus 8524421343 102 H93.13 [id number] Today we discussed the pathophysi ology of tinnitus and the absence of consistent ly successful pharmacolo gic treatments . Recommend masking strategies to decrease awareness of the tinnitus, including using a white noise machine, music, or television . We discussed how exposure to loud noise can worsen tinnitus so I recommende d hearing protection . We also discussed other ways to potentiall y help reduce awareness of tinnitus including avoidance of caffeine, salty meals and NSAIDs. Sensorineu ral hearing loss of bilateral ears 816347019 H90.3 [id number] Audiologic al evaluation results:Ri ght ear:Normal sloping to mild sensorineu ral hearing loss with excellent word recognitio n.Left ear:Normal sloping to moderate sensorineu ral hearing loss with excellent word recognitio n.Tympanom etry:Right Ear:Type ALeft Ear:Type A Temporoman dibular joint disorder 25598788 M26.609 595298 Stressed chewing evenly on both sides of the mouth to keep from overworkin g the jaw joint. Use soft food diet as needed. Recommend considerin g medical-gr brandin mouth guard through their dentist if symptoms persist despite supportive management . Referral to physical therapist who specialize s in TMJ disorders could also be considered . Migraine 44288101 G43.00 9 05841 Recommend neurology referral through PCP Allergic rhinitis 134688 04 J30.9 [id number] Health Concerns Section Related Observation LastModified by Organization Detai ls LastModified Time None Recorded Concern Status LastModified by Organization Details LastModified Time None Recorded Advance Directives Directive None Recorded Payers Insurance Date Sequence Insurance Name Policy Number Policy Kirk Covered Member ID Kirk Member ID Guarantor Name 04/04/2025 1 [employer] [place] [employer] (PPO) [id number] Paula Hsu [id number] Paula Hsu 03/13/2025 3 [employer] [place] [employer] (INDEMNITY) [id number] Paula Hsu [id number] Paula Hsu 04/04/2025 2 [place] [facility] Paula Hsu [id number] Paula Hsu Notes Date Note Type Note Provider Name and Address Organization Details Recorded Time 04/02/2025 text/html ROS as noted in the HPI 64-year-old with allergic rhinitis and migraine presents for evaluation of the ears. She reports developing an ear infection 4 weeks ago with subsequent aural fullness, popping, and pain. No improvement with Augmentin. She did not tolerate prednisone. Endorses bilateral tinnitus that started suddenly. At baseline, she has forehead pressure and photophobia. History of TMJ. Denies nasal symptoms and feels her environmental allergies are well-controlled with Claritin and Flonase. Colon resection for malignancy 01/2025 SARA RODRIGEZ MD [address] [place] [address], [phone], [facility] - [facility] 04/03/2025 09:46:40 OBGyn Episode No OBEpisode recorded.
== END 2025-07-24 11:59 | disposition home or self-care (01) ==
LOC: HO.HPS 10:56
PROVIDERS: PCP Pediatrics; Visit Provider Hospitalist
DX: R91.8 Other nonspecific abnormal finding of lung field (principal); A31.0 Pulmonary mycobacterial infection; J47.9 Bronchiectasis, uncomplicated; I42.9 Cardiomyopathy, unspecified; I27.20 Pulmonary hypertension, unspecified; C18.6 Malignant neoplasm of descending colon
CPT/HCPCS: 99215

== ENCOUNTER 2025-09-06 14:32 | Outpatient (AMB) | payer OTHER, MEDICAID, SELFPAY ==
[2025-09-06 14:35] VITALS: BP 90/48; PULSE 90; O2SAT 97; BMI 23.8
--- NOTE | 2025-09-06 14:35 | MHC.OFFVIS ---
Vital Signs 09/06/25 14:35 Height 5 ft 3 in Weight 134 lb 7.712 oz BMI 23.8 BP 90/48 L Blood Pressure Location Lt brachial Position Sitting Pulse 90 Pulse Source Pulse Oximeter Pulse Oximetry (%) 97 Oxygen Delivery Method Room Air Intake Visit Reasons: Pulmonary Nodules/CT Follow Up Slitter Operator Required: No Accompanied by: Self / Same As Patient Allergies prochlorperazine (From Compazine) Allergy (Severe, Verified 09/06/25 14:38) Agitated clarithromycin (CLARITHROMYCIN) Allergy (Intermediate, Verified 09/06/25 14:38) RASH codeine (CODEINE) Allergy (Intermediate, Verified 09/06/25 14:38) STOMACH PAIN- GI UPSET naproxen (NAPROXEN) Allergy (Intermediate, Verified 09/06/25 14:38) GI PAIN, DIARRHEA Sulfa (Sulfonamide Antibiotics) (SULFA (SULFONAMIDE ANTIBIOTICS)) Allergy (Intermediate, Verified 09/06/25 14:38) RASH sulfamethoxazole (From BACTRIM) Allergy (Intermediate, Verified 09/06/25 14:38) RASH trimethoprim (From BACTRIM) Allergy (Intermediate, Verified 09/06/25 14:38) RASH HPI Comments Details: The patient is a 65-year-old woman with a known history of breast cancer, 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 Also has underlying bronchiectasis and nonischemic cardiomyopathy likely related to her chemo radiation. She currently has been doing very well. Until recently when she started noticing worsening shortness of breath. She also has some hoarseness. Also some raspiness of her voice. [id number] severity. Started noticing increasing shortness of breath. Has been using her inhaler with good effect. Has not use her nebulizer although it may help her expectorate better with the nebulized therapy. We talked also using hypertonic saline as a way of minimizing medications. We did go for brief walking oximetry in the patient was able to maintain a pulse ox between 94-96%. Heart rate stayed below 100. She was increasing to get more winded. Her Parker score is elevated 09/26. At this point based on a daytime drowsiness her cardiac history and her elevated Parker score the patient will also undergo a sleep study. 01/26/2024 the patient is here for hospital follow-up visit. She was in his usual state health until beginning of the month when she started developing worsening shortness of breath will addition to other constitutional symptoms including abdominal pain and nausea. The patient was brought to the [facility] ER where she was evaluated. She did have a CT scan of the abdomen which I personally reviewed. It appeared that she had a consolidation right lower lobe with small trace pleural effusion. Otherwise limited due to the lung cuts on the abdominal CT scan. She was placed on antibiotics and subsequently discharged. She has been feeling better. Although since she stopped the antibiotics she does feel that she is tired again and having some raspiness of voice. Subsequently, the patient had a formal CT scan when s not need aggressive shshe was discharged about a week ago. I personally reviewed the CT scan to. It appears that the right lower lobe consolidation and the pleural effusion has significantly improved. She still has some residual changes though. In addition to that she also has some nodular changes. Chronic blunting changes noted. It is reassuring overall that her CT scan looks a lot better. Unfortunately the CT scan of the chest was not compared to the CT scan of the abdomen on the actual for more we know mentioned about the significant improvement. 04/18/2024 this is a telehealth visit. The patient started developing worsening cough in addition to fevers and chills. She became concerned. She did call the office on Wednesday of last week. We have no availability so she went to an urgent care [facility]. There she did have a chest x-ray which I personally reviewed without any acute disease. Although she does have chronic airway disease. The patient was given a course of doxycycline which she completed. And then in the urgent care she got a Z-Zackary. Now she is feeling little better. She also use prednisone and they did give her a high dose starting at 60 mg and she has having significant symptoms with palpitations and insomnia so she only took 20 mg this morning. Seems like she is doing better overall. Will go ahead and continue the 20 mg for another pretty 4 days. She is also going to go back on azithromycin 3 times a week. We did review her last CT scan was back in 01/22/2024 with increasing airspace disease and pneumonia. She also has underlying pulmonary nodules. In view of her worsening disease will go ahead and repeat her chest CT scan in June. If she has any worsening symptoms she will call may have to consider getting the CT scan sooner. But I am hopeful that with the medication changes and adjustments she will be okay. In addition to that she needs to go back on the Advair HFA. The patient can not tolerate powdered inhalers because it causes thrush and also hoarseness. She also has a cardiac history so therefore the Advair HFA works very well for her cardiac disease. She has been on it for many years in his work well in view of her comorbidities a rather not change it to anything else either. The patient is adamant she wants to stay on that inhaler as well. Therefore will send to the pharmacy and will perform a PA. 06/19/2024 the patient is here for pulmonary follow-up visit. Since we last spoke the patient did have a fall injuring her back. Mainly the thoracic vertebral body. She did have evaluation by pain management. She was found to have a shattered T4 vertebral body. Was initially recommended she undergo kyphoplasty. Although she was referred to Neurosurgery since appeared to be in a difficult place. She has been having some back pain also some neck discomfort. Prior to that she was having some hyper paresthesias. Seems that she has had some improvement. She continues on pain medications however. She was wondering if she should just let it be. I did emphasize that she needs to follow-up with Neurosurgery and request her recommendation is this may need some interventions specially since his abutting the spinal cord based on my evaluation. As far as her pulmonary nodules could not be well visualized on her CT scan of the thorax. However, what I was able to see that the airways were stable and did and see any significant worsening of disease on the limited lung windows. The patient appears to have significant amount of musculoskeletal issues going on right now in therefore will hold off on any additional imaging studies of the pulmonary nodules at this time. We had requested when before but was denied by the insurance company. Her last CT scan was back in 01/22/2024 which demonstrated some new findings in the right lower lobe area. Therefore will go ahead and request a repeat CT scan in the next 3-4 months and review. Hopefully by then her back issues have resolved. Respiratory was the patient is doing well, and is not requiring aggressive chest PT. Chest congestion is also stable. If the patient develops any worsening symptoms she will call. Otherwise will have a repeat CT scan the next 3-4 months and will follow-up sometime after that. If she has any issues or concerns she can always call for an earlier assessment. 11/24/2024 the patient is here for a pulmonary follow-up visit. Since we last spoke she was having abdominal discomfort and recently underwent a colonoscopy demonstrating what appears to be a colon cancer. She had had a CT scan of the abdomen prior and it was not visualized. Now after the fact she had a repeat CT scan of the abdomen that did see something that area. 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 She did follow-up with Oncology also surgery. Seems like they want to try immunotherapy 1st and then have her undergo surgery. From a respiratory status she has been noticing increasing chest congestion. She had stopped the azithromycin for some time and she did restarted recently. And will go ahead and place on doxycycline just to cover all the bases specially if she is going to need surgery. I did review her CT scan of the chest which was personally by me done in 11/23/2024 and also the 1 she had in October. They just show chronic changes but her lower bases appeared to be clear. No evidence of any active airspace disease. She will continue with respiratory medications and I will make sure to send to the pharmacy and she will take the course of antibiotics as prescribed. She may need a preoperative evaluation. But at this point she is able to proceed with surgery and anesthesia from a pulmonary standpoint. She does have increased perioperative pulmonary complications which includes atelectasis, hypoxia, pneumonia, bronchospasms. However, the patient is medically optimized at this time. 02/02/2025 the patient is here for hospital follow-up visit. She went in for elective surgery for colon cancer. Prior to going to the hospital she did develop worsening cough and she was started on doxycycline. She went ahead and had her surgery. It was prolonged surgery lasting about 7 hours due to the significant amount of adhesions. Surgery with success she was able to remove all the cancer and no evidence of any extension of the cancer noted. I do not have those details is all per patient report. The patient postoperatively has some issues with her breathing. She developed respiratory distress. She had a CTA which I personally reviewed demonstrating extensive airspace disease bilaterally right more than left likely from an aspiration event and she had an NG tube in place. She subsequently had to be intubated for respiratory failure was admitted to the ICU briefly. She was able to be liberated from the ventilator. Post liberation CT scan demonstrated significant airspace disease although significant improvement also bilateral pleural effusions. It was also noted that hemoglobin had dropped significantly. The lowest that I saw basal 7.1. Upon discharge it was 7.3. The patient is very dyspneic. She feels that she has significant shortness of breath and dyspnea with minimal activity. She has a hard time standing. She has been working on the inside spirometer and also the Acapella valve. Her respiratory exam is actually reassuring. And I did visualize both CT scans demonstrating significant airspace disease but significant improvement. She did have significant bilateral pleural effusions likely from 3rd spacing from her very prolonged surgery. During the visit we did go for walking oximetry the patient maintain a pulse ox of 98% which is reassuring heart rate of 97 and she was weak. She was using a cane. At this point will have her get an x-ray and also blood work. I am concerned that she may need a transfusion if her hemoglobin drops to 7 or below. In addition to that will have her get a chest x-ray to assess her fluid status. Right now her white count has been normalized although recheck it again. I do not believe she needs any additional antibiotics but I do believe that she is going to need additional diuresis. Patient follow-up in 3-4 weeks with me. Otherwise I will call her once I get the blood work in the x-ray for further recommendations. 02/28/2025 the patient is here for a pulmonary follow-up visit. Overall she is feeling better. She did take the Lasix for few days and helped her volume overload status. She has been off antibiotics which is reassuring. She is following closely with her anemia. Seems to be getting better as well. She is also trying to work on conditioning and weight gain. She did follow-up with her surgeon seems to be healing well from the surgery. She also had a recent CT scan of the chest at [facility] back on 02/12/2025 which demonstrated interval improvement of the airspace disease and also improvement of the effusion. Overall doing better. Therefore will continue with current therapy she does complaint of nasal congestion and postnasal drip causing cough. She will try some Mucinex and also holistic remedies could also help. If she starts noticing worsening consistency color or frequency of the congestion she can always call. But right now her respiratory exam is reassuring and does not need any additional medicines right now. She will continue with respiratory therapy in her CPT. 05/22/2025 the patient is here for pulmonary follow-up visit. Overall she is doing better. Although recently she started getting more chest congestion. She has been concerned because she does not want to buildup like it did before. She had been on the azithromycin 3 times a week for the mycobacterial disease and also she had responded well to doxycycline. Therefore will start her on course of doxycycline and then she can start the azithromycin 3 times a week. She will need to get EKGs to make sure her QT intervals are within normal limits. She continues with the cardiac medications doing well. No recent imaging to review. She will continue with the current respiratory therapy and continue with CPT. 07/24/2025 the patient is here for sick visit. Apparently she started developing worsening cough. Chest congestion. She had to use her nebulizer with good response although did make her a little tremulous. The patient did have a CT scan of the chest recently at [facility]. It was a CT scan of the abdomen and chest because of her colon cancer. It was personally by me. She has 2 new nodules 1 in the left lower lobe and also 1 in the right middle lobe area. 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 The patient had been treated at that time with Amikacin neb treatments in addition to azithromycin. And she did recover in the nodules did subside. He is currently off the amikacin. She had been on the azithromycin and we had started the last visit but then she stopped it. Therefore will go ahead and start the azithromycin 500 mg daily and will try to get him a sputum and has also an AFB culture to see if there is any evidence of any recurrence of the mycobacterial disease. In the meantime the patient is scheduled to undergo a repeat CAT scan in 6 weeks. If the nodules are still there she will need to get those nodules looked at further with invasive or semi-invasive diagnostic interventions. I did recommend Interventional Pulmonary as an option specially with navigational bronchoscopy or robotic bronchoscopy to provide better accurate results especially with the high risk due to her comorbidities. So the patient will start his azithromycin for now she is going to call if she is no better and she will provide us with a sputum sample. Otherwise will follow-up in 6 weeks after her CAT scan. 09/06/2025 the patient is here for pulmonary follow-up visit. The patient overall is doing okay. She is recovering from COVID. She developed COVID after Thanksgiving. She did not take any medications for it. She has been taking the azithromycin 3 times a week. In addition to that she continue her respiratory therapy. She decided to have her repeat CAT scan although she was still recovering from COVID. It appears that has not been officially read yet. I did personally reviewed and compared to her x-ray from a few months ago. The 2 nodules that were new appeared to have resolved. Although now she has 2 areas of consolidations in the right lower lobe area. This suggestive of post COVID related disease. Will go ahead and add Vantin to her regimen to treat her for post COVID bacterial pneumonia. The patient will need another CAT scan in 2-3 months. But is at least reassuring that the other nodular densities have subsided. The CT scan has not been officially read yet. Therefore will wait for the final read for any other findings. For now she is going to continue with the azithromycin 3 times a week. She does follow-up with Cardiology. And she will take 10 days of the Vantin. She was supposed to provide a sputum sample but she has not been able to do so as of yet. At this point will hold off especially since her recent infection. 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 Bronchiectasis Surgical History H/O right mastectomy History of cholecystectomy H/O: hysterectomy H/O splenectomy Family History Other Hypertension Social History Patient Tobacco Use Status: Former Tobacco user Tobacco use type: Cigarette Years Smoked: 10 years Review of Systems Const Denies chills, Denies fatigue, Denies fever(s) and Denies weight loss ENT Denies dizziness, Reports hoarseness, Denies lip swelling and Denies tongue swelling Card Denies chest pain, Denies leg edema, Denies lightheadedness, Denies palpitations, Reports dyspnea on exertion, Denies orthopnea and Denies other Resp Reports chest congestion, Reports cough and Reports dyspnea on exertion GI Denies hematochezia and Denies change in stool character Musc Denies abnormal gait, Denies muscle weakness, Denies numbness, Denies radiating pain into limb and Denies tingling Skin/Breast Reports as per HPI Neuro Denies abnormal gait, Denies dizziness, Denies numbness and Denies tingling Psych Denies no additional complaints Endo Denies fatigue and Denies palpitations Guzman/Lymph Denies easy bleeding and Denies lymphadenopathy Aller/Immun Denies lip swelling and Denies tongue swelling Physical Exam Vital Signs: Last Vital Signs Pulse 90 09/06/25 14:35 BP 90/48 L 09/06/25 14:35 Pulse Ox 97 09/06/25 14:35 Oxygen Delivery Method Room Air 09/06/25 14:35 BMI result Body Mass Index 23.8 Const General: comfortable and alert HEENT Throat: Yes postnasal drainage Eyes Pupils: Equal, round and reactive pupils present Neck Neck: Yes normal visual inspection, Yes full ROM and Yes no lymphadenopathy Chest Chest palpation & inspection: normal inspection of the chest Resp Effort & Inspection: normal respiratory effort Auscultation: rhonchi, no wheezes and diminished lung sounds Cardio Rate: regular rate Rhythm: regular rhythm Heart sounds: S1 normal heart sound present and S2 normal heart sound present GI Palpation (GI): Soft to palpation and nontender Auscultation: normal bowel sounds Skin General skin exam: no rashes or lesions noted Neuro Cranial nerves: Yes Equal, round and reactive pupils present Extrem General: No clubbing, No cyanosis and No edema Assessment & Plan Assessment & Plan (1) Pulmonary nodules: Code(s): R91.8 - Other nonspecific abnormal finding of lung field Category: Medical (2) Mycobacterial disease, pulmonary: Comment: clinically better Code(s): A31.0 - Pulmonary mycobacterial infection Category: Medical (3) Bronchiectasis: Code(s): J47.9 - Bronchiectasis, uncomplicated Category: Medical Qualifiers: Bronchiectasis type: uncomplicated Qualified Code(s): J47.9 - Bronchiectasis, uncomplicated (4) Cardiomyopathy: Comment: related to XRT from the lymphoma history Code(s): I42.9 - Cardiomyopathy, unspecified Category: Medical Qualifiers: Cardiomyopathy type: unspecified Qualified Code(s): I42.9 - Cardiomyopathy, unspecified (5) Pulmonary hypertension: Code(s): I27.20 - Pulmonary hypertension, unspecified Category: Medical (6) Pulmonary nodules: Comment: Has had waxing and waning nodules from mycobacterial disease. Code(s): R91.8 - Other nonspecific abnormal finding of lung field Category: Medical (7) Colon cancer: Code(s): C18.9 - Malignant neoplasm of colon, unspecified Category: Medical Qualifiers: Colon location: descending Qualified Code(s): C18.6 - Malignant neoplasm of descending colon (8) Pneumonia: Code(s): J18.9 - Pneumonia, unspecified organism Category: Medical Qualifiers: Pneumonia type: due to unspecified organism Laterality: left Lung location: upper lobe of lung Qualified Code(s): J18.9 - Pneumonia, unspecified organism (9) Pneumonia: Comment: resolved Code(s): J18.9 - Pneumonia, unspecified organism Category: Medical Qualifiers: Pneumonia type: due to unspecified organism Laterality: right Lung location: lower lobe of lung Qualified Code(s): J18.9 - Pneumonia, unspecified organism Plan Continue CPT with nebulized therapy, hypertonic saline Wixela continue azithromycin 500mg daily start Vantin x 10 days sputum for AFB/cx continue Spirva. Does not tolerate powdered inhalers due to larygeal disease, vocal cord paralysis and hoarseness STEFANI as needed Astelin nasal spray diuresis as tolerated CT chest at [facility] [place] in 8-12 weeks. EKG by Cardiology F/U in 12 weeks Orders: Orders CT chest wo IV con 10 Weeks J18.9 - Pneumonia, unspecified organism, R91.8 - Other nonspecific abnormal finding of lung field Medications: New cefpodoxime must administer with a meal/food 200 mg PO BID 20 tabs 0RF Refilled azithromycin 500 mg PO DAILY 30 tabs 3RF 30 days Coding Level of Care Code Complex visit Add On G2211 Diagnoses Pulmonary nodules R91.8 Mycobacterial disease, pulmonary A31.0 Bronchiectasis without complication J47.9 Bronchiectasis type: uncomplicated Cardiomyopathy, unspecified type I42.9 Cardiomyopathy type: unspecified Pulmonary hypertension I27.20 Malignant neoplasm of descending colon C18.6 Colon location: descending Pneumonia of left upper lobe due to infectious organism J18.9 Pneumonia type: due to unspecified organism Laterality: left Lung location: upper lobe of lung Time Spent (min) 45
== END 2025-09-06 15:01 | disposition home or self-care (01) ==
LOC: HO.HPS 14:32
PROVIDERS: PCP Pediatrics; Visit Provider Hospitalist
DX: R91.8 Other nonspecific abnormal finding of lung field (principal); A31.0 Pulmonary mycobacterial infection; J47.9 Bronchiectasis, uncomplicated; I42.9 Cardiomyopathy, unspecified; I27.20 Pulmonary hypertension, unspecified; C18.6 Malignant neoplasm of descending colon; J18.9 Pneumonia, unspecified organism
CPT/HCPCS: 99215